=== PATIENT | male | born 1960 | race Caucasian/White ===

== ENCOUNTER 2024-07-08 20:33 | Emergency (ER) | payer BC ==
[~2024-07-08] VITALS: Ht 167.6 cm; Wt 111.1 kg
[2024-07-08 20:34] VITALS: BP 146/88; PULSE 103; RESP 20; TEMP 100.3
--- NOTE | 2024-07-08 20:40 | NUR ---
COVID, FLU AND STREP SWABS COLLECTED AND SENT FOR ANY FUTURE ORDERS
--- NOTE | 2024-07-08 21:17 | ERN ---
General Chief Complaint: Fever Stated Complaint: SOB, FEVER, COUGH Time Seen by MD: 20:39 Source: patient History of Present Illness Initial Comments Patient is a 63-year-old male with a history of aortic valve replacement and is hypervigilant about any kind of infection. He comes in with 24 hours of fever cough shortness of breath and associated nausea. He measured his temperature at home at 1.02.5 it is here measured at 100.3. His heart rate is 103. Saturating well on room air. Allergies: Coded Allergies: No Known Allergies (Unverified Allergy, Unknown, 07/08/24) Past Medical History Past Medical History: No Pertinent History Past Surgical History: Other Surgical History Other: AORTIC VALVE IN 1993 Constitutional: (+) chills, (+) diaphoresis, (+) fever, (+) malaise, (+) weakness, (+) other documentation EENTM: (-) eye pain, (-) blurred vision, (-) tearing, (-) double vision, (-) ear pain, (-) ear discharge, (-) nose pain, (-) nose congestion, (-) throat pain, (-) Throat swelling, (-) mouth pain, (-) tooth pain, (-) mouth swelling, (-) other documentation Respiratory: (+) cough, (+) orthopnea, (+) short of breath, (+) stridor, (+) wheezing, (+) other documentation Cardiovascular: (-) chest pain, (-) edema, (-) palpitations, (-) syncope, (-) dyspnea on exertion, (-) other documentation Gastrointestinal/Abdominal: (+) nausea Musculoskeletal: (-) Neck pain, (-) back pain, (-) Flank Pain, (-) joint pain, (-) joint swelling, (-) muscle pain, (-) muscle stiffness, (-) gout, (-) other documentation Neuro: (-) altered mental status, (-) headache, (-) syncope, (-) paralysis, (-) numbness, (-) seizure, (-) pre-existing deficit, (-) tremors, (-) weakness, (-) dizziness, (-) slurred speech, (-) vertigo, (-) other documentation Physical Exam General Appearance: (+) mild distress Orientation: (+) alert Head/Face Trauma: No Eye: bilateral eye normal inspection, bilateral eye PERRL, bilateral eye EOMI Ear, Nose, Throat: (+) hearing grossly normal, (+) normal ENT inspection, (+) moist mucous membraine Neck: (+) normal inspection, (+) supple Respiratory: (+) chest non-tender, (+) lungs clear, (+) well ventilated Heart: (+) regular, (+) no gallop Gastrointestinal: (+) soft, (+) non-tender, (+) bowel sound present Results Laboratory and Microbiology Lab and Micro Result Laboratory Tests Test 07/08/24 20:40 07/08/24 21:30 Influenza Type A Antigen Negative For Type A Influenza Type B Antigen Negative For Type B SARS-CoV-2 Antigen (Rapid) PRESUMPTIVE NEGATIVE Group A Streptococcus Rapid negative (NEGATIVE) White Blood Count 12.5 K/uL (4.8-10.8) H Red Blood Count 5.09 MIL/uL (4.50-6.20) Hemoglobin 15.2 g/dL (14.0-18.0) Hematocrit 44.3 % (42-54) Mean Corpuscular Volume 87.0 fL (79-99) Mean Corpuscular Hemoglobin 29.9 pg (27.0-33.0) Mean Corpuscular Hemoglobin Concent 34.3 g/dL (32.0-36.0) Red Cell Distribution Width 13.0 % (11.0-15.5) Platelet Count 174 K/uL (130-400) Mean Platelet Volume 9.4 fL (7.5-10.5) Immature Granulocyte % (Auto) 0.4 % (0-1) Neutrophils (%) (Auto) 84.4 % (40.0-77.0) H Lymphocytes (%) (Auto) 7.7 % (21.0-51.0) L Monocytes (%) (Auto) 6.7 % (3.0-13.0) Eosinophils (%) (Auto) 0.6 % (0.0-8.0) Basophils (%) (Auto) 0.2 % (0.0-5.0) Neutrophils # (Auto) 10.6 K/uL (1.8-7.7) H Lymphocytes # (Auto) 1.0 K/uL (1.0-4.8) Monocytes # (Auto) 0.8 K/uL (0.1-1.0) Eosinophils # (Auto) 0.08 K/uL (0.00-0.70) Basophils # (Auto) 0.02 K/uL (0.00-0.20) Absolute Immature Granulocyte (auto 0.05 K/uL (0-1) Nucleated Red Blood Cells 0.0 % (0.0-0.19) White Cell Morphology Comment See comments MDM Patient has signs and symptoms of an upper respiratory tract infection. I will give him fluid nasal swabs chest x-ray UA. Patient's chest x-ray is pristine. Patient's viral swabs are negative for strep influenza B and COVID. I discussed with him the test results and we both felt that it was a respiratory tract infection most likely viral and that he should just take care of himself for the next few days. If things get worse he should return. ED Course Orders Procedure Category Date Status Time Chest 1vw RAD 07/08/24 Taken 21:18 Rapid (Group A Strep) LAB 07/08/24 Complete 21:18 Covid19 (Sars Antigen LAB 07/08/24 Complete Rapid) 21:18 Influenza Type A & B, LAB 07/08/24 Complete Rapid 21:18 Cbc With Differential LAB 07/08/24 Complete 21:18 Lactated Ringers PHA 07/08/24 In Process 1000ml (Lactated 21:30 Urinalysis Profile LAB 07/08/24 Logged 21:18 12 Lead Ekg Tracing- EKG 07/08/24 Complete Technical 21:18 RSV LAB 07/08/24 In Process 22:16 Current Medications Medications (Trade) Dose Ordered Sig/Hank Route PRN Reason Start Time Stop Time Status Last Admin Dose Admin Lactated Ringer's (Lactated Ringers 1000ml) 1,000 ml BOLUS IV 07/08/24 21:30 08/07/24 21:29 Vital Signs Date Time Temp Pulse Resp B/P (MAP) Pulse Ox O2 Delivery O2 Flow Rate FiO2 07/08/24 20:34 100.2 103 20 146/88 97 Room Air DX & DISP Disposition: Discharge Departure Impression: Primary Impression: URTI (acute upper respiratory infection) Condition: Stable Additional Instructions: Please return to the emergency room if your condition does not improve or if it declines precipitously. Drink plenty of fluids Tylenol for fever Robitussin for sore throat. NAHUM FRIEND MD Jul 08, 2024 21:17
[2024-07-08] MEDS ORDERED: LACTATED RINGERS 1000ML IV SCH (21:30)
[2024-07-08 21:36] LABS: RAPID GROUP A STREP negative (NEGATIVE)
[2024-07-08 21:36] LABS: BASOPHILS # (AUTO) 0.02 K/uL (0.00-0.20); BASOPHILS % (AUTO) 0.2 % (0.0-5.0); EOSINOPHILS # (AUTO) 0.08 K/uL (0.00-0.70); EOSINOPHILS % (AUTO) 0.6 % (0.0-8.0); HEMATOCRIT 44.3 % (42-54); IMMATURE GRANULOCYTE ABSOLUTE 0.05 K/uL (0-1); LYMPHOCYTES % (AUTO) 7.7 % (21.0-51.0); MEAN CORPUSCULAR HEMOGLOBIN 29.9 pg (27.0-33.0); MEAN CORPUSCULAR HGB CONC 34.3 g/dL (32.0-36.0); MONOCYTES # (AUTO) 0.8 K/uL (0.1-1.0); MONOCYTES % (AUTO) 6.7 % (3.0-13.0); NEUTROPHILS # (AUTO) 10.6 K/uL (1.8-7.7); NEUTROPHILS % (AUTO) 84.4 % (40.0-77.0); PLATELET COUNT (AUTO) 174 K/uL (130-400); RED BLOOD CELL COUNT(AUTO) 5.09 MIL/uL (4.50-6.20); WHITE BLOOD COUNT (AUTO) 12.5 K/uL (4.8-10.8)
--- NOTE | 2024-07-08 21:49 | EKG ---
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
[2024-07-08 21:50] LABS: INFLUENZA TYPE A Negative For Type A (NEGATIVE); INFLUENZA TYPE B Negative For Type B (NEGATIVE)
[2024-07-08 22:00] LABS: COVID19 (SARS ANTIGEN RAPID) PRESUMPTIVE NEGATIVE (NEGATIVE)
--- NOTE | 2024-07-08 22:17 | NUR ---
RSV RECOLLECTED AND SENT
--- NOTE | 2024-07-08 23:06 | NUR ---
CALLED, NO ANSWER
--- NOTE | 2024-07-08 23:08 | NUR ---
CALLED FOR DISCHARGE AND DISCHARGE V/S. NO ANSWER
--- NOTE | 2024-07-08 23:12 | NUR ---
DAVID BURNETT AWARE OF PT ELOPEMENT
--- NOTE | 2024-07-09 08:11 | HMCIMG ---
PORTABLE CHEST RADIOGRAPH INDICATION: COUGH / CONGESTION COMPARISON: None FINDINGS: Median sternotomy wires are in appropriate alignment. Heart size is normal. The pulmonary vascularity and yulisa appear normal. No abnormal pulmonary parenchymal opacity or consolidation identified. No significant pleural effusion noted. No pneumothorax detected. IMPRESSION: No radiographic evidence for any acute cardiopulmonary process.
== END 2024-07-08 23:21 | disposition home or self-care (01) ==
LOC: EDH 20:33
DX: J06.9 Acute upper respiratory infection, unspecified (principal); Z20.822 Contact with and (suspected) exposure to COVID-19; Z98.890 Other specified postprocedural states
CPT/HCPCS: 36415; 71045; 85025; 87420; 87426; 87804; 87807; 87880; 93005; 99284

== ENCOUNTER 2024-07-14 13:15 | Emergency (ER) | payer BC ==
[~2024-07-14] VITALS: Ht 167.6 cm; Wt 111.1 kg
--- NOTE | 2024-07-14 13:32 | EKG ---
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
[2024-07-14 13:47] LABS: BASOPHILS # (AUTO) 0.03 K/uL (0.00-0.20); BASOPHILS % (AUTO) 0.4 % (0.0-5.0); EOSINOPHILS # (AUTO) 0.38 K/uL (0.00-0.70); EOSINOPHILS % (AUTO) 5.4 % (0.0-8.0); HEMATOCRIT 41.8 % (42-54); IMMATURE GRANULOCYTE ABSOLUTE 0.04 K/uL (0-1); LYMPHOCYTES # (AUTO) 1.8 K/uL (1.0-4.8); LYMPHOCYTES % (AUTO) 25.8 % (21.0-51.0); MEAN CORPUSCULAR HEMOGLOBIN 29.3 pg (27.0-33.0); MEAN CORPUSCULAR HGB CONC 34.2 g/dL (32.0-36.0); MEAN CORPUSCULAR VOLUME 85.7 fL (79-99); MONOCYTES # (AUTO) 0.6 K/uL (0.1-1.0); MONOCYTES % (AUTO) 8.1 % (3.0-13.0); NEUTROPHILS # (AUTO) 4.2 K/uL (1.8-7.7); NEUTROPHILS % (AUTO) 59.7 % (40.0-77.0); PLATELET COUNT (AUTO) 230 K/uL (130-400); RED BLOOD CELL COUNT(AUTO) 4.88 MIL/uL (4.50-6.20); RED CELL DISTRIBUTION WIDTH 12.8 % (11.0-15.5)
[2024-07-14 13:54] LABS: POTASSIUM 4.5 mmol/L (3.5-5.1)
[2024-07-14 14:06] LABS: B-TYPE NATRIURETIC PEPTIDE 79 pg/mL (0-100)
[2024-07-14 14:14] LABS: PROTHROMBIN TIME 42.6 SEC (9.6-11.6)
[2024-07-14 14:15] LABS: INR 4.68 (0.85-1.15)
[2024-07-14] MEDS ORDERED: PRED5TAB PO (15:06)
[2024-07-14] MEDS ORDERED: ALBU18HF7 IH (15:06)
--- NOTE | 2024-07-14 15:07 | ERN ---
General Chief Complaint: Congestion Stated Complaint: RETURNING PT Time Seen by MD: 13:16 Source: patient History of Present Illness Initial Comments 63-YEAR-OLD MALE COMING IN DUE TO COUGH. PATIENT STATES THAT HE WAS RECENTLY SEEN IN THE EMERGENCY ROOM WAS TOLD THAT HE COULD FOLLOW UP OUTPATIENT THERE WAS NOT AN ELEVATED WHITE BLOOD CELL COUNT AND STATES THAT HE HAD A MILD PNEUMONIA WHICH WAS TOLD TO HIM. HE STATES THAT THE COUGH HAS BEEN GETTING BETTER BUT IT WAS STILL PRESENT. HE ALSO STATES HE NO LONGER HAS A FEVER. Allergies: Coded Allergies: No Known Allergies (Unverified Allergy, Unknown, 07/08/24) Past Medical History Past Medical History: No Pertinent History Past Surgical History: Other Surgical History Other: AORTIC VALVE IN 1993 ROS Dictation CONSTITUTIONAL: NO CHILLS, NO FEVER, NO WEAKNESS, NO DIAPHORESIS, NO MALAISE. HEAD/FACE: NO SIGNS OF TRAUMA. EENT: NO EYE PAIN, NO BLURRED VISION, NO TEARING, NO DOUBLE VISION, NO EAR PAIN, NO EAR DISCHARGE, NO NOSE PAIN, NO NASAL CONGESTION, NO THROAT PAIN, NO THROAT SWELLING, NO MOUTH PAIN. RESPIRATORY: NO COUGH, NO ORTHOPNEA, NO SOB, NO STRIDOR, WHEEZING. CARDIOVASCULAR: NO CHEST PAIN, NO EDEMA, NO PALPITATIONS, NO SYNCOPE. GASTROINTESTINAL/ABDOMINAL: NO ABDOMINAL PAIN, NO CONSTIPATION, NO DIARRHEA, NO NAUSEA, NO VOMITING. GENITOURINARY: NO ABNORMAL DISCHARGE, NO DYSURIA, NO FREQUENT URINATION, NO HEMATURIA. NO COMPLAINTS OF PAIN IN THE GENITALS. MUSCULOSKELETAL: NO BACK PAIN, NO GOUT, NO JOINT PAIN, NO JOINT SWELLING, NO MUSCLE PAIN, NO MUSCLE STIFFNESS, NO NECK PAIN. INTEGUMENTARY: NO CHANGE IN COLOR, NO CHANGE IN HAIR/NAILS, NO DRYNESS, NO LESION, NO LUMPS, NO RASH. NEUROLOGICAL/PSYCH: NO ANXIETY, NOT DEPRESSED, NO EMOTIONAL PROBLEM, NO HEADACHE, NO NUMBNESS, NO PRE-EXISTING DEFICIT, NO HISTORY OF SEIZURES, NO TREMORS, NO WEAKNESS. HEMATOLOGIC/LYMPHATIC: NOT ANEMIC, NO HISTORY OF BLOOD CLOTS, NO APPARENT BLEEDING, NO BRUISING, GLANDS NOT SWOLLEN. ALL SYSTEMS NEGATIVE, EXCEPT NOTED. Physical Exam Physical Exam Dictation VITAL SIGNS: REVIEWED. GENERAL APPEARANCE: ALERT, ORIENTED X3, NO ACUTE DISTRESS, OBESE. HEAD AND FACE: NON-TRAUMATIC. EYES: PERRL, PINK CONJUNCTIVAS, EYELID NO TRAUMA, ANTERIOR CHAMBER CLEAR. EARS: PINNAS INTACT AND NO SIGNS OF TRAUMA OR ERYTHEMA. EAR CANALS CLEAR AND NO DISCHARGE. TMS NO ERYTHEMA. NOSE: NO DISCHARGE, NO BLEEDING. OROPHARYNX: MOUTH NORMAL, TEETH NO CARIES, TONGUE PINK. PHARYNX CLEAR, NO ERYTHEMA. TONSILS NO EXUDATES, NO ABSCESSES NOTED. MUCOUS MEMBRANE MOIST. NECK: SUPPLE, NON-TENDER, NO THYROMEGALY, NO MASSES, NO JVD, NO BRUITS. BREAST: DEFERRED. CHEST: NO TENDERNESS, NO CREPITUS, NO PARADOXICAL MOVEMENT, NO RETRACTIONS. LUNGS: CLEAR, WELL-VENTILATED, SYMMETRIC, NO RALES, WHEEZING, NO RHONCHI, NO STRIDOR, GOOD BREATH SOUNDS BILATERALLY. HEART: REGULAR RATE, REGULAR RHYTHM, NO MURMUR, NO GALLOPS. VASCULAR: NO PERIPHERAL EDEMA. ABDOMEN: SOFT, POSITIVE BOWEL SOUNDS, NONDISTENDED, NO GUARDING, NONTENDER, NO REBOUND, NO MASSES NO HEPATOMEGALY, NO SPLENOMEGALY, NO PRICE'S SIGN, NO HERNIAS. RECTAL: DEFERRED. GENITAL: DEFERRED. NEUROLOGICAL: NORMAL SPEECH, GROSS MOTOR FUNCTION INTACT, GROSS SENSORY FUNCTION INTACT. MUSCULOSKELETAL: NECK NONTENDER, FULL RANGE OF MOTION, BACK NONTENDER, FULL RANGE OF MOTION. EXTREMITIES: NONTENDER, FULL RANGE OF MOTION. SKIN: COLOR PINK, DRY, NO TURGOR, NO RASH, NO LACERATIONS, NO ABRASIONS, NO CONTUSIONS. LYMPHATICS: DEFERRED. Results Laboratory and Microbiology Lab and Micro Result Laboratory Tests Test 07/14/24 13:40 White Blood Count 7.0 K/uL (4.8-10.8) Red Blood Count 4.88 MIL/uL (4.50-6.20) Hemoglobin 14.3 g/dL (14.0-18.0) Hematocrit 41.8 % (42-54) L Mean Corpuscular Volume 85.7 fL (79-99) Mean Corpuscular Hemoglobin 29.3 pg (27.0-33.0) Mean Corpuscular Hemoglobin Concent 34.2 g/dL (32.0-36.0) Red Cell Distribution Width 12.8 % (11.0-15.5) Platelet Count 230 K/uL (130-400) Mean Platelet Volume 9.3 fL (7.5-10.5) Immature Granulocyte % (Auto) 0.6 % (0-1) Neutrophils (%) (Auto) 59.7 % (40.0-77.0) Lymphocytes (%) (Auto) 25.8 % (21.0-51.0) Monocytes (%) (Auto) 8.1 % (3.0-13.0) Eosinophils (%) (Auto) 5.4 % (0.0-8.0) Basophils (%) (Auto) 0.4 % (0.0-5.0) Neutrophils # (Auto) 4.2 K/uL (1.8-7.7) Lymphocytes # (Auto) 1.8 K/uL (1.0-4.8) Monocytes # (Auto) 0.6 K/uL (0.1-1.0) Eosinophils # (Auto) 0.38 K/uL (0.00-0.70) Basophils # (Auto) 0.03 K/uL (0.00-0.20) Absolute Immature Granulocyte (auto 0.04 K/uL (0-1) Nucleated Red Blood Cells 0.0 % (0.0-0.19) Prothrombin Time 42.6 SEC (9.6-11.6) *H Prothromb Time International Ratio 4.68 (0.85-1.15) *H Sodium Level 139 mmol/L (136-145) Potassium Level 4.5 mmol/L (3.5-5.1) Chloride Level 102 mmol/L (101-111) Carbon Dioxide Level 35 mmol/L (21-32) H Blood Urea Nitrogen 12 mg/dL (7-18) Creatinine 1.0 mg/dL (0.5-1.3) Glomerular Filtration Rate Calc 84 mL/min (>90) Random Glucose 93 mg/dL (70-105) Total Calcium 9.0 mg/dL (8.5-10.1) Troponin I High Sensitivity 12 ng/L (4-75) B-Type Natriuretic Peptide 79 pg/mL (0-100) Labs Reviewed?: Yes EKG/XRAY/US/CT/MRI EKG Comment 07/14/2024 TIME 1:29 P.M. VENTRICULAR RATE 67 SINUS RHY[address]M [place] [address] WAVE ELEVATION OR DEPRESSION X-RAY Comment CHEST X-RAY-NAD MDM MDM: DIFFERENTIAL DIAGNOSIS: URI, COUGH, PNEUMONIA, RATIONALE: TESTS CONSIDERED AND ORDERED SECONDARY TO SHARED DECISION MAKING INC SOULEYMANE: PREVIOUS OUTSIDE RECORDS REVIEWED: OLD ER VISITS. RISK OF COMPLICATION AND/OR MORBIDITY OR MORTALITY OF PATIENT MANAGEMENT: NONE PATIENT IS A 63-YEAR-OLD MALE COMING IN TO BE EVALUATED FOR COUGH. PATIENT STATES HE WAS RECENTLY SEEN HERE AND TOLD HE HAD ELEVATED WHITE BLOOD CELL COUNT. LABORATORY WORKUP IMPROVED SIGNIFICANTLY CHEST X-RAY DID NOT DISCLOSE ACUTE FINDINGS ON PHYSICAL EXAM THERE WAS WHEEZING BILATERAL LUNG MOORE PATIENT RECEIVED SOME BREATHING TREATMENTS WELL SOME STEROIDS WE WILL BE DISCHARGED IN STABLE CONDITION WITH A DIAGNOSIS OF URI WITH WHEEZING. DID ADVISED HIM APPROPRIATE FOLLOW UP WITH PCP IN 1-2 DAYS FOR ED Course Orders Procedure Category Date Status Time Cbc With Differential LAB 07/14/24 Complete 13:24 Prothrombin Time With LAB 07/14/24 Complete INR 13:24 B-Type Natriuretic LAB 07/14/24 Complete Peptide 13:24 Chest 1vw RAD 07/14/24 Taken 13:24 12 Lead Ekg Tracing- EKG 07/14/24 Complete Technical 13:24 Troponin I High LAB 07/14/24 Complete Sensitivity 13:24 Urinalysis Profile LAB 07/14/24 Logged 13:24 Basic Metabolic Panel LAB 07/14/24 Complete 13:24 Methylprednisolone PHA 07/14/24 Verified Succ 125mg (Solu-Medr 15:30 Ipratropium/Albuterol PHA 07/14/24 Verified Neb (Duoneb) 15:30 Vital Signs Date Time Temp Pulse Resp B/P (MAP) Pulse Ox O2 Delivery O2 Flow Rate FiO2 07/14/24 13:53 72 18 135/79 97 Room Air* 0 21 07/14/24 13:24 98.1 69 16 144/94 96 Room Air DX & DISP Disposition: Discharge Departure Impression: Primary Impression: URI (upper respiratory infection) Condition: Stable Scripts Albuterol Sulfate (Ventolin Hfa) 90 Mcg Hfa.aer.ad 2 PUFF IH Q4HPRN PRN for wheezing for 30 Days, #18 GM 0 Refills Prov: TRISTEN BOYLE MD 07/14/24 Prednisone (Prednisone) 5 Mg Tablet 1 TAB PO BID for 5 Days, #10 TAB 0 Refills Prov: TRISTEN BOYLE MD 07/14/24 Additional Instructions: FOLLOW-UP WITH PRIMARY CARE PROVIDER IN 1 TO 2 DAYS. TAKE MEDICATIONS DIRECTED HERE IN THE EMERGENCY ROOM. OKAY TO CONTINUE HOME MEDICATIONS UNLESS OTHERWISE DISCUSSED DURING YOUR VISIT IN THE EMERGENCY ROOM TODAY. RETURN TO YOUR NEAREST EMERGENCY ROOM IF SYMPTOMS WORSEN OR IF THERE IS NO IMPROVEMENT. CALL 911 IF YOU NEED IMMEDIATE ASSISTANCE. TAKE TYLENOL [id number] NEEDED AND IF NO CONTRAINDICATIONS ARE PRESENT. INCREASE ORAL HYDRATION. A WOUND CULTURE OR URINE CULTURE WAS ORDERED HERE IN THE EMERGENCY ROOM DEPARTMENT PLEASE FOLLOW-UP WITH PRIMARY CARE PROVIDER AND ADVISE THEM TO GET REPEAT PORTS FROM OUR FACILITY. IF YOU HAD ANY JESSICA WRAP/SPLINTS THAT WERE APPLIED HERE, PLEASE DO NOT REMOVE THEM UNTIL YOU SEE YOUR PRIMARY CARE OR SPECIALTY. REFERRALS: Referrals: SELF,REFERRAL (PCP) PATRICIA FORRESTER MD Time of Disposition: 15:05 TRISTEN BOYLE MD Jul 14, 2024 15:07
[2024-07-14] MEDS: Solu-medROL 125MG VIAL IM ONE (15:17)
[2024-07-14 15:24] VITALS: PULSE 75; RESP 20
[2024-07-14] MEDS: IpraTROPium/alBUTERol SULFATE 3 ML SOLUTION IH ONE (15:24)
[2024-07-14 15:49] VITALS: BP 132/78; PULSE 75; RESP 20; TEMP 98.1; O2SAT 96
--- NOTE | 2024-07-14 15:51 | HMCIMG ---
CHEST 1VW HISTORY: Cough COMPARISON: 07/08/2024 FINDINGS: A frontal projection of the chest was obtained. No acute pulmonary infiltrates is seen. The heart is normal in size. Prominent interstitial markings are seen. Degenerative changes are seen. IMPRESSION: 1. No acute pulmonary infiltrate is seen.
== END 2024-07-14 15:50 | disposition home or self-care (01) ==
LOC: EDH 13:15
DX: J06.9 Acute upper respiratory infection, unspecified (principal); Z79.01 Long term (current) use of anticoagulants; Z98.890 Other specified postprocedural states
CPT/HCPCS: 99284; 71045; 84484; 80048; 83880; 85025; 85610; 36415; 96372; 93005; 94640; J2919

== ENCOUNTER 2024-10-31 11:18 | Inpatient (IN) | payer BC, MEDICARE ==
[2024-10-31] VITALS (28 sets, daily range): BP systolic 90–141; BP diastolic 52–88; PULSE 72–86; RESP 11–23; TEMP 99.2–99.5; O2SAT 99–100
[~2024-10-31] VITALS: Ht 170.2 cm; Wt 117.5 kg
[~2024-10-31 11:18] MED LIST: ALBU18HF7 IH; CLON2TAB21 PO; ENOX100D4 SQ; PRED5TAB PO; WARF-57 PO; WARF7.5T49 PO
--- NOTE | 2024-10-31 11:38 | EKG ---
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
[2024-10-31 12:09] LABS: IMMATURE GRANULOCYTE ABSOLUTE 0.08 K/uL (0-1); NUCLEATED RED BLOOD CELLS 0.0 % (0.0-0.19); PLATELET COUNT (AUTO) 252 K/uL (130-400); RED BLOOD CELL COUNT(AUTO) 3.50 MIL/uL (4.50-6.20); RED CELL DISTRIBUTION WIDTH 13.6 % (11.0-15.5); WHITE BLOOD COUNT (AUTO) 18.6 K/uL (4.8-10.8)
[2024-10-31] MEDS ORDERED: VANCOMYCIN PROTOCOL PER PHARMACY IV SCH (12:30)
--- NOTE | 2024-10-31 12:32 | ERN ---
General Chief Complaint: Shortness of Breath Stated Complaint: COUGH, FLU SYMPTOMS Time Seen by MD: 11:34 Time Seen by Midlevel: 11:34 Source: patient History of Present Illness Initial Comments The patient is a 64-year-old male with a past medical history of hypertension, and aortic valve replacement presenting to the emergency department for evaluation of flu-like symptoms that has been ongoing for one week. The patient reports developing cough and hemoptysis yesterday that worsened today. He does report being on warfarin for an aortic valve that was replaced back in 1993. His last INR was checked two weeks ago. Per EMS the patient had an O2 saturation of 70% on room air. On arrival with the patient has dry blood to his mouth. The patient does report some associated chest pain with coughing. Allergies: Coded Allergies: No Known Allergies (Unverified Allergy, Unknown, 07/08/24) Home Meds Active Scripts Enoxaparin Sodium (Lovenox 100Mg) 100 Mg/Ml Disp.syrin, 100 MG SQ BID for 10 Days, #20 DIS.SYR 1 Refill Prov:VIC DICKEY MD 09/12/24 Albuterol Sulfate (Ventolin Hfa) 90 Mcg Hfa.aer.ad, 2 PUFF IH Q4HPRN PRN for wheezing for 30 Days, #18 GM 0 Refills Prov:TRISTEN BOYLE MD 07/14/24 Prednisone (Prednisone) 5 Mg Tablet, 1 TAB PO BID for 5 Days, #10 TAB 0 Refills Prov:TRISTEN BOYLE MD 07/14/24 Reported Medications Clonazepam (Clonazepam) 2 Mg Tab.rapdis, 1 TAB PO HS for 30 Days, #30 TAB 0 Refills 09/08/24 Warfarin Sodium (Warfarin Sodium) 7.5 Mg Tablet, 7.5 MG PO AD, TAB 09/08/24 Warfarin Sodium (Warfarin Sodium) 5 Mg Tablet, 5 MG PO AD, TAB 09/08/24 Past Medical History Past Medical History: CAD Past Surgical History: Other Surgical History Other: AORTIC VALVE REPLACEMENT ROS Dictation CONSTITUTIONAL: Negative except for HPI HEAD/FACE: Negative except for HPI EENT: Negative except for HPI RESPIRATORY: Negative except for HPI GASTROINTESTINAL/ABDOMINAL: Negative except for HPI GENITOURINARY: Negative except for HPI MUSCULOSKELETAL: Negative except for HPI INTEGUMENTARY: Negative except for HPI NEUROLOGICAL/PSYCH: Negative except for HPI HEMATOLOGIC/LYMPHATIC: Negative except for HPI All Systems Negative, Except as noted above. 13 point review of systems assessed and all negative except for above. Physical Exam Physical Exam Dictation Vital Signs reviewed General Appearance: Alert, oriented x 3, no acute distress, febrile, pale Head and Face: non-traumatic. Eyes: PERRL, pink conjunctivas, eyelid no trauma, anterior chamber with arcus senilis. Ears: Pinnas intact and no signs of trauma or erythema ear canals clear and no discharge TM no erythema Nose: No discharge, no bleeding. Oropharynx: Mouth normal, tongue pink, pharynx clear,no erythema, tonsils no exudates, no abscesses noted, dry mucous membranes Neck: Supple, non-tender, no thyromegaly, no masses, no JVD, no bruits Breast:Deferred Chest:No tenderness, no crepitus, no paradoxical movement, no retractions Lungs:Clear, well-ventilated, symmetric, no rales, no wheezing, no rhonchi, no stridor, good breath sounds bilaterally Heart: Regular rate, regular rhythm, no murmur, no gallops Vascular: no peripheral edema, Abdomen: Soft, positive bowel sounds, nondistended, no guarding, nontender, no rebound, no masses no hepatomegaly, no splenomegaly, no Hernandez's sign, no hernias. Rectal: Deferred Genital: Deferred Neurological: Normal speech, motor function intact, sensory function intact Musculoskeletal: Neck nontender, full range of motion, back nontender, full range of motion, Extremities: nontender, full range of motion Skin: Color pink, dry, no turgor, no rash, no lacerations, no abrasions, no contusions. Dry blood noted to the mouth. Lymphatic: Deferred Results Laboratory and Microbiology Lab and Micro Result Laboratory Tests Test 10/31/24 12:04 10/31/24 12:14 White Blood Count 18.6 K/uL (4.8-10.8) H Red Blood Count 3.50 MIL/uL (4.50-6.20) L Hemoglobin 10.1 g/dL (14.0-18.0) L Hematocrit 30.4 % (42-54) L Mean Corpuscular Volume 86.9 fL (79-99) Mean Corpuscular Hemoglobin 28.9 pg (27.0-33.0) Mean Corpuscular Hemoglobin Concent 33.2 g/dL (32.0-36.0) Red Cell Distribution Width 13.6 % (11.0-15.5) Platelet Count 252 K/uL (130-400) Mean Platelet Volume 9.1 fL (7.5-10.5) Immature Granulocyte % (Auto) 0.4 % (0-1) Neutrophils (%) (Auto) 92.5 % (40.0-77.0) H Lymphocytes (%) (Auto) 2.6 % (21.0-51.0) L Monocytes (%) (Auto) 4.4 % (3.0-13.0) Eosinophils (%) (Auto) 0.0 % (0.0-8.0) Basophils (%) (Auto) 0.1 % (0.0-5.0) Neutrophils # (Auto) 17.2 K/uL (1.8-7.7) H Lymphocytes # (Auto) 0.5 K/uL (1.0-4.8) L Monocytes # (Auto) 0.8 K/uL (0.1-1.0) Eosinophils # (Auto) 0.00 K/uL (0.00-0.70) Basophils # (Auto) 0.02 K/uL (0.00-0.20) Absolute Immature Granulocyte (auto 0.08 K/uL (0-1) Nucleated Red Blood Cells 0.0 % (0.0-0.19) Prothrombin Time 90.0 SEC (9.6-11.6) *H Prothromb Time International Ratio > 8.00 (0.85-1.15) *H Activated Partial Thromboplast Time 87.9 SEC (26.3-35.5) H Sodium Level 140 mmol/L (136-145) Potassium Level 4.7 mmol/L (3.5-5.1) Chloride Level 106 mmol/L (101-111) Carbon Dioxide Level 26 mmol/L (21-32) Blood Urea Nitrogen 23 mg/dL (7-18) H Creatinine 1.4 mg/dL (0.5-1.3) H Glomerular Filtration Rate Calc 56 mL/min (>90) Random Glucose 139 mg/dL (70-105) H Total Calcium 8.3 mg/dL (8.5-10.1) L Troponin I High Sensitivity 299 ng/L (4-75) *H Influenza Type A Antigen Negative For Type A Influenza Type B Antigen Negative For Type B SARS-CoV-2, RNA, NAAT NEGATIVE SARS CoV-2 Labs Reviewed?: Yes MDM MDM: The patient is a 64-year-old male with a past medical history of hypertension, and aortic valve replacement presenting to the emergency department for evaluation of flu-like symptoms that has been ongoing for one week. The patient reports developing cough and hemoptysis yesterday that worsened today. He does report being on warfarin for an aortic valve that was replaced back in 1993. His last INR was checked two weeks ago. Per EMS the patient had an O2 saturation of 70% on room air. On arrival with the patient has dry blood to his mouth. The patient does report some associated chest pain with coughing. On physical examination patient has dry blood to his mouth and right side of his face. His vital signs on arrival reveal a temperature of 101.1 with a blood pressure of 88/60. O2 saturation is 95% on 2 L of oxygen. CBC shows leukocytosis with a left shift. There is anemia with a hemoglobin of 10.1. Sepsis alert was called overhead. Chest x-ray reveals pulmonary infiltrates in the right lung concerning for aspiration pneumonia. The patient was started on vancomycin and Zosyn. Differential diagnosis: Upper GI bleed, aspiration pneumonia, sepsis Rationale: Tests considered and ordered secondary to shared decision making include: Previous outside records reviewed: Old ER visits. Risk of complication and/or morbidity or mortality of patient management: None Medications-Per medication reconciliation Need for hospitalization: Patient does meet criteria for hospitalization. Need for emergency major/minor surgery: No There are no social concerns with this patient. Prescription drug management Prescriptions will include symptomatic care Patient's prior external medical records from other ER visits were reviewed by me as indicated. Prior testing and results from previous visits were reviewed. Prior tests were taken into account with medical decision making and resource utilization, independent historian/historians were used to obtain complete medical history. I independently interpreted the test that were performed, results were reviewed by me and considered findings on radiology if ordered. Medical management and examination interpretation discussions were had by me with other qualified healthcare professionals as indicated for the patient's care. ED Course Orders Procedure Category Date Status Time Cbc With Differential LAB 10/31/24 In Process 11:32 Basic Metabolic Panel LAB 10/31/24 Complete 11:32 12 Lead Ekg Tracing- EKG 10/31/24 Complete Technical 11:32 Chest 1vw RAD 10/31/24 Taken 11:32 Troponin I High LAB 10/31/24 Complete Sensitivity 11:32 Urinalysis Profile LAB 10/31/24 Logged 11:32 Covid Rna Naat LAB 10/31/24 Complete 11:32 Influenza Type A & B, LAB 10/31/24 Complete Rapid 11:32 Pt And Ptt LAB 10/31/24 Complete 12:20 Type And Screen BBK 10/31/24 In Process 12:20 Vancomycin Protocol PHA 10/31/24 In Process (Vancomycin Protocol 12:30 Zosyn 3.375gm+Ns 50ml PHA 10/31/24 Complete (Zosyn 3.375gm+Ns 12:30 Occult Blood Stool LAB 10/31/24 Logged Single Only 12:20 Ct Chest/Abd/Pelv CT 10/31/24 Logged W/Conrast 12:20 0.9%Nacl 1000ml (Ns PHA 10/31/24 Complete 1000ml) 12:30 Vancomycin 2gm/500 Ml PHA 10/31/24 In Process Bag (Vancomycin 2g 13:00 Vancomycin 1.25 PHA 11/01/24 In Process Gm/250 Ml Bag 01:30 Blood Cult ERIC 10/31/24 Logged 12:41 0.9%Nacl 1000ml (Ns PHA 10/31/24 In Process 1000ml) 13:00 Phytonadione (Vitamin PHA 10/31/24 In Process K 10mg/1ml Adult V 13:00 Frozen Plasma BBK 10/31/24 In Process 12:43 Vancomycin Trough LAB 11/02/24 Verified 00:30 Morphine 2mg Syg PHA 10/31/24 In Process (Morphine 2mg Syg) 13:30 Ondansetron 4mg Inj PHA 10/31/24 In Process (Zofran 4mg Inj) 13:30 Current Medications Medications (Trade) Dose Ordered Sig/Hank Route PRN Reason Start Time Stop Time Status Last Admin Dose Admin Morphine Sulfate (morPHINE 2MG SYG) 2 mg ONCE ONCE IVP 10/31/24 13:30 10/31/24 13:31 Ondansetron HCl (zoFRAN 4MG INJ) 4 mg ONCE ONCE IVP 10/31/24 13:30 10/31/24 13:31 Phytonadione 10 mg/Sodium Chloride 51 ml @ 100 mls/hr ONCE ONCE IVPB 10/31/24 13:00 10/31/24 13:30 10/31/24 13:12 Piperacillin Sod/ Tazobactam Sod (Zosyn 3.375gm+NS 50ml) 3.375 gm ONCE ONCE IV 10/31/24 12:30 10/31/24 12:41 DC 10/31/24 12:43 Sodium Chloride 1,000 ml @ 0 mls/hr ONCE ONCE IV 10/31/24 12:30 10/31/24 12:41 DC 10/31/24 12:43 Sodium Chloride 1,983 ml @ 661 mls/hr ONCE ONCE IV 10/31/24 13:00 10/31/24 15:59 10/31/24 13:12 Vancomycin HCl 250 ml @ 125 mls/hr Q12H IV 11/01/24 01:30 11/11/24 01:29 Vancomycin HCl 500 ml @ 250 mls/hr ONCE ONCE IV 10/31/24 13:00 10/31/24 14:59 Vancomycin HCl (Vancomycin Protocol) 1 each AD IV 10/31/24 12:30 11/14/24 12:29 Vital Signs Date Time Temp Pulse Resp B/P (MAP) Pulse Ox O2 Delivery O2 Flow Rate FiO2 10/31/24 11:23 99.9 96 18 88/60 95 Nasal Cannula 6.0 Critical Care Note Critical Time: 45 minutes Comments Total critical care time: Approximately 45 minutes Due to a high probability of clinically significant, life threatening deterioration, the patient required my highest level of preparedness to intervene emergently and I personally spent this critical care time directly and personally managing the patient. This critical care time included obtaining a history; examining the patient; pulse oximetry; ordering and review of studies; arranging urgent treatment with development of a management plan; evaluation of patient's response to treatment; frequent reassessment; and, discussions with other providers. This critical care time was performed to assess and manage the high probability of imminent, life-threatening deterioration that could result in multi-organ failure. It was exclusive of separately billable procedures and treating other patients and teaching time. Please see MDM section and the rest of the note for further information on patient assessment and treatment. DX & DISP Disposition: Inpatient Departure Impression: Primary Impression: Sepsis Additional Impressions: Aspiration pneumonia, Supratherapeutic INR, Leukocytosis, Anemia Condition: Stable Referrals: SELF,REFERRAL (PCP) I have reviewed the case, and I agree with, Diagnosis and Plan I performed the substantive portion of the visit. I have reviewed and personally made and approve the management plan that is documented in the note by myself or the LEANDER. I acknowledge for responsibility for the patient's management plan. PATRICIA ROJAS Oct 31, 2024 12:32
[2024-10-31 12:38] LABS: CREATININE 1.4 mg/dL (0.5-1.3); GLOMERULAR FILTR. RATE CALC 56.0 mL/min (>90); GLUCOSE,RANDOM 139.0 mg/dL (70-105); SODIUM SERUM 140.0 mmol/L (136-145); UREA NITROGEN, BLOOD 23.0 mg/dL (7-18)
[2024-10-31] MEDS: ZOSYN 3.375GM +NS 50ML IV ONE (12:43)
[2024-10-31] MEDS: 0.9%NACL 1000ML 1,000 ML IV ONE (12:43)
[2024-10-31 12:44] LABS: INR > 8.00 (0.85-1.15)
[2024-10-31 12:50] LABS: SARS-CoV-2, RNA, NAAT NEGATIVE SARS CoV-2 (NEGATIVE)
[2024-10-31 12:54] LABS: INFLUENZA TYPE A Negative For Type A (NEGATIVE); INFLUENZA TYPE B Negative For Type B (NEGATIVE)
--- NOTE | 2024-10-31 13:09 | NUR ---
PHARMACY DELIVERED VITAMIN K AND VANCO AT THIS TIME./ADRIAN
[2024-10-31] MEDS: PHYTONADIONE 10 MG in 0.9%NACL 50ML 50 ML IVPB ONE (13:12)
[2024-10-31] MEDS: 0.9%NACL 1000ML 1,983 ML IV ONE (13:12)
--- NOTE | 2024-10-31 13:18 | HMCIMG ---
EXAM: CR CHEST, 1 VIEW CLINICAL HISTORY: 64-year-old male presents with shortness of breath and chest pain. COMPARISON: XR Chest 09/08/2024 TECHNIQUE: Single frontal radiograph of the chest was obtained. FINDINGS: Lines/Devices: None. Lungs: Large patchy consolidations are seen in the right upper lobe, right middle lobe, and right lower lobe, with airspace consolidations and air bronchograms consistent with pneumonia. These findings are new from the prior XR Chest 09/08/2024. A small right effusion is also new from the prior XR Chest 09/08/2024. Mediastinum and cardiovascular structures: The cardiac silhouette is not enlarged. The central airway and mediastinal contours are unremarkable. Bones and soft tissues: Unremarkable. IMPRESSION: 1. Large patchy consolidations in the right upper lobe, right middle lobe, and right lower lobe with air bronchograms, consistent with pneumonia. These findings are new from the prior XR Chest 09/08/2024. 2. Small right effusion, new from the prior XR Chest 09/08/2024. /[place]
[2024-10-31] MEDS: VANCOMYCIN 2GM/500 ML BAG 500 ML IV ONE (13:57)
[2024-10-31 14:30] LABS: ASPARTATE AMINOTRANSFERASE 25.0 U/L (10-37); TOTAL PROTEIN, SERUM 5.6 g/dL (6.0-8.3)
--- NOTE | 2024-10-31 14:30 | HMCIMG ---
EXAM: CR right Shoulder, 2 View. CLINICAL HISTORY: supratherapeutic INR, swelling of the right shoulder COMPARISON: None provided. FINDINGS: BONES: No acute fracture or aggressive appearing osseous lesion. JOINTS: No dislocation. Mild glenohumeral joint osteoarthritis. SOFT TISSUES: The soft tissues are unremarkable. Redemonstrated multifocal airspace disease throughout the right lung. IMPRESSION: 1. No acute osseous injury. 2. Multifocal airspace disease in the right lung. /[place]
[2024-10-31 14:32] LABS: APPEARANCE,URINE CLEAR (CLEAR); GLUCOSE, URINE (UA) NEGATIVE (NEGATIVE); LEUKOCYTE ESTERASE ,URINE NEGATIVE Leu/uL (NEGATIVE); NITRATE,URINE NEGATIVE (NEGATIVE); OCCULT BLOOD,URINE NEGATIVE (NEGATIVE)
[2024-10-31 14:42] LABS: ADD UA MICROSCOPIC YES
[2024-10-31 14:46] LABS: SQUAMOUS EPITHELIAL CELL,UR RARE /HPF (0-2)
--- NOTE | 2024-10-31 14:47 | HP ---
[facility] HISTORY AND PHYSICAL Date of Service: Oct 31, 2024 Time of Service: 14:36 HISTORY OF PRESENT ILLNESS: Date of service: 10/31/2024, patient was seen in ER room nine, patient is critically 64-year-old male with prior history of mechanical aortic valve which was replaced in 1993 maintained on chronic outpatient anticoagulation with warfarin, obesity, who presented to the ER for further evaluation of hemoptysis, chills, cough, and blood noted in the right ear. Patient states that about 12 days ago, he was visiting in [place], he had a mechanical fall with no syncope, patient was evaluated in ER and was found to have a nondisplaced left forearm ulnar fracture along which was treated conservatively. Patient had a CT done which was noted to be negative per patient. Patient states that over the last two days, he noticed that he was having chills, and yesterday night, he started having hemoptysis. Today he noticed that he was having bloody drainage from the right ear. Denies any headache, denies any focal weakness of upper or lower extremities. Denies any neck pain. Denies any new recent fall other than 12 days ago in [place] Denies chest pain other than with cough. He has been having generalized fatigue and malaise over the last two days. Denies exposure to sick contacts. Due to the hemoptysis, patient did not take warfarin yesterday. Usually he is on warfarin 5 mg daily other than on Thursday and Thursday when he takes 7.5 mg daily. Patient denies significant smoking, denies significant alcohol consumption and denies any illicit drug use. On presentation to the hospital, patient was noted to be febrile with T-max of 101.3 F, heart rate of 79, blood pressure of 83/42. Patient was initially needing 6 L of O2 supplementation by nasal cannula. Labs on presentation showed PT INR greater than 8, PTT of 87.9, [place] [address] with neutrophilia, hemoglobin of 10.1, platelet count of 267893. BMP showed sodium of 140, potassium 4.7, chloride of 106, BUN of 23, creatinine of 1.4, high sensitivity troponin of 299. Chest x-ray showed large right lung pneumonia. Patient will be admitted to ICU for further management of severe sepsis with hypotension which is improving with fluid resuscitation. Patient will receive broad-spectrum IV antibiotics. Patient has received IV vitamin K 10 mg by ER team already. patient is also planned to receive 2 units of FFP. Patient is pending CT head, CT chest, abdomen and pelvis for further evaluation, we will follow up results. Patient will be followed by ICU service, Cardiology Infectious Disease. Condition remains serious/critical. REVIEW OF SYSTEMS CONSTITUTIONAL: malaise, generalized weakness, fatigue NEUROLOGICAL: Denies headache, amaurosis fugax, motor weakness, sensory deficit, vertigo/spinning sensation, gait abnormalities, or tremors. ENT: No hearing loss, reports having noticed blood coming out of the right ear CARDIOVASCULAR: Denies any exertional angina, dyspnea on exertion, orthopnea, paroxysmal nocturnal dyspnea, palpitations, life-threatening arrhythmias, claudication. PULMONARY: reports having cough, congestion, SOB, patient reports having hemoptysis SLEEP: Denies morning headaches, daytime somnolence or napping. Denies difficulty falling asleep, staying asleep, waking from sleep. Denies knowledge of snoring. GASTROINTESTINAL: Denies any type of dysphagia to either liquids or solids. Denies nausea, vomiting, pyrosis, early satiety, abdominal pain, diarrhea, constipation, or changes in stool consistency or caliber. Denies coffee-ground emesis, hematemesis, hematochezia, or melanotic stools. GENITOURINARY: Denies frequency, urgency, nocturia, hematuria or incontinence (Storage/Irritative symptoms.) Low urinary stream, straining to void, urinary intermittency or hesitancy, splitting of the voiding stream, terminal dribbling. ENDOCRINOLOGIC: Denies polyuria, polydipsia, polyphagia or heat/cold intolerances. HEMATOLOGIC: reports having easy bruising ONCOLOGIC: Denies personal history of malignancy. DERMATOLOGIC: Denies rashes or pruritus. PSYCHIATRIC: Denies any suicidal or homicidal ideation. Denies hallucinations. PAST MEDICAL HISTORY: Reports having history of mechanical aortic valve and is maintained on anticoagulation with warfarin as outpatient PAST SURGICAL HISTORY: Mechanical aortic valve replacement in 1993 in [place] PAST SOCIAL HISTORY: Patient denies active smoking or alcohol consumption FAMILY HISTORY: Denies pertinent family history Allergies: No known drug allergies Home medications: Reports being on warfarin 5 mg daily and on Thursday and Thursday, patient takes 7.5 mg Coded Allergies: No Known Allergies (Unverified Allergy, Unknown, 07/08/24) PHYSICAL EXAM GENERAL APPEARANCE: The patient is awake, alert, and oriented, in no acute cardiopulmonary distress. NEUROLOGICAL: Cranial nerves II-XII grossly intact. Motor is 5/5 in bilateral upper and lower extremities proximal to distal. No sensory deficits. HEENT: Face is symmetric. Pupils are equal and reactive. Extraocular movements are intact. Right ear on otoscopic examination noted to have dries blood and some bright red blood, there is small clots noted as well, which i did not dislodge, tympanic membrane could be full evaluated due to blood NECK: Supple. No JVD. No thyromegaly. No submental, submandibular, pre- /postauricular, occipital or supraclavicular lymphadenopathy. CHEST: Normal chest expansion. No Telemetry. LUNGS: Crackles noted of the right lung base with decreased breath with rhonchorous breath sounds CARDIOVASCULAR: Regular. S1 and S2 normal. No appreciable rubs, murmurs or gallops. ABDOMEN: Soft, nontender, and nondistended. There is no rebound, voluntary guarding, or rigidity. : Deferred. No Wills. EXTREMITIES: Trace edema of the bilateral lower extremities SKIN: Swelling and redness noted of the right shoulder Vital Sign (Last 24 Hours) 10/31/24 14:19 Temp 99.7 Pulse 81 Resp 19 B/P (MAP) 109/64 Pulse Ox 96 O2 Delivery Nasal Cannula* O2 Flow Rate 3 FiO2 32 LABS: Laboratory: Test 10/31/24 12:14 10/31/24 12:04 Range/Units Influenza Type A Antigen Negative For Type A NEGATIVE Influenza Type B Antigen Negative For Type B NEGATIVE SARS-CoV-2, RNA, NAAT NEGATIVE SARS CoV-2 NEGATIVE White Blood Count 18.6 H 4.8-10.8 K/uL Red Blood Count 3.50 L 4.50-6.20 MIL/uL Hemoglobin 10.1 L 14.0-18.0 g/dL Hematocrit 30.4 L 42-54 % Mean Corpuscular Volume 86.9 79-99 fL Mean Corpuscular Hemoglobin 28.9 27.0-33.0 pg Mean Corpuscular Hemoglobin Concent 33.2 32.0-36.0 g/dL Red Cell Distribution Width 13.6 11.0-15.5 % Platelet Count 252 130-400 K/uL Mean Platelet Volume 9.1 7.5-10.5 fL Immature Granulocyte % (Auto) 0.4 0-1 % Neutrophils (%) (Auto) 92.5 H 40.0-77.0 % Lymphocytes (%) (Auto) 2.6 L 21.0-51.0 % Monocytes (%) (Auto) 4.4 3.0-13.0 % Eosinophils (%) (Auto) 0.0 0.0-8.0 % Basophils (%) (Auto) 0.1 0.0-5.0 % Neutrophils # (Auto) 17.2 H 1.8-7.7 K/uL Lymphocytes # (Auto) 0.5 L 1.0-4.8 K/uL Monocytes # (Auto) 0.8 0.1-1.0 K/uL Eosinophils # (Auto) 0.00 0.00-0.70 K/uL Basophils # (Auto) 0.02 0.00-0.20 K/uL Absolute Immature Granulocyte (auto 0.08 0-1 K/uL Nucleated Red Blood Cells 0.0 0.0-0.19 % White Cell Morphology Comment See comments Prothrombin Time 90.0 *H 9.6-11.6 SEC Prothromb Time International Ratio > 8.00 *H 0.85-1.15 Activated Partial Thromboplast Time 87.9 H 26.3-35.5 SEC Sodium Level 140 136-145 mmol/L Potassium Level 4.7 3.5-5.1 mmol/L Chloride Level 106 101-111 mmol/L Carbon Dioxide Level 26 21-32 mmol/L Blood Urea Nitrogen 23 H 7-18 mg/dL Creatinine 1.4 H 0.5-1.3 mg/dL Glomerular Filtration Rate Calc 56 >90 mL/min Random Glucose 139 H 70-105 mg/dL Total Calcium 8.3 L 8.5-10.1 mg/dL Magnesium Level 1.70 L 1.80-2.40 mg/dL Total Bilirubin 0.5 0.2-1.0 mg/dL Direct Bilirubin 0.2 0.0-0.3 mg/dL Aspartate Amino Transf (AST/SGOT) 25 10-37 U/L Alanine Aminotransferase (ALT/SGPT) 24 12-78 U/L Alkaline Phosphatase 91 50-136 U/L Troponin I High Sensitivity 299 *H 4-75 ng/L Total Protein 5.6 L 6.0-8.3 g/dL Albumin 2.6 L 3.5-5.0 g/dL Current Medications Medications (Trade) Dose Ordered Sig/Hank Route PRN Reason Start Time Stop Time Status Last Admin Dose Admin Acetaminophen (TYLenol 325MG TAB) 650 mg Q6H PRN PO MILD PAIN (1-3) 10/31/24 14:00 11/30/24 13:59 Albuterol (DUOneb) 1 udvial Q6H PRN IH SHORTNESS OF BREATH 10/31/24 14:30 11/30/24 14:29 Budesonide (Pulmicort 0.5 Mg/2ml) 0.5 mg BIDRESP IH 10/31/24 18:00 11/30/24 17:59 Cefepime HCl (MAXipime 2 gm vial) 2 gm Q12H IVPB 10/31/24 18:00 11/10/24 17:59 Doxycycline Hyclate 250 ml @ 125 mls/hr BID IV 10/31/24 14:00 11/10/24 13:59 Metronidazole/ Sodium Chloride 100 ml @ 100 mls/hr Q8H6 IVPB 10/31/24 21:00 11/10/24 20:59 Ondansetron HCl (zoFRAN 4MG INJ) 4 mg Q6H PRN IVP NAUSEA/VOMITING 10/31/24 14:00 11/30/24 13:59 Pantoprazole Sodium (PROTonix 40MG INJ) 40 mg Q12H IVP 10/31/24 14:00 11/30/24 13:59 Sodium Chloride 1,000 ml @ 75 mls/hr [id number] IV 10/31/24 14:00 11/30/24 13:59 Vancomycin HCl 250 ml @ 125 mls/hr Q12H IV 11/01/24 01:30 11/11/24 01:29 Vancomycin HCl (Vancomycin Protocol) 1 each AD IV 10/31/24 12:30 11/14/24 12:29 DIAGNOSTICS / RADIOLOGY: PROCEDURE: CXR1VW - CHEST 1VW ADDENDUM REPORT ADDENDUM: Results were shared by telephone at 2:28 pm on 10-31-24 and acknowledged by Matteo Deal /[facility] EXAM: CR CHEST, 1 VIEW CLINICAL HISTORY: 64-year-old male presents with shortness of breath and chest pain. COMPARISON: XR Chest 09/08/2024 TECHNIQUE: Single frontal radiograph of the chest was obtained. FINDINGS: Lines/Devices: None. Lungs: Large patchy consolidations are seen in the right upper lobe, right middle lobe, and right lower lobe, with airspace consolidations and air bronchograms consistent with pneumonia. These findings are new from the prior XR Chest 09/08/2024. A small right effusion is also new from the prior XR Chest 09/08/2024. Mediastinum and cardiovascular structures: The cardiac silhouette is not enlarged. The central airway and mediastinal contours are unremarkable. Bones and soft tissues: Unremarkable. IMPRESSION: 1. Large patchy consolidations in the right upper lobe, right middle lobe, and right lower lobe with air bronchograms, consistent with pneumonia. These findings are new from the prior XR Chest 09/08/2024. 2. Small right effusion, new from the prior XR Chest 09/08/2024. /[facility] ASSESSMENT: Severe sepsis secondary to right lung community-acquired pneumonia, POA Acute hypoxemic respiratory failure, POA Bilateral Multifocal Pneumonia with R > L, POA Hypotension secondary to severe sepsis, resolving Hemoptysis, POA Right shoulder swelling with possible hematoma, POA Right ear otorrhea with blood, POA Acute on chronic anemia secondary to blood loss, POA Severely elevated supratherapeutic INR secondary to Coumadin use and possibly sepsis, POA History of mechanical aortic valve, POA History of chronic anticoagulation with warfarin, POA Acute kidney injury, POA Demand ischemia, POA Recent history of left forearm ulnar nondisplaced fracture treated conservatively, POA Prior history of fall 12 days ago in [place], POA Obesity, POA PLAN: Patient will be admitted to ICU We will monitor closely for further signs of bleeding with regards to significantly elevated supra-therapeutic PT INR, patient already with 10 mg of IV vitamin K by ER Service, patient will receive two additional units of FFP We will check H&H q.6 hours, we will recheck INR post FFP Patient has been started on vancomycin and Zosyn in the ER, we will switch Zosyn to cefepime/Flagyl/doxycycline we will follow up blood cultures, respiratory cultures, we will check pneumonia serologies We will follow up results of CT head without contrast, patient has also had orders for CT chest abdomen pelvis with IV contrast placed by ER service Consultation with financial operations analyst will be requested Patient will be kept NPO until hemoptysis resolves Patient will be placed on aspiration precautions Patient's case was discussed with Dr. Arreola with Cardiology, once bleeding re solves, and INR is less than 3.5, we will consider restarting back anticoagulation with bridging if not further episodes of hemoptysis/ active bleeding Transfuse to maintain hemoglobin greater than 7-8 We will obtain 2D echocardiogram, we will check CRP and procalcitonin, patient has audible murmur with mechanical click Hypotension is resolving w/ sepsis bolus of fluids, if continued hypotension, we will start Levophed to maintain map greater than 65 We will keep patient on IV Protonix 40 mg b.i.d. empirically Continue to hold anticoagulation for tonight Consultation with Infectious Disease will be requested All labs will be repeated in the morning Critical care minutes: 45 minutes Condition: Critical Plan of care was discussed with patient at bedside, patient has requested full code Alexey Ames MD Advanced Care Planning: Which of the following were discussed: Hospice care: Yes __ No _X_ Therapeutic options: Yes _X_ No __ Advance directives: Yes X__ No __ Other discussions: Discussed with who?: Patient Voluntary nature of this service was explained to the patient? Yes _x_ No __ Amount of time spent: 20 minutes ALEXEY AMES MD Oct 31, 2024 14:47
[2024-10-31] MEDS ORDERED: IOHEXOL-350 75 ML VIAL IV ONE (14:53)
[2024-10-31 15:29] LABS: AMPHET/METH SCREEN,URINE NEGATIVE (NEGATIVE); BARBITURATE SCREEN, URINE NEGATIVE (NEGATIVE); CANNABINOID SCREEN,URINE NEGATIVE (NEGATIVE); COCAINE SCREEN,URINE NEGATIVE (NEGATIVE)
[2024-10-31] MEDS: DOXYCYCLINE 100MG+NS 250ML 250 ML IV SCH (15:36)
--- NOTE | 2024-10-31 15:47 | HMCIMG ---
EXAM: CT Head Without IV contrast. CLINICAL HISTORY: INR> 8, right ear blooody drainage TECHNIQUE: Axial computed tomography images of the head/brain without intravenous contrast. COMPARISON: None provided. FINDINGS: BRAIN: No evidence of acute hemorrhage. No mass lesion. No CT evidence for acute territorial infarct. No midline shift or extra-axial collections. VENTRICLES: No hydrocephalus. ORBITS: The orbits are unremarkable. SINUSES AND MASTOIDS: The paranasal sinuses and mastoid air cells are clear. BONES: No fracture. SOFT TISSUES: Unremarkable. IMPRESSION: No acute intracranial abnormality. /[place]
[2024-10-31] MEDS: 0.9%NACL 1000ML 1,000 ML IV SCH (15:49)
--- NOTE | 2024-10-31 16:01 | CONS ---
CONSULT NOTE: CARDIOLOGY Reason for consult: Mechanical Aortic Valve HPI/story at presentation: This is a pleasant 64-year-old male with past medical history significant for mechanical aortic valve placed in 1993, chronic warfarin use initially presented to the emergency department due to hemoptysis, cough, chills and blood noted in his right ear. Patient also reports he sustained a fall injury approximately 12 days ago in [place]. Denies any syncope episode. Her warfarin dose accordingly the patient is warfarin 5 mg daily other than on Thursday and Thursday when he takes 7.5 mg daily. Patient also found to be febrile with a temperature of 101.3. Initial blood pressure 83/42. sepsis protocol was started. INR results show greater than 8. Patient was administered vitamin K 10 mg IV and is scheduled to receive 2 units of FFP. High sensory troponin at 299. Patient was also found to have bilateral pneumonia Past medical history: See below Allergies, Meds See chart Review of systems Review of Systems Constitutional: + for chills and fever. HENT: + for right ear bloody discharge and ear pain. Eyes: Negative for photophobia and discharge. Respiratory: + for cough, sputum production and stridor. + hemoptysis Cardiovascular: Negative for chest pain and palpitations. Gastrointestinal: Negative for diarrhea and vomiting. Genitourinary: Negative for frequency. Musculoskeletal: Negative for myalgias. Skin: Negative for rash. Neurological: Negative for focal weakness and seizures. Endo/Heme/Allergies: Negative for polydipsia. Psychiatric/Behavioral: Negative for hallucinations. Vitals see chart PHYSICAL EXAMINATION GENERAL: The patient is alert and oriented*3, ill appearing HEENT: Nonicteric sclerae, non traumatic HEART: Regular rate and rhythm with no murmurs, 3/6 systolic murmur to 2nd ICS LUNGS: Diminished to auscultation bilaterally ABDOMEN: No acute issues, non tender GENITAL, RECTAL: deferred SKIN: No rash NEUROLOGIC: NFND EXTREMITIES: No edema ASSESSMENT SUPRATHERAPEUTIC INR INR GREATER THAN 8 Currently or warfarin Reports hemoptysis and bloody drainage from right ear AORTIC VALVE REPLACEMENT Mechanical INR was subtherapeutic at presentation CORE MEASURES Not applicable OTHER MEDICAL PROBLEMS Reviewed PLAN 10/31/2024 will order echocardiography to examine aortic valve. Patient is currently pending CT of the head and chest due to recent fall and supratherapeutic INR Continue with FFP infusion with plans for repeat INR ATTESTATION Case discussed with RENAE Pompa Oct 31, 2024 16:01
--- NOTE | 2024-10-31 16:07 | NUR ---
[facility] in ED - 10/31/24 at [email or web address] Сергей AIKEN AT BEDSIDE, VERBAL ORDERS GIVEN AND READ BACK AT THIS TIME./[place]
--- NOTE | 2024-10-31 16:46 | HMCIMG ---
EXAM: CT Chest with Intravenous Contrast. CT Abdomen and Pelvis with Intravenous Contrast CLINICAL HISTORY: hemoptysis, leukocytosis TECHNIQUE: Axial computed tomography images of the chest, abdomen and pelvis with intravenous contrast. CONTRAST: None. COMPARISON: None provided. CT chest 09/09/2024 FINDINGS: CHEST: LUNGS: Multifocal areas of consolidation throughout the right lower lung, large portion of the right upper lung and approximately 50% of the right middle lobe. Multifocal areas of consolidation left upper lung occupying approximately 30% of the lung volume and multifocal areas of consolidation within the left lower lung occupying slightly less than 50% of the left lower lung volume PLEURAL SPACES: No pneumothorax evident. No pleural effusions. HEART: No cardiomegaly. No significant pericardial effusion. Changes of median sternotomy. LYMPH NODES: Mild bilateral hilar lymphadenopathy right greater than left. There are a few shotty mediastinal lymph nodes not significantly changed in size or number compared with the prior exam ABDOMEN AND PELVIS: LIVER: Unremarkable. No focal lesions. GALLBLADDER AND BILE DUCTS: The gallbladder appears within normal limits. No radioopaque gallstones are seen. No biliary ductal dilatation is evident. PANCREAS: Unremarkable. SPLEEN: Unremarkable. ADRENAL GLANDS: Unremarkable. KIDNEYS, URETERS, AND BLADDER: Unremarkable. No hydronephrosis or nephrolithiasis. No ureteral or bladder calculi. STOMACH AND BOWEL: Unremarkable appearance of the stomach and bowel. No evidence of bowel obstruction. No evidence suggesting enteritis or colitis. APPENDIX: No evidence of acute appendicitis on CT examination. PERITONEUM: No free fluid. No free air. REPRODUCTIVE: Unremarkable. LYMPH NODES: No lymphadenopathy is evident. VASCULATURE: No evidence of abdominal aortic aneurysm. BONES: No acute osseous abnormality. IMPRESSION: 1. Extensive multifocal pneumonia versus hemorrhage versus edema involving both lungs, right greater than left 2. Mild bilateral hilar lymphadenopathy, right greater than left 3. Post-median sternotomy changes 4. No acute intra-abdominal/pelvic abnormality. /[place]
[2024-10-31 17:18] LABS: CREATINE KINASE, TOTAL 273.0 U/L (21-232)
[2024-10-31] MEDS: BUDESONIDE 0.5 MG/2 ML INH IH SCH (18:53)
[2024-10-31] MEDS: TRANEXAMIC ACID 1000MG/10ML IJ SCH (18:58)
[2024-10-31 18:59] LABS: INR 1.55 (0.85-1.15)
--- NOTE | 2024-10-31 19:17 | CONS ---
[facility] CONSULTATION NOTE Date Patient Seen: Oct 31, 2024 Time of Visit: 13:30 Supervising Physician: Meño Pagan MD Reason for Consultation: CCM, Hemoptysis and Supra-therapeutic INR Primary Care Physician: self referral Outpatient Specialists: Inpatient Consults: dr Awad, Dr Ej Vega PROBLEM LIST: Septic shock, POA Acute hypoxemic respiratory failure, POA Suspected alveolar hemorrhage, POA Community-acquired Bilateral Multifocal Pneumonia with R > L, POA Hemoptysis, POA Right shoulder swelling with possible hematoma, POA Right ear otorrhea with blood, POA Acute on chronic anemia secondary to blood loss, POA Severely elevated supratherapeutic INR secondary to Coumadin use and possibly sepsis, POA History of mechanical aortic valve, POA History of chronic anticoagulation with warfarin, POA Acute kidney injury, POA Demand ischemia, POA Recent history of left forearm ulnar nondisplaced fracture treated conservatively, POA Prior history of fall 12 days ago in [place], POA Obesity, POA HPI: This is a 64-year-old obese male with a past medical history of mechanical aortic valve replacement in 1993 on anticoagulation with Coumadin who presented to the ED for evaluation of hemoptysis, chills, cough, and bleeding from the right ear. As per patient 12 leads ago while visiting [place] he had a mechanical fall and went to the ED and only injury was found to have nondisplaced left forearm ulnar fracture and was splinted. As per patient they did a CT of the head as well and it was negative for any intracranial bleed. As per the patient's in the last two days he has not noticed to have chills yesterday, today noted bloody drainage from his right ear. He also reports he has been having some generalized fatigue with the last two days. He reports he is diffusely takes Coumadin 5 mg daily except on Wednesdays and Saturdays he takes 7.5 mg p.o.. On arrival to the ED patient has a temperature of 101.3 heart rate in 70s respiratory rate of 19 initial blood pressure of 83/42 saturating 96% on room air. Sepsis isotonic IV fluids of 30 mL/kilogram bolus was administered. Zosyn and vancomycin were administered as well in the ED. Laboratory findings were that of white count of 18.6 H&H was 10.1/30.4 platelet count was normal 252 K neutrophils were elevated at 92.5 ESR 51. Initial laboratory showed a BUN 23 creatinine of 1.4 GFR of 56 glucose of 139 mg/dL and total calcium of 8.3. Sensitive troponins of 299. UDS was negative alcohol less than 3. Patient denies any history of smoking he does reports he occasiona lly drinks two beers twice a month. UA shows white count of 11 to 25. Serology is negative for flu or COVID-19. Coagulation studies show a PT of 90, INR of greater than 8, APTT of 87.9. Chest x-ray shows large patchy consolidation in the right upper lobe, right middle lobe and right lower lobe with air bronchograms consistent with a ammonia. Mild right pleural effusion. CT of the chest shows extensive multifocal pneumonia versus hemorrhage versus edema involving both lungs right greater than left. Mild bilateral hilar lymphadenopathy, right greater than left. Post median sternotomy changes. No acute intra-abdominal pelvic abnormality. Head CT with no intracranial abnormality. Right shoulder x-ray with no acute osseous injury. Multifocal airspace disease in the right lung. PAST MEDICAL HX: see above PAST SURGICAL HX: noncontributory SOCIAL HISTORY: No tobacco, ETOH, or illicit drug use Coded Allergies: No Known Allergies (Unverified Allergy, Unknown, 07/08/24) REVIEW OF SYSTEMS: 12 point ROS reviewed with patient. Pertinent positives mentioned above. Otherwise negative. PHYSICAL EXAM: GENERAL: alert, weak, awake oriented x 3 HEENT: EOMI, Sclera non icteric, moist mucosa NECK: Supple, no JVD, trachea midline LUNGS: Rales to right side, and left lower lobe No wheezes HEART: Regular rate and rhythm. Normal S1 and S2, without murmurs ABD: Abdomen obese soft, nontender. Bowel sounds present EXT: No clubbing cyanosis. Left forearm tenderness. Right shoulder swelling NEURO: Alert and oriented to person, follows commands Vital Signs (last 8hr) Date Time Temp Pulse Resp B/P (MAP) Pulse Ox O2 Delivery O2 Flow Rate FiO2 10/31/24 18:58 74 15 10/31/24 18:53 73 15 10/31/24 18:15 74 18 119/88 98 Nasal Cannula 2.0 10/31/24 18:00 72 15 126/66 99 Nasal Cannula 2.0 10/31/24 17:56 Nasal Cannula* 2 28 10/31/24 17:49 76 16 101/63 99 Nasal Cannula 2.0 10/31/24 17:45 79 18 108/64 98 Nasal Cannula 2.0 10/31/24 17:30 83 17 107/86 97 Nasal Cannula 2.0 10/31/24 17:15 77 15 90/57 99 Nasal Cannula 2.0 10/31/24 17:00 99.5 80 13 94/56 97 Nasal Cannula 2.0 10/31/24 16:00 80 16 103/51 98 Nasal Cannula* 3 10/31/24 15:46 86 18 N/Cannula Low lpm 2.0 10/31/24 15:30 99.1 78 17 87/53 98 Nasal Cannula* 3 10/31/24 14:19 99.7 81 19 109/64 96 Nasal Cannula* 3 10/31/24 13:00 85 19 99/62 96 Nasal Cannula* 3 10/31/24 12:25 87 19 94/55 96 Nasal Cannula* 3 10/31/24 12:21 101.3 79 19 83/42 96 Room Air* 0 10/31/24 11:23 99.9 96 18 88/60 95 Nasal Cannula 6.0 LABS: Hematology Labs: Test 10/31/24 15:20 10/31/24 12:04 Range/Units Hemoglobin 9.2 L 14.0-18.0 g/dL Hematocrit 28.1 L 42-54 % White Blood Count 18.6 H 4.8-10.8 K/uL Red Blood Count 3.50 L 4.50-6.20 MIL/uL Mean Corpuscular Volume 86.9 79-99 fL Mean Corpuscular Hemoglobin 28.9 27.0-33.0 pg Mean Corpuscular Hemoglobin Concent 33.2 32.0-36.0 g/dL Red Cell Distribution Width 13.6 11.0-15.5 % Platelet Count 252 130-400 K/uL Mean Platelet Volume 9.1 7.5-10.5 fL Immature Granulocyte % (Auto) 0.4 0-1 % Neutrophils (%) (Auto) 92.5 H 40.0-77.0 % Lymphocytes (%) (Auto) 2.6 L 21.0-51.0 % Monocytes (%) (Auto) 4.4 3.0-13.0 % Eosinophils (%) (Auto) 0.0 0.0-8.0 % Basophils (%) (Auto) 0.1 0.0-5.0 % Neutrophils # (Auto) 17.2 H 1.8-7.7 K/uL Lymphocytes # (Auto) 0.5 L 1.0-4.8 K/uL Monocytes # (Auto) 0.8 0.1-1.0 K/uL Eosinophils # (Auto) 0.00 0.00-0.70 K/uL Basophils # (Auto) 0.02 0.00-0.20 K/uL Absolute Immature Granulocyte (auto 0.08 0-1 K/uL Nucleated Red Blood Cells 0.0 0.0-0.19 % White Cell Morphology Comment See comments Erythrocyte Sedimentation Rate 51 H 0-20 MM/HR Chemistry Labs: Test 10/31/24 15:20 10/31/24 12:04 Range/Units Ammonia < 10 L 11-32 umol/L Total Creatine Kinase 273 H 21-232 U/L Troponin I High Sensitivity 413.0 *H 4-75 ng/L Sodium Level 140 136-145 mmol/L Potassium Level 4.7 3.5-5.1 mmol/L Chloride Level 106 101-111 mmol/L Carbon Dioxide Level 26 21-32 mmol/L Blood Urea Nitrogen 23 H 7-18 mg/dL Creatinine 1.4 H 0.5-1.3 mg/dL Glomerular Filtration Rate Calc 56 >90 mL/min Random Glucose 139 H 70-105 mg/dL Total Calcium 8.3 L 8.5-10.1 mg/dL Magnesium Level 1.70 L 1.80-2.40 mg/dL Total Bilirubin 0.5 0.2-1.0 mg/dL Direct Bilirubin 0.2 0.0-0.3 mg/dL Aspartate Amino Transf (AST/SGOT) 25 10-37 U/L Alanine Aminotransferase (ALT/SGPT) 24 12-78 U/L Alkaline Phosphatase 91 50-136 U/L C-Reactive Protein, Quantitative 97.90 H 0.5-3.0 mg/L Total Protein 5.6 L 6.0-8.3 g/dL Albumin 2.6 L 3.5-5.0 g/dL Procalcitonin 3.50 H 0.05-0.5 ng/mL Coagulation Labs: Test 10/31/24 18:37 10/31/24 15:20 10/31/24 12:04 Range/Units Prothrombin Time 15.7 #H 9.6-11.6 SEC Prothromb Time International Ratio 1.55 #H 0.85-1.15 Fibrinogen 541 *H 180-350 mg/dL D-Dimer Quantitative (PE/DVT) 495 0-500 ng/mL Activated Partial Thromboplast Time 87.9 H 26.3-35.5 SEC DIAGNOSTICS / RADIOLOGY RESULTS: [ ][place] [address] [id number] IMAGING REPORT Signed PATIENT: TIMUR DELGADILLO MR#: [id number] : 1960 SEX: M AGE: 64 LOCATION: [facility] ORDER 44 STATUS: REG HOSPITAL REPORT#: [id number] SERVICE 43 REASON: supratherapeutic INR, swelling of the right shoulder ORDERING PHYSICIAN: MARGARITA BILL MD PROCEDURE: SHOL 2V RT - SHOULDER COMP 2+VWS RT EXAM: CR right Shoulder, 2 View. CLINICAL HISTORY: supratherapeutic INR, swelling of the right shoulder COMPARISON: None provided. FINDINGS: BONES: No acute fracture or aggressive appearing osseous lesion. JOINTS: No dislocation. Mild glenohumeral joint osteoarthritis. SOFT TISSUES: The soft tissues are unremarkable. Redemonstrated multifocal airspace disease throughout the right lung. IMPRESSION: 1. No acute osseous injury. 2. Multifocal airspace disease in the right lung. /[place] DICTATED BY: DEEPAK LUNA Jr., MD DATE: 10/31/241529 ELECTRONICALLY SIGNED BY: DEEPAK LUNA Jr., MD DATE: 10/31/241529 [place] [address] [id number] IMAGING REPORT Signed PATIENT: TIMUR DELGADILLO MR#: [id number] : 1960 SEX: M AGE: 64 LOCATION: [facility] ORDER 1345 STATUS: ADM IN REPORT#: [id number] SERVICE 1344 REASON: INR> 8, right ear blooody drainage ORDERING PHYSICIAN: MARGARITA BILL MD PROCEDURE: HEAD WO - CT HEAD/BRAIN W/O CONTRAST EXAM: CT Head Without IV contrast. CLINICAL HISTORY: INR> 8, right ear blooody drainage TECHNIQUE: Axial computed tomography images of the head/brain without intravenous contrast. COMPARISON: None provided. FINDINGS: BRAIN: No evidence of acute hemorrhage. No mass lesion. No CT evidence for acute territorial infarct. No midline shift or extra-axial collections. VENTRICLES: No hydrocephalus. ORBITS: The orbits are unremarkable. SINUSES AND MASTOIDS: The paranasal sinuses and mastoid air cells are clear. BONES: No fracture. SOFT TISSUES: Unremarkable. IMPRESSION: No acute intracranial abnormality. /[place] DICTATED BY: DEEPAK LUNA Jr., MD DATE: 10/31/241646 ELECTRONICALLY SIGNED BY: DEEPAK LUNA Jr., MD DATE: 10/31/241646 [place] [address] IMAGING REPORT Addendum PATIENT: TIMUR DELGADILLO MR#: [id number] : 1960 SEX: M AGE: 64 LOCATION: [facility] ORDER 1223 STATUS: ADM IN REPORT#: [id number] SERVICE 1220 REASON: hemoptysis, leukocytosis ORDERING PHYSICIAN: PATRICIA ROJAS PROCEDURE: CAP W - CT CHEST/ABD/PELV W/CONRAST ADDENDUM REPORT ADDENDUM: Results were shared by telephone at 6:24 pm on 10/31/24 and acknowledged by Chart Nurse bhanu Khan /[place] EXAM: CT Chest with Intravenous Contrast. CT Abdomen and Pelvis with Intravenous Contrast CLINICAL HISTORY: hemoptysis, leukocytosis TECHNIQUE: Axial computed tomography images of the chest, abdomen and pelvis with intravenous contrast. CONTRAST: None. COMPARISON: None provided. CT chest 09/09/2024 FINDINGS: CHEST: LUNGS: Multifocal areas of consolidation throughout the right lower lung, large portion of the right upper lung and approximately 50% of the right middle lobe. Multifocal areas of consolidation left upper lung occupying approximately 30% of the lung volume and multifocal areas of consolidation within the left lower lung occupying slightly less than 50% of the left lower lung volume PLEURAL SPACES: No pneumothorax evident. No pleural effusions. HEART: No cardiomegaly. No significant pericardial effusion. Changes of median sternotomy. LYMPH NODES: Mild bilateral hilar lymphadenopathy right greater than left. There are a few shotty mediastinal lymph nodes not significantly changed in size or number compared with the prior exam ABDOMEN AND PELVIS: LIVER: Unremarkable. No focal lesions. GALLBLADDER AND BILE DUCTS: The gallbladder appears within normal limits. No radioopaque gallstones are seen. No biliary ductal dilatation is evident. PANCREAS: Unremarkable. SPLEEN: Unremarkable. ADRENAL GLANDS: Unremarkable. KIDNEYS, URETERS, AND BLADDER: Unremarkable. No hydronephrosis or nephrolithiasis. No ureteral or bladder calculi. STOMACH AND BOWEL: Unremarkable appearance of the stomach and bowel. No evidence of bowel obstruction. No evidence suggesting enteritis or colitis. APPENDIX: No evidence of acute appendicitis on CT examination. PERITONEUM: No free fluid. No free air. REPRODUCTIVE: Unremarkable. LYMPH NODES: No lymphadenopathy is evident. VASCULATURE: No evidence of abdominal aortic aneurysm. BONES: No acute osseous abnormality. IMPRESSION: 1. Extensive multifocal pneumonia versus hemorrhage versus edema involving both lungs, right greater than left 2. Mild bilateral hilar lymphadenopathy, right greater than left 3. Post-median sternotomy changes 4. No acute intra-abdominal/pelvic abnormality. /[place] DICTATED BY: TREMAYNE MOELLER MD DATE: 10/31/241825 ELECTRONICALLY SIGNED BY: DATE: EXAM: CT Chest with Intravenous Contrast. CT Abdomen and Pelvis with Intravenous Contrast CLINICAL HISTORY: hemoptysis, leukocytosis TECHNIQUE: Axial computed tomography images of the chest, abdomen and pelvis with intravenous contrast. CONTRAST: None. COMPARISON: None provided. CT chest 09/09/2024 FINDINGS: CHEST: LUNGS: Multifocal areas of consolidation throughout the right lower lung, large portion of the right upper lung and approximately 50% of the right middle lobe. Multifocal areas of consolidation left upper lung occupying approximately 30% of the lung volume and multifocal areas of consolidation within the left lower lung occupying slightly less than 50% of the left lower lung volume PLEURAL SPACES: No pneumothorax evident. No pleural effusions. HEART: No cardiomegaly. No significant pericardial effusion. Changes of median sternotomy. LYMPH NODES: Mild bilateral hilar lymphadenopathy right greater than left. There are a few shotty mediastinal lymph nodes not significantly changed in size or number compared with the prior exam ABDOMEN AND PELVIS: LIVER: Unremarkable. No focal lesions. GALLBLADDER AND BILE DUCTS: The gallbladder appears within normal limits. No radioopaque gallstones are seen. No biliary ductal dilatation is evident. PANCREAS: Unremarkable. SPLEEN: Unremarkable. ADRENAL GLANDS: Unremarkable. KIDNEYS, URETERS, AND BLADDER: Unremarkable. No hydronephrosis or nephrolithiasis. No ureteral or bladder calculi. STOMACH AND BOWEL: Unremarkable appearance of the stomach and bowel. No evidence of bowel obstruction. No evidence suggesting enteritis or colitis. APPENDIX: No evidence of acute appendicitis on CT examination. PERITONEUM: No free fluid. No free air. REPRODUCTIVE: Unremarkable. LYMPH NODES: No lymphadenopathy is evident. VASCULATURE: No evidence of abdominal aortic aneurysm. BONES: No acute osseous abnormality. IMPRESSION: 1. Extensive multifocal pneumonia versus hemorrhage versus edema involving both lungs, right greater than left 2. Mild bilateral hilar lymphadenopathy, right greater than left 3. Post-median sternotomy changes 4. No acute intra-abdominal/pelvic abnormality. /[place] DICTATED BY: TREMAYNE MOELLER MD DATE: 10/31/241744 ELECTRONICALLY SIGNED BY: TREMAYNE MOELLER MD DATE: 10/31/241744 [place] [address] [place] [id number] IMAGING REPORT Addendum PATIENT: TIMUR DELGADILLO MR#: [id number] : 1960 SEX: M AGE: 64 LOCATION: [facility] ORDER 32 STATUS: REG ER REPORT#: [id number] SERVICE 1132 REASON: SOB, CHEST PAIN ORDERING PHYSICIAN: RAO AGUILAR MD PROCEDURE: CXR1VW - CHEST 1VW ADDENDUM REPORT ADDENDUM: Results were shared by telephone at 2:28 pm on 10-31-24 and acknowledged by Matteo Deal /[place] EXAM: CR CHEST, 1 VIEW CLINICAL HISTORY: 64-year-old male presents with shortness of breath and chest pain. COMPARISON: XR Chest 09/08/2024 TECHNIQUE: Single frontal radiograph of the chest was obtained. FINDINGS: Lines/Devices: None. Lungs: Large patchy consolidations are seen in the right upper lobe, right middle lobe, and right lower lobe, with airspace consolidations and air bronchograms consistent with pneumonia. These findings are new from the prior XR Chest 09/08/2024. A small right effusion is also new from the prior XR Chest 09/08/2024. Mediastinum and cardiovascular structures: The cardiac silhouette is not enlarged. The central airway and mediastinal contours are unremarkable. Bones and soft tissues: Unremarkable. IMPRESSION: 1. Large patchy consolidations in the right upper lobe, right middle lobe, and right lower lobe with air bronchograms, consistent with pneumonia. These findings are new from the prior XR Chest 09/08/2024. 2. Small right effusion, new from the prior XR Chest 09/08/2024. /[place] DICTATED BY: MADDIE SARAVIA MD DATE: 10/31/24 1436 ELECTRONICALLY SIGNED BY: DATE: EXAM: CR CHEST, 1 VIEW CLINICAL HISTORY: 64-year-old male presents with shortness of breath and chest pain. COMPARISON: XR Chest 09/08/2024 TECHNIQUE: Single frontal radiograph of the chest was obtained. FINDINGS: Lines/Devices: None. Lungs: Large patchy consolidations are seen in the right upper lobe, right middle lobe, and right lower lobe, with airspace consolidations and air bronchograms consistent with pneumonia. These findings are new from the prior XR Chest 09/08/2024. A small right effusion is also new from the prior XR Chest 09/08/2024. Mediastinum and cardiovascular structures: The cardiac silhouette is not enlarged. The central airway and mediastinal contours are unremarkable. Bones and soft tissues: Unremarkable. IMPRESSION: 1. Large patchy consolidations in the right upper lobe, right middle lobe, and right lower lobe with air bronchograms, consistent with pneumonia. These findings are new from the prior XR Chest 09/08/2024. 2. Small right effusion, new from the prior XR Chest 09/08/2024. /[place] DICTATED BY: MADDIE SARAVIA MD DATE: 10/31/241416 ELECTRONICALLY SIGNED BY: MADDIE SARAVIA MD DATE: 10/31/241416 Study was PLAN Admitted to ICU by primary team BABITA guadalupe q.[address] of the chest- IMPRESSION: 1. Extensive multifocal pneumonia versus hemorrhage versus edema involving both lungs, right greater than left 2. Mild bilateral hilar lymphadenopathy, right greater than left 3. Post-median sternotomy changes 4. No acute intra-abdominal/pelvic abnormality. Transfuse 2 units of FFP and rechecked INR if greater than via transfused another 2 units of FFP. NPO after midnight is stable INR plan for Bronchoscopy tomorrow by Dr Pagan NEURO: Minimize central acting medications as possible. Fall Precautions. Well lighted room through the day and minimize interruptions through the night to prevent acute delirium. PULMONARY: Supplemental 02 as needed Titrate Fio2 to keep Spo2 > or = 90% DuoNebs and CPT as needed IS hourly while awake for pulmonary hygiene Out of bed to chair as tolerated CARDIOVASCULAR: Follow hemodynamics. Titrate vasopressor to keep MAP >65 or systolic blood pressure >95mmHg DRIPS: levophed PRN maintain MP > 65 LINES: PIV 2 large bore IV GI & NUTRITION: Continue nutritional support Aspirations precautions Prokinetic agents and laxatives as needed KIDNEYS & ELECTROLYTES: Strict monitoring of intake and output Daily weights Avoid nephrotoxic agents Monitor electrolytes and replace as needed Goal urine output of 30mL/hr or 0.5mL/kg/hr ENDOCRINE: Maintain blood glucose between 100-180 at all times. Insulin sliding scale for blood glucose management INFECTIOUS DISEASE: Trend temperature. Larose-culture if febrile. Micro: [ ] Blood cultures Respiratory cultures UA with urine culture Antibiotics: Cefepime Vanco Flagyl Doxycycline HEMATOLOGY & COAGULATION: Monitor H&H. Keep Hgb > 7 Transfuse 1 unit of PRBC for Hgb < 7 Transfuse 1 pack of platelets of platelets < 20, 000 Watch for any signs and symptoms of bleeding SKIN: Pressure ulcer prevention per facility protocol Rehab: PT/OT Prophylaxis: GI: Protonix DVT: SCD's Code Status: Full Resuscitation Disposition: ICU Other: Total patient care time exceeds 35 minutes excluding all procedures. Case was discussed and seen with my supervising physician. The above plan was formulated and agreed upon. KENIA AMANDA [facility] Oct 31, 2024 19:17
[2024-10-31 22:04] LABS: CREATININE 1.1 mg/dL (0.5-1.3); GLOMERULAR FILTR. RATE CALC 75.0 mL/min (>90); GLUCOSE,RANDOM 116.0 mg/dL (70-105); SODIUM SERUM 138.0 mmol/L (136-145); UREA NITROGEN, BLOOD 20.0 mg/dL (7-18)
[2024-10-31] MEDS: SODIUM CHLORIDE 3% FOR INHALATION 4 ML/AMP VIAL.NEB IH ONE (22:46)
[2024-11-01] VITALS (33 sets, daily range): BP systolic 99–130; BP diastolic 30–76; PULSE 72–90; RESP 14–24; TEMP 97.6–99.2; O2SAT 96–100
[2024-11-01] MEDS: VANCOMYCIN 1.25 GM/250 ML BAG 250 ML IV SCH (01:33)
[2024-11-01 04:15] LABS: IMMATURE GRANULOCYTE ABSOLUTE 0.05 K/uL (0-1); NUCLEATED RED BLOOD CELLS 0.0 % (0.0-0.19); PLATELET COUNT (AUTO) 182 K/uL (130-400); RED BLOOD CELL COUNT(AUTO) 2.82 MIL/uL (4.50-6.20); RED CELL DISTRIBUTION WIDTH 13.7 % (11.0-15.5); WHITE BLOOD COUNT (AUTO) 10.7 K/uL (4.8-10.8)
[2024-11-01 04:29] LABS: INR 1.25 (0.85-1.15)
[2024-11-01 04:41] LABS: ASPARTATE AMINOTRANSFERASE 30.0 U/L (10-37); CREATININE 0.9 mg/dL (0.5-1.3); GLOMERULAR FILTR. RATE CALC 95.0 mL/min (>90); GLUCOSE,RANDOM 97.0 mg/dL (70-105); SODIUM SERUM 140.0 mmol/L (136-145); TOTAL PROTEIN, SERUM 5.2 g/dL (6.0-8.3); UREA NITROGEN, BLOOD 17.0 mg/dL (7-18)
[2024-11-01] MEDS: MAGNESIUM 2GM PREMIX 50ML 50 ML IV PRN (08:09)
--- NOTE | 2024-11-01 09:33 | PN ---
[facility] PROGRESS NOTE Date of Service: Nov 01, 2024 Time of Service: 09:19 SUBJECTIVE: [ ] 64-year-old male with prior history of mechanical aortic valve which was replaced in 1993 maintained on chronic outpatient anticoagulation with warfarin, obesity, who presented to the ER for further evaluation of hemoptysis, chills, cough, and blood noted in the right ear.Patient states that about 12 days ago, he was visiting in [place], he had a mechanical fall with no syncope, patient was evaluated in ER and was found to have a nondisplaced left forearm ulnar fracture along which was treated conservatively. Patient had a CT done which was noted to be negative per patient. Patient states that over the last two days, he noticed that he was having chills, and yesterday night, he started having hemoptysis. Today he noticed that he was having bloody drainage from the right ear. Denies any headache, denies any focal weakness of upper or lower extremities. Denies any neck pain. Denies any new recent fall other than 12 days ago in [place] Denies chest pain other than with cough. He has been having generalized fatigue and malaise over the last two days. Denies exposure to sick contacts. 11/01/24 patient was admitted for septic shock and hemoptysis with Coumadin toxici ty today's INR improved significantly from 8-1.4 We will wait for optical worker's if okay to resume. Patient appears acutely ill continue with broad-spectrum antibiotics tolerating. ID on board we will follow his recommendations. Patient is currently on nasal cannula to 3 L. We will be monitored closely in ICU. REVIEW OF SYSTEMS CONSTITUTIONAL: malaise, generalized weakness, fatigue NEUROLOGICAL: Denies headache, amaurosis fugax, motor weakness, sensory deficit, vertigo/spinning sensation, gait abnormalities, or tremors. ENT: No hearing loss, reports having noticed blood coming out of the right ear CARDIOVASCULAR: Denies any exertional angina, dyspnea on exertion, orthopnea, paroxysmal nocturnal dyspnea, palpitations, life-threatening arrhythmias, claudication. PULMONARY: reports having cough, congestion, SOB, patient reports having hemoptysis SLEEP: Denies morning headaches, daytime somnolence or napping. Denies difficulty falling asleep, staying asleep, waking from sleep. Denies knowledge of snoring. GASTROINTESTINAL: Denies any type of dysphagia to either liquids or solids. Denies nausea, vomiting, pyrosis, early satiety, abdominal pain, diarrhea, constipation, or changes in stool consistency or caliber. Denies coffee-ground emesis, hematemesis, hematochezia, or melanotic stools. GENITOURINARY: Denies frequency, urgency, nocturia, hematuria or incontinence (Storage/Irritative symptoms.) Low urinary stream, straining to void, urinary intermittency or hesitancy, splitting of the voiding stream, terminal dribbling. ENDOCRINOLOGIC: Denies polyuria, polydipsia, polyphagia or heat/cold intolerances. HEMATOLOGIC: reports having easy bruising ONCOLOGIC: Denies personal history of malignancy. DERMATOLOGIC: Denies rashes or pruritus. PSYCHIATRIC: Denies any suicidal or homicidal ideation. Denies hallucinations. PHYSICAL EXAM GENERAL APPEARANCE: The patient is awake, alert, and oriented, in no acute cardiopulmonary distress. NEUROLOGICAL: Cranial nerves II-XII grossly intact. Motor is 5/5 in bilateral upper and lower extremities proximal to distal. No sensory deficits. HEENT: Face is symmetric. Pupils are equal and reactive. Extraocular movements are intact. Right ear on otoscopic examination noted to have dries blood and some bright red blood, there is small clots noted as well, which i did not dislodge, tympanic membrane could be full evaluated due to blood NECK: Supple. No JVD. No thyromegaly. No submental, submandibular, pre- /postauricular, occipital or supraclavicular lymphadenopathy. CHEST: Normal chest expansion. No Telemetry. LUNGS: Crackles noted of the right lung base with decreased breath with rhonchorous breath sounds CARDIOVASCULAR: Regular. S1 and S2 normal. No appreciable rubs, murmurs or gallops. ABDOMEN: Soft, nontender, and nondistended. There is no rebound, voluntary guarding, or rigidity. : Deferred. No Wills. EXTREMITIES: Trace edema of the bilateral lower extremities SKIN: Swelling and redness noted of the right shoulder Vital Signs (last 8hr) Date Time Temp Pulse Resp B/P (MAP) Pulse Ox O2 Delivery O2 Flow Rate FiO2 11/01/24 07:30 98 Nasal Cannula* 2 28 11/01/24 07:30 78 18 111/70 98 Nasal Cannula 2.0 11/01/24 07:00 78 20 116/67 99 Nasal Cannula 2.0 8/5/25 06:41 78 20 116/67 99 Nasal Cannula 2.0 11/01/24 06:31 86 16 11/01/24 06:00 76 14 111/66 99 Nasal Cannula 2.0 11/01/24 05:30 77 15 116/69 97 11/01/24 05:00 76 16 115/64 98 Nasal Cannula 2.0 11/01/24 04:30 76 19 122/66 98 11/01/24 04:00 CPAP+ 0 30 11/01/24 04:00 99.0 74 19 99/57 97 Nasal Cannula 2.0 11/01/24 03:30 77 16 109/69 99 11/01/24 03:00 78 17 110/63 100 Nasal Cannula 2.0 11/01/24 02:30 79 15 109/59 99 11/01/24 02:00 78 16 105/62 99 Nasal Cannula 2.0 11/01/24 01:30 81 20 106/30 99 LABS: Laboratory: Test 11/01/24 03:54 10/31/24 15:20 10/31/24 14:16 10/31/24 12:14 Range/Units White Blood Count 10.7 # 4.8-10.8 K/uL Red Blood Count 2.82 L 4.50-6.20 MIL/uL Hemoglobin 8.1 L 14.0-18.0 g/dL Hematocrit 24.7 L 42-54 % Mean Corpuscular Volume 87.6 79-99 fL Mean Corpuscular Hemoglobin 28.7 27.0-33.0 pg Mean Corpuscular Hemoglobin Concent 32.8 32.0-36.0 g/dL Red Cell Distribution Width 13.7 11.0-15.5 % Platelet Count 182 # 130-400 K/uL Mean Platelet Volume 9.7 7.5-10.5 fL Immature Granulocyte % (Auto) 0.5 0-1 % Neutrophils (%) (Auto) 80.5 H 40.0-77.0 % Lymphocytes (%) (Auto) 9.2 L 21.0-51.0 % Monocytes (%) (Auto) 8.5 3.0-13.0 % Eosinophils (%) (Auto) 1.2 0.0-8.0 % Basophils (%) (Auto) 0.1 0.0-5.0 % Neutrophils # (Auto) 8.6 H 1.8-7.7 K/uL Lymphocytes # (Auto) 1.0 1.0-4.8 K/uL Monocytes # (Auto) 0.9 0.1-1.0 K/uL Eosinophils # (Auto) 0.13 0.00-0.70 K/uL Basophils # (Auto) 0.01 0.00-0.20 K/uL Absolute Immature Granulocyte (auto 0.05 0-1 K/uL Nucleated Red Blood Cells 0.0 0.0-0.19 % Prothrombin Time 13.0 H 9.6-11.6 SEC Prothromb Time International Ratio 1.25 H 0.85-1.15 Activated Partial Thromboplast Time 41.3 #H 26.3-35.5 SEC Sodium Level 140 136-145 mmol/L Potassium Level 4.7 3.5-5.1 mmol/L Chloride Level 109 101-111 mmol/L Carbon Dioxide Level 29 21-32 mmol/L Blood Urea Nitrogen 17 7-18 mg/dL Creatinine 0.9 0.5-1.3 mg/dL Glomerular Filtration Rate Calc 95 >90 mL/min Random Glucose 97 70-105 mg/dL Total Calcium 7.6 L 8.5-10.1 mg/dL Magnesium Level 1.70 L 1.80-2.40 mg/dL Total Bilirubin 0.8 # 0.2-1.0 mg/dL Aspartate Amino Transf (AST/SGOT) 30 10-37 U/L Alanine Aminotransferase (ALT/SGPT) 26 12-78 U/L Alkaline Phosphatase 77 50-136 U/L Total Protein 5.2 L 6.0-8.3 g/dL Albumin 2.3 L 3.5-5.0 g/dL Fibrinogen 541 *H 180-350 mg/dL D-Dimer Quantitative (PE/DVT) 495 0-500 ng/mL Ammonia < 10 L 11-32 umol/L Total Creatine Kinase 273 H 21-232 U/L Troponin I High Sensitivity 413.0 *H 4-75 ng/L Serum Alcohol < 3 0-10 mg/dL Urine Color LIGHT-YELLOW YELLOW Urine Appearance CLEAR CLEAR Urine pH 5.5 5.0-8.0 Urine Specific [place] 1.015 1.001-1.031 Urine Protein NEGATIVE NEGATIVE mg/dL Urine Glucose (UA) NEGATIVE NEGATIVE mg/dL Urine Ketones NEGATIVE NEGATIVE mg/dL Urine Occult Blood NEGATIVE NEGATIVE Urine Nitrate NEGATIVE NEGATIVE Urine Bilirubin NEGATIVE NEGATIVE mg/dL Urine Urobilinogen 0.2 0.2-1.0 mg/dL Urine Leukocyte Esterase NEGATIVE NEGATIVE [place]/uL Urine RBC 0-1 0-1 /HPF Urine WBC 11-25 H 0-1 /HPF Urine Squamous Epithelial Cells RARE 0-2 /HPF Urine Bacteria RARE None Seen /HPF Urine Cellular Casts (Auto) 0-1 None Seen /LPF Urine Opiates Screen NEGATIVE NEGATIVE Urine Barbiturates Screen NEGATIVE NEGATIVE Urine Phencyclidine Screen NEGATIVE NEGATIVE Urine Amphetamines Screen NEGATIVE NEGATIVE Urine Benzodiazepines Screen NEGATIVE NEGATIVE Urine Cocaine Screen NEGATIVE NEGATIVE Urine Marijuana (THC) Screen NEGATIVE NEGATIVE Influenza Type A Antigen Negative For Type A NEGATIVE Influenza Type B Antigen Negative For Type B NEGATIVE SARS-CoV-2, RNA, NAAT NEGATIVE SARS CoV-2 NEGATIVE Test 10/31/24 12:04 Range/Units White Cell Morphology Comment See comments Erythrocyte Sedimentation Rate 51 H 0-20 MM/HR Direct Bilirubin 0.2 0.0-0.3 mg/dL C-Reactive Protein, Quantitative 97.90 H 0.5-3.0 mg/L Procalcitonin 3.50 H 0.05-0.5 ng/mL Current Medications Medications (Trade) Dose Ordered Sig/Hank Route PRN Reason Start Time Stop Time Status Last Admin Dose Admin Acetaminophen (TYLenol 325MG TAB) 650 mg Q6H PRN PO MILD PAIN (1-3) 10/31/24 14:00 11/30/24 13:59 10/31/24 17:32 650 MG Albuterol (DUOneb) 1 udvial Q6H PRN IH SHORTNESS OF BREATH 10/31/24 14:30 11/30/24 14:29 Budesonide (Pulmicort 0.5 Mg/2ml) 0.5 mg BIDRESP IH 10/31/24 18:00 11/30/24 17:59 11/01/24 06:31 0.5 MG Cefepime HCl (MAXipime 2 gm vial) 2 gm Q12H IVPB 10/31/24 18:00 11/10/24 17:59 11/01/24 06:22 2 GM Doxycycline Hyclate 250 ml @ 125 mls/hr BID IV 10/31/24 14:00 11/10/24 13:59 11/01/24 08:09 125 MLS/HR Magnesium Sulfate 50 ml @ 0 mls/hr PROTOCOL PRN IV OTHER [SEE ORDER COMMENTS] 11/01/24 08:00 12/01/24 07:59 11/01/24 08:09 25 MLS/HR Metronidazole/ Sodium Chloride 100 ml @ 100 mls/hr Q8H6 IVPB 10/31/24 21:00 11/10/24 20:59 11/01/24 05:46 100 MLS/HR Morphine Sulfate (morPHINE 2MG SYG) 2 mg Q6H PRN IVP SEVERE PAIN (7-10) 10/31/24 19:00 11/07/24 18:59 11/01/24 03:59 2 MG Ondansetron HCl (zoFRAN 4MG INJ) 4 mg Q6H PRN IVP NAUSEA/VOMITING 10/31/24 14:00 11/30/24 13:59 Pantoprazole Sodium (PROTonix 40MG INJ) 40 mg Q12H IVP 10/31/24 14:00 11/30/24 13:59 11/01/24 01:35 40 MG Sodium Chloride 1,000 ml @ 75 mls/hr [id number] IV 10/31/24 14:00 11/30/24 13:59 11/01/24 03:31 75 MLS/HR Tranexamic Acid (Cyklokapron) 500 mg [id number] IJ 10/31/24 15:30 11/30/24 15:29 11/01/24 06:45 500 MG Vancomycin HCl 250 ml @ 125 mls/hr Q12H IV 11/01/24 01:30 11/11/24 01:29 11/01/24 01:33 125 MLS/HR Vancomycin HCl (Vancomycin Protocol) 1 each AD IV 10/31/24 12:30 11/14/24 12:29 DIAGNOSTICS / RADIOLOGY: [ ] ASSESSMENT: Severe sepsis secondary to right lung community-acquired pneumonia, POA Acute hypoxemic respiratory failure, POA Bilateral Multifocal Pneumonia with R > L, POA Hypotension secondary to severe sepsis, resolving Hemoptysis, POA Right shoulder swelling with possible hematoma, POA Right ear otorrhea with blood, POA Acute on chronic anemia secondary to blood loss, POA Severely elevated supratherapeutic INR secondary to Coumadin use and possibly sepsis, POA hypercoagulable state secondary to Mechanical aortic value on Coumadin Therapy POA Coumadin Toxicity POA History of mechanical aortic valve, POA History of chronic anticoagulation with warfarin, POA Acute kidney injury, POA Demand ischemia, POA Recent history of left forearm ulnar nondisplaced fracture treated conservatively, POA Prior history of fall 12 days ago in [place], POA Obesity, POA PLAN: Admit: ICU Status: [facility]ll code consultants: Critical Care, [employer] Diet: NPO for now ; aspiration precaution antibiotics: IV: Zosyn to cefepime/Flagyl/doxycycline Microbiology: Resp, blood cultures in process. Imaging: Echo pending results monitor for bleeding: trends H/H q 6hrs transfuse as needed to keep Hbg above 7.0 s/p IV vitamin K: and 2 FFP's given: Daily PT INR: Dr. Arreola with Cardiology, once bleeding resolves, and INR is less than 3.5, we will consider restarting back anticoagulation with bridging if not further episodes of hemoptysis/ active bleeding GI ppx: IV Protonix 40 mg b.i.d. empirically Labs in am : CBC, cmp, and Mag Critical care minutes: 45 minutes Plan of care was discussed with patient at bedside, patient has requested full code ATTESTATION BY PHYSICIAN I have seen and examined the patient. I reviewed the documentation, medical decision making, and treatment plan as noted by the mid-level provider above. I agree with the findings and plan of care. Linda Soria MD, ELIZABETH NP Nov 01, 2024 09:33
--- NOTE | 2024-11-01 10:13 | PN ---
[facility] PROGRESS NOTE Date Patient Seen: Nov 01, 2024 Time of Visit: 10:07 Supervising Physician: Dr Pgaan Primary Care Physician: self referral Outpatient Specialists: Inpatient Consults: dr Awad, Dr Ej Vega PROBLEM LIST: Septic shock, POA supratherapeutic INR secondary to Coumadin Acute hypoxemic respiratory failure, POA Suspected alveolar hemorrhage, POA Acute on chronic anemia secondary to blood loss, POA History of mechanical aortic valve, POA History of chronic anticoagulation with warfarin, POA Acute kidney injury, POA Demand ischemia, POA Obesity, POA INTERVAL HISTORY: Patient seen and examined, he is sitting comfortably in bed, he is currently NPO for possible bronchoscopy scheduled for later today. Patient on nasal cannula at 2 L with good saturations. Patient reports mild discomfort with his cough otherwise no complaints, reporting no chest pain or shortness of breath Vital signs are stable, off pressors INR has improved from greater than 8, down to 1.25 Yesterday patient received a total of 2 FFP he has along with vitamin K Plan: Follow cardiology recs, we will resume Coumadin at a lower dose Follow INR Bronchoscopy Follow chest x-ray Echo is pending Repeat troponin level REVIEW OF SYSTEMS: 12 point ROS reviewed with patient. Pertinent positives mentioned above. Otherwise negative. PHYSICAL EXAM: GENERAL: alert, weak, awake oriented x 3 HEENT: EOMI, Sclera non icteric, moist mucosa NECK: Supple, no JVD, trachea midline LUNGS: Rales to right side, and left lower lobe No wheezes HEART: Regular rate and rhythm. Normal S1 and S2, without murmurs ABD: Abdomen obese soft, nontender. Bowel sounds present EXT: No clubbing cyanosis. Left forearm tenderness. Right shoulder swelling NEURO: Alert and oriented to person, follows commands Vital Signs (last 8hr) Date Time Temp Pulse Resp B/P (MAP) Pulse Ox O2 Delivery O2 Flow Rate FiO2 11/01/24 07:30 98 Nasal Cannula* 2 28 11/01/24 07:30 78 18 111/70 98 Nasal Cannula 2.0 11/01/24 07:00 78 20 116/67 99 Nasal Cannula 2.0 11/01/24 06:41 78 20 116/67 99 Nasal Cannula 2.0 11/01/24 06:31 86 16 11/01/24 06:00 76 14 111/66 99 Nasal Cannula 2.0 11/01/24 05:30 77 15 116/69 97 11/01/24 05:00 76 16 115/64 98 Nasal Cannula 2.0 11/01/24 04:30 76 19 122/66 98 11/01/24 04:00 CPAP+ 0 30 11/01/24 04:00 99.0 74 19 99/57 97 Nasal Cannula 2.0 11/01/24 03:30 77 16 109/69 99 11/01/24 03:00 78 17 110/63 100 Nasal Cannula 2.0 11/01/24 02:30 79 15 109/59 99 LABS: Hematology Labs: Test 11/01/24 03:54 10/31/24 12:04 Range/Units White Blood Count 10.7 # 4.8-10.8 K/uL Red Blood Count 2.82 L 4.50-6.20 MIL/uL Hemoglobin 8.1 L 14.0-18.0 g/dL Hematocrit 24.7 L 42-54 % Mean Corpuscular Volume 87.6 79-99 fL Mean Corpuscular Hemoglobin 28.7 27.0-33.0 pg Mean Corpuscular Hemoglobin Concent 32.8 32.0-36.0 g/dL Red Cell Distribution Width 13.7 11.0-15.5 % Platelet Count 182 # 130-400 K/uL Mean Platelet Volume 9.7 7.5-10.5 fL Immature Granulocyte % (Auto) 0.5 0-1 % Neutrophils (%) (Auto) 80.5 H 40.0-77.0 % Lymphocytes (%) (Auto) 9.2 L 21.0-51.0 % Monocytes (%) (Auto) 8.5 3.0-13.0 % Eosinophils (%) (Auto) 1.2 0.0-8.0 % Basophils (%) (Auto) 0.1 0.0-5.0 % Neutrophils # (Auto) 8.6 H 1.8-7.7 K/uL Lymphocytes # (Auto) 1.0 1.0-4.8 K/uL Monocytes # (Auto) 0.9 0.1-1.0 K/uL Eosinophils # (Auto) 0.13 0.00-0.70 K/uL Basophils # (Auto) 0.01 0.00-0.20 K/uL Absolute Immature Granulocyte (auto 0.05 0-1 K/uL Nucleated Red Blood Cells 0.0 0.0-0.19 % White Cell Morphology Comment See comments Erythrocyte Sedimentation Rate 51 H 0-20 MM/HR Chemistry Labs: Test 11/01/24 03:54 10/31/24 15:20 10/31/24 12:04 Range/Units Sodium Level 140 136-145 mmol/L Potassium Level 4.7 3.5-5.1 mmol/L Chloride Level 109 101-111 mmol/L Carbon Dioxide Level 29 21-32 mmol/L Blood Urea Nitrogen 17 7-18 mg/dL Creatinine 0.9 0.5-1.3 mg/dL Glomerular Filtration Rate Calc 95 >90 mL/min Random Glucose 97 70-105 mg/dL Total Calcium 7.6 L 8.5-10.1 mg/dL Magnesium Level 1.70 L 1.80-2.40 mg/dL Total Bilirubin 0.8 # 0.2-1.0 mg/dL Aspartate Amino Transf (AST/SGOT) 30 10-37 U/L Alanine Aminotransferase (ALT/SGPT) 26 12-78 U/L Alkaline Phosphatase 77 50-136 U/L Total Protein 5.2 L 6.0-8.3 g/dL Albumin 2.3 L 3.5-5.0 g/dL Ammonia < 10 L 11-32 umol/L Total Creatine Kinase 273 H 21-232 U/L Troponin I High Sensitivity 413.0 *H 4-75 ng/L Direct Bilirubin 0.2 0.0-0.3 mg/dL C-Reactive Protein, Quantitative 97.90 H 0.5-3.0 mg/L Procalcitonin 3.50 H 0.05-0.5 ng/mL Coagulation Labs: Test 11/01/24 03:54 10/31/24 15:20 Range/Units Prothrombin Time 13.0 H 9.6-11.6 SEC Prothromb Time International Ratio 1.25 H 0.85-1.15 Activated Partial Thromboplast Time 41.3 #H 26.3-35.5 SEC Fibrinogen 541 *H 180-350 mg/dL D-Dimer Quantitative (PE/DVT) 495 0-500 ng/mL DIAGNOSTICS / RADIOLOGY RESULTS: [ ] PLAN Admitted to ICU by primary team BABITA davids q.[address] of the chest- IMPRESSION: 1. Extensive multifocal pneumonia versus hemorrhage versus edema involving both lungs, right greater than left 2. Mild bilateral hilar lymphadenopathy, right greater than left 3. Post-median sternotomy changes 4. No acute intra-abdominal/pelvic abnormality. Transfuse 2 units of FFP and rechecked INR if greater than via transfused another 2 units of FFP. NPO after midnight is stable INR plan for Bronchoscopy tomorrow by Dr Pagan NEURO: Minimize central acting medications as possible. Fall Precautions. Well lighted room through the day and minimize interruptions through the night to prevent acute delirium. PULMONARY: Supplemental 02 as needed Titrate Fio2 to keep Spo2 > or = 90% DuoNebs and CPT as needed IS hourly while awake for pulmonary hygiene Out of bed to chair as tolerated CARDIOVASCULAR: Follow hemodynamics. Titrate vasopressor to keep MAP >65 or systolic blood pressure >95mmHg DRIPS: levophed PRN maintain MP > 65 LINES: PIV 2 large bore IV GI & NUTRITION: Continue nutritional support Aspirations precautions Prokinetic agents and laxatives as needed KIDNEYS & ELECTROLYTES: Strict monitoring of intake and output Daily weights Avoid nephrotoxic agents Monitor electrolytes and replace as needed Goal urine output of 30mL/hr or 0.5mL/kg/hr ENDOCRINE: Maintain blood glucose between 100-180 at all times. Insulin sliding scale for blood glucose management INFECTIOUS DISEASE: Trend temperature. Larose-culture if febrile. Micro: [ ] Blood cultures Respiratory cultures UA with urine culture Antibiotics: Cefepime Vanco Flagyl Doxycycline HEMATOLOGY & COAGULATION: Monitor H&H. Keep Hgb > 7 Transfuse 1 unit of PRBC for Hgb < 7 Transfuse 1 pack of platelets of platelets < 20, 000 Watch for any signs and symptoms of bleeding SKIN: Pressure ulcer prevention per facility protocol Rehab: PT/OT Prophylaxis: GI: Protonix DVT: SCD's Code Status: Full Resuscitation Disposition: ICU Other: Total patient care time exceeds 35 minutes excluding all procedures. Case was discussed and seen with my supervising physician. The above plan was formulated and agreed upon. ALICIA LUCIANO Nov 01, 2024 10:13
[2024-11-01] MEDS: SODIUM CHLORIDE 3% FOR INHALATION 4 ML/AMP VIAL.NEB IH ONE (11:25)
[2024-11-01 11:37] LABS: INR 1.14 (0.85-1.15)
--- NOTE | 2024-11-01 12:53 | NUR ---
DCP: HOME Pt currently lives with sister and roommate. pt does not have any DME, home health, or provider services. Pt states that he is able to complete ADLs independently. Pt states that [place] and still sees him when he needs to. Pt uses [facility] since being here. Pt moved from [place], [place] 3 months ago. At [place] pt will want to go home and family/friends can assist with transportation. Addendum: 11/01/24 at 1257 by TREMAYNE POE SS Amended: Links added.
--- NOTE | 2024-11-01 14:32 | PN ---
[facility] PROGRESS NOTE Date Patient Seen: Nov 01, 2024 Time of Visit: 14:27 Supervising Physician: [ Dr. Meño Pagan ] Primary Care Physician: self referral Outpatient Specialists: Inpatient Consults: dr Awad, Dr Ej Vega PROBLEM LIST: Septic shock, resolved supratherapeutic INR secondary to Coumadin, resolved Acute hypoxemic respiratory failure, POA Suspected alveolar hemorrhage, improving Acute on chronic anemia secondary to blood loss, POA History of mechanical aortic valve, POA History of chronic anticoagulation with warfarin, POA Acute kidney injury, POA Demand ischemia, POA Obesity, POA INTERVAL HISTORY: Patient seen and examined, he was in slight distress due to pain in chest and right shoulder which is being managed with morphine. Patient had a fall 2 weeks ago and had a left ulnar fracture. Vital signs are stable, BP 129/66, no pressors. Patient continues on 0.9%NaCl, h e is on nasal cannula with 4L O2. He is afebrile. Patient reports mild discomfort with his cough He is started on heart healthy diet and tolerating oral feeds comfortably. Waiting for blood and sputum culture results. meanwhile, he is kept on vancomycin, metronidazole, cefepime and doxycycline. INR has improved from 8 to 1.25, now in therapeutic range No repeat episode of hemoptysis observed. Yesterday patient received a total of 2 FFP along with vitamin K and TXA nebs. Cardiology consult and ID consult are pending. Tn now trending down from 466 to 266 REVIEW OF SYSTEMS: 12 point ROS reviewed with patient. Pertinent positives mentioned above. Otherwise negative. PHYSICAL EXAM: GENERAL: alert, weak, awake oriented x 3 HEENT: EOMI, Sclera non icteric, moist mucosa NECK: Supple, no JVD, trachea midline LUNGS: Rales to right side, and left lower lobe No wheezes HEART: Regular rate and rhythm. Normal S1 and S2, without murmurs ABD: Abdomen obese soft, nontender. Bowel sounds present EXT: No clubbing cyanosis. Left forearm tenderness. Right shoulder swelling NEURO: Alert and oriented to person, follows commands Vital Signs (last 8hr) Date Time Temp Pulse Resp B/P (MAP) Pulse Ox O2 Delivery O2 Flow Rate FiO2 11/01/24 12:00 100 Nasal Cannula* 2 28 11/01/24 11:00 85 20 120/67 100 Nasal Cannula 2.0 11/01/24 10:00 85 20 130/70 100 Nasal Cannula 2.0 11/01/24 09:00 80 20 112/67 100 Nasal Cannula 2.0 11/01/24 08:20 84 18 N/Cannula Low lpm 2.0 11/01/24 08:00 99.0 76 24 117/67 100 Nasal Cannula 2.0 11/01/24 07:30 98 Nasal Cannula* 2 28 11/01/24 07:30 78 18 111/70 98 Nasal Cannula 2.0 11/01/24 07:00 78 20 116/ 99 Nasal Cannula 2.0 11/01/24 06:45 88 18 11/01/24 06:41 78 20 116 99 Nasal Cannula 2.0 11/01/24 06:31 86 16 LABS: Hematology Labs: Test 11/01/24 03:54 10/31/24 12:04 Range/Units White Blood Count 10.7 # 4.8-10.8 K/uL Red Blood Count 2.82 L 4.50-6.20 MIL/uL Hemoglobin 8.1 L 14.0-18.0 g/dL Hematocrit 24.7 L 42-54 % Mean Corpuscular Volume 87.6 79-99 fL Mean Corpuscular Hemoglobin 28.7 27.0-33.0 pg Mean Corpuscular Hemoglobin Concent 32.8 32.0-36.0 g/dL Red Cell Distribution Width 13.7 11.0-15.5 % Platelet Count 182 # 130-400 K/uL Mean Platelet Volume 9.7 7.5-10.5 fL Immature Granulocyte % (Auto) 0.5 0-1 % Neutrophils (%) (Auto) 80.5 H 40.0-77.0 % Lymphocytes (%) (Auto) 9.2 L 21.0-51.0 % Monocytes (%) (Auto) 8.5 3.0-13.0 % Eosinophils (%) (Auto) 1.2 0.0-8.0 % Basophils (%) (Auto) 0.1 0.0-5.0 % Neutrophils # (Auto) 8.6 H 1.8-7.7 K/uL Lymphocytes # (Auto) 1.0 1.0-4.8 K/uL Monocytes # (Auto) 0.9 0.1-1.0 K/uL Eosinophils # (Auto) 0.13 0.00-0.70 K/uL Basophils # (Auto) 0.01 0.00-0.20 K/uL Absolute Immature Granulocyte (auto 0.05 0-1 K/uL Nucleated Red Blood Cells 0.0 0.0-0.19 % White Cell Morphology Comment See comments Erythrocyte Sedimentation Rate 51 H 0-20 MM/HR Chemistry Labs: Test 11/01/24 11:05 11/01/24 03:54 10/31/24 15:20 10/31/24 12:04 Range/Units Troponin I High Sensitivity 266 *H 4-75 ng/L Sodium Level 140 136-145 mmol/L Potassium Level 4.7 3.5-5.1 mmol/L Chloride Level 109 101-111 mmol/L Carbon Dioxide Level 29 21-32 mmol/L Blood Urea Nitrogen 17 7-18 mg/dL Creatinine 0.9 0.5-1.3 mg/dL Glomerular Filtration Rate Calc 95 >90 mL/min Random Glucose 97 70-105 mg/dL Total Calcium 7.6 L 8.5-10.1 mg/dL Magnesium Level 1.70 L 1.80-2.40 mg/dL Total Bilirubin 0.8 # 0.2-1.0 mg/dL Aspartate Amino Transf (AST/SGOT) 30 10-37 U/L Alanine Aminotransferase (ALT/SGPT) 26 12-78 U/L Alkaline Phosphatase 77 50-136 U/L Total Protein 5.2 L 6.0-8.3 g/dL Albumin 2.3 L 3.5-5.0 g/dL Ammonia < 10 L 11-32 umol/L Total Creatine Kinase 273 H 21-232 U/L Direct Bilirubin 0.2 0.0-0.3 mg/dL C-Reactive Protein, Quantitative 97.90 H 0.5-3.0 mg/L Procalcitonin 3.50 H 0.05-0.5 ng/mL Coagulation Labs: Test 11/01/24 11:05 10/31/24 15:20 Range/Units Prothrombin Time 11.9 H 9.6-11.6 SEC Prothromb Time International Ratio 1.14 0.85-1.15 Activated Partial Thromboplast Time 39.2 H 26.3-35.5 SEC Fibrinogen 541 *H 180-350 mg/dL D-Dimer Quantitative (PE/DVT) 495 0-500 ng/mL DIAGNOSTICS / RADIOLOGY RESULTS: PATIENT: TIMUR DELGADILLO MR#: [id number] : 1960 SEX: M AGE: 64 LOCATION: [facility] ORDER 1133 STATUS: REG ER REPORT#: [id number] SERVICE 1132 REASON: SOB, CHEST PAIN ORDERING PHYSICIAN: RAO AGUILAR MD PROCEDURE: CXR1VW - CHEST 1VW ADDENDUM REPORT ADDENDUM: Results were shared by telephone at 2:28 pm on 10-31-24 and acknowledged by Matteo Deal /[facility] EXAM: CR CHEST, 1 VIEW CLINICAL HISTORY: 64-year-old male presents with shortness of breath and chest pain. COMPARISON: XR Chest 09/08/2024 TECHNIQUE: Single frontal radiograph of the chest was obtained. FINDINGS: Lines/Devices: None. Lungs: Large patchy consolidations are seen in the right upper lobe, right middle lobe, and right lower lobe, with airspace consolidations and air bronchograms consistent with pneumonia. These findings are new from the prior XR Chest 09/08/2024. A small right effusion is also new from the prior XR Chest 09/08/2024. Mediastinum and cardiovascular structures: The cardiac silhouette is not enlarged. The central airway and mediastinal contours are unremarkable. Bones and soft tissues: Unremarkable. IMPRESSION: 1. Large patchy consolidations in the right upper lobe, right middle lobe, and right lower lobe with air bronchograms, consistent with pneumonia. These findings are new from the prior XR Chest 09/08/2024. 2. Small right effusion, new from the prior XR Chest 09/08/2024. /[facility] DICTATED BY: MADDIE SARAVIA MD DATE: 10/31/24 1436 ELECTRONICALLY SIGNED BY: DATE: EXAM: CR CHEST, 1 VIEW CLINICAL HISTORY: 64-year-old male presents with shortness of breath and chest pain. COMPARISON: XR Chest 09/08/2024 TECHNIQUE: Single frontal radiograph of the chest was obtained. FINDINGS: Lines/Devices: None. Lungs: Large patchy consolidations are seen in the right upper lobe, right middle lobe, and right lower lobe, with airspace consolidations and air bronchograms consistent with pneumonia. These findings are new from the prior XR Chest 09/08/2024. A small right effusion is also new from the prior XR Chest 09/08/2024. Mediastinum and cardiovascular structures: The cardiac silhouette is not enlarged. The central airway and mediastinal contours are unremarkable. Bones and soft tissues: Unremarkable. IMPRESSION: 1. Large patchy consolidations in the right upper lobe, right middle lobe, and right lower lobe with air bronchograms, consistent with pneumonia. These findings are new from the prior XR Chest 09/08/2024. 2. Small right effusion, new from the prior XR Chest 09/08/2024. /[facility] DICTATED BY: MADDIE SARAVIA MD DATE: 10/31/241416 ELECTRONICALLY SIGNED BY: MADDIE SARAVIA MD DATE: 10/31/241416 PATIENT: TIMUR DELGADILLO MR#: [id number] : 1960 SEX: M AGE: 64 LOCATION: [facility] ORDER 1223 STATUS: ADM IN REPORT#: [id number] SERVICE 1220 REASON: hemoptysis, leukocytosis ORDERING PHYSICIAN: PATRICIA ROJAS PROCEDURE: CAP W - CT CHEST/ABD/PELV W/CONRAST ADDENDUM REPORT ADDENDUM: Results were shared by telephone at 6:24 pm on 10/31/24 and acknowledged by Chart Nurse bhanu Khan /[facility] EXAM: CT Chest with Intravenous Contrast. CT Abdomen and Pelvis with Intravenous Contrast CLINICAL HISTORY: hemoptysis, leukocytosis TECHNIQUE: Axial computed tomography images of the chest, abdomen and pelvis with intravenous contrast. CONTRAST: None. COMPARISON: None provided. CT chest 09/09/2024 FINDINGS: CHEST: LUNGS: Multifocal areas of consolidation throughout the right lower lung, large portion of the right upper lung and approximately 50% of the right middle lobe. Multifocal areas of consolidation left upper lung occupying approximately 30% of the lung volume and multifocal areas of consolidation within the left lower lung occupying slightly less than 50% of the left lower lung volume PLEURAL SPACES: No pneumothorax evident. No pleural effusions. HEART: No cardiomegaly. No significant pericardial effusion. Changes of median sternotomy. LYMPH NODES: Mild bilateral hilar lymphadenopathy right greater than left. There are a few shotty mediastinal lymph nodes not significantly changed in size or number compared with the prior exam ABDOMEN AND PELVIS: LIVER: Unremarkable. No focal lesions. GALLBLADDER AND BILE DUCTS: The gallbladder appears within normal limits. No radioopaque gallstones are seen. No biliary ductal dilatation is evident. PANCREAS: Unremarkable. SPLEEN: Unremarkable. ADRENAL GLANDS: Unremarkable. KIDNEYS, URETERS, AND BLADDER: Unremarkable. No hydronephrosis or nephrolithiasis. No ureteral or bladder calculi. STOMACH AND BOWEL: Unremarkable appearance of the stomach and bowel. No evidence of bowel obstruction. No evidence suggesting enteritis or colitis. APPENDIX: No evidence of acute appendicitis on CT examination. PERITONEUM: No free fluid. No free air. REPRODUCTIVE: Unremarkable. LYMPH NODES: No lymphadenopathy is evident. VASCULATURE: No evidence of abdominal aortic aneurysm. BONES: No acute osseous abnormality. IMPRESSION: 1. Extensive multifocal pneumonia versus hemorrhage versus edema involving both lungs, right greater than left 2. Mild bilateral hilar lymphadenopathy, right greater than left 3. Post-median sternotomy changes 4. No acute intra-abdominal/pelvic abnormality. /[place] DICTATED BY: TREMAYNE MOELLER MD DATE: 10/31/24 1826 ELECTRONICALLY SIGNED BY: DATE: EXAM: CT Chest with Intravenous Contrast. CT Abdomen and Pelvis with Intravenous Contrast CLINICAL HISTORY: hemoptysis, leukocytosis TECHNIQUE: Axial computed tomography images of the chest, abdomen and pelvis with intravenous contrast. CONTRAST: None. COMPARISON: None provided. CT chest 09/09/2024 FINDINGS: CHEST: LUNGS: Multifocal areas of consolidation throughout the right lower lung, large portion of the right upper lung and approximately 50% of the right middle lobe. Multifocal areas of consolidation left upper lung occupying approximately 30% of the lung volume and multifocal areas of consolidation within the left lower lung occupying slightly less than 50% of the left lower lung volume PLEURAL SPACES: No pneumothorax evident. No pleural effusions. HEART: No cardiomegaly. No significant pericardial effusion. Changes of median sternotomy. LYMPH NODES: Mild bilateral hilar lymphadenopathy right greater than left. There are a few shotty mediastinal lymph nodes not significantly changed in size or number compared with the prior exam ABDOMEN AND PELVIS: LIVER: Unremarkable. No focal lesions. GALLBLADDER AND BILE DUCTS: The gallbladder appears within normal limits. No radioopaque gallstones are seen. No biliary ductal dilatation is evident. PANCREAS: Unremarkable. SPLEEN: Unremarkable. ADRENAL GLANDS: Unremarkable. KIDNEYS, URETERS, AND BLADDER: Unremarkable. No hydronephrosis or nephrolithiasis. No ureteral or bladder calculi. STOMACH AND BOWEL: Unremarkable appearance of the stomach and bowel. No evidence of bowel obstruction. No evidence suggesting enteritis or colitis. APPENDIX: No evidence of acute appendicitis on CT examination. PERITONEUM: No free fluid. No free air. REPRODUCTIVE: Unremarkable. LYMPH NODES: No lymphadenopathy is evident. VASCULATURE: No evidence of abdominal aortic aneurysm. BONES: No acute osseous abnormality. IMPRESSION: 1. Extensive multifocal pneumonia versus hemorrhage versus edema involving both lungs, right greater than left 2. Mild bilateral hilar lymphadenopathy, right greater than left 3. Post-median sternotomy changes 4. No acute intra-abdominal/pelvic abnormality. /[place] DICTATED BY: TREMAYNE MOELLER MD DATE: 10/31/241744 ELECTRONICALLY SIGNED BY: TREMAYNE MOELLER MD DATE: 10/31/241744 PATIENT: TIMUR DELGADILLO MR#: [id number] : 1960 SEX: M AGE: 64 LOCATION: [facility] ORDER 44 STATUS: ADM IN REPORT#: [id number] SERVICE 1343 REASON: INR> 8, right ear blooody drainage ORDERING PHYSICIAN: MARGARITA BILL MD PROCEDURE: HEAD WO - CT HEAD/BRAIN W/O CONTRAST EXAM: CT Head Without IV contrast. CLINICAL HISTORY: INR> 8, right ear blooody drainage TECHNIQUE: Axial computed tomography images of the head/brain without intravenous contrast. COMPARISON: None provided. FINDINGS: BRAIN: No evidence of acute hemorrhage. No mass lesion. No CT evidence for acute territorial infarct. No midline shift or extra-axial collections. VENTRICLES: No hydrocephalus. ORBITS: The orbits are unremarkable. SINUSES AND MASTOIDS: The paranasal sinuses and mastoid air cells are clear. BONES: No fracture. SOFT TISSUES: Unremarkable. IMPRESSION: No acute intracranial abnormality. /[facility] DICTATED BY: DEEPAK LUNA Jr., MD DATE: 10/31/241646 ELECTRONICALLY SIGNED BY: DEEPAK LUNA Jr., MD DATE: 10/31/241646 PATIENT: TIMUR DELGADILLO MR#: [id number] : 1960 SEX: M AGE: 64 LOCATION: [facility] ORDER 44 STATUS: REG [facility] REPORT#: [id number] SERVICE 43 REASON: supratherapeutic INR, swelling of the right shoulder ORDERING PHYSICIAN: MARGARITA BILL MD PROCEDURE: SHOL 2V RT - SHOULDER COMP 2+VWS RT EXAM: CR right Shoulder, 2 View. CLINICAL HISTORY: supratherapeutic INR, swelling of the right shoulder COMPARISON: None provided. FINDINGS: BONES: No acute fracture or aggressive appearing osseous lesion. JOINTS: No dislocation. Mild glenohumeral joint osteoarthritis. SOFT TISSUES: The soft tissues are unremarkable. Redemonstrated multifocal airspace disease throughout the right lung. IMPRESSION: 1. No acute osseous injury. 2. Multifocal airspace disease in the right lung. /[facility] DICTATED BY: DEEPAK LUNA Jr., MD DATE: 10/31/241529 ELECTRONICALLY SIGNED BY: DEEPAK LUNA Jr., MD DATE: 10/31/241529 PLAN Admitted to ICU by primary team, now Downgraded to PCCU TXA nebs q.4 hours Warfarin still held. Repeat INR now therapeutic at 1.25, Follow up with ID, and cardiology consult. Follow up with 2Decho result. He is on 4l nasal canula, wean off as required, he is vitally stable 129/66 Patient is tolerating heart healthy diet for now. Hold off bronchoscopy. Continue with antibiotics; vancomycin, metronidazole, cefepime and doxycycline. Blood and sputum cultures pending NEURO: Minimize central acting medications as possible. Fall Precautions. Well lighted room through the day and minimize interruptions through the night to prevent acute delirium. PULMONARY: Supplemental 02 as needed Titrate Fio2 to keep Spo2 > or = 90% DuoNebs and CPT as needed IS hourly while awake for pulmonary hygiene Out of bed to chair as tolerated CARDIOVASCULAR: Follow hemodynamics. Titrate vasopressor to keep MAP >65 or systolic blood pressure >95mmHg DRIPS: levophed PRN maintain MP > 65 LINES: PIV 2 large bore IV GI & NUTRITION: Continue nutritional support Aspirations precautions Prokinetic agents and laxatives as needed KIDNEYS & ELECTROLYTES: Strict monitoring of intake and output Daily weights Avoid nephrotoxic agents Monitor electrolytes and replace as needed Goal urine output of 30mL/hr or 0.5mL/kg/hr ENDOCRINE: Maintain blood glucose between 100-180 at all times. Insulin sliding scale for blood glucose management INFECTIOUS DISEASE: Trend temperature. Larose-culture if febrile. Micro: [ ] Blood cultures Respiratory cultures UA with urine culture Antibiotics: Cefepime Vanco Flagyl Doxycycline HEMATOLOGY & COAGULATION: Monitor H&H. Keep Hgb > 7 Transfuse 1 unit of PRBC for Hgb < 7 Transfuse 1 pack of platelets of platelets < 20, 000 Watch for any signs and symptoms of bleeding SKIN: Pressure ulcer prevention per facility protocol Rehab: PT/OT Prophylaxis: GI: Protonix DVT: SCD's Code Status: Full Resuscitation Disposition: ICU Other: Total patient care time exceeds 35 minutes excluding all procedures. Case was discussed and seen with my supervising physician. The above plan was formulated and agreed upon. ATTESTATION BY PHYSICIAN I have seen and examined the patient. I reviewed the documentation, medical decision making, and treatment plan as noted by the mid-level provider above. I agree with the findings and plan of care. Meño Pagan MD, MUHAMMAD H MD Nov 01, 2024 14:32
--- NOTE | 2024-11-01 14:35 | NUR ---
TRANSFER REPORT GIVEN TO RAMILA CIFUENTES RN, PT TRANSFERRED VIA W/C NO DISTRESS NOTED.
--- NOTE | 2024-11-01 15:50 | PN ---
CARDIOLOGY Reason for consult: Mechanical Aortic Valve HPI/story at presentation: This is a pleasant 64-year-old male with past medical history significant for mechanical aortic valve placed in 1993, chronic warfarin use initially presented to the emergency department due to hemoptysis, cough, chills and blood noted in his right ear. Patient also reports he sustained a fall injury approximately 12 days ago in [place]. Denies any syncope episode. Her warfarin dose accordingly the patient is warfarin 5 mg daily other than on Thursday and Thursday when he takes 7.5 mg daily. Patient also found to be febrile with a temperature of 101.3. Initial blood pressure 83/42. sepsis protocol was started. INR results show greater than 8. Patient was administered vitamin K 10 mg IV and is scheduled to receive 2 units of FFP. High sensory troponin at 299. Patient was also found to have bilateral pneumonia 11/01/2024 patient was seen and evaluated at bedside in the ICU No episodes of bleeding has been reported since yesterday Repeat INR today is 1.14 Past medical history: See below Allergies, Meds See chart Review of systems Review of Systems Constitutional: + for chills and fever. HENT: + for right ear bloody discharge and ear pain. Eyes: Negative for photophobia and discharge. Respiratory: + for cough, sputum production and stridor. + hemoptysis Cardiovascular: Negative for chest pain and palpitations. Gastrointestinal: Negative for diarrhea and vomiting. Genitourinary: Negative for frequency. Musculoskeletal: Negative for myalgias. Skin: Negative for rash. Neurological: Negative for focal weakness and seizures. Endo/Heme/Allergies: Negative for polydipsia. Psychiatric/Behavioral: Negative for hallucinations. Vitals see chart PHYSICAL EXAMINATION GENERAL: The patient is alert and oriented*3, ill appearing HEENT: Nonicteric sclerae, non traumatic HEART: Regular rate and rhythm with no murmurs, 3/6 systolic murmur to 2nd ICS LUNGS: Diminished to auscultation bilaterally ABDOMEN: No acute issues, non tender GENITAL, RECTAL: deferred SKIN: No rash NEUROLOGIC: NFND EXTREMITIES: No edema ASSESSMENT SUPRATHERAPEUTIC INR INR GREATER THAN 8 Currently or warfarin Reports hemoptysis and bloody drainage from right ear AORTIC VALVE REPLACEMENT Mechanical INR was subtherapeutic at presentation CORE MEASURES Not applicable OTHER MEDICAL PROBLEMS Reviewed PLAN 10/31/2024 will order echocardiography to examine aortic valve. Patient is currently pending CT of the head and chest due to recent fall and supratherapeutic INR Continue with FFP infusion with plans for repeat INR 11/01/2024 patient's INR today is 21.14. No new episodes Of bleeding heavy reported Patient will need to be restarted on his oral Coumadin but will start patient on IV heparin and moderate for bleeding Patient's hemoglobin today is currently at 8.1 We will wait to start IV heparin drip tomorrow in repeat H&H in the morning ATTESTATION Case discussed with Dr. Arreola Vitals/Labs Vital Signs Date Time Temp Pulse Resp B/P (MAP) Pulse Ox O2 Delivery O2 Flow Rate FiO2 11/01/24 14:26 84 18 11/01/24 13:00 129/66 100 Nasal Cannula 2.0 11/01/24 12:00 99.1 11/01/24 12:00 28 Laboratory Tests 10/31/24 21:49 11/01/24 03:54 Medications Current Medications Vancomycin HCl 1 each AD IV; Start 10/31/24 at 12:30; Stop 11/14/24 at 12:29 Piperacillin Sod/ Tazobactam Sod 3.375 gm ONCE ONCE IV Last administered on 10/31/24at 12:43; Start 10/31/24 at 12:30; Stop 10/31/24 at 12:41; Status DC Sodium Chloride 1,000 ml @ 0 mls/hr ONCE ONCE IV Last administered on 10/31/24at 12:43; Start 10/31/24 at 12:30; Stop 10/31/24 at 12:41; Status DC Vancomycin HCl 500 ml @ 250 mls/hr ONCE ONCE IV Last administered on 10/31/24at 13:57; Start 10/31/24 at 13:00; Stop 10/31/24 at 14:59; Status DC Vancomycin HCl 250 ml @ 125 mls/hr Q12H IV Last administered on 11/01/24at 13:27; Start 11/01/24 at 01:30; Stop 11/11/24 at 01:29 Sodium Chloride 1,983 ml @ 661 mls/hr ONCE ONCE IV Last administered on 10/31/24at 13:12; Start 10/31/24 at 13:00; Stop 10/31/24 at 15:59; Status DC Phytonadione 10 mg/Sodium Chloride 51 ml @ 100 mls/hr ONCE ONCE IVPB Last administered on 10/31/24at 13:12; Start 10/31/24 at 13:00; Stop 10/31/24 at 13:30; Status DC Morphine Sulfate 2 mg ONCE ONCE IVP Last administered on 10/31/24at 13:20; Start 10/31/24 at 13:30; Stop 10/31/24 at 13:31; Status DC Ondansetron HCl 4 mg ONCE ONCE IVP Last administered on 10/31/24at 13:20; Start 10/31/24 at 13:30; Stop 10/31/24 at 13:31; Status DC Pantoprazole Sodium 40 mg Q12H IVP Last administered on 11/01/24at 13:27; Start 10/31/24 at 14:00; Stop 11/30/24 at 13:59 Acetaminophen 650 mg Q6H PRN PO Last administered on 10/31/24at 17:32; Start 10/31/24 at 14:00; Stop 11/30/24 at 13:59 Ondansetron HCl 4 mg Q6H PRN IVP; Start 10/31/24 at 14:00; Stop 11/30/24 at 13:59 Sodium Chloride 1,000 ml @ 75 mls/hr [id number] IV Last administered on 11/01/24at 03:31; Start 10/31/24 at 14:00; Stop 11/30/24 at 13:59 Cefepime HCl 2 gm Q12H IVPB Last administered on 11/01/24at 06:22; Start 10/31/24 at 18:00; Stop 11/10/24 at 17:59 Doxycycline Hyclate 250 ml @ 125 mls/hr BID IV Last administered on 11/01/24at 08:09; Start 10/31/24 at 14:00; Stop 11/10/24 at 13:59 Metronidazole/ Sodium Chloride 100 ml @ 100 mls/hr Q8H6 IVPB Last administered on 11/01/24at 13:30; Start 10/31/24 at 21:00; Stop 11/10/24 at 20:59 Albuterol 1 udvial Q6H PRN IH; Start 10/31/24 at 14:30; Stop 11/30/24 at 14:29 Budesonide 0.5 mg BIDRESP IH Last administered on 11/01/24at 06:31; Start 10/31/24 at 18:00; Stop 11/30/24 at 17:59 Iohexol 75 ml STK-MED ONCE IV; Start 10/31/24 at 14:53; Stop 10/31/24 at 14:54; Status DC Tranexamic Acid 500 mg [id number] Last administered on 11/01/24at 14:26; Start 10/31/24 at 15:30; Stop 11/30/24 at 15:29 Morphine Sulfate 2 mg Q6H PRN IVP Last administered on 11/01/24at 13:32; Start 10/31/24 at 19:00; Stop 11/07/24 at 18:59 Sodium Chloride 4 ml STK-MED ONCE IH Last administered on 10/31/24at 22:46; Start 10/31/24 at 22:37; Stop 10/31/24 at 22:38; Status DC Magnesium Sulfate 50 ml @ 0 mls/hr PROTOCOL PRN IV Last administered on 11/01/24at 08:09; Start 11/01/24 at 08:00; Stop 12/01/24 at 07:59 Morphine Sulfate 2 mg ONCE ONCE IVP Last administered on 11/01/24at 08:21; Start 11/01/24 at 08:30; Stop 11/01/24 at 08:31; Status DC Sodium Chloride 4 ml STK-MED ONCE IH; Start 11/01/24 at 10:49; Stop 11/01/24 at 10:50; Status DC RENAE MODI [facility] Nov 01, 2024 15:50
--- NOTE | 2024-11-01 16:30 | NUR ---
CAME TO SPEAK TO PATIENT ABOUT HIS SISTER WHO IS ALSO HOSPITALIZED STATES HE RECENTLY CAME TO THE [place] TO LOOK AFTER HER AND THAT HIS PLAN ON DISCHARGE IS NOT TO GO TO A FACILITY BUT TO BE AVAILABLE FOR HIS SISTER'S CARE, SHE REQUIRES REMINDERS AND CUING AND CANNOT LIVE INDEPENDENTLY. ADVISED SW OF SAME
--- NOTE | 2024-11-01 19:45 | NUR ---
Patient receiving IV abx to 20g right hand. Pitting edema to right hand and complaints of tenderness to IV site. Placed warm compress on right hand. Removal of PIV. IV intact. Hand elevated.
--- NOTE | 2024-11-01 20:08 | HMCIMG ---
EXAM: CR Chest, 1 View. CLINICAL HISTORY: please assess for any wrsening infiltrates, PNA COMPARISON: None provided. FINDINGS: LUNGS: Improved right sided infiltrate. Resolving pneumonia. Continue follow-up recommended PLEURAL SPACES: No pleural effusion or pneumothorax. MEDIASTINUM: Cardiac size and mediastinal contours within normal limits. BONES: No acute osseous abnormality. IMPRESSION: Improved right sided infiltrate. Resolving pneumonia. Continue follow-up recommended /[place]
--- NOTE | 2024-11-01 20:31 | CONS ---
INFECTIOUS DISEASE CONSULTATION DATE OF SERVICE: 11/01/2024. REQUESTING PHYSICIAN: Alexey Ames MD REASON FOR CONSULTATION: Sepsis, pneumonia, and antibiotic management. HISTORY OF PRESENT ILLNESS: A 64-year-old male with obesity; mechanical valve, on Coumadin; who presented to the hospital with fever and hemoptysis. The patient also complains of cough. The patient was found to have INR of 8.0. The patient also complained of epistaxis. Imaging was done, which showed the patient to have multifocal pneumonia. Troponin was elevated at 513. The patient was found with hypotension and transferred to ICU. The patient was given FFP and vitamin K. Denies sick contact or recent travel. PAST MEDICAL HISTORY: * Obesity. * Valvular insufficiency. PAST SURGICAL HISTORY: Mechanical valve replacement, on Coumadin. ALLERGIES: No known drug allergies. CURRENT MEDICATIONS: Reviewed. SOCIAL HISTORY: No alcohol, tobacco, or illicit drug use. FAMILY HISTORY: Noncontributory. REVIEW OF SYSTEMS: CONSTITUTIONAL: Positive for fever, chills. No weight loss or night sweats. EYES: No eye pain. No photophobia or diplopia. HENT: No sore throat. No rhinorrhea or earache. NECK: No neck pain or neck swelling. RESPIRATORY: Positive for cough. No hemoptysis, no pleuritic pain. CARDIOVASCULAR: No chest pain. No palpitation or orthopnea. GASTROINTESTINAL: No nausea, vomiting, or abdominal pain. GENITOURINARY: No dysuria, urgency, or urinary frequency. PSYCHIATRY: No depression, no suicidal ideation. MUSCULOSKELETAL: No joint pain, no joint swelling. PHYSICAL EXAMINATION: GENERAL: Elderly male, awake. VITAL SIGNS: Temperature 99.0, pulse 76, respiratory rate 24, BP 120/67. EYES: No icterus. Pupils equal and reactive. HENT: No oral thrush seen. Moist oral mucosa. NECK: Supple. No JVD or thyromegaly. LUNGS: Good air entry. Crackles bilaterally. CARDIOVASCULAR: S1, S2, regular. No murmur heard. ABDOMEN: Obese, soft, nontender. Bowel sound is present. CENTRAL NERVOUS SYSTEM: Awake, alert, oriented x 3. No focal deficits. SKIN: No rashes, no itchiness. LYMPHATIC: No peripheral lymphadenopathy. BACK: No deformity, no pressure ulcer. HEMATOLOGIC: No bleeding or petechial lesion seen. MUSCULOSKELETAL: No joint swelling, erythema, or tenderness. LABORATORY DATA: Troponin 513. Sodium 140, potassium 4.7, BUN 17, creatinine 0.9. WBC 10.7, hemoglobin 8.1, platelets 182. Urinalysis; wbc's 25. Influenza antigen negative. COVID-19 negative. RADIOLOGY: CT chest results reviewed. ASSESSMENT: A 64-year-old male presented with cough, fever, hemoptysis. CURRENT PROBLEMS: Include: * Multifocal pneumonia. * Severe sepsis. * Hypoxic respiratory failure. * Supratherapeutic INR. * Elevated troponin may be due to demand ischemia. * Anemia. PLAN: * Continue vancomycin. * Continue cefepime. * Continue doxycycline. * Continue Flagyl. * Followup cultures. * Continue critical care support. * Continue nutritional support. * Monitor electrolytes. * The patient will be followed up closely. Thank you for allowing me to participate in the care of this patient. TID: [id number] RECEIPT: [id number] [facility]
[2024-11-02] VITALS (15 sets, daily range): BP systolic 115–141; BP diastolic 67–93; PULSE 85–92; RESP 18–24; TEMP 98.1–99.7; O2SAT 94–100
[2024-11-02 04:07] LABS: IMMATURE GRANULOCYTE ABSOLUTE 0.10 K/uL (0-1); NUCLEATED RED BLOOD CELLS 0.0 % (0.0-0.19); PLATELET COUNT (AUTO) 196 K/uL (130-400); RED BLOOD CELL COUNT(AUTO) 2.82 MIL/uL (4.50-6.20); RED CELL DISTRIBUTION WIDTH 13.3 % (11.0-15.5); WHITE BLOOD COUNT (AUTO) 10.3 K/uL (4.8-10.8)
[2024-11-02 04:11] LABS: CREATININE 0.8 mg/dL (0.5-1.3); GLOMERULAR FILTR. RATE CALC 98.0 mL/min (>90); GLUCOSE,RANDOM 105.0 mg/dL (70-105); SODIUM SERUM 139.0 mmol/L (136-145); UREA NITROGEN, BLOOD 13.0 mg/dL (7-18)
[2024-11-02 10:40] LABS: INR 1.09 (0.85-1.15)
--- NOTE | 2024-11-02 12:38 | PN ---
[facility] PROGRESS NOTE Date of Service: Nov 02, 2024 Time of Service: 12:36 SUBJECTIVE: [ ] 64-year-old male with prior history of mechanical aortic valve which was replaced in 1993 maintained on chronic outpatient anticoagulation with warfarin, obesity, who presented to the ER for further evaluation of hemoptysis, chills, cough, and blood noted in the right ear.Patient states that about 12 days ago, he was visiting in [place], he had a mechanical fall with no syncope, patient was evaluated in ER and was found to have a nondisplaced left forearm ulnar fracture along which was treated conservatively. Patient had a CT done which was noted to be negative per patient. Patient states that over the last two days, he noticed that he was having chills, and yesterday night, he started having hemoptysis. Today he noticed that he was having bloody drainage from the right ear. Denies any headache, denies any focal weakness of upper or lower extremities. Denies any neck pain. Denies any new recent fall other than 12 days ago in [place] Denies chest pain other than with cough. He has been having generalized fatigue and malaise over the last two days. Denies exposure to sick contacts. 11/01/24 patient was admitted for septic shock and hemoptysis with Coumadin toxici ty today's INR improved significantly from 8-1.4 We will wait for patient insurance clerk's if okay to resume. Patient appears acutely ill continue with broad-spectrum antibiotics tolerating. ID on board we will follow his recommendations. Patient is currently on nasal cannula to 3 L. We will be monitored closely in ICU. 11/02/2024 patient was seen earlier patient is lying in bed on room air we continue with broad-spectrum antibiotics tolerating reports no diarrhea. We continue to monitor INR. Encourage patient out of bed to chair as tolerated PT services we will be ordered. Denied chest pain palpitations dizziness. REVIEW OF SYSTEMS CONSTITUTIONAL: malaise, generalized weakness, fatigue NEUROLOGICAL: Denies headache, amaurosis fugax, motor weakness, sensory deficit, vertigo/spinning sensation, gait abnormalities, or tremors. ENT: No hearing loss, reports having noticed blood coming out of the right ear CARDIOVASCULAR: Denies any exertional angina, dyspnea on exertion, orthopnea, paroxysmal nocturnal dyspnea, palpitations, life-threatening arrhythmias, claudication. PULMONARY: reports having cough, congestion, SOB, patient reports having hemoptysis SLEEP: Denies morning headaches, daytime somnolence or napping. Denies difficulty falling asleep, staying asleep, waking from sleep. Denies knowledge of snoring. GASTROINTESTINAL: Denies any type of dysphagia to either liquids or solids. Denies nausea, vomiting, pyrosis, early satiety, abdominal pain, diarrhea, constipation, or changes in stool consistency or caliber. Denies coffee-ground emesis, hematemesis, hematochezia, or melanotic stools. GENITOURINARY: Denies frequency, urgency, nocturia, hematuria or incontinence (Storage/Irritative symptoms.) Low urinary stream, straining to void, urinary intermittency or hesitancy, splitting of the voiding stream, terminal dribbling. ENDOCRINOLOGIC: Denies polyuria, polydipsia, polyphagia or heat/cold intolerances. HEMATOLOGIC: reports having easy bruising ONCOLOGIC: Denies personal history of malignancy. DERMATOLOGIC: Denies rashes or pruritus. PSYCHIATRIC: Denies any suicidal or homicidal ideation. Denies hallucinations. PHYSICAL EXAM GENERAL APPEARANCE: The patient is awake, alert, and oriented, in no acute cardiopulmonary distress. NEUROLOGICAL: Cranial nerves II-XII grossly intact. Motor is 5/5 in bilateral upper and lower extremities proximal to distal. No sensory deficits. HEENT: Face is symmetric. Pupils are equal and reactive. Extraocular movements are intact. Right ear on otoscopic examination noted to have dries blood and some bright red blood, there is small clots noted as well, which i did not dislodge, tympanic membrane could be full evaluated due to blood NECK: Supple. No JVD. No thyromegaly. No submental, submandibular, pre- /postauricular, occipital or supraclavicular lymphadenopathy. CHEST: Normal chest expansion. No Telemetry. LUNGS: Crackles noted of the right lung base with decreased breath with rhonchorous breath sounds CARDIOVASCULAR: Regular. S1 and S2 normal. No appreciable rubs, murmurs or gallops. ABDOMEN: Soft, nontender, and nondistended. There is no rebound, voluntary guarding, or rigidity. : Deferred. No Wills. EXTREMITIES: Trace edema of the bilateral lower extremities SKIN: Swelling and redness noted of the right shoulder Vital Signs (last 8hr) Date Time Temp Pulse Resp B/P (MAP) Pulse Ox O2 Delivery O2 Flow Rate FiO2 11/02/24 11:00 98.2 92 22 118/67 92 Nasal Cannula 11/02/24 07:40 100 Nasal Cannula* 2 28 11/02/24 07:26 91 18 11/02/24 07:25 91 18 N/A Room Air 21 11/02/24 07:00 98.8 91 22 115/80 90 Room Air LABS: Laboratory: Test 11/02/24 10:18 11/02/24 03:37 11/02/24 00:34 11/01/24 11:05 Range/Units Prothrombin Time 11.5 9.6-11.6 SEC Prothromb Time International Ratio 1.09 0.85-1.15 Activated Partial Thromboplast Time 33.2 26.3-35.5 SEC White Blood Count 10.3 4.8-10.8 K/uL Red Blood Count 2.82 L 4.50-6.20 MIL/uL Hemoglobin 8.1 L 14.0-18.0 g/dL Hematocrit 24.5 L 42-54 % Mean Corpuscular Volume 86.9 79-99 fL Mean Corpuscular Hemoglobin 28.7 27.0-33.0 pg Mean Corpuscular Hemoglobin Concent 33.1 32.0-36.0 g/dL Red Cell Distribution Width 13.3 11.0-15.5 % Platelet Count 196 130-400 K/uL Mean Platelet Volume 9.9 7.5-10.5 fL Immature Granulocyte % (Auto) 1.0 0-1 % Neutrophils (%) (Auto) 81.0 H 40.0-77.0 % Lymphocytes (%) (Auto) 8.2 L 21.0-51.0 % Monocytes (%) (Auto) 9.0 3.0-13.0 % Eosinophils (%) (Auto) 0.5 0.0-8.0 % Basophils (%) (Auto) 0.3 0.0-5.0 % Neutrophils # (Auto) 8.4 H 1.8-7.7 K/uL Lymphocytes # (Auto) 0.9 L 1.0-4.8 K/uL Monocytes # (Auto) 0.9 0.1-1.0 K/uL Eosinophils # (Auto) 0.05 0.00-0.70 K/uL Basophils # (Auto) 0.03 0.00-0.20 K/uL Absolute Immature Granulocyte (auto 0.10 0-1 K/uL Nucleated Red Blood Cells 0.0 0.0-0.19 % Sodium Level 139 136-145 mmol/L Potassium Level 4.0 3.5-5.1 mmol/L Chloride Level 106 101-111 mmol/L Carbon Dioxide Level 25 21-32 mmol/L Blood Urea Nitrogen 13 7-18 mg/dL Creatinine 0.8 0.5-1.3 mg/dL Glomerular Filtration Rate Calc 98 >90 mL/min Random Glucose 105 70-105 mg/dL Total Calcium 8.2 L 8.5-10.1 mg/dL Vancomycin Level Trough 11.1 10.0-20.0 UG/ML Troponin I High Sensitivity 266 *H 4-75 ng/L Test 11/01/24 03:54 10/31/24 15:20 10/31/24 14:16 Range/Units Magnesium Level 1.70 L 1.80-2.40 mg/dL Total Bilirubin 0.8 # 0.2-1.0 mg/dL Aspartate Amino Transf (AST/SGOT) 30 10-37 U/L Alanine Aminotransferase (ALT/SGPT) 26 12-78 U/L Alkaline Phosphatase 77 50-136 U/L Total Protein 5.2 L 6.0-8.3 g/dL Albumin 2.3 L 3.5-5.0 g/dL Fibrinogen 541 *H 180-350 mg/dL D-Dimer Quantitative (PE/DVT) 495 0-500 ng/mL Ammonia < 10 L 11-32 umol/L Total Creatine Kinase 273 H 21-232 U/L Serum Alcohol < 3 0-10 mg/dL Urine Color LIGHT-YELLOW YELLOW Urine Appearance CLEAR CLEAR Urine pH 5.5 5.0-8.0 Urine Specific [place] 1.015 1.001-1.031 Urine Protein NEGATIVE NEGATIVE mg/dL Urine Glucose (UA) NEGATIVE NEGATIVE mg/dL Urine Ketones NEGATIVE NEGATIVE mg/dL Urine Occult Blood NEGATIVE NEGATIVE Urine Nitrate NEGATIVE NEGATIVE Urine Bilirubin NEGATIVE NEGATIVE mg/dL Urine Urobilinogen 0.2 0.2-1.0 mg/dL Urine Leukocyte Esterase NEGATIVE NEGATIVE [place]/uL Urine RBC 0-1 0-1 /HPF Urine WBC 11-25 H 0-1 /HPF Urine Squamous Epithelial Cells RARE 0-2 /HPF Urine Bacteria RARE None Seen /HPF Urine Cellular Casts (Auto) 0-1 None Seen /LPF Urine Opiates Screen NEGATIVE NEGATIVE Urine Barbiturates Screen NEGATIVE NEGATIVE Urine Phencyclidine Screen NEGATIVE NEGATIVE Urine Amphetamines Screen NEGATIVE NEGATIVE Urine Benzodiazepines Screen NEGATIVE NEGATIVE Urine Cocaine Screen NEGATIVE NEGATIVE Urine Marijuana (THC) Screen NEGATIVE NEGATIVE Current Medications Medications (Trade) Dose Ordered Sig/Hank Route PRN Reason Start Time Stop Time Status Last Admin Dose Admin Acetaminophen (TYLenol 325MG TAB) 650 mg Q6H PRN PO MILD PAIN (1-3) 10/31/24 14:00 11/30/24 13:59 10/31/24 17:32 650 MG Albuterol (DUOneb) 1 udvial Q6H PRN IH SHORTNESS OF BREATH 10/31/24 14:30 11/30/24 14:29 Budesonide (Pulmicort 0.5 Mg/2ml) 0.5 mg BIDRESP IH 10/31/24 18:00 11/30/24 17:59 11/02/24 07:26 0.5 MG Cefepime HCl (MAXipime 2 gm vial) 2 gm Q12H IVPB 10/31/24 18:00 11/10/24 17:59 11/02/24 05:59 2 GM Doxycycline Hyclate 250 ml @ 125 mls/hr BID IV 10/31/24 14:00 11/10/24 13:59 11/01/24 20:55 125 MLS/HR Magnesium Sulfate 50 ml @ 0 mls/hr PROTOCOL PRN IV OTHER [SEE ORDER COMMENTS] 11/01/24 08:00 12/01/24 07:59 11/01/24 08:09 25 MLS/HR Metronidazole/ Sodium Chloride 100 ml @ 100 mls/hr Q8H6 IVPB 10/31/24 21:00 11/10/24 20:59 11/02/24 05:59 100 MLS/HR Morphine Sulfate (morPHINE 2MG SYG) 2 mg Q4H PRN IVP SEVERE PAIN (7-10) 11/02/24 10:30 11/09/24 10:29 Morphine Sulfate (morPHINE 2MG SYG) 2 mg Q6H PRN IVP SEVERE PAIN (7-10) 10/31/24 19:00 11/02/24 10:03 DC 11/02/24 06:33 2 MG Ondansetron HCl (zoFRAN 4MG INJ) 4 mg Q6H PRN IVP NAUSEA/VOMITING 10/31/24 14:00 11/30/24 13:59 Pantoprazole Sodium (PROTonix 40MG INJ) 40 mg Q12H IVP 10/31/24 14:00 11/30/24 13:59 11/02/24 02:18 40 MG Sodium Chloride 1,000 ml @ 75 mls/hr [id number] IV 10/31/24 14:00 11/30/24 13:59 11/01/24 03:31 75 MLS/HR Tranexamic Acid (Cyklokapron) 500 mg [id number] IJ 10/31/24 15:30 11/02/24 11:02 DC 11/01/24 23:57 500 MG Vancomycin HCl 250 ml @ 125 mls/hr Q12H IV 11/01/24 01:30 11/11/24 01:29 11/02/24 02:23 125 MLS/HR Vancomycin HCl (Vancomycin Protocol) 1 each AD IV 10/31/24 12:30 11/14/24 12:29 DIAGNOSTICS / RADIOLOGY: [ ] ASSESSMENT: Severe sepsis secondary to right lung community-acquired pneumonia, POA Acute hypoxemic respiratory failure, POA Bilateral Multifocal Pneumonia with R > L, POA Hypotension secondary to severe sepsis, resolving Hemoptysis, POA Right shoulder swelling with possible hematoma, POA Right ear otorrhea with blood, POA Acute on chronic anemia secondary to blood loss, POA Severely elevated supratherapeutic INR secondary to Coumadin use and possibly sepsis, POA hypercoagulable state secondary to Mechanical aortic value on Coumadin Therapy POA Coumadin Toxicity POA History of mechanical aortic valve, POA History of chronic anticoagulation with warfarin, POA Acute kidney injury, POA Demand ischemia, POA Recent history of left forearm ulnar nondisplaced fracture treated conservatively, POA Prior history of fall 12 days ago in [place], POA Obesity, POA PLAN: Admit: ICU transitioned to PCCU Status: [place] code consultants: Critical Care, [place] Diet: Heart healthy antibiotics: IV: Zosyn to cefepime/Flagyl/doxycycline Microbiology: Resp, blood cultures so far negative Imaging: Echo noted monitor for bleeding: trends H/H q 6hrs transfuse as needed to keep Hbg above 7.0 Daily PT INR: Coumadin defer to patient insurance clerk's Dr. Arreola GI ppx: IV Protonix 40 mg b.i.d. empirically Labs in am : CBC, cmp, and Mag PT services to eval and treat, fall precautions Plan of care was discussed with patient at bedside, patient has requested full code ATTESTATION BY PHYSICIAN I have seen and examined the patient. I reviewed the documentation, medical decision making, and treatment plan as noted by the mid-level provider above. I agree with the findings and plan of care. Linda Soria MD, [facility]IZABETH NP Nov 02, 2024 12:38
[2024-11-02] MEDS ORDERED: PHARMACY COMMUNICATION MISC SCH (13:30)
--- NOTE | 2024-11-02 13:54 | HMCSR ---
APPROVED REPORT EXAM: Limited two-dimensional and M-mode echocardiogram with Doppler and color Doppler. INDICATION ICD: Assess aortic valve, sepsis, murmur 2D Dimensions RVDd3.8 cmLVOT diam2.0 (1.8-2.4cm)LVED Vol(simp.)128.0 mL LVES Vol(simp.)49.0 mL LVEF(%, simp.)62 % LA ESV INDEX (BP)54.86 mL/m2 Deformation Strain Apical 4-17.0 % Apical 2-17.8 % Apical 3-18.0 % Global Strain-17.6 % Aortic Valve AoV Vmax5.6 m/Cassandra Peak GR126.2 mmHgLVOT Vmax1.4 m/s AoV VTI1.1 mAo Mean GR68.1 mmHgLVOT VTI0.33 m JON (VMAX)0.77 cm2AVA (VTI) 0.9 cm2 Mitral Valve MV E Jbzs567.1 cm/sDECEL Slmj810 ms MV A Vmax93.1 cm/sP 1/2 T79 ms E/A ratio1.7MVA (PHT)2.8 cm2 TDI E/E' Shxuxz61.4E/E' Xtwauon75.1 Medial E' Peak V8.00 cm/sLateral E' Peak V7.71 cm/s Left Ventricle Left ventricular cavity size is normal. GLS -18.0% Normal wall motion There is normal left ventricula r wall thickness. LVEF is 60-65%. Right Ventricle The right ventricle is normal size. Right ventricular systolic function is mildly reduced. Atria The left atrium is severely dilated. 54mL/m The right atrium is mildly dilated. Aortic Valve Prosthetic aortic valve is present. Mild aortic regurgitation is present. AoV prosthetic Pk G 126mmHg , M G 68.0mmHg Mitral Valve Mild Annular calcification noted. Mitral valve leaflets open well. There is no mitral valve regurgita tion noted. There is mild mitral valve stenosis. Tricuspid Valve The tricuspid valve leaflets appear normal. Pulmonic Valve Pulmonic valve appears normal. Great Vessels The aortic root is normal in size. IVC is not visualized. Pericardium The pericardium appears normal. No pericardial effusion. Other Information Quality : Limited/Follow-up Conclusion LVEF is 60-65%. There is normal left ventricular wall thickness. Left ventricular cavity size is normal. GLS -18.0% Normal wall motion Right ventricular systolic function is mildly reduced. The left atrium is severely dilated. 54mL/m The right atrium is mildly dilated. AoV prosthetic Pk G 126mmHg, M G 68.0mmHg Mild Annular calcification noted. Mitral valve leaflets open well. The pericardium appears normal. No pericardial effusion. ELEVATED AORTIC VALVE GRADIENTS, WILL NEED FURTHER EVALUATION
[2024-11-02 14:12] LABS: CHLAM.PNEUMONIAE IGM TITER <1:10 (Neg:<1:10)
--- NOTE | 2024-11-02 14:35 | NUR ---
PT HAD PICC LINE PLACEMENT BY Digna GOMEZ RN TO THE R UPPER ARM WAITING FOR XRAY.
--- NOTE | 2024-11-02 14:43 | PN ---
INFECTIOUS DISEASE PROGRESS NOTE Date of Service: Nov 02, 2024 SUBJECTIVE: This 64 year old male patient is being seen today at bedside. He is awake, alert and oriented x3. no fever or chills. no nausea or vomiting. states he feels better. He remains on multiple antibiotics for multifocal pneumonia. He's calm at this time. He is pending to get PICC line placed. No acute events are reported by nurse at this visit. We continue to follow patient closely. PHYSICAL EXAM EYES: Anicteric. Pupils equal and reactive. HENT: No oral thrush seen, moist Oral mucosa NECK: Supple, no JVD or thyromegaly. LUNGS: Good air entry. No rales, no rhonchi. CARDIOVASCULAR: S1, S2 regular. No murmur heard. ABDOMEN: Soft, non tender, bowel sounds present, no organomegaly CENTRAL NERVOUS SYSTEM: Awake, alert, oriented x 3. No focal deficits. SKIN: No rashes, no swelling. LYMPHATICS: No peripheral lymphadenopathy MUSCULOSKELETAL: No joint swelling, erythema or tenderness. EXTREMITIES: No cyanosis or clubbing BACK: No deformity, no pressure ulcer. GENITOURINARY: No dysuria or hematuria Vital Sign (Last 12 Hours) 11/02/24 11/02/24 11/02/24 11/02/24 03:53 07:00 07:25 07:26 Temp 98.1 98.8 Pulse 85 91 91 91 Resp 18 22 18 18 B/P (MAP) 130/75 115/80 Pulse Ox 95 90 O2 Delivery Room Air Room Air N/A Room Air FiO2 21 11/02/24 11/02/24 07:40 11:00 Temp 98.2 Pulse 92 Resp 22 B/P (MAP) 118/67 Pulse Ox 100 92 O2 Delivery Nasal Cannula* Nasal Cannula O2 Flow Rate 2 FiO2 28 Intake & Output (last 24hrs) 11/01/24 11/01/24 11/02/24 15:00 23:00 07:00 Intake Total 1265.0 ml 600.0 ml 650.0 ml Balance 1265.0 ml 600.0 ml 650.0 ml LABS: Laboratory: Test 11/02/24 10:18 11/02/24 03:37 11/02/24 00:34 11/01/24 11:05 Range/Units Prothrombin Time 11.5 9.6-11.6 SEC Prothromb Time International Ratio 1.09 0.85-1.15 Activated Partial Thromboplast Time 33.2 26.3-35.5 SEC White Blood Count 10.3 4.8-10.8 K/uL Red Blood Count 2.82 L 4.50-6.20 MIL/uL Hemoglobin 8.1 L 14.0-18.0 g/dL Hematocrit 24.5 L 42-54 % Mean Corpuscular Volume 86.9 79-99 fL Mean Corpuscular Hemoglobin 28.7 27.0-33.0 pg Mean Corpuscular Hemoglobin Concent 33.1 32.0-36.0 g/dL Red Cell Distribution Width 13.3 11.0-15.5 % Platelet Count 196 130-400 K/uL Mean Platelet Volume 9.9 7.5-10.5 fL Immature Granulocyte % (Auto) 1.0 0-1 % Neutrophils (%) (Auto) 81.0 H 40.0-77.0 % Lymphocytes (%) (Auto) 8.2 L 21.0-51.0 % Monocytes (%) (Auto) 9.0 3.0-13.0 % Eosinophils (%) (Auto) 0.5 0.0-8.0 % Basophils (%) (Auto) 0.3 0.0-5.0 % Neutrophils # (Auto) 8.4 H 1.8-7.7 K/uL Lymphocytes # (Auto) 0.9 L 1.0-4.8 K/uL Monocytes # (Auto) 0.9 0.1-1.0 K/uL Eosinophils # (Auto) 0.05 0.00-0.70 K/uL Basophils # (Auto) 0.03 0.00-0.20 K/uL Absolute Immature Granulocyte (auto 0.10 0-1 K/uL Nucleated Red Blood Cells 0.0 0.0-0.19 % Sodium Level 139 136-145 mmol/L Potassium Level 4.0 3.5-5.1 mmol/L Chloride Level 106 101-111 mmol/L Carbon Dioxide Level 25 21-32 mmol/L Blood Urea Nitrogen 13 7-18 mg/dL Creatinine 0.8 0.5-1.3 mg/dL Glomerular Filtration Rate Calc 98 >90 mL/min Random Glucose 105 70-105 mg/dL Total Calcium 8.2 L 8.5-10.1 mg/dL Vancomycin Level Trough 11.1 10.0-20.0 UG/ML Troponin I High Sensitivity 266 *H 4-75 ng/L Test 11/01/24 03:54 10/31/24 15:20 Range/Units Magnesium Level 1.70 L 1.80-2.40 mg/dL Total Bilirubin 0.8 # 0.2-1.0 mg/dL Aspartate Amino Transf (AST/SGOT) 30 10-37 U/L Alanine Aminotransferase (ALT/SGPT) 26 12-78 U/L Alkaline Phosphatase 77 50-136 U/L Total Protein 5.2 L 6.0-8.3 g/dL Albumin 2.3 L 3.5-5.0 g/dL Fibrinogen 541 *H 180-350 mg/dL D-Dimer Quantitative (PE/DVT) 495 0-500 ng/mL Ammonia < 10 L 11-32 umol/L Total Creatine Kinase 273 H 21-232 U/L Serum Alcohol < 3 0-10 mg/dL DIAGNOSTICS / RADIOLOGY: CR Chest, 1 View. CLINICAL HISTORY: please assess for any wrsening infiltrates, PNA COMPARISON: None provided. FINDINGS: LUNGS: Improved right sided infiltrate. Resolving pneumonia. Continue follow-up recommended PLEURAL SPACES: No pleural effusion or pneumothorax. MEDIASTINUM: Cardiac size and mediastinal contours within normal limits. BONES: No acute osseous abnormality. IMPRESSION: Improved right sided infiltrate. Resolving pneumonia. Continue follow-up recommended /[place] ASSESSMENT: * Multifocal pneumonia. * Severe sepsis. * Hypoxic respiratory failure. * Supratherapeutic INR. * Elevated troponin may be due to demand ischemia. * Anemia. PLAN: * Continue vancomycin. * Continue cefepime. * Continue doxycycline. * Continue Flagyl. * Followup cultures. * Continue critical care support. * Continue nutritional support. * Monitor electrolytes. * The patient will be followed up closely. * Monitor INR * follow Cardiology recommendations This case has been discussed with my supervising physician Dr. Awad. The case has been discussed and agreed upon. YESSICA GASCA [facility] Nov 02, 2024 14:43
--- NOTE | 2024-11-02 14:49 | PN ---
CARDIOLOGY Reason for consult: Mechanical Aortic Valve HPI/story at presentation: This is a pleasant 64-year-old male with past medical history significant for mechanical aortic valve placed in 1993, chronic warfarin use initially presented to the emergency department due to hemoptysis, cough, chills and blood noted in his right ear. Patient also reports he sustained a fall injury approximately 12 days ago in [place]. Denies any syncope episode. Her warfarin dose accordingly the patient is warfarin 5 mg daily other than on Thursday and Thursday when he takes 7.5 mg daily. Patient also found to be febrile with a temperature of 101.3. Initial blood pressure 83/42. sepsis protocol was started. INR results show greater than 8. Patient was administered vitamin K 10 mg IV and is scheduled to receive 2 units of FFP. High sensory troponin at 299. Patient was also found to have bilateral pneumonia 11/01/2024 patient was seen and evaluated at bedside in the ICU No episodes of bleeding has been reported since yesterday Repeat INR today is 1.14 Past medical history: See below Allergies, Meds See chart Review of systems Review of Systems Constitutional: + for chills and fever. HENT: + for right ear bloody discharge and ear pain. Eyes: Negative for photophobia and discharge. Respiratory: + for cough, sputum production and stridor. + hemoptysis Cardiovascular: Negative for chest pain and palpitations. Gastrointestinal: Negative for diarrhea and vomiting. Genitourinary: Negative for frequency. Musculoskeletal: Negative for myalgias. Skin: Negative for rash. Neurological: Negative for focal weakness and seizures. Endo/Heme/Allergies: Negative for polydipsia. Psychiatric/Behavioral: Negative for hallucinations. Vitals see chart PHYSICAL EXAMINATION GENERAL: The patient is alert and oriented*3, ill appearing HEENT: Nonicteric sclerae, non traumatic HEART: Regular rate and rhythm with no murmurs, 3/6 systolic murmur to 2nd ICS LUNGS: Diminished to auscultation bilaterally ABDOMEN: No acute issues, non tender GENITAL, RECTAL: deferred SKIN: No rash NEUROLOGIC: NFND EXTREMITIES: No edema ASSESSMENT SUPRATHERAPEUTIC INR INR GREATER THAN 8 Currently or warfarin Reports hemoptysis and bloody drainage from right ear AORTIC VALVE REPLACEMENT Mechanical INR was subtherapeutic at presentation CORE MEASURES Not applicable OTHER MEDICAL PROBLEMS Reviewed PLAN 10/31/2024 will order echocardiography to examine aortic valve. Patient is currently pending CT of the head and chest due to recent fall and supratherapeutic INR Continue with FFP infusion with plans for repeat INR 11/01/2024 patient's INR today is 21.14. No new episodes Of bleeding heavy reported Patient will need to be restarted on his oral Coumadin but will start patient on IV heparin and moderate for bleeding Patient's hemoglobin today is currently at 8.1 We will wait to start IV heparin drip tomorrow in repeat H&H in the morning 11/02/2024 Hemoglobin remains stable Currently pending PICC line Will start IV heparin drip without bolus once PICC line in place If no issues with bleeding and hgb remains stable, will start oral warfarin tomorrow ATTESTATION Case discussed with Dr. Arreola Vitals/Labs Vital Signs Date Time Temp Pulse Resp B/P (MAP) Pulse Ox O2 Delivery O2 Flow Rate FiO2 11/02/24 11:00 98.2 92 22 118/67 92 Nasal Cannula 11/02/24 07:40 2 28 Laboratory Tests 11/02/24 03:37 Medications Current Medications Vancomycin HCl 1 each AD IV; Start 10/31/24 at 12:30; Stop 11/14/24 at 12:29 Piperacillin Sod/ Tazobactam Sod 3.375 gm ONCE ONCE IV Last administered on 10/31/24at 12:43; Start 10/31/24 at 12:30; Stop 10/31/24 at 12:41; Status DC Sodium Chloride 1,000 ml @ 0 mls/hr ONCE ONCE IV Last administered on 10/31/24at 12:43; Start 10/31/24 at 12:30; Stop 10/31/24 at 12:41; Status DC Vancomycin HCl 500 ml @ 250 mls/hr ONCE ONCE IV Last administered on 10/31/24at 13:57; Start 10/31/24 at 13:00; Stop 10/31/24 at 14:59; Status DC Vancomycin HCl 250 ml @ 125 mls/hr Q12H IV Last administered on 11/02/24at 02:23; Start 11/01/24 at 01:30; Stop 11/11/24 at 01:29 Sodium Chloride 1,983 ml @ 661 mls/hr ONCE ONCE IV Last administered on 10/31/24at 13:12; Start 10/31/24 at 13:00; Stop 10/31/24 at 15:59; Status DC Phytonadione 10 mg/Sodium Chloride 51 ml @ 100 mls/hr ONCE ONCE IVPB Last administered on 10/31/24at 13:12; Start 10/31/24 at 13:00; Stop 10/31/24 at 13:30; Status DC Morphine Sulfate 2 mg ONCE ONCE IVP Last administered on 10/31/24at 13:20; Start 10/31/24 at 13:30; Stop 10/31/24 at 13:31; Status DC Ondansetron HCl 4 mg ONCE ONCE IVP Last administered on 10/31/24at 13:20; Start 10/31/24 at 13:30; Stop 10/31/24 at 13:31; Status DC Pantoprazole Sodium 40 mg Q12H IVP Last administered on 11/02/24at 02:18; Start 10/31/24 at 14:00; Stop 11/30/24 at 13:59 Acetaminophen 650 mg Q6H PRN PO Last administered on 10/31/24at 17:32; Start 10/31/24 at 14:00; Stop 11/30/24 at 13:59 Ondansetron HCl 4 mg Q6H PRN IVP; Start 10/31/24 at 14:00; Stop 11/30/24 at 13:59 Sodium Chloride 1,000 ml @ 75 mls/hr [id number] IV Last administered on 11/01/24at 03:31; Start 10/31/24 at 14:00; Stop 11/30/24 at 13:59 Cefepime HCl 2 gm Q12H IVPB Last administered on 11/02/24at 05:59; Start 10/31/24 at 18:00; Stop 11/10/24 at 17:59 Doxycycline Hyclate 250 ml @ 125 mls/hr BID IV Last administered on 11/01/24at 20:55; Start 10/31/24 at 14:00; Stop 11/10/24 at 13:59 Metronidazole/ Sodium Chloride 100 ml @ 100 mls/hr Q8H6 IVPB Last administered on 11/02/24at 05:59; Start 10/31/24 at 21:00; Stop 11/10/24 at 20:59 Albuterol 1 udvial Q6H PRN IH; Start 10/31/24 at 14:30; Stop 11/30/24 at 14:29 Budesonide 0.5 mg BIDRESP IH Last administered on 11/02/24at 07:26; Start 10/31/24 at 18:00; Stop 11/30/24 at 17:59 Iohexol 75 ml STK-MED ONCE IV; Start 10/31/24 at 14:53; Stop 10/31/24 at 14:54; Status DC Tranexamic Acid 500 mg [id number] IJ Last administered on 11/01/24at 23:57; Start 10/31/24 at 15:30; Stop 11/02/24 at 11:02; Status DC Morphine Sulfate 2 mg Q6H PRN IVP Last administered on 11/02/24at 06:33; Start 10/31/24 at 19:00; Stop 11/02/24 at 10:03; Status DC Sodium Chloride 4 ml STK-MED ONCE IH Last administered on 10/31/24at 22:46; Start 10/31/24 at 22:37; Stop 10/31/24 at 22:38; Status DC Magnesium Sulfate 50 ml @ 0 mls/hr PROTOCOL PRN IV Last administered on 11/01/24at 08:09; Start 11/01/24 at 08:00; Stop 12/01/24 at 07:59 Morphine Sulfate 2 mg ONCE ONCE IVP Last administered on 11/01/24at 08:21; Start 11/01/24 at 08:30; Stop 11/01/24 at 08:31; Status DC Sodium Chloride 4 ml STK-MED ONCE IH; Start 11/01/24 at 10:49; Stop 11/01/24 at 10:50; Status DC Morphine Sulfate 2 mg Q4H PRN IVP; Start 11/02/24 at 10:30; Stop 11/09/24 at 10:29 Heparin Sodium/ Dextrose 250 ml @ 0 mls/hr Q6H IV; Start 11/02/24 at 21:00; Stop 12/02/24 at 20:59 Pharmacy Profile Note 1 each ONCE MISC; Start 11/02/24 at 13:30; Stop 11/02/24 at 13:15; Status DC RENAE MODI ADMISSIONS COORDINATOR Nov 02, 2024 14:49
--- NOTE | 2024-11-02 15:10 | HMCIMG ---
EXAM: CR Chest, 1 View. CLINICAL HISTORY: follow up pneumonia status COMPARISON: Radiograph from November 01, 2024 Findings: Worsening multifocal airspace disease bilaterally, more pronounced at the right lung base. Small right pleural effusion. No pneumothorax. Heart size is stable. Pulmonary vascular congestion. IMPRESSION: 1. Worsening bilateral multifocal airspace disease, more pronounced at the right lung base, with small right pleural effusion and pulmonary vascular congestion /[place]
--- NOTE | 2024-11-02 17:51 | HMCIMG ---
EXAM: CR Chest, 2 View. CLINICAL HISTORY: picc line placement COMPARISON: X-ray chest 11/02/2024 FINDINGS: Multifocal airspace opacities bilaterally right greater than left. Persistent small right-sided pleural effusion. MEDIASTINUM: The cardiomediastinal silhouette is within normal limits. Changes of median sternotomy Interval placement of right PICC line catheter whose tip is in appropriate position projecting within the junction of the SVC and right atrium BONES: No acute osseous abnormality. IMPRESSION: 1. Multifocal airspace opacities bilaterally, right greater than left 2. Small right pleural effusion 3. Right PICC line tip appropriately positioned at SVC-right atrial junction /[place]
[2024-11-02 19:46] LABS: IMMATURE GRANULOCYTE ABSOLUTE 0.12 K/uL (0-1); NUCLEATED RED BLOOD CELLS 0.3 % (0.0-0.19); PLATELET COUNT (AUTO) 233 K/uL (130-400); RED BLOOD CELL COUNT(AUTO) 3.17 MIL/uL (4.50-6.20); RED CELL DISTRIBUTION WIDTH 13.1 % (11.0-15.5); WHITE BLOOD COUNT (AUTO) 11.6 K/uL (4.8-10.8)
--- NOTE | 2024-11-02 22:21 | PN ---
[facility] PROGRESS NOTE Date Patient Seen: Nov 02, 2024 Time of Visit: 22:18 Supervising Physician: Dr Hernandes Primary Care Physician: self referral Outpatient Specialists: Inpatient Consults: dr Awad, Dr Ej Vega PROBLEM LIST: Septic shock, resolved supratherapeutic INR secondary to Coumadin, resolved Acute hypoxemic respiratory failure, POA Suspected alveolar hemorrhage, improving Acute on chronic anemia secondary to blood loss, POA History of mechanical aortic valve, POA History of chronic anticoagulation with warfarin, POA Acute kidney injury, POA Demand ischemia, POA Obesity, POA INTERVAL HISTORY: Patient seen and examined, patient is sitting comfortably in bed, on nasal cannula 2 L with good saturations No acute events overnight. Afebrile Vital signs are stable INR 1.25, pending repeat, hemoglobin 8.1 Pending chest x-ray Pending PICC line Reporting pain controlled Plan: Follow pending labs, INR Follow cardiology recs, heparin drip and PICC line Telemetry Echo pending REVIEW OF SYSTEMS: 12 point ROS reviewed with patient. Pertinent positives mentioned above. Otherwise negative. PHYSICAL EXAM: GENERAL: alert, weak, awake oriented x 3 HEENT: EOMI, Sclera non icteric, moist mucosa NECK: Supple, no JVD, trachea midline LUNGS: Rales to right side, and left lower lobe No wheezes HEART: Regular rate and rhythm. Normal S1 and S2, without murmurs ABD: Abdomen obese soft, nontender. Bowel sounds present EXT: No clubbing cyanosis. Left forearm tenderness. Right shoulder swelling NEURO: Alert and oriented to person, follows commands Vital Signs (last 8hr) Date Time Temp Pulse Resp B/P (MAP) Pulse Ox O2 Delivery O2 Flow Rate FiO2 11/02/24 19:45 98.1 92 22 141/93 90 Nasal Cannula 3.0 11/02/24 19:41 92 20 N/Cannula Low lpm 3.0 32 11/02/24 17:04 89 20 11/02/24 17:03 89 20 N/Cannula Low lpm 2.0 28 11/02/24 16:00 99.7 85 22 118/74 100 Nasal Cannula 3.0 LABS: Hematology Labs: Test 11/02/24 19:35 Range/Units White Blood Count 11.6 H 4.8-10.8 K/uL Red Blood Count 3.17 L 4.50-6.20 MIL/uL Hemoglobin 9.0 L 14.0-18.0 g/dL Hematocrit 27.2 L 42-54 % Mean Corpuscular Volume 85.8 79-99 fL Mean Corpuscular Hemoglobin 28.4 27.0-33.0 pg Mean Corpuscular Hemoglobin Concent 33.1 32.0-36.0 g/dL Red Cell Distribution Width 13.1 11.0-15.5 % Platelet Count 233 130-400 K/uL Mean Platelet Volume 9.3 7.5-10.5 fL Immature Granulocyte % (Auto) 1.0 0-1 % Neutrophils (%) (Auto) 80.7 H 40.0-77.0 % Lymphocytes (%) (Auto) 8.1 L 21.0-51.0 % Monocytes (%) (Auto) 9.7 3.0-13.0 % Eosinophils (%) (Auto) 0.3 0.0-8.0 % Basophils (%) (Auto) 0.2 0.0-5.0 % Neutrophils # (Auto) 9.4 H 1.8-7.7 K/uL Lymphocytes # (Auto) 0.9 L 1.0-4.8 K/uL Monocytes # (Auto) 1.1 H 0.1-1.0 K/uL Eosinophils # (Auto) 0.03 0.00-0.70 K/uL Basophils # (Auto) 0.02 0.00-0.20 K/uL Absolute Immature Granulocyte (auto 0.12 0-1 K/uL Nucleated Red Blood Cells 0.3 H 0.0-0.19 % Chemistry Labs: Test 11/02/24 03:37 11/01/24 11:05 11/01/24 03:54 Range/Units Sodium Level 139 136-145 mmol/L Potassium Level 4.0 3.5-5.1 mmol/L Chloride Level 106 101-111 mmol/L Carbon Dioxide Level 25 21-32 mmol/L Blood Urea Nitrogen 13 7-18 mg/dL Creatinine 0.8 0.5-1.3 mg/dL Glomerular Filtration Rate Calc 98 >90 mL/min Random Glucose 105 70-105 mg/dL Total Calcium 8.2 L 8.5-10.1 mg/dL Troponin I High Sensitivity 266 *H 4-75 ng/L Magnesium Level 1.70 L 1.80-2.40 mg/dL Total Bilirubin 0.8 # 0.2-1.0 mg/dL Aspartate Amino Transf (AST/SGOT) 30 10-37 U/L Alanine Aminotransferase (ALT/SGPT) 26 12-78 U/L Alkaline Phosphatase 77 50-136 U/L Total Protein 5.2 L 6.0-8.3 g/dL Albumin 2.3 L 3.5-5.0 g/dL Coagulation Labs: Test 11/02/24 19:35 11/02/24 10:18 Range/Units Activated Partial Thromboplast Time 32.6 26.3-35.5 SEC Prothrombin Time 11.5 9.6-11.6 SEC Prothromb Time International Ratio 1.09 0.85-1.15 DIAGNOSTICS / RADIOLOGY RESULTS: [ ] PLAN NEURO: Minimize central acting medications as possible. Fall Precautions. Well lighted room through the day and minimize interruptions through the night to prevent acute delirium. PULMONARY: Supplemental 02 as needed Titrate Fio2 to keep Spo2 > or = 90% DuoNebs and CPT as needed IS hourly while awake for pulmonary hygiene Out of bed to chair as tolerated CARDIOVASCULAR: Follow hemodynamics. Titrate vasopressor to keep MAP >65 or systolic blood pressure >95mmHg DRIPS: levophed PRN maintain MP > 65 LINES: PIV 2 large bore IV GI & NUTRITION: Continue nutritional support Aspirations precautions Prokinetic agents and laxatives as needed KIDNEYS & ELECTROLYTES: Strict monitoring of intake and output Daily weights Avoid nephrotoxic agents Monitor electrolytes and replace as needed Goal urine output of 30mL/hr or 0.5mL/kg/hr ENDOCRINE: Maintain blood glucose between 100-180 at all times. Insulin sliding scale for blood glucose management INFECTIOUS DISEASE: Trend temperature. Larose-culture if febrile. Micro: [ ] Blood cultures Respiratory cultures UA with urine culture Antibiotics: Cefepime Vanco Flagyl Doxycycline HEMATOLOGY & COAGULATION: Monitor H&H. Keep Hgb > 7 Transfuse 1 unit of PRBC for Hgb < 7 Transfuse 1 pack of platelets of platelets < 20, 000 Watch for any signs and symptoms of bleeding SKIN: Pressure ulcer prevention per facility protocol Rehab: PT/OT Prophylaxis: GI: Protonix DVT: SCD's Code Status: Full Resuscitation Disposition: ICU Other: Total patient care time exceeds 35 minutes excluding all procedures. Case was discussed and seen with my supervising physician. The above plan was formulated and agreed upon. ALICIA LUCIANO Nov 02, 2024 22:21
[2024-11-03] VITALS (20 sets, daily range): BP systolic 101–147; BP diastolic 56–98; PULSE 77–96; RESP 20–24; TEMP 97.9–98.7; O2SAT 89–100
[2024-11-03 04:29] LABS: IMMATURE GRANULOCYTE ABSOLUTE 0.15 K/uL (0-1); NUCLEATED RED BLOOD CELLS 0.2 % (0.0-0.19); PLATELET COUNT (AUTO) 260 K/uL (130-400); RED BLOOD CELL COUNT(AUTO) 2.95 MIL/uL (4.50-6.20); RED CELL DISTRIBUTION WIDTH 13.2 % (11.0-15.5); WHITE BLOOD COUNT (AUTO) 12.4 K/uL (4.8-10.8)
[2024-11-03 04:37] LABS: INR 1.18 (0.85-1.15)
[2024-11-03 04:46] LABS: ASPARTATE AMINOTRANSFERASE 27.0 U/L (10-37); CREATININE 0.9 mg/dL (0.5-1.3); GLOMERULAR FILTR. RATE CALC 95.0 mL/min (>90); GLUCOSE,RANDOM 114.0 mg/dL (70-105); SODIUM SERUM 140.0 mmol/L (136-145); TOTAL PROTEIN, SERUM 5.5 g/dL (6.0-8.3); UREA NITROGEN, BLOOD 13.0 mg/dL (7-18)
--- NOTE | 2024-11-03 11:58 | PN ---
INFECTIOUS DISEASE PROGRESS NOTE Date of Service: Nov 03, 2024 SUBJECTIVE: This 64 year old male patient is being seen today at bedside. He is awake, alert and oriented x3. No fever or chills. No nausea or vomiting. Denies chest pain or shortness of breath. Nurse reports patient continues on Heparin drip. Patient at this time is laying in bed, calm. No distress. Remains on oxygen via nasal canula. PICC has been placed. Continues with multiple antibiotics for multifocal pneumonia. We continue to follow patient for any changes. PHYSICAL EXAM EYES: Anicteric. Pupils equal and reactive. HENT: No oral thrush seen, moist Oral mucosa NECK: Supple, no JVD or thyromegaly. LUNGS: No wheezing or rhonchi, CARDIOVASCULAR: S1, S2 regular. No murmur heard. ABDOMEN: Soft, non tender, bowel sounds present, no organomegaly CENTRAL NERVOUS SYSTEM: Awake, alert, oriented x 3. No focal deficits. SKIN: No rashes, no swelling. LYMPHATICS: No peripheral lymphadenopathy MUSCULOSKELETAL: No joint swelling, erythema or tenderness. EXTREMITIES: No cyanosis or clubbing BACK: No deformity, no pressure ulcer. GENITOURINARY: No dysuria or hematuria Vital Sign (Last 12 Hours) 11/03/24 11/03/24 11/03/24 11/03/24 03:45 07:18 07:19 07:31 Temp 98.2 Pulse 90 79 79 82 Resp 22 20 20 24 B/P (MAP) 106/68 Pulse Ox 96 O2 Delivery Nasal Cannula N/Cannula Low lpm N/Cannula Low lpm O2 Flow Rate 3.0 3.0 3.0 FiO2 32 32 11/03/24 08:00 Temp 97.9 Pulse 83 Resp 20 B/P (MAP) 103/56 Pulse Ox 98 O2 Delivery Nasal Cannula O2 Flow Rate 3.0 Intake & Output (last 24hrs) 11/02/24 11/02/24 11/03/24 15:00 23:00 07:00 Intake Total 240 ml 440.0 ml 590.0 ml Balance 240 ml 440.0 ml 590.0 ml LABS: Laboratory: Test 11/03/24 04:07 11/02/24 00:34 Range/Units White Blood Count 12.4 H 4.8-10.8 K/uL Red Blood Count 2.95 L 4.50-6.20 MIL/uL Hemoglobin 8.5 L 14.0-18.0 g/dL Hematocrit 25.2 L 42-54 % Mean Corpuscular Volume 85.4 79-99 fL Mean Corpuscular Hemoglobin 28.8 27.0-33.0 pg Mean Corpuscular Hemoglobin Concent 33.7 32.0-36.0 g/dL Red Cell Distribution Width 13.2 11.0-15.5 % Platelet Count 260 130-400 K/uL Mean Platelet Volume 9.9 7.5-10.5 fL Immature Granulocyte % (Auto) 1.2 H 0-1 % Neutrophils (%) (Auto) 78.4 H 40.0-77.0 % Lymphocytes (%) (Auto) 9.9 L 21.0-51.0 % Monocytes (%) (Auto) 9.5 3.0-13.0 % Eosinophils (%) (Auto) 0.7 0.0-8.0 % Basophils (%) (Auto) 0.3 0.0-5.0 % Neutrophils # (Auto) 9.7 H 1.8-7.7 K/uL Lymphocytes # (Auto) 1.2 1.0-4.8 K/uL Monocytes # (Auto) 1.2 H 0.1-1.0 K/uL Eosinophils # (Auto) 0.09 0.00-0.70 K/uL Basophils # (Auto) 0.04 0.00-0.20 K/uL Absolute Immature Granulocyte (auto 0.15 0-1 K/uL Nucleated Red Blood Cells 0.2 H 0.0-0.19 % Prothrombin Time 12.3 H 9.6-11.6 SEC Prothromb Time International Ratio 1.18 H 0.85-1.15 Activated Partial Thromboplast Time > 139.0 #*H 26.3-35.5 SEC Sodium Level 140 136-145 mmol/L Potassium Level 3.5 3.5-5.1 mmol/L Chloride Level 106 101-111 mmol/L Carbon Dioxide Level 28 21-32 mmol/L Blood Urea Nitrogen 13 7-18 mg/dL Creatinine 0.9 0.5-1.3 mg/dL Glomerular Filtration Rate Calc 95 >90 mL/min Random Glucose 114 H 70-105 mg/dL Total Calcium 7.8 L 8.5-10.1 mg/dL Magnesium Level 1.70 L 1.80-2.40 mg/dL Total Bilirubin 1.0 0.2-1.0 mg/dL Aspartate Amino Transf (AST/SGOT) 27 10-37 U/L Alanine Aminotransferase (ALT/SGPT) 25 12-78 U/L Alkaline Phosphatase 89 50-136 U/L Total Protein 5.5 L 6.0-8.3 g/dL Albumin 2.1 L 3.5-5.0 g/dL Vancomycin Level Trough 11.1 10.0-20.0 UG/ML DIAGNOSTICS / RADIOLOGY: CR Chest, 1 View. CLINICAL HISTORY: please assess for any wrsening infiltrates, PNA COMPARISON: None provided. FINDINGS: LUNGS: Improved right sided infiltrate. Resolving pneumonia. Continue follow-up recommended PLEURAL SPACES: No pleural effusion or pneumothorax. MEDIASTINUM: Cardiac size and mediastinal contours within normal limits. BONES: No acute osseous abnormality. IMPRESSION: Improved right sided infiltrate. Resolving pneumonia. Continue follow-up recommended /[place] REASON: picc line placement ORDERING PHYSICIAN: ALICIA LUCIANO PROCEDURE: CXR1VW - CHEST 1VW EXAM: CR Chest, 2 View. CLINICAL HISTORY: picc line placement COMPARISON: X-ray chest 11/02/2024 FINDINGS: Multifocal airspace opacities bilaterally right greater than left. Persistent small right-sided pleural effusion. MEDIASTINUM: The cardiomediastinal silhouette is within normal limits. Changes of median sternotomy Interval placement of right PICC line catheter whose tip is in appropriate position projecting within the junction of the SVC and right atrium BONES: No acute osseous abnormality. IMPRESSION: 1. Multifocal airspace opacities bilaterally, right greater than left 2. Small right pleural effusion 3. Right PICC line tip appropriately positioned at SVC-right atrial junction ASSESSMENT: * Multifocal pneumonia. * Severe sepsis. * Hypoxic respiratory failure. * Supratherapeutic INR. * Elevated troponin may be due to demand ischemia. * Anemia. * leukocytosis PLAN: * Continue vancomycin. * Continue cefepime. * Continue doxycycline. * Continue Flagyl. * Followup cultures. * Continue critical care support. * Continue nutritional support. * Monitor electrolytes. * The patient will be followed up closely. * Monitor INR * follow Cardiology recommendations This case has been discussed with my supervising physician Dr. Awad. The case has been discussed and agreed upon. YESSICA GASCA [facility] Nov 03, 2024 11:58
[2024-11-03] MEDS: LIDOCAINE HCL 2% VISCOUS 15 ML UDCUP PO ONE (12:06)
--- NOTE | 2024-11-03 12:23 | PN ---
[facility] PROGRESS NOTE Date Patient Seen: Nov 03, 2024 Time of Visit: 12:20 Supervising Physician: Dr Hernandes Primary Care Physician: self referral Outpatient Specialists: Inpatient Consults: dr Awad, Dr Ej Vega PROBLEM LIST: Septic shock, resolved supratherapeutic INR secondary to Coumadin, resolved Acute hypoxemic respiratory failure, POA Suspected alveolar hemorrhage, improving Acute on chronic anemia secondary to blood loss, POA History of mechanical aortic valve, POA History of chronic anticoagulation with warfarin, POA Acute kidney injury, POA Demand ischemia, POA Obesity, POA INTERVAL HISTORY: Patient seen and examined, all labs and imaging have been reviewed, patient is sitting comfortably in bed. Preparing for a ANDRES with Dr. Arreola No acute events overnight. Patient afebrile Good saturations on nasal cannula 2 L but significant increase in vascular congestion on chest x-ray INR is 1.18, currently on a heparin drip Patient reporting increasing cough, denies chest pain or shortness of breath Plan: Follow ANDRES, cardiology recs Lasix 40 x 1 Electrolytes Heparin protocol REVIEW OF SYSTEMS: 12 point ROS reviewed with patient. Pertinent positives mentioned above. Otherwise negative. PHYSICAL EXAM: GENERAL: alert, weak, awake oriented x 3 HEENT: EOMI, Sclera non icteric, moist mucosa NECK: Supple, no JVD, trachea midline LUNGS: Rales to right side, and left lower lobe No wheezes HEART: Regular rate and rhythm. Normal S1 and S2, without murmurs ABD: Abdomen obese soft, nontender. Bowel sounds present EXT: No clubbing cyanosis. Left forearm tenderness. Right shoulder swelling NEURO: Alert and oriented to person, follows commands Vital Signs (last 8hr) Date Time Temp Pulse Resp B/P (MAP) Pulse Ox O2 Delivery O2 Flow Rate FiO2 11/03/24 08:00 97.9 83 20 103/56 98 Nasal Cannula 3.0 11/03/24 07:31 82 24 N/Cannula Low lpm 3.0 32 11/03/24 07:19 79 20 N/Cannula Low lpm 3.0 32 11/03/24 07:18 79 20 LABS: Hematology Labs: Test 11/03/24 04:07 Range/Units White Blood Count 12.4 H 4.8-10.8 K/uL Red Blood Count 2.95 L 4.50-6.20 MIL/uL Hemoglobin 8.5 L 14.0-18.0 g/dL Hematocrit 25.2 L 42-54 % Mean Corpuscular Volume 85.4 79-99 fL Mean Corpuscular Hemoglobin 28.8 27.0-33.0 pg Mean Corpuscular Hemoglobin Concent 33.7 32.0-36.0 g/dL Red Cell Distribution Width 13.2 11.0-15.5 % Platelet Count 260 130-400 K/uL Mean Platelet Volume 9.9 7.5-10.5 fL Immature Granulocyte % (Auto) 1.2 H 0-1 % Neutrophils (%) (Auto) 78.4 H 40.0-77.0 % Lymphocytes (%) (Auto) 9.9 L 21.0-51.0 % Monocytes (%) (Auto) 9.5 3.0-13.0 % Eosinophils (%) (Auto) 0.7 0.0-8.0 % Basophils (%) (Auto) 0.3 0.0-5.0 % Neutrophils # (Auto) 9.7 H 1.8-7.7 K/uL Lymphocytes # (Auto) 1.2 1.0-4.8 K/uL Monocytes # (Auto) 1.2 H 0.1-1.0 K/uL Eosinophils # (Auto) 0.09 0.00-0.70 K/uL Basophils # (Auto) 0.04 0.00-0.20 K/uL Absolute Immature Granulocyte (auto 0.15 0-1 K/uL Nucleated Red Blood Cells 0.2 H 0.0-0.19 % Chemistry Labs: Test 11/03/24 04:07 Range/Units Sodium Level 140 136-145 mmol/L Potassium Level 3.5 3.5-5.1 mmol/L Chloride Level 106 101-111 mmol/L Carbon Dioxide Level 28 21-32 mmol/L Blood Urea Nitrogen 13 7-18 mg/dL Creatinine 0.9 0.5-1.3 mg/dL Glomerular Filtration Rate Calc 95 >90 mL/min Random Glucose 114 H 70-105 mg/dL Total Calcium 7.8 L 8.5-10.1 mg/dL Magnesium Level 1.70 L 1.80-2.40 mg/dL Total Bilirubin 1.0 0.2-1.0 mg/dL Aspartate Amino Transf (AST/SGOT) 27 10-37 U/L Alanine Aminotransferase (ALT/SGPT) 25 12-78 U/L Alkaline Phosphatase 89 50-136 U/L Total Protein 5.5 L 6.0-8.3 g/dL Albumin 2.1 L 3.5-5.0 g/dL Coagulation Labs: Test 11/03/24 04:07 Range/Units Prothrombin Time 12.3 H 9.6-11.6 SEC Prothromb Time International Ratio 1.18 H 0.85-1.15 Activated Partial Thromboplast Time > 139.0 #*H 26.3-35.5 SEC DIAGNOSTICS / RADIOLOGY RESULTS: [ ] PLAN NEURO: Minimize central acting medications as possible. Fall Precautions. Well lighted room through the day and minimize interruptions through the night to prevent acute delirium. PULMONARY: Supplemental 02 as needed Titrate Fio2 to keep Spo2 > or = 90% DuoNebs and CPT as needed IS hourly while awake for pulmonary hygiene Out of bed to chair as tolerated CARDIOVASCULAR: Follow hemodynamics. Titrate vasopressor to keep MAP >65 or systolic blood pressure >95mmHg DRIPS: levophed PRN maintain MP > 65 LINES: PIV 2 large bore IV GI & NUTRITION: Continue nutritional support Aspirations precautions Prokinetic agents and laxatives as needed KIDNEYS & ELECTROLYTES: Strict monitoring of intake and output Daily weights Avoid nephrotoxic agents Monitor electrolytes and replace as needed Goal urine output of 30mL/hr or 0.5mL/kg/hr ENDOCRINE: Maintain blood glucose between 100-180 at all times. Insulin sliding scale for blood glucose management INFECTIOUS DISEASE: Trend temperature. Larose-culture if febrile. Micro: [ ] Blood cultures Respiratory cultures UA with urine culture Antibiotics: Cefepime Vanco Flagyl Doxycycline HEMATOLOGY & COAGULATION: Monitor H&H. Keep Hgb > 7 Transfuse 1 unit of PRBC for Hgb < 7 Transfuse 1 pack of platelets of platelets < 20, 000 Watch for any signs and symptoms of bleeding SKIN: Pressure ulcer prevention per facility protocol Rehab: PT/OT Prophylaxis: GI: Protonix DVT: SCD's Code Status: Full Resuscitation Disposition: ICU Other: Total patient care time exceeds 35 minutes excluding all procedures. Case was discussed and seen with my supervising physician. The above plan was formulated and agreed upon. ALICIA LUCIANO Nov 03, 2024 12:23
--- NOTE | 2024-11-03 12:35 | NUR ---
1230 - ANDRES PROCEDURE AT BEDSIDE STARTED BY DR. EVANS. 1234 - PROCEDURE STOPPED BY DR. EVANS DUE TO PATIENT NOSE BLEED. TO CALL [facility] FOR FLUOROSCOPY PROCEDURE.
--- NOTE | 2024-11-03 12:46 | PN ---
CARDIOLOGY Reason for consult: Mechanical Aortic Valve HPI/story at presentation: This is a pleasant 64-year-old male with past medical history significant for mechanical aortic valve placed in 1993, chronic warfarin use initially presented to the emergency department due to hemoptysis, cough, chills and blood noted in his right ear. Patient also reports he sustained a fall injury approximately 12 days ago in [place]. Denies any syncope episode. Her warfarin dose accordingly the patient is warfarin 5 mg daily other than on Thursday and Thursday when he takes 7.5 mg daily. Patient also found to be febrile with a temperature of 101.3. Initial blood pressure 83/42. sepsis protocol was started. INR results show greater than 8. Patient was administered vitamin K 10 mg IV and is scheduled to receive 2 units of FFP. High sensory troponin at 299. Patient was also found to have bilateral pneumonia 11/01/2024 patient was seen and evaluated at bedside in the ICU No episodes of bleeding has been reported since yesterday Repeat INR today is 1.14 Past medical history: See below Allergies, Meds See chart Review of systems Review of Systems Constitutional: + for chills and fever. HENT: + for right ear bloody discharge and ear pain. Eyes: Negative for photophobia and discharge. Respiratory: + for cough, sputum production and stridor. + hemoptysis Cardiovascular: Negative for chest pain and palpitations. Gastrointestinal: Negative for diarrhea and vomiting. Genitourinary: Negative for frequency. Musculoskeletal: Negative for myalgias. Skin: Negative for rash. Neurological: Negative for focal weakness and seizures. Endo/Heme/Allergies: Negative for polydipsia. Psychiatric/Behavioral: Negative for hallucinations. Vitals see chart PHYSICAL EXAMINATION GENERAL: The patient is alert and oriented*3, ill appearing HEENT: Nonicteric sclerae, non traumatic HEART: Regular rate and rhythm with no murmurs, 3/6 systolic murmur to 2nd ICS LUNGS: Diminished to auscultation bilaterally ABDOMEN: No acute issues, non tender GENITAL, RECTAL: deferred SKIN: No rash NEUROLOGIC: NFND EXTREMITIES: No edema ASSESSMENT SUPRATHERAPEUTIC INR INR GREATER THAN 8 Currently or warfarin Reports hemoptysis and bloody drainage from right ear AORTIC VALVE REPLACEMENT Mechanical INR was subtherapeutic at presentation CORE MEASURES Not applicable OTHER MEDICAL PROBLEMS Reviewed PLAN 10/31/2024 will order echocardiography to examine aortic valve. Patient is currently pending CT of the head and chest due to recent fall and supratherapeutic INR Continue with FFP infusion with plans for repeat INR 11/01/2024 patient's INR today is 21.14. No new episodes Of bleeding heavy reported Patient will need to be restarted on his oral Coumadin but will start patient on IV heparin and moderate for bleeding Patient's hemoglobin today is currently at 8.1 We will wait to start IV heparin drip tomorrow in repeat H&H in the morning 11/02/2024 Hemoglobin remains stable Currently pending PICC line Will start IV heparin drip without bolus once PICC line in place If no issues with bleeding and hgb remains stable, will start oral warfarin tomorrow 11/03/2024 ANDRES attempted today was terminated early because of nosebleeds and patient's overall elevated gag reflex in spite of numbing of his throat. Sedation also had to be reduced given respiratory status. Fluoroscopy was done to evaluate the aortic valve which appears to be moving appropriately. However, this does not exclude smaller clots in the aortic valve. ANDRES may eventually be required once diuresis is complete. Will attempt again with anesthesia support. Will periodically follow-up on aortic gradients in the meantime until diuresis is complete. If there is a thrombosis of the aortic valve which is suspected on the basis of gradients, patient remains at risk for a stroke. Overall difficult situation. Seen and examined 11/03/2024 multiple times. ATTESTATION I was involved substantially in the care of this patient Number and complexity of problems addressed: 1 acute illness that is a threat to life or bodily function Amount and or complexity of data Review of prior external note(s) from each unique source: 2+ Ordering of each unique test : 2 Review of the result(s) of each unique test: 2+ Assessment requiring an independent historian(s): No Independent interpretation of test performed by another MD/QHCP/appropriate source (not separately reported) : No Discussion of management or test interpretation with external MD/QHCP/appropriate source (not separately reported) : No Risk status (cardiac, billing related):High Vitals/Labs Vital Signs Date Time Temp Pulse Resp B/P (MAP) Pulse Ox O2 Delivery O2 Flow Rate FiO2 11/03/24 12:00 98.8 85 20 115/61 98 Nasal Cannula 3.0 11/03/24 07:31 32 Laboratory Tests 8/6/25 19:35 11/03/24 04:07 Medications Current Medications Vancomycin HCl 1 each AD IV; Start 10/31/24 at 12:30; Stop 11/14/24 at 12:29 Piperacillin Sod/ Tazobactam Sod 3.375 gm ONCE ONCE IV Last administered on 10/31/24at 12:43; Start 10/31/24 at 12:30; Stop 10/31/24 at 12:41; Status DC Sodium Chloride 1,000 ml @ 0 mls/hr ONCE ONCE IV Last administered on 10/31/24at 12:43; Start 10/31/24 at 12:30; Stop 10/31/24 at 12:41; Status DC Vancomycin HCl 500 ml @ 250 mls/hr ONCE ONCE IV Last administered on 10/31/24at 13:57; Start 10/31/24 at 13:00; Stop 10/31/24 at 14:59; Status DC Vancomycin HCl 250 ml @ 125 mls/hr Q12H IV Last administered on 11/03/24at 00:30; Start 11/01/24 at 01:30; Stop 11/11/24 at 01:29 Sodium Chloride 1,983 ml @ 661 mls/hr ONCE ONCE IV Last administered on 10/31/24at 13:12; Start 10/31/24 at 13:00; Stop 10/31/24 at 15:59; Status DC Phytonadione 10 mg/Sodium Chloride 51 ml @ 100 mls/hr ONCE ONCE IVPB Last administered on 10/31/24at 13:12; Start 10/31/24 at 13:00; Stop 10/31/24 at 13:30; Status DC Morphine Sulfate 2 mg ONCE ONCE IVP Last administered on 10/31/24at 13:20; Start 10/31/24 at 13:30; Stop 10/31/24 at 13:31; Status DC Ondansetron HCl 4 mg ONCE ONCE IVP Last administered on 10/31/24at 13:20; Start 10/31/24 at 13:30; Stop 10/31/24 at 13:31; Status DC Pantoprazole Sodium 40 mg Q12H IVP Last administered on 11/03/24at 01:06; Start 10/31/24 at 14:00; Stop 11/30/24 at 13:59 Acetaminophen 650 mg Q6H PRN PO Last administered on 10/31/24at 17:32; Start 10/31/24 at 14:00; Stop 11/30/24 at 13:59 Ondansetron HCl 4 mg Q6H PRN IVP Last administered on 11/03/24at 08:38; Start 10/31/24 at 14:00; Stop 11/30/24 at 13:59 Sodium Chloride 1,000 ml @ 75 mls/hr [id number] IV Last administered on 11/01/24at 03:31; Start 10/31/24 at 14:00; Stop 11/02/24 at 21:00; Status DC Cefepime HCl 2 gm Q12H IVPB Last administered on 11/03/24at 05:58; Start 10/31/24 at 18:00; Stop 11/10/24 at 17:59 Doxycycline Hyclate 250 ml @ 125 mls/hr BID IV Last administered on 11/03/24at 08:36; Start 10/31/24 at 14:00; Stop 11/10/24 at 13:59 Metronidazole/ Sodium Chloride 100 ml @ 100 mls/hr Q8H6 IVPB Last administered on 11/03/24at 05:03; Start 10/31/24 at 21:00; Stop 11/10/24 at 20:59 Albuterol 1 udvial Q6H PRN IH Last administered on 11/03/24at 07:17; Start 10/31/24 at 14:30; Stop 11/30/24 at 14:29 Budesonide 0.5 mg BIDRESP IH Last administered on 11/03/24at 07:17; Start 10/31/24 at 18:00; Stop 11/30/24 at 17:59 Iohexol 75 ml STK-MED ONCE IV; Start 10/31/24 at 14:53; Stop 10/31/24 at 14:54; Status DC Tranexamic Acid 500 mg [id number] Last administered on 11/01/24at 23:57; Start 10/31/24 at 15:30; Stop 11/02/24 at 11:02; Status DC Morphine Sulfate 2 mg Q6H PRN IVP Last administered on 11/02/24at 06:33; Start 10/31/24 at 19:00; Stop 11/02/24 at 10:03; Status DC Sodium Chloride 4 ml STK-MED ONCE IH Last administered on 10/31/24at 22:46; Start 10/31/24 at 22:37; Stop 10/31/24 at 22:38; Status DC Magnesium Sulfate 50 ml @ 0 mls/hr PROTOCOL PRN IV Last administered on 11/03/24at 08:49; Start 11/01/24 at 08:00; Stop 12/01/24 at 07:59 Morphine Sulfate 2 mg ONCE ONCE IVP Last administered on 11/01/24at 08:21; Start 11/01/24 at 08:30; Stop 11/01/24 at 08:31; Status DC Sodium Chloride 4 ml STK-MED ONCE IH; Start 11/01/24 at 10:49; Stop 11/01/24 at 10:50; Status DC Morphine Sulfate 2 mg Q4H PRN IVP Last administered on 11/03/24at 08:36; Start 11/02/24 at 10:30; Stop 11/09/24 at 10:29 Heparin Sodium/ Dextrose 250 ml @ 0 mls/hr Q6H IV Last administered on 11/03/24at 10:50; Start 11/02/24 at 21:00; Stop 12/02/24 at 20:59 Pharmacy Profile Note 1 each ONCE MISC; Start 11/02/24 at 13:30; Stop 11/02/24 at 13:15; Status DC Midazolam HCl 4 mg ONCE ONCE IVP; Start 11/03/24 at 12:00; Stop 11/03/24 at 12:01; Status DC Fentanyl Citrate 100 mcg ONCE ONCE IVP; Start 11/03/24 at 12:00; Stop 11/03/24 at 12:01; Status DC Lidocaine HCl 15 ml ONCE ONCE PO Last administered on 11/03/24at 12:06; Start 11/03/24 at 12:00; Stop 11/03/24 at 12:01; Status DC Potassium Chloride 100 ml @ 50 mls/hr AD PRN IV Last administered on 11/03/24at 12:01; Start 11/03/24 at 12:00; Stop 12/03/24 at 11:59 Potassium Chloride 100 ml @ 100 mls/hr AD PRN IV; Start 11/03/24 at 12:00; Stop 12/03/24 at 11:59 Potassium Chloride 20 meq AD PRN PO; Start 11/03/24 at 12:00; Stop 12/03/24 at 11:59 Potassium Chloride 20 meq AD PRN PO; Start 11/03/24 at 12:00; Stop 12/03/24 at 11:59 Furosemide 40 mg ONCE ONCE IV; Start 11/03/24 at 12:30; Stop 11/03/24 at 12:31; Status DC ANTONINO DIANE MD Nov 03, 2024 12:45
--- NOTE | 2024-11-03 12:58 | PN ---
[facility] PROGRESS NOTE Date of Service: Nov 03, 2024 Time of Service: 12:58 SUBJECTIVE: [ ] 64-year-old male with prior history of mechanical aortic valve which was replaced in 1993 maintained on chronic outpatient anticoagulation with warfarin, obesity, who presented to the ER for further evaluation of hemoptysis, chills, cough, and blood noted in the right ear.Patient states that about 12 days ago, he was visiting in [place], he had a mechanical fall with no syncope, patient was evaluated in ER and was found to have a nondisplaced left forearm ulnar fracture along which was treated conservatively. Patient had a CT done which was noted to be negative per patient. Patient states that over the last two days, he noticed that he was having chills, and yesterday night, he started having hemoptysis. Today he noticed that he was having bloody drainage from the right ear. Denies any headache, denies any focal weakness of upper or lower extremities. Denies any neck pain. Denies any new recent fall other than 12 days ago in [place] Denies chest pain other than with cough. He has been having generalized fatigue and malaise over the last two days. Denies exposure to sick contacts. 11/01/24 patient was admitted for septic shock and hemoptysis with Coumadin toxici ty today's INR improved significantly from 8-1.4 We will wait for coat room attendant's if okay to resume. Patient appears acutely ill continue with broad-spectrum antibiotics tolerating. ID on board we will follow his recommendations. Patient is currently on nasal cannula to 3 L. We will be monitored closely in ICU. 11/02/2024 patient was seen earlier patient is lying in bed on room air we continue with broad-spectrum antibiotics tolerating reports no diarrhea. We continue to monitor INR. Encourage patient out of bed to chair as tolerated PT services we will be ordered. Denied chest pain palpitations dizziness. 11/03/24 patient is return back from [employer] [employer] echo ANDRES was done primary nurse reports patient started with nose bleed will get post procedure we will get a CBC now. remain in Heparin drip; We will monitor closely for any acute bleeding. REVIEW OF SYSTEMS CONSTITUTIONAL: malaise, generalized weakness, fatigue NEUROLOGICAL: Denies headache, amaurosis fugax, motor weakness, sensory deficit, vertigo/spinning sensation, gait abnormalities, or tremors. ENT: No hearing loss, reports having noticed blood coming out of the right ear CARDIOVASCULAR: Denies any exertional angina, dyspnea on exertion, orthopnea, paroxysmal nocturnal dyspnea, palpitations, life-threatening arrhythmias, claudication. PULMONARY: reports having cough, congestion, SOB, patient reports having hemoptysis SLEEP: Denies morning headaches, daytime somnolence or napping. Denies difficulty falling asleep, staying asleep, waking from sleep. Denies knowledge of snoring. GASTROINTESTINAL: Denies any type of dysphagia to either liquids or solids. Denies nausea, vomiting, pyrosis, early satiety, abdominal pain, diarrhea, constipation, or changes in stool consistency or caliber. Denies coffee-ground emesis, hematemesis, hematochezia, or melanotic stools. GENITOURINARY: Denies frequency, urgency, nocturia, hematuria or incontinence (Storage/Irritative symptoms.) Low urinary stream, straining to void, urinary intermittency or hesitancy, splitting of the voiding stream, terminal dribbling. ENDOCRINOLOGIC: Denies polyuria, polydipsia, polyphagia or heat/cold intoleran fred. HEMATOLOGIC: reports having easy bruising ONCOLOGIC: Denies personal history of malignancy. DERMATOLOGIC: Denies rashes or pruritus. PSYCHIATRIC: Denies any suicidal or homicidal ideation. Denies hallucinations. PHYSICAL EXAM GENERAL APPEARANCE: The patient is awake, alert, and oriented, in no acute cardiopulmonary distress. NEUROLOGICAL: Cranial nerves II-XII grossly intact. Motor is 5/5 in bilateral upper and lower extremities proximal to distal. No sensory deficits. HEENT: Face is symmetric. Pupils are equal and reactive. Extraocular movements are intact. Right ear on otoscopic examination noted to have dries blood and some bright red blood, there is small clots noted as well, which i did not dislodge, tympanic membrane could be full evaluated due to blood NECK: Supple. No JVD. No thyromegaly. No submental, submandibular, pre- /postauricular, occipital or supraclavicular lymphadenopathy. CHEST: Normal chest expansion. No Telemetry. LUNGS: Crackles noted of the right lung base with decreased breath with rhonchorous breath sounds CARDIOVASCULAR: Regular. S1 and S2 normal. No appreciable rubs, murmurs or gallops. ABDOMEN: Soft, nontender, and nondistended. There is no rebound, voluntary guarding, or rigidity. : Deferred. No Wills. EXTREMITIES: Trace edema of the bilateral lower extremities SKIN: Swelling and redness noted of the right shoulder Vital Signs (last 8hr) Date Time Temp Pulse Resp B/P (MAP) Pulse Ox O2 Delivery O2 Flow Rate FiO2 11/03/24 12:00 98.8 85 20 115/61 98 Nasal Cannula 3.0 11/03/24 08:00 97.9 83 20 103/56 98 Nasal Cannula 3.0 11/03/24 07:31 82 24 N/Cannula Low lpm 3.0 32 11/03/24 07:19 79 20 N/Cannula Low lpm 3.0 32 11/03/24 07:18 79 20 LABS: Laboratory: Test 11/03/24 12:18 11/03/24 04:07 Range/Units Activated Partial Thromboplast Time 49.6 #H 26.3-35.5 SEC Vancomycin Level Trough 12.9 10.0-20.0 UG/ML White Blood Count 12.4 H 4.8-10.8 K/uL Red Blood Count 2.95 L 4.50-6.20 MIL/uL Hemoglobin 8.5 L 14.0-18.0 g/dL Hematocrit 25.2 L 42-54 % Mean Corpuscular Volume 85.4 79-99 fL Mean Corpuscular Hemoglobin 28.8 27.0-33.0 pg Mean Corpuscular Hemoglobin Concent 33.7 32.0-36.0 g/dL Red Cell Distribution Width 13.2 11.0-15.5 % Platelet Count 260 130-400 K/uL Mean Platelet Volume 9.9 7.5-10.5 fL Immature Granulocyte % (Auto) 1.2 H 0-1 % Neutrophils (%) (Auto) 78.4 H 40.0-77.0 % Lymphocytes (%) (Auto) 9.9 L 21.0-51.0 % Monocytes (%) (Auto) 9.5 3.0-13.0 % Eosinophils (%) (Auto) 0.7 0.0-8.0 % Basophils (%) (Auto) 0.3 0.0-5.0 % Neutrophils # (Auto) 9.7 H 1.8-7.7 K/uL Lymphocytes # (Auto) 1.2 1.0-4.8 K/uL Monocytes # (Auto) 1.2 H 0.1-1.0 K/uL Eosinophils # (Auto) 0.09 0.00-0.70 K/uL Basophils # (Auto) 0.04 0.00-0.20 K/uL Absolute Immature Granulocyte (auto 0.15 0-1 K/uL Nucleated Red Blood Cells 0.2 H 0.0-0.19 % Prothrombin Time 12.3 H 9.6-11.6 SEC Prothromb Time International Ratio 1.18 H 0.85-1.15 Sodium Level 140 136-145 mmol/L Potassium Level 3.5 3.5-5.1 mmol/L Chloride Level 106 101-111 mmol/L Carbon Dioxide Level 28 21-32 mmol/L Blood Urea Nitrogen 13 7-18 mg/dL Creatinine 0.9 0.5-1.3 mg/dL Glomerular Filtration Rate Calc 95 >90 mL/min Random Glucose 114 H 70-105 mg/dL Total Calcium 7.8 L 8.5-10.1 mg/dL Magnesium Level 1.70 L 1.80-2.40 mg/dL Total Bilirubin 1.0 0.2-1.0 mg/dL Aspartate Amino Transf (AST/SGOT) 27 10-37 U/L Alanine Aminotransferase (ALT/SGPT) 25 12-78 U/L Alkaline Phosphatase 89 50-136 U/L Total Protein 5.5 L 6.0-8.3 g/dL Albumin 2.1 L 3.5-5.0 g/dL Current Medications Medications (Trade) Dose Ordered Sig/Hank Route PRN Reason Start Time Stop Time Status Last Admin Dose Admin Acetaminophen (TYLenol 325MG TAB) 650 mg Q6H PRN PO MILD PAIN (1-3) 10/31/24 14:00 11/30/24 13:59 10/31/24 17:32 650 MG Albuterol (DUOneb) 1 udvial Q6H PRN IH SHORTNESS OF BREATH 10/31/24 14:30 11/30/24 14:29 11/03/24 07:17 1 UDVIAL Budesonide (Pulmicort 0.5 Mg/2ml) 0.5 mg BIDRESP IH 10/31/24 18:00 11/30/24 17:59 11/03/24 07:17 0.5 MG Cefepime HCl (MAXipime 2 gm vial) 2 gm Q12H IVPB 10/31/24 18:00 11/10/24 17:59 11/03/24 05:58 2 GM Doxycycline Hyclate 250 ml @ 125 mls/hr BID IV 10/31/24 14:00 11/10/24 13:59 11/03/24 08:36 125 MLS/HR Heparin Sodium/ Dextrose 250 ml @ 0 mls/hr Q6H IV 11/02/24 21:00 12/02/24 20:59 11/03/24 10:50 18.09 MLS/HR Magnesium Sulfate 50 ml @ 0 mls/hr PROTOCOL PRN IV OTHER [SEE ORDER COMMENTS] 11/01/24 08:00 12/01/24 07:59 11/03/24 08:49 25 MLS/HR Metronidazole/ Sodium Chloride 100 ml @ 100 mls/hr Q8H6 IVPB 10/31/24 21:00 11/10/24 20:59 11/03/24 05:03 100 MLS/HR Morphine Sulfate (morPHINE 2MG SYG) 2 mg Q4H PRN IVP SEVERE PAIN (7-10) 11/02/24 10:30 11/09/24 10:29 11/03/24 08:36 2 MG Morphine Sulfate (morPHINE 2MG SYG) 2 mg Q6H PRN IVP SEVERE PAIN (7-10) 10/31/24 19:00 11/02/24 10:03 DC 11/02/24 06:33 2 MG Ondansetron HCl (zoFRAN 4MG INJ) 4 mg Q6H PRN IVP NAUSEA/VOMITING 10/31/24 14:00 11/30/24 13:59 11/03/24 08:38 4 MG Pantoprazole Sodium (PROTonix 40MG INJ) 40 mg Q12H IVP 10/31/24 14:00 11/30/24 13:59 11/03/24 01:06 40 MG Pharmacy Profile Note (Pharmacy Communication) 1 each ONCE MISC 11/02/24 13:30 11/02/24 13:15 DC Potassium Chloride 100 ml @ 50 mls/hr AD PRN IV POTASSIUM PROTOCOL 11/03/24 12:00 12/03/24 11:59 11/03/24 12:01 50 MLS/HR Potassium Chloride 100 ml @ 100 mls/hr AD PRN IV POTASSIUM PROTOCOL 11/03/24 12:00 12/03/24 11:59 Potassium Chloride (K-Dur/Klor-Con 20meq) 20 meq AD PRN PO POTASSIUM PROTOCOL 11/03/24 12:00 12/03/24 11:59 Potassium Chloride (KCl 10% Elixir 20meq/15ml) 20 meq AD PRN PO POTASSIUM PROTOCOL 11/03/24 12:00 12/03/24 11:59 Sodium Chloride 1,000 ml @ 75 mls/hr [id number] IV 10/31/24 14:00 11/02/24 21:00 DC 11/01/24 03:31 75 MLS/HR Tranexamic Acid (Cyklokapron) 500 mg [id number] IJ 10/31/24 15:30 11/02/24 11:02 DC 11/01/24 23:57 500 MG Vancomycin HCl 250 ml @ 125 mls/hr Q12H IV 11/01/24 01:30 11/11/24 01:29 11/03/24 00:30 125 MLS/HR Vancomycin HCl (Vancomycin Protocol) 1 each AD IV 10/31/24 12:30 11/14/24 12:29 DIAGNOSTICS / RADIOLOGY: [ ] ASSESSMENT: Severe sepsis secondary to right lung community-acquired pneumonia, POA Acute hypoxemic respiratory failure, POA Bilateral Multifocal Pneumonia with R > L, POA Hypotension secondary to severe sepsis, resolving Hemoptysis, POA Right shoulder swelling with possible hematoma, POA Right ear otorrhea with blood, POA Acute on chronic anemia secondary to blood loss, POA Severely elevated supratherapeutic INR secondary to Coumadin use and possibly sepsis, POA hypercoagulable state secondary to Mechanical aortic value on Coumadin Therapy POA Coumadin Toxicity POA History of mechanical aortic valve, POA History of chronic anticoagulation with warfarin, POA Acute kidney injury, POA Demand ischemia, POA Recent history of left forearm ulnar nondisplaced fracture treated conservatively, POA Prior history of fall 12 days ago in [place], POA Obesity, POA PLAN: Admit: ICU transitioned to PCCU Status: [facility] code consultants: Critical Care, Consumer Loan Processor infectious disease Diet: Heart healthy Procedure ANDRES we will follow results and cardiology's recommendations antibiotics: IV cefepime/Flagyl/doxycycline vanco Microbiology: Resp, blood cultures so far negative Imaging: Echo noted monitor for bleeding: trends H/H q 6hrs transfuse as needed to keep Hbg above 7.0 Daily PT INR: Coumadin bridge with Heparin drip GI ppx: IV Protonix 40 mg b.i.d. empirically Labs in am : CBC, cmp, and Mag PT services to eval and treat, fall precautions Plan of care was discussed with patient at bedside, patient has requested full code ATTESTATION BY PHYSICIAN I have seen and examined the patient. I reviewed the documentation, medical decision making, and treatment plan as noted by the mid-level provider above. I agree with the findings and plan of care. Linda Soria MD, ELIZABETH NP Nov 03, 2024 12:58
[2024-11-03] MEDS: MIDAZOLAM HCL 1 MG/ML 2ML VIAL IVP ONE (13:04)
[2024-11-03 15:22] LABS: IMMATURE GRANULOCYTE ABSOLUTE 0.16 K/uL (0-1); NUCLEATED RED BLOOD CELLS 0.3 % (0.0-0.19); PLATELET COUNT (AUTO) 232 K/uL (130-400); RED BLOOD CELL COUNT(AUTO) 3.03 MIL/uL (4.50-6.20); RED CELL DISTRIBUTION WIDTH 13.4 % (11.0-15.5); WHITE BLOOD COUNT (AUTO) 11.3 K/uL (4.8-10.8)
--- NOTE | 2024-11-03 16:38 | HMCIMG ---
CHEST 1VW REASON: f/u on pneumonia status COMPARISON: Prior study from 11/02/2024 is available. FINDINGS: Single view of the chest was obtained. There is cardiomegaly with median sternotomy. There is a right-sided PIC catheter to with the tip in superior vena cava. There is airspace consolidation seen throughout both lung more pronounced on the right as compared to the left. This is unchanged from prior study.. There is no pulmonary vascular congestion. Mediastinum and bony thorax appear unremarkable. IMPRESSION: 1. Status post median sternotomy 2. Unchanged from prior study with airspace consolidation more pronounced in the right as compared to the left.
[2024-11-03] MEDS: PoTASSium chloRIDE 20MEQ ER 20 MEQ ERTAB PO PRN (18:58)
[2024-11-03 22:10] LABS: MYCOPLASMA AB IGM <770 U/mL (0-769)
[2024-11-04] VITALS (11 sets, daily range): BP systolic 100–135; BP diastolic 64–87; PULSE 75–95; RESP 18–20; TEMP 97.6–98.7; O2SAT 92–100
[2024-11-04 05:10] LABS: IMMATURE GRANULOCYTE ABSOLUTE 0.21 K/uL (0-1); NUCLEATED RED BLOOD CELLS 0.3 % (0.0-0.19); PLATELET COUNT (AUTO) 254 K/uL (130-400); RED BLOOD CELL COUNT(AUTO) 2.87 MIL/uL (4.50-6.20); RED CELL DISTRIBUTION WIDTH 13.3 % (11.0-15.5); WHITE BLOOD COUNT (AUTO) 11.8 K/uL (4.8-10.8)
[2024-11-04 05:21] LABS: INR 1.24 (0.85-1.15)
[2024-11-04 05:29] LABS: ASPARTATE AMINOTRANSFERASE 28.0 U/L (10-37); CREATININE 0.9 mg/dL (0.5-1.3); GLOMERULAR FILTR. RATE CALC 95.0 mL/min (>90); GLUCOSE,RANDOM 114.0 mg/dL (70-105); SODIUM SERUM 140.0 mmol/L (136-145); TOTAL PROTEIN, SERUM 5.4 g/dL (6.0-8.3); UREA NITROGEN, BLOOD 12.0 mg/dL (7-18)
[2024-11-04] MEDS: PoTASSium chl 10% ELIXIR 20MEQ 20 MEQ/15 ML UDCUP PO PRN (08:28)
--- NOTE | 2024-11-04 09:58 | PN ---
[facility] PROGRESS NOTE Date of Service: Nov 04, 2024 Time of Service: 09:55 SUBJECTIVE: [ ] 64-year-old male with prior history of mechanical aortic valve which was replaced in 1993 maintained on chronic outpatient anticoagulation with warfarin, obesity, who presented to the ER for further evaluation of hemoptysis, chills, cough, and blood noted in the right ear.Patient states that about 12 days ago, he was visiting in [place], he had a mechanical fall with no syncope, patient was evaluated in ER and was found to have a nondisplaced left forearm ulnar fracture along which was treated conservatively. Patient had a CT done which was noted to be negative per patient. Patient states that over the last two days, he noticed that he was having chills, and yesterday night, he started having hemoptysis. Today he noticed that he was having bloody drainage from the right ear. Denies any headache, denies any focal weakness of upper or lower extremities. Denies any neck pain. Denies any new recent fall other than 12 days ago in [place] Denies chest pain other than with cough. He has been having generalized fatigue and malaise over the last two days. Denies exposure to sick contacts. 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 Patient appears acutely ill continue with broad-spectrum antibiotics tolerating. ID on board we will follow his recommendations. Patient is currently on nasal cannula to 3 L. We will be monitored closely in ICU. 11/02/2024 patient was seen earlier patient is lying in bed on room air we continue with broad-spectrum antibiotics tolerating reports no diarrhea. We continue to monitor INR. Encourage patient out of bed to chair as tolerated PT services we will be ordered. Denied chest pain palpitations dizziness. 11/03/24 patient is return back from [facility] [place] echo ANDRES was done primary nurse reports patient started with nose bleed will get post procedure we will get a CBC now. Remains in heparin drip. We will monitor closely for any acute bleeding. 11/04/24 patient is lying in bed patient continues to require oxygen supplemental was started on Lasix IV 20 mg b.i.d. patient continues with physical therapy. 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 Patient is tolerating broad-spectrum antibiotics wait for ID final recommendations REVIEW OF SYSTEMS CONSTITUTIONAL: malaise, generalized weakness, fatigue NEUROLOGICAL: Denies headache, amaurosis fugax, motor weakness, sensory deficit, vertigo/spinning sensation, gait abnormalities, or tremors. ENT: No hearing loss, reports having noticed blood coming out of the right ear CARDIOVASCULAR: Denies any exertional angina, dyspnea on exertion, orthopnea, paroxysmal nocturnal dyspnea, palpitations, life-threatening arrhythmias, claudication. PULMONARY: reports having cough, congestion, SOB, patient reports having hemoptysis SLEEP: Denies morning headaches, daytime somnolence or napping. Denies difficulty falling asleep, staying asleep, waking from sleep. Denies knowledge of snoring. GASTROINTESTINAL: Denies any type of dysphagia to either liquids or solids. Denies nausea, vomiting, pyrosis, early satiety, abdominal pain, diarrhea, constipation, or changes in stool consistency or caliber. Denies coffee-ground emesis, hematemesis, hematochezia, or melanotic stools. GENITOURINARY: Denies frequency, urgency, nocturia, hematuria or incontinence (Storage/Irritative symptoms.) Low urinary stream, straining to void, urinary intermittency or hesitancy, splitting of the voiding stream, terminal dribbling. ENDOCRINOLOGIC: Denies polyuria, polydipsia, polyphagia or heat/cold intolerances. HEMATOLOGIC: reports having easy bruising ONCOLOGIC: Denies personal history of malignancy. DERMATOLOGIC: Denies rashes or pruritus. PSYCHIATRIC: Denies any suicidal or homicidal ideation. Denies hallucinations. PHYSICAL EXAM GENERAL APPEARANCE: The patient is awake, alert, and oriented, in no acute cardiopulmonary distress. NEUROLOGICAL: Cranial nerves II-XII grossly intact. Motor is 5/5 in bilateral upper and lower extremities proximal to distal. No sensory deficits. HEENT: Face is symmetric. Pupils are equal and reactive. Extraocular movements are intact. Right ear on otoscopic examination noted to have dries blood and some bright red blood, there is small clots noted as well, which i did not dislodge, tympanic membrane could be full evaluated due to blood NECK: Supple. No JVD. No thyromegaly. No submental, submandibular, pre- /postauricular, occipital or supraclavicular lymphadenopathy. CHEST: Normal chest expansion. No Telemetry. LUNGS: Crackles noted of the right lung base with decreased breath with rhonchorous breath sounds CARDIOVASCULAR: Regular. S1 and S2 normal. No appreciable rubs, murmurs or gallops. ABDOMEN: Soft, nontender, and nondistended. There is no rebound, voluntary guarding, or rigidity. : Deferred. No Wills. EXTREMITIES: Trace edema of the bilateral lower extremities SKIN: Swelling and redness noted of the right shoulder Vital Signs (last 8hr) Date Time Temp Pulse Resp B/P (MAP) Pulse Ox O2 Delivery O2 Flow Rate FiO2 11/04/24 07:55 97.9 87 20 110/73 97 Nasal Cannula 2.0 11/04/24 06:52 85 20 11/04/24 06:51 85 20 N/Cannula Low lpm 2.0 28 11/04/24 03:45 97.5 81 18 114/78 95 Nasal Cannula 2.0 LABS: Laboratory: Test 11/04/24 08:15 11/04/24 04:00 11/03/24 12:18 11/03/24 04:07 Range/Units Activated Partial Thromboplast Time 69.1 H 26.3-35.5 SEC White Blood Count 11.8 H 4.8-10.8 K/uL Red Blood Count 2.87 L 4.50-6.20 MIL/uL Hemoglobin 8.3 L 14.0-18.0 g/dL Hematocrit 24.5 L 42-54 % Mean Corpuscular Volume 85.4 79-99 fL Mean Corpuscular Hemoglobin 28.9 27.0-33.0 pg Mean Corpuscular Hemoglobin Concent 33.9 32.0-36.0 g/dL Red Cell Distribution Width 13.3 11.0-15.5 % Platelet Count 254 130-400 K/uL Mean Platelet Volume 9.3 7.5-10.5 fL Immature Granulocyte % (Auto) 1.8 H 0-1 % Neutrophils (%) (Auto) 73.3 40.0-77.0 % Lymphocytes (%) (Auto) 11.6 L 21.0-51.0 % Monocytes (%) (Auto) 11.3 3.0-13.0 % Eosinophils (%) (Auto) 1.7 0.0-8.0 % Basophils (%) (Auto) 0.3 0.0-5.0 % Neutrophils # (Auto) 8.6 H 1.8-7.7 K/uL Lymphocytes # (Auto) 1.4 1.0-4.8 K/uL Monocytes # (Auto) 1.3 H 0.1-1.0 K/uL Eosinophils # (Auto) 0.20 0.00-0.70 K/uL Basophils # (Auto) 0.04 0.00-0.20 K/uL Absolute Immature Granulocyte (auto 0.21 0-1 K/uL Nucleated Red Blood Cells 0.3 H 0.0-0.19 % Prothrombin Time 12.9 H 9.6-11.6 SEC Prothromb Time International Ratio 1.24 H 0.85-1.15 Sodium Level 140 136-145 mmol/L Potassium Level 3.4 L 3.5-5.1 mmol/L Chloride Level 105 101-111 mmol/L Carbon Dioxide Level 30 21-32 mmol/L Blood Urea Nitrogen 12 7-18 mg/dL Creatinine 0.9 0.5-1.3 mg/dL Glomerular Filtration Rate Calc 95 >90 mL/min Random Glucose 114 H 70-105 mg/dL Total Calcium 8.0 L 8.5-10.1 mg/dL Total Bilirubin 1.0 0.2-1.0 mg/dL Aspartate Amino Transf (AST/SGOT) 28 10-37 U/L Alanine Aminotransferase (ALT/SGPT) 23 12-78 U/L Alkaline Phosphatase 84 50-136 U/L Total Protein 5.4 L 6.0-8.3 g/dL Albumin 2.0 L 3.5-5.0 g/dL Procalcitonin 0.54 H 0.05-0.5 ng/mL Vancomycin Level Trough 12.9 10.0-20.0 UG/ML Magnesium Level 1.70 L 1.80-2.40 mg/dL Current Medications Medications (Trade) Dose Ordered Sig/Hank Route PRN Reason Start Time Stop Time Status Last Admin Dose Admin Acetaminophen (TYLenol 325MG TAB) 650 mg Q6H PRN PO MILD PAIN (1-3) 10/31/24 14:00 11/30/24 13:59 10/31/24 17:32 650 MG Albuterol (DUOneb) 1 udvial Q6H PRN IH SHORTNESS OF BREATH 10/31/24 14:30 11/30/24 14:29 11/03/24 18:24 1 UDVIAL Budesonide (Pulmicort 0.5 Mg/2ml) 0.5 mg BIDRESP IH 10/31/24 18:00 11/30/24 17:59 11/04/24 06:50 0.5 MG Cefepime HCl (MAXipime 2 gm vial) 2 gm Q12H IVPB 10/31/24 18:00 11/10/24 17:59 11/04/24 06:08 2 GM Doxycycline Hyclate 250 ml @ 125 mls/hr BID IV 10/31/24 14:00 11/10/24 13:59 11/04/24 08:27 125 MLS/HR Furosemide (LASix 20MG VIAL) 20 mg BID IV 11/04/24 09:00 12/04/24 08:59 Heparin Sodium/ Dextrose 250 ml @ 0 mls/hr Q6H IV 11/02/24 21:00 12/02/24 20:59 11/04/24 02:10 13.2 MLS/HR Magnesium Sulfate 50 ml @ 0 mls/hr PROTOCOL PRN IV OTHER [SEE ORDER COMMENTS] 11/01/24 08:00 12/01/24 07:59 11/03/24 08:49 25 MLS/HR Metronidazole/ Sodium Chloride 100 ml @ 100 mls/hr Q8H6 IVPB 10/31/24 21:00 11/10/24 20:59 11/04/24 05:07 100 MLS/HR Morphine Sulfate (morPHINE 2MG SYG) 2 mg Q4H PRN IVP SEVERE PAIN (7-10) 11/02/24 10:30 11/09/24 10:29 11/04/24 08:29 2 MG Morphine Sulfate (morPHINE 2MG SYG) 2 mg Q6H PRN IVP SEVERE PAIN (7-10) 10/31/24 19:00 11/02/24 10:03 DC 11/02/24 06:33 2 MG Ondansetron HCl (zoFRAN 4MG INJ) 4 mg Q6H PRN IVP NAUSEA/VOMITING 10/31/24 14:00 11/30/24 13:59 11/03/24 08:38 4 MG Pantoprazole Sodium (PROTonix 40MG INJ) 40 mg Q12H IVP 10/31/24 14:00 11/30/24 13:59 11/04/24 02:35 40 MG Pharmacy Profile Note (Pharmacy Communication) 1 each ONCE MISC 11/02/24 13:30 11/02/24 13:15 DC Potassium Chloride 100 ml @ 50 mls/hr AD PRN IV POTASSIUM PROTOCOL 11/03/24 12:00 12/03/24 11:59 11/03/24 12:01 50 MLS/HR Potassium Chloride 100 ml @ 100 mls/hr AD PRN IV POTASSIUM PROTOCOL 11/03/24 12:00 12/03/24 11:59 Potassium Chloride (K-Dur/Klor-Con 20meq) 20 meq AD PRN PO POTASSIUM PROTOCOL 11/03/24 12:00 12/03/24 11:59 11/04/24 06:08 20 MEQ Potassium Chloride (KCl 10% Elixir 20meq/15ml) 20 meq AD PRN PO POTASSIUM PROTOCOL 11/03/24 12:00 12/03/24 11:59 11/04/24 08:28 20 MEQ Sodium Chloride 1,000 ml @ 75 mls/hr [id number] IV 10/31/24 14:00 11/02/24 21:00 DC 11/01/24 03:31 75 MLS/HR Tranexamic Acid (Cyklokapron) 500 mg [id number] IJ 10/31/24 15:30 11/02/24 11:02 DC 11/01/24 23:57 500 MG Vancomycin HCl 250 ml @ 125 mls/hr Q12H IV 11/01/24 01:30 11/11/24 01:29 11/04/24 00:43 125 MLS/HR Vancomycin HCl (Vancomycin Protocol) 1 each AD IV 10/31/24 12:30 11/14/24 12:29 DIAGNOSTICS / RADIOLOGY: [ ] ASSESSMENT: Severe sepsis secondary to right lung community-acquired pneumonia, POA Acute hypoxemic respiratory failure, POA Bilateral Multifocal Pneumonia with R > L, POA Hypotension secondary to severe sepsis, resolving Hemoptysis, POA Right shoulder swelling with possible hematoma, POA Right ear otorrhea with blood, POA Acute on chronic anemia secondary to blood loss, POA Severely elevated supratherapeutic INR secondary to Coumadin use and possibly sepsis, POA hypercoagulable state secondary to Mechanical aortic value on Coumadin Therapy POA Coumadin Toxicity POA History of mechanical aortic valve, POA History of chronic anticoagulation with warfarin, POA Acute kidney injury, POA Demand ischemia, POA Recent history of left forearm ulnar nondisplaced fracture treated conservatively, POA Prior history of fall 12 days ago in [place], POA Obesity, POA PLAN: Mr. Williamson 64-year-old male remains in ICU. Patient remains on heparin drip being followed by baseball umpire for [employer]'s status postTEE patient requiring oxygen supplemental secondary to fluid overload was started on Lasix 20 mg IV twice a day. Physical therapy to work with patient. Admit: ICU transitioned to PCCU Status: [facility]ll code consultants: Critical Care, Director Surgical infectious disease Diet: Heart healthy Procedure ANDRES s/p antibiotics: IV cefepime/Flagyl/doxycycline vanco Microbiology: Resp, blood cultures so far negative monitor for bleeding: trends H/H q 6hrs transfuse as needed to keep Hbg above 7.0 Remains Heparin drip GI ppx: IV Protonix 40 mg b.i.d. empirically Labs in am : CBC, cmp, and Mag PT services to eval and treat, fall precautions Plan of care was discussed with patient at bedside, patient has requested full code ATTESTATION BY PHYSICIAN I have seen and examined the patient. I reviewed the documentation, medical decision making, and treatment plan as noted by the mid-level provider above. I agree with the findings and plan of care. Linda Soria MD, ELIZABETH NP Nov 04, 2024 09:58
--- NOTE | 2024-11-04 11:41 | PN ---
[facility] PROGRESS NOTE Date Patient Seen: Nov 04, 2024 Time of Visit: 11:39 Supervising Physician: Dr Hernandes Primary Care Physician: self referral Outpatient Specialists: Inpatient Consults: dr Awad, Dr Ej Vega PROBLEM LIST: Septic shock, resolved supratherapeutic INR secondary to Coumadin, resolved Acute hypoxemic respiratory failure, POA Suspected alveolar hemorrhage, improving Acute on chronic anemia secondary to blood loss, POA History of mechanical aortic valve, POA History of chronic anticoagulation with warfarin, POA Acute kidney injury, POA Demand ischemia, POA Obesity, POA INTERVAL HISTORY: Patient seen and examined, all labs and imaging have been reviewed, patient is sitting comfortably in bed. Unable to tolerate ANDRES, patient remains on heparin drip. Patient is awake alert and oriented, fevers reported overnight, afebrile on today's visit Vital signs are stable. Diuresed over 4 L yesterday. Chest x-ray improved Tolerating diet Plan: Follow cardiology recs, continues on heparin drip Telemetry Antibiotics per ID, following cultures Continue diuresis GI prophylaxis Heparin drip protocol REVIEW OF SYSTEMS: 12 point ROS reviewed with patient. Pertinent positives mentioned above. Otherwise negative. PHYSICAL EXAM: GENERAL: alert, weak, awake oriented x 3 HEENT: EOMI, Sclera non icteric, moist mucosa NECK: Supple, no JVD, trachea midline LUNGS: Rales to right side, and left lower lobe No wheezes HEART: Regular rate and rhythm. Normal S1 and S2, without murmurs ABD: Abdomen obese soft, nontender. Bowel sounds present EXT: No clubbing cyanosis. Left forearm tenderness. Right shoulder swelling NEURO: Alert and oriented to person, follows commands Vital Signs (last 8hr) Date Time Temp Pulse Resp B/P (MAP) Pulse Ox O2 Delivery O2 Flow Rate FiO2 11/04/24 07:55 97.9 87 20 110/73 97 Nasal Cannula 2.0 11/04/24 06:52 85 20 11/04/24 06:51 85 20 N/Cannula Low lpm 2.0 28 11/04/24 03:45 97.5 81 18 114/78 95 Nasal Cannula 2.0 LABS: Hematology Labs: Test 11/04/24 04:00 Range/Units White Blood Count 11.8 H 4.8-10.8 K/uL Red Blood Count 2.87 L 4.50-6.20 MIL/uL Hemoglobin 8.3 L 14.0-18.0 g/dL Hematocrit 24.5 L 42-54 % Mean Corpuscular Volume 85.4 79-99 fL Mean Corpuscular Hemoglobin 28.9 27.0-33.0 pg Mean Corpuscular Hemoglobin Concent 33.9 32.0-36.0 g/dL Red Cell Distribution Width 13.3 11.0-15.5 % Platelet Count 254 130-400 K/uL Mean Platelet Volume 9.3 7.5-10.5 fL Immature Granulocyte % (Auto) 1.8 H 0-1 % Neutrophils (%) (Auto) 73.3 40.0-77.0 % Lymphocytes (%) (Auto) 11.6 L 21.0-51.0 % Monocytes (%) (Auto) 11.3 3.0-13.0 % Eosinophils (%) (Auto) 1.7 0.0-8.0 % Basophils (%) (Auto) 0.3 0.0-5.0 % Neutrophils # (Auto) 8.6 H 1.8-7.7 K/uL Lymphocytes # (Auto) 1.4 1.0-4.8 K/uL Monocytes # (Auto) 1.3 H 0.1-1.0 K/uL Eosinophils # (Auto) 0.20 0.00-0.70 K/uL Basophils # (Auto) 0.04 0.00-0.20 K/uL Absolute Immature Granulocyte (auto 0.21 0-1 K/uL Nucleated Red Blood Cells 0.3 H 0.0-0.19 % Chemistry Labs: Test 11/04/24 04:00 11/03/24 04:07 Range/Units Sodium Level 140 136-145 mmol/L Potassium Level 3.4 L 3.5-5.1 mmol/L Chloride Level 105 101-111 mmol/L Carbon Dioxide Level 30 21-32 mmol/L Blood Urea Nitrogen 12 7-18 mg/dL Creatinine 0.9 0.5-1.3 mg/dL Glomerular Filtration Rate Calc 95 >90 mL/min Random Glucose 114 H 70-105 mg/dL Total Calcium 8.0 L 8.5-10.1 mg/dL Total Bilirubin 1.0 0.2-1.0 mg/dL Aspartate Amino Transf (AST/SGOT) 28 10-37 U/L Alanine Aminotransferase (ALT/SGPT) 23 12-78 U/L Alkaline Phosphatase 84 50-136 U/L Total Protein 5.4 L 6.0-8.3 g/dL Albumin 2.0 L 3.5-5.0 g/dL Procalcitonin 0.54 H 0.05-0.5 ng/mL Magnesium Level 1.70 L 1.80-2.40 mg/dL Coagulation Labs: Test 11/04/24 08:15 11/04/24 04:00 Range/Units Activated Partial Thromboplast Time 69.1 H 26.3-35.5 SEC Prothrombin Time 12.9 H 9.6-11.6 SEC Prothromb Time International Ratio 1.24 H 0.85-1.15 DIAGNOSTICS / RADIOLOGY RESULTS: [ ] PLAN NEURO: Minimize central acting medications as possible. Fall Precautions. Well lighted room through the day and minimize interruptions through the night to prevent acute delirium. PULMONARY: Supplemental 02 as needed Titrate Fio2 to keep Spo2 > or = 90% DuoNebs and CPT as needed IS hourly while awake for pulmonary hygiene Out of bed to chair as tolerated CARDIOVASCULAR: Follow hemodynamics. Titrate vasopressor to keep MAP >65 or systolic blood pressure >95mmHg DRIPS: levophed PRN maintain MP > 65 LINES: PIV 2 large bore IV GI & NUTRITION: Continue nutritional support Aspirations precautions Prokinetic agents and laxatives as needed KIDNEYS & ELECTROLYTES: Strict monitoring of intake and output Daily weights Avoid nephrotoxic agents Monitor electrolytes and replace as needed Goal urine output of 30mL/hr or 0.5mL/kg/hr ENDOCRINE: Maintain blood glucose between 100-180 at all times. Insulin sliding scale for blood glucose management INFECTIOUS DISEASE: Trend temperature. Larose-culture if febrile. Micro: [ ] Blood cultures Respiratory cultures UA with urine culture Antibiotics: Cefepime Vanco Flagyl Doxycycline HEMATOLOGY & COAGULATION: Monitor H&H. Keep Hgb > 7 Transfuse 1 unit of PRBC for Hgb < 7 Transfuse 1 pack of platelets of platelets < 20, 000 Watch for any signs and symptoms of bleeding SKIN: Pressure ulcer prevention per facility protocol Rehab: PT/OT Prophylaxis: GI: Protonix DVT: SCD's Code Status: Full Resuscitation Disposition: ICU Other: Total patient care time exceeds 35 minutes excluding all procedures. Case was discussed and seen with my supervising physician. The above plan was formulated and agreed upon. ALICIA LUCIANO Nov 04, 2024 11:41
--- NOTE | 2024-11-04 13:59 | PN ---
INFECTIOUS DISEASE PROGRESS NOTE Date of Service: Nov 04, 2024 SUBJECTIVE: This 64 year old male patient is being seen today at bedside. No fever or chills. No nausea or vomiting. Patient denies chest pain at this time. He's laying in bed, calm. Patient remains on multiple antibiotics for pneumonia. As per nurse ANDRES was unable to be done, he remains on heparin drip. Continues with Lasix. We continue to follow patient closely. PHYSICAL EXAM EYES: Anicteric. Pupils equal and reactive. HENT: No oral thrush seen, moist Oral mucosa NECK: Supple, no JVD or thyromegaly. LUNGS: crackles present. CARDIOVASCULAR: S1, S2 regular. No murmur heard. ABDOMEN: Soft, non tender, bowel sounds present, no organomegaly CENTRAL NERVOUS SYSTEM: Awake, alert, oriented x 3. No focal deficits. SKIN: No rashes, no swelling. LYMPHATICS: No peripheral lymphadenopathy MUSCULOSKELETAL: No joint swelling, erythema or tenderness. EXTREMITIES: No cyanosis or clubbing BACK: No deformity, no pressure ulcer. GENITOURINARY: No dysuria or hematuria Vital Sign (Last 12 Hours) 11/04/24 11/04/24 11/04/24 11/04/24 03:45 06:51 06:52 07:55 Temp 97.5 97.9 Pulse 81 85 85 87 Resp 18 20 20 20 B/P (MAP) 114/78 110/73 Pulse Ox 95 97 O2 Delivery Nasal Cannula N/Cannula Low lpm Nasal Cannula O2 Flow Rate 2.0 2.0 2.0 FiO2 28 11/04/24 11/04/24 11:50 12:00 Temp 98.6 Pulse 85 Resp 20 B/P (MAP) 100/71 Pulse Ox 94 97 O2 Delivery Nasal Cannula* Room Air O2 Flow Rate 3 FiO2 32 Intake & Output (last 24hrs) 11/03/24 11/03/24 11/04/24 15:00 23:00 07:00 Intake Total 500.0 ml 1937.0 ml 620.0 ml Output Total 3800 ml 400 ml Balance 500.0 ml -1863.0 ml 220.0 ml LABS: Laboratory: Test 11/04/24 08:15 11/04/24 04:00 11/03/24 12:18 11/03/24 04:07 Range/Units Activated Partial Thromboplast Time 69.1 H 26.3-35.5 SEC White Blood Count 11.8 H 4.8-10.8 K/uL Red Blood Count 2.87 L 4.50-6.20 MIL/uL Hemoglobin 8.3 L 14.0-18.0 g/dL Hematocrit 24.5 L 42-54 % Mean Corpuscular Volume 85.4 79-99 fL Mean Corpuscular Hemoglobin 28.9 27.0-33.0 pg Mean Corpuscular Hemoglobin Concent 33.9 32.0-36.0 g/dL Red Cell Distribution Width 13.3 11.0-15.5 % Platelet Count 254 130-400 K/uL Mean Platelet Volume 9.3 7.5-10.5 fL Immature Granulocyte % (Auto) 1.8 H 0-1 % Neutrophils (%) (Auto) 73.3 40.0-77.0 % Lymphocytes (%) (Auto) 11.6 L 21.0-51.0 % Monocytes (%) (Auto) 11.3 3.0-13.0 % Eosinophils (%) (Auto) 1.7 0.0-8.0 % Basophils (%) (Auto) 0.3 0.0-5.0 % Neutrophils # (Auto) 8.6 H 1.8-7.7 K/uL Lymphocytes # (Auto) 1.4 1.0-4.8 K/uL Monocytes # (Auto) 1.3 H 0.1-1.0 K/uL Eosinophils # (Auto) 0.20 0.00-0.70 K/uL Basophils # (Auto) 0.04 0.00-0.20 K/uL Absolute Immature Granulocyte (auto 0.21 0-1 K/uL Nucleated Red Blood Cells 0.3 H 0.0-0.19 % Prothrombin Time 12.9 H 9.6-11.6 SEC Prothromb Time International Ratio 1.24 H 0.85-1.15 Sodium Level 140 136-145 mmol/L Potassium Level 3.4 L 3.5-5.1 mmol/L Chloride Level 105 101-111 mmol/L Carbon Dioxide Level 30 21-32 mmol/L Blood Urea Nitrogen 12 7-18 mg/dL Creatinine 0.9 0.5-1.3 mg/dL Glomerular Filtration Rate Calc 95 >90 mL/min Random Glucose 114 H 70-105 mg/dL Total Calcium 8.0 L 8.5-10.1 mg/dL Total Bilirubin 1.0 0.2-1.0 mg/dL Aspartate Amino Transf (AST/SGOT) 28 10-37 U/L Alanine Aminotransferase (ALT/SGPT) 23 12-78 U/L Alkaline Phosphatase 84 50-136 U/L Total Protein 5.4 L 6.0-8.3 g/dL Albumin 2.0 L 3.5-5.0 g/dL Procalcitonin 0.54 H 0.05-0.5 ng/mL Vancomycin Level Trough 12.9 10.0-20.0 UG/ML Magnesium Level 1.70 L 1.80-2.40 mg/dL DIAGNOSTICS / RADIOLOGY: CR Chest, 1 View. CLINICAL HISTORY: please assess for any wrsening infiltrates, PNA COMPARISON: None provided. FINDINGS: LUNGS: Improved right sided infiltrate. Resolving pneumonia. Continue follow-up recommended PLEURAL SPACES: No pleural effusion or pneumothorax. MEDIASTINUM: Cardiac size and mediastinal contours within normal limits. BONES: No acute osseous abnormality. IMPRESSION: Improved right sided infiltrate. Resolving pneumonia. Continue follow-up recommended /[place] REASON: picc line placement ORDERING PHYSICIAN: ALCIIA LUCIANO PROCEDURE: CXR1VW - CHEST 1VW EXAM: CR Chest, 2 View. CLINICAL HISTORY: picc line placement COMPARISON: X-ray chest 11/02/2024 FINDINGS: Multifocal airspace opacities bilaterally right greater than left. Persistent small right-sided pleural effusion. MEDIASTINUM: The cardiomediastinal silhouette is within normal limits. Changes of median sternotomy Interval placement of right PICC line catheter whose tip is in appropriate position projecting within the junction of the SVC and right atrium BONES: No acute osseous abnormality. IMPRESSION: 1. Multifocal airspace opacities bilaterally, right greater than left 2. Small right pleural effusion 3. Right PICC line tip appropriately positioned at SVC-right atrial junction ASSESSMENT: * Multifocal pneumonia. * Severe sepsis. * Hypoxic respiratory failure. * Supratherapeutic INR. * Elevated troponin may be due to demand ischemia. * Anemia. * leukocytosis PLAN: * Continue vancomycin. * Continue cefepime. * Continue doxycycline. * Continue Flagyl. * Followup cultures. * Continue nutritional support. * Monitor electrolytes. * The patient will be followed up closely. * Monitor INR * follow Cardiology recommendations This case has been discussed with my supervising physician Dr. Awad. The case has been discussed and agreed upon. YESSICA GASCA [facility] Nov 04, 2024 13:59
--- NOTE | 2024-11-04 19:23 | PN ---
CARDIOLOGY Reason for consult: Mechanical Aortic Valve HPI/story at presentation: This is a pleasant 64-year-old male with past medical history significant for mechanical aortic valve placed in 1993, chronic warfarin use initially presented to the emergency department due to hemoptysis, cough, chills and blood noted in his right ear. Patient also reports he sustained a fall injury approximately 12 days ago in [place]. Denies any syncope episode. Her warfarin dose accordingly the patient is warfarin 5 mg daily other than on Thursday and Thursday when he takes 7.5 mg daily. Patient also found to be febrile with a temperature of 101.3. Initial blood pressure 83/42. sepsis protocol was started. INR results show greater than 8. Patient was administered vitamin K 10 mg IV and is scheduled to receive 2 units of FFP. High sensory troponin at 299. Patient was also found to have bilateral pneumonia 11/01/2024 patient was seen and evaluated at bedside in the ICU No episodes of bleeding has been reported since yesterday Repeat INR today is 1.14 Past medical history: See below Allergies, Meds See chart Review of systems Review of Systems Constitutional: + for chills and fever. HENT: + for right ear bloody discharge and ear pain. Eyes: Negative for photophobia and discharge. Respiratory: + for cough, sputum production and stridor. + hemoptysis Cardiovascular: Negative for chest pain and palpitations. Gastrointestinal: Negative for diarrhea and vomiting. Genitourinary: Negative for frequency. Musculoskeletal: Negative for myalgias. Skin: Negative for rash. Neurological: Negative for focal weakness and seizures. Endo/Heme/Allergies: Negative for polydipsia. Psychiatric/Behavioral: Negative for hallucinations. Vitals see chart PHYSICAL EXAMINATION GENERAL: The patient is alert and oriented*3, ill appearing HEENT: Nonicteric sclerae, non traumatic HEART: Regular rate and rhythm with no murmurs, 3/6 systolic murmur to 2nd ICS LUNGS: Diminished to auscultation bilaterally ABDOMEN: No acute issues, non tender GENITAL, RECTAL: deferred SKIN: No rash NEUROLOGIC: NFND EXTREMITIES: No edema ASSESSMENT SUPRATHERAPEUTIC INR INR GREATER THAN 8 Currently or warfarin Reports hemoptysis and bloody drainage from right ear AORTIC VALVE REPLACEMENT Mechanical INR was subtherapeutic at presentation CORE MEASURES Not applicable OTHER MEDICAL PROBLEMS Reviewed PLAN 10/31/2024 will order echocardiography to examine aortic valve. Patient is currently pending CT of the head and chest due to recent fall and supratherapeutic INR Continue with FFP infusion with plans for repeat INR 11/01/2024 patient's INR today is 21.14. No new episodes Of bleeding heavy reported Patient will need to be restarted on his oral Coumadin but will start patient on IV heparin and moderate for bleeding Patient's hemoglobin today is currently at 8.1 We will wait to start IV heparin drip tomorrow in repeat H&H in the morning 11/02/2024 Hemoglobin remains stable Currently pending PICC line Will start IV heparin drip without bolus once PICC line in place If no issues with bleeding and hgb remains stable, will start oral warfarin tomorrow 11/03/2024 ANDRES attempted today was terminated early because of nosebleeds and patient's overall elevated gag reflex in spite of numbing of his throat. Sedation also had to be reduced given respiratory status. Fluoroscopy was done to evaluate the aortic valve which appears to be moving appropriately. However, this does not exclude smaller clots in the aortic valve. ANDRES may eventually be required once diuresis is complete. Will attempt again with anesthesia support. Will periodically follow-up on aortic gradients in the meantime until diuresis is complete. If there is a thrombosis of the aortic valve which is suspected on the basis of gradients, patient remains at risk for a stroke. Overall difficult situation. Seen and examined 11/03/2024 multiple times. 11/04/2024 clinically, appears improved, edema is better, shortness of breath is better although, still fairly short of breath, will proceed with a transthoracic echo to assess for gradients tomorrow. Depending on that, we will decide on future ANDRES's if indicated. Continue diuresis, renal function stable, remains on heparin. Seen and examined 825 around 7:30 PM ATTESTATION I was involved substantially in the care of this patient Number and complexity of problems addressed: 1 acute illness that is a threat to life or bodily function Amount and or complexity of data Review of prior external note(s) from each unique source: 2+ Ordering of each unique test : 2 Review of the result(s) of each unique test: 2+ Assessment requiring an independent historian(s): No Independent interpretation of test performed by another MD/QHCP/appropriate source (not separately reported) : No Discussion of management or test interpretation with external MD/QHCP/appropriate source (not separately reported) : No Risk status (cardiac, billing related):High Vitals/Labs Vital Signs Date Time Temp Pulse Resp B/P (MAP) Pulse Ox O2 Delivery O2 Flow Rate FiO2 11/04/24 18:22 95 20 N/Cannula Low lpm 2.0 28 11/04/24 16:00 97.9 135/87 93 Laboratory Tests 11/04/24 04:00 Medications Current Medications Vancomycin HCl 1 each AD IV; Start 10/31/24 at 12:30; Stop 11/14/24 at 12:29 Piperacillin Sod/ Tazobactam Sod 3.375 gm ONCE ONCE IV Last administered on 10/31/24at 12:43; Start 10/31/24 at 12:30; Stop 10/31/24 at 12:41; Status DC Sodium Chloride 1,000 ml @ 0 mls/hr ONCE ONCE IV Last administered on 10/31/24at 12:43; Start 10/31/24 at 12:30; Stop 10/31/24 at 12:41; Status DC Vancomycin HCl 500 ml @ 250 mls/hr ONCE ONCE IV Last administered on 10/31/24at 13:57; Start 10/31/24 at 13:00; Stop 10/31/24 at 14:59; Status DC Vancomycin HCl 250 ml @ 125 mls/hr Q12H IV Last administered on 11/04/24at 14:15; Start 11/01/24 at 01:30; Stop 11/11/24 at 01:29 Sodium Chloride 1,983 ml @ 661 mls/hr ONCE ONCE IV Last administered on 10/31/24at 13:12; Start 10/31/24 at 13:00; Stop 10/31/24 at 15:59; Status DC Phytonadione 10 mg/Sodium Chloride 51 ml @ 100 mls/hr ONCE ONCE IVPB Last administered on 10/31/24at 13:12; Start 10/31/24 at 13:00; Stop 10/31/24 at 13:30; Status DC Morphine Sulfate 2 mg ONCE ONCE IVP Last administered on 10/31/24at 13:20; Start 10/31/24 at 13:30; Stop 10/31/24 at 13:31; Status DC Ondansetron HCl 4 mg ONCE ONCE IVP Last administered on 10/31/24at 13:20; Start 10/31/24 at 13:30; Stop 10/31/24 at 13:31; Status DC Pantoprazole Sodium 40 mg Q12H IVP Last administered on 11/04/24at 14:13; Start 10/31/24 at 14:00; Stop 11/30/24 at 13:59 Acetaminophen 650 mg Q6H PRN PO Last administered on 10/31/24at 17:32; Start 10/31/24 at 14:00; Stop 11/30/24 at 13:59 Ondansetron HCl 4 mg Q6H PRN IVP Last administered on 11/03/24at 08:38; Start 10/31/24 at 14:00; Stop 11/30/24 at 13:59 Sodium Chloride 1,000 ml @ 75 mls/hr [id number] IV Last administered on 11/01/24at 03:31; Start 10/31/24 at 14:00; Stop 11/02/24 at 21:00; Status DC Cefepime HCl 2 gm Q12H IVPB Last administered on 11/04/24at 18:47; Start 10/31/24 at 18:00; Stop 11/10/24 at 17:59 Doxycycline Hyclate 250 ml @ 125 mls/hr BID IV Last administered on 11/04/24 08:27; Start 10/31/24 at 14:00; Stop 11/10/24 at 13:59 Metronidazole/ Sodium Chloride 100 ml @ 100 mls/hr Q8H6 IVPB Last administered on 11/04/24at 15:28; Start 10/31/24 at 21:00; Stop 11/10/24 at 20:59 Albuterol 1 udvial Q6H PRN IH Last administered on 11/03/24at 18:24; Start 10/31/24 at 14:30; Stop 11/30/24 at 14:29 Budesonide 0.5 mg BIDRESP IH Last administered on 11/04/24at 18:20; Start 10/31/24 at 18:00; Stop 11/30/24 at 17:59 Iohexol 75 ml STK-MED ONCE IV; Start 10/31/24 at 14:53; Stop 10/31/24 at 14:54; Status DC Tranexamic Acid 500 mg [id number] Last administered on 11/01/24at 23:57; Start 10/31/24 at 15:30; Stop 11/02/24 at 11:02; Status DC Morphine Sulfate 2 mg Q6H PRN IVP Last administered on 11/02/24at 06:33; Start 10/31/24 at 19:00; Stop 11/02/24 at 10:03; Status DC Sodium Chloride 4 ml STK-MED ONCE IH Last administered on 10/31/24at 22:46; Start 10/31/24 at 22:37; Stop 10/31/24 at 22:38; Status DC Magnesium Sulfate 50 ml @ 0 mls/hr PROTOCOL PRN IV Last administered on 11/03/24at 08:49; Start 11/01/24 at 08:00; Stop 12/01/24 at 07:59 Morphine Sulfate 2 mg ONCE ONCE IVP Last administered on 11/01/24at 08:21; Start 11/01/24 at 08:30; Stop 11/01/24 at 08:31; Status DC Sodium Chloride 4 ml STK-MED ONCE IH; Start 11/01/24 at 10:49; Stop 11/01/24 at 10:50; Status DC Morphine Sulfate 2 mg Q4H PRN IVP Last administered on 11/04/24at 15:28; Start 11/02/24 at 10:30; Stop 11/09/24 at 10:29 Heparin Sodium/ Dextrose 250 ml @ 0 mls/hr Q6H IV Last administered on 11/04/24at 02:10; Start 11/02/24 at 21:00; Stop 12/02/24 at 20:59 Pharmacy Profile Note 1 each ONCE MISC; Start 11/02/24 at 13:30; Stop 11/02/24 at 13:15; Status DC Midazolam HCl 4 mg ONCE ONCE IVP Last administered on 11/03/24at 13:04; Start 11/03/24 at 12:00; Stop 11/03/24 at 12:01; Status DC Fentanyl Citrate 100 mcg ONCE ONCE IVP Last administered on 11/03/24at 13:05; Start 11/03/24 at 12:00; Stop 11/03/24 at 12:01; Status DC Lidocaine HCl 15 ml ONCE ONCE PO Last administered on 11/03/24at 12:06; Start 11/03/24 at 12:00; Stop 11/03/24 at 12:01; Status DC Potassium Chloride 100 ml @ 50 mls/hr AD PRN IV Last administered on 11/03/24at 12:01; Start 11/03/24 at 12:00; Stop 12/03/24 at 11:59 Potassium Chloride 100 ml @ 100 mls/hr AD PRN IV; Start 11/03/24 at 12:00; Stop 11/04/24 at 17:15; Status DC Potassium Chloride 20 meq AD PRN PO Last administered on 11/04/24at 08:28; Start 11/03/24 at 12:00; Stop 12/03/24 at 11:59 Potassium Chloride 20 meq AD PRN PO Last administered on 11/04/24at 06:08; Start 11/03/24 at 12:00; Stop 12/03/24 at 11:59 Furosemide 40 mg ONCE ONCE IV Last administered on 11/03/24at 14:33; Start 11/03/24 at 12:30; Stop 11/03/24 at 12:31; Status DC Furosemide 20 mg BID IV Last administered on 11/04/24at 10:02; Start 11/04/24 at 09:00; Stop 12/04/24 at 08:59 Clonazepam 2 mg ONCE ONCE PO Last administered on 11/04/24at 10:02; Start 11/04/24 at 09:00; Stop 11/04/24 at 09:01; Status DC Clonazepam 2 mg HS PO; Start 11/04/24 at 21:00; Stop 11/04/24 at 11:13; Status DC Clonazepam 2 mg HS PO; Start 11/05/24 at 21:00; Stop 12/05/24 at 20:59 ANTONINO DIANE MD Nov 04, 2024 19:23
[2024-11-04] MEDS: MELATONIN 5 MG TABLET PO ONE (20:37)
[2024-11-05] VITALS (16 sets, daily range): BP systolic 92–115; BP diastolic 54–66; PULSE 79–130; RESP 18–24; TEMP 97.9–98.8; O2SAT 92–98
[2024-11-05 02:22] LABS: IMMATURE GRANULOCYTE ABSOLUTE 0.23 K/uL (0-1); NUCLEATED RED BLOOD CELLS 0.4 % (0.0-0.19); PLATELET COUNT (AUTO) 229 K/uL (130-400); RED BLOOD CELL COUNT(AUTO) 2.95 MIL/uL (4.50-6.20); RED CELL DISTRIBUTION WIDTH 13.9 % (11.0-15.5); WHITE BLOOD COUNT (AUTO) 11.2 K/uL (4.8-10.8)
[2024-11-05 02:34] LABS: SODIUM SERUM 139.0 mmol/L (136-145)
[2024-11-05 02:35] LABS: INR 1.23 (0.85-1.15)
[2024-11-05 02:51] LABS: ASPARTATE AMINOTRANSFERASE 27.0 U/L (10-37); CREATININE 0.8 mg/dL (0.5-1.3); GLOMERULAR FILTR. RATE CALC 98.0 mL/min (>90); GLUCOSE,RANDOM 121.0 mg/dL (70-105); TOTAL PROTEIN, SERUM 5.1 g/dL (6.0-8.3); UREA NITROGEN, BLOOD 12.0 mg/dL (7-18)
--- NOTE | 2024-11-05 09:02 | HMCIMG ---
EXAM: CR Chest, single view. CLINICAL HISTORY: Pneumonia. COMPARISON: Prior chest radiograph dated 03 November 2024. FINDINGS: Right-sided PICC catheter with tip in the region of the cavoatrial junction. Poststernotomy status. Borderline cardiomegaly. Patchy, ill-defined infiltrates in the right mid and lower zones. Subtle blunting of the right costophrenic angle is suggestive of minimal right pleural effusion. No evidence of pneumothorax. No acute osseous abnormality. Mild degenerative changes in the mid and lower thoracic spine. A linear calcific focus is probable at the anterior end of the right seventh rib at the costochondral junction. May represent costochondral junction calcification. IMPRESSION: Right-sided PICC catheter with tip in the region of the cavoatrial junction. Poststernotomy status. Borderline cardiomegaly. Patchy, ill-defined infiltrates in the right mid and lower zones. Subtle blunting of the right costophrenic angle is suggestive of minimal right pleural effusion. No evidence of pneumothorax. Compared to the prior study, there is no significant interval change. /[place]
--- NOTE | 2024-11-05 12:04 | PN ---
[facility] PROGRESS NOTE Date of Service: Nov 05, 2024 Time of Service: 12:00 SUBJECTIVE: [ ] 64-year-old male with prior history of mechanical aortic valve which was replaced in 1993 maintained on chronic outpatient anticoagulation with warfarin, obesity, who presented to the ER for further evaluation of hemoptysis, chills, cough, and blood noted in the right ear.Patient states that about 12 days ago, he was visiting in [place], he had a mechanical fall with no syncope, patient was evaluated in ER and was found to have a nondisplaced left forearm ulnar fracture along which was treated conservatively. Patient had a CT done which was noted to be negative per patient. Patient states that over the last two days, he noticed that he was having chills, and yesterday night, he started having hemoptysis. Today he noticed that he was having bloody drainage from the right ear. Denies any headache, denies any focal weakness of upper or lower extremities. Denies any neck pain. Denies any new recent fall other than 12 days ago in [place] Denies chest pain other than with cough. He has been having generalized fatigue and malaise over the last two days. Denies exposure to sick contacts. 11/01/24 patient was admitted for septic shock and hemoptysis with Coumadin toxici ty today's INR improved significantly from 8-1.4 We will wait for litigation partner's if okay to resume. Patient appears acutely ill continue with broad-spectrum antibiotics tolerating. ID on board we will follow his recommendations. Patient is currently on nasal cannula to 3 L. We will be monitored closely in ICU. 11/02/2024 patient was seen earlier patient is lying in bed on room air we continue with broad-spectrum antibiotics tolerating reports no diarrhea. We continue to monitor INR. Encourage patient out of bed to chair as tolerated PT services we will be ordered. Denied chest pain palpitations dizziness. 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 Remains in heparin drip. We will monitor closely for any acute bleeding. 11/04/24 patient is lying in bed patient continues to require oxygen supplemental was started on Lasix IV 20 mg b.i.d. patient continues with physical therapy. Patient continues on heparin drip litigation partner's following we will appreciate his recommendations. Patient is tolerating broad-spectrum antibiotics wait for ID final recommendations 11/05/24 patient is lying in bed was sleeping awakened per verbal stimuli, the patient nurse reports patient has around the clock morphine reports elbow pain chronic. Patient went into AFib overnight converted normal sinus rhythm earlier this morning. Continues on heparin drip litigation partner's following we will follow his recommendations. tolerating antibiotics. REVIEW OF SYSTEMS CONSTITUTIONAL: malaise, generalized weakness, fatigue NEUROLOGICAL: Denies headache, amaurosis fugax, motor weakness, sensory defic it, vertigo/spinning sensation, gait abnormalities, or tremors. ENT: No hearing loss, reports having noticed blood coming out of the right ear CARDIOVASCULAR: Denies any exertional angina, dyspnea on exertion, orthopnea, paroxysmal nocturnal dyspnea, palpitations, life-threatening arrhythmias, claudication. PULMONARY: reports having cough, congestion, SOB, patient reports having hemoptysis SLEEP: Denies morning headaches, daytime somnolence or napping. Denies difficulty falling asleep, staying asleep, waking from sleep. Denies knowledge of snoring. GASTROINTESTINAL: Denies any type of dysphagia to either liquids or solids. Denies nausea, vomiting, pyrosis, early satiety, abdominal pain, diarrhea, constipation, or changes in stool consistency or caliber. Denies coffee-ground emesis, hematemesis, hematochezia, or melanotic stools. GENITOURINARY: Denies frequency, urgency, nocturia, hematuria or incontinence (Storage/Irritative symptoms.) Low urinary stream, straining to void, urinary intermittency or hesitancy, splitting of the voiding stream, terminal dribbling. ENDOCRINOLOGIC: Denies polyuria, polydipsia, polyphagia or heat/cold intolerances. HEMATOLOGIC: reports having easy bruising ONCOLOGIC: Denies personal history of malignancy. DERMATOLOGIC: Denies rashes or pruritus. PSYCHIATRIC: Denies any suicidal or homicidal ideation. Denies hallucinations. PHYSICAL EXAM GENERAL APPEARANCE: The patient is awake, alert, and oriented, in no acute cardiopulmonary distress. NEUROLOGICAL: Cranial nerves II-XII grossly intact. Motor is 5/5 in bilateral upper and lower extremities proximal to distal. No sensory deficits. HEENT: Face is symmetric. Pupils are equal and reactive. Extraocular movements are intact. Right ear on otoscopic examination noted to have dries blood and some bright red blood, there is small clots noted as well, which i did not dislodge, tympanic membrane could be full evaluated due to blood NECK: Supple. No JVD. No thyromegaly. No submental, submandibular, pre- /postauricular, occipital or supraclavicular lymphadenopathy. CHEST: Normal chest expansion. No Telemetry. LUNGS: Crackles noted of the right lung base with decreased breath with rhonchorous breath sounds CARDIOVASCULAR: Regular. S1 and S2 normal. No appreciable rubs, murmurs or gallops. ABDOMEN: Soft, nontender, and nondistended. There is no rebound, voluntary guarding, or rigidity. : Deferred. No Wills. EXTREMITIES: Trace edema of the bilateral lower extremities SKIN: Swelling and redness noted of the right shoulder Vital Signs (last 8hr) Date Time Temp Pulse Resp B/P (MAP) Pulse Ox O2 Delivery O2 Flow Rate FiO2 11/05/24 07:00 98.1 86 18 92/54 90 Nasal Cannula 3.0 11/05/24 06:58 89 20 11/05/24 06:57 89 24 N/Cannula Low lpm 3.0 32 11/05/24 06:09 90 LABS: Laboratory: Test 11/05/24 11:18 11/05/24 02:09 11/03/24 12:18 Range/Units Potassium Level 3.7 3.5-5.1 mmol/L Magnesium Level 2.00 1.80-2.40 mg/dL White Blood Count 11.2 H 4.8-10.8 K/uL Red Blood Count 2.95 L 4.50-6.20 MIL/uL Hemoglobin 8.4 L 14.0-18.0 g/dL Hematocrit 25.1 L 42-54 % Mean Corpuscular Volume 85.1 79-99 fL Mean Corpuscular Hemoglobin 28.5 27.0-33.0 pg Mean Corpuscular Hemoglobin Concent 33.5 32.0-36.0 g/dL Red Cell Distribution Width 13.9 11.0-15.5 % Platelet Count 229 130-400 K/uL Mean Platelet Volume 9.0 7.5-10.5 fL Immature Granulocyte % (Auto) 2.1 H 0-1 % Neutrophils (%) (Auto) 69.3 40.0-77.0 % Lymphocytes (%) (Auto) 13.2 L 21.0-51.0 % Monocytes (%) (Auto) 10.8 3.0-13.0 % Eosinophils (%) (Auto) 4.2 0.0-8.0 % Basophils (%) (Auto) 0.4 0.0-5.0 % Neutrophils # (Auto) 7.8 H 1.8-7.7 K/uL Lymphocytes # (Auto) 1.5 1.0-4.8 K/uL Monocytes # (Auto) 1.2 H 0.1-1.0 K/uL Eosinophils # (Auto) 0.47 0.00-0.70 K/uL Basophils # (Auto) 0.04 0.00-0.20 K/uL Absolute Immature Granulocyte (auto 0.23 0-1 K/uL Nucleated Red Blood Cells 0.4 H 0.0-0.19 % Prothrombin Time 12.8 H 9.6-11.6 SEC Prothromb Time International Ratio 1.23 H 0.85-1.15 Activated Partial Thromboplast Time 73.5 #H 26.3-35.5 SEC Sodium Level 139 136-145 mmol/L Chloride Level 104 101-111 mmol/L Carbon Dioxide Level 31 21-32 mmol/L Blood Urea Nitrogen 12 7-18 mg/dL Creatinine 0.8 0.5-1.3 mg/dL Glomerular Filtration Rate Calc 98 >90 mL/min Random Glucose 121 H 70-105 mg/dL Total Calcium 7.8 L 8.5-10.1 mg/dL Total Bilirubin 0.8 0.2-1.0 mg/dL Aspartate Amino Transf (AST/SGOT) 27 10-37 U/L Alanine Aminotransferase (ALT/SGPT) 24 12-78 U/L Alkaline Phosphatase 78 50-136 U/L C-Reactive Protein, Quantitative 168.40 H 0.5-3.0 mg/L Total Protein 5.1 L 6.0-8.3 g/dL Albumin 1.9 L 3.5-5.0 g/dL Procalcitonin 0.35 0.05-0.5 ng/mL Vancomycin Level Trough 12.9 10.0-20.0 UG/ML Current Medications Medications (Trade) Dose Ordered Sig/Hank Route PRN Reason Start Time Stop Time Status Last Admin Dose Admin Acetaminophen (TYLenol 325MG TAB) 650 mg Q6H PRN PO MILD PAIN (1-3) 10/31/24 14:00 11/30/24 13:59 10/31/24 17:32 650 MG Albuterol (DUOneb) 1 udvial Q6H PRN IH SHORTNESS OF BREATH 10/31/24 14:30 11/30/24 14:29 11/03/24 18:24 1 UDVIAL Budesonide (Pulmicort 0.5 Mg/2ml) 0.5 mg BIDRESP IH 10/31/24 18:00 11/30/24 17:59 11/05/24 06:56 0.5 MG Cefepime HCl (MAXipime 2 gm vial) 2 gm Q12H IVPB 10/31/24 18:00 11/10/24 17:59 11/05/24 06:30 2 GM Clonazepam (KLONopin 2MG TAB) 2 mg HS PO 11/04/24 21:00 11/04/24 11:13 DC Clonazepam (KLONopin 2MG TAB) 2 mg HS PO 11/05/24 21:00 12/05/24 20:59 Doxycycline Hyclate 250 ml @ 125 mls/hr BID IV 10/31/24 14:00 11/10/24 13:59 11/05/24 08:29 125 MLS/HR Furosemide (LASix 20MG VIAL) 20 mg BID IV 11/04/24 09:00 11/05/24 06:14 DC 11/04/24 10:02 20 MG Furosemide (LASix 20MG VIAL) 20 mg Q12H IV 11/05/24 06:30 12/05/24 06:29 11/05/24 06:31 20 MG Heparin Sodium/ Dextrose 250 ml @ 0 mls/hr Q6H IV 11/02/24 21:00 12/02/24 20:59 11/04/24 20:48 13.1 MLS/HR Magnesium Sulfate 50 ml @ 0 mls/hr PROTOCOL PRN IV OTHER [SEE ORDER COMMENTS] 11/01/24 08:00 12/01/24 07:59 11/05/24 03:07 25 MLS/HR Metronidazole/ Sodium Chloride 100 ml @ 100 mls/hr Q8H6 IVPB 10/31/24 21:00 11/10/24 20:59 8/9/25 05:19 100 MLS/HR Morphine Sulfate (morPHINE 2MG SYG) 2 mg Q4H PRN IVP SEVERE PAIN (7-10) 11/02/24 10:30 11/09/24 10:29 11/05/24 08:28 2 MG Morphine Sulfate (morPHINE 2MG SYG) 2 mg Q6H PRN IVP SEVERE PAIN (7-10) 10/31/24 19:00 11/02/24 10:03 DC 11/02/24 06:33 2 MG Ondansetron HCl (zoFRAN 4MG INJ) 4 mg Q6H PRN IVP NAUSEA/VOMITING 10/31/24 14:00 11/30/24 13:59 11/03/24 08:38 4 MG Pantoprazole Sodium (PROTonix 40MG INJ) 40 mg Q12H IVP 10/31/24 14:00 11/30/24 13:59 11/05/24 01:44 40 MG Pharmacy Profile Note (Pharmacy Communication) 1 each ONCE MISC 11/02/24 13:30 11/02/24 13:15 DC Potassium Chloride 100 ml @ 50 mls/hr AD PRN IV POTASSIUM PROTOCOL 11/03/24 12:00 12/03/24 11:59 11/03/24 12:01 50 MLS/HR Potassium Chloride 100 ml @ 100 mls/hr AD PRN IV POTASSIUM PROTOCOL 11/03/24 12:00 11/04/24 17:15 DC Potassium Chloride (K-Dur/Klor-Con 20meq) 20 meq AD PRN PO POTASSIUM PROTOCOL 11/03/24 12:00 12/03/24 11:59 11/05/24 04:57 20 MEQ Potassium Chloride (KCl 10% Elixir 20meq/15ml) 20 meq AD PRN PO POTASSIUM PROTOCOL 11/03/24 12:00 12/03/24 11:59 11/04/24 08:28 20 MEQ Sodium Chloride 1,000 ml @ 75 mls/hr [id number] IV 10/31/24 14:00 11/02/24 21:00 DC 11/01/24 03:31 75 MLS/HR Tranexamic Acid (Cyklokapron) 500 mg [id number] IJ 10/31/24 15:30 11/02/24 11:02 DC 11/01/24 23:57 500 MG Vancomycin HCl 250 ml @ 125 mls/hr Q12H IV 11/01/24 01:30 11/11/24 01:29 11/05/24 00:42 125 MLS/HR Vancomycin HCl (Vancomycin Protocol) 1 each AD IV 10/31/24 12:30 11/14/24 12:29 DIAGNOSTICS / RADIOLOGY: [ ] ASSESSMENT: AFib with RVR not POA Chronic elbow pain Severe sepsis secondary to right lung community-acquired pneumonia, POA Acute hypoxemic respiratory failure, POA Bilateral Multifocal Pneumonia with R > L, POA Hypotension secondary to severe sepsis, resolving Hemoptysis, POA Right shoulder swelling with possible hematoma, POA Right ear otorrhea with blood, POA Acute on chronic anemia secondary to blood loss, POA Severely elevated supratherapeutic INR secondary to Coumadin use and possibly sepsis, POA hypercoagulable state secondary to Mechanical aortic value on Coumadin Therapy POA Coumadin Toxicity POA History of mechanical aortic valve, POA History of chronic anticoagulation with warfarin, POA Acute kidney injury, POA Demand ischemia, POA Recent history of left forearm ulnar nondisplaced fracture treated conservatively, POA Prior history of fall 12 days ago in [place], POA Obesity, POA PLAN: Mr. Williamson 64-year-old male remains in ICU. Patient remains on heparin drip being followed by litigation partner's overnight patient went into AFib RVR converted back to normal sinus rhythm earlier this morning. Is/It Project Manager's was made aware. Patient continues around the clock morphine. Patient refused physical therapy yesterday. I encouraged patient needs to be out of bed to chair with meals. Admit:PCCU Status: Fulll code consultants: Critical Care, Is/It Project Manager infectious disease Diet: Heart healthy antibiotics: IV cefepime/Flagyl/doxycycline vanco Microbiology: Resp, blood cultures so far negative monitor for bleeding: transfuse as needed to keep Hbg above 7.0 Remains Heparin drip we will monitor H&H trend and platelets monitor acute bleeding. GI ppx: IV Protonix 40 mg b.i.d. Labs in am : CBC, cmp, and Mag PT services to eval and treat, fall precautions Plan of care was discussed with patient at bedside, patient has requested full code ATTESTATION BY PHYSICIAN I have seen and examined the patient. I reviewed the documentation, medical decision making, and treatment plan as noted by the mid-level provider above. I agree with the findings and plan of care. VIC DICKEY MD, ELIZABETH NP Nov 05, 2024 12:04
--- NOTE | 2024-11-05 12:48 | PN ---
[facility] PROGRESS NOTE Date Patient Seen: Nov 05, 2024 Time of Visit: 12:46 Supervising Physician: Dr Fallon Primary Care Physician: self referral Outpatient Specialists: Inpatient Consults: dr Awad, Dr Ej Vega PROBLEM LIST: Septic shock, resolved supratherapeutic INR secondary to Coumadin, resolved Acute hypoxemic respiratory failure, POA Suspected alveolar hemorrhage, improving Acute on chronic anemia secondary to blood loss, POA History of mechanical aortic valve, POA History of chronic anticoagulation with warfarin, POA Acute kidney injury, POA Demand ischemia, POA Obesity, POA INTERVAL HISTORY: Patient seen and examined, all labs and imaging have been reviewed, patient is sitting comfortably in bed. Patient with good saturations on room air Reporting no pain or discomfort. Tolerating diet No acute events overnight per nursing Afebrile Vitals are stable Plan: Follow cardiology recs, continues on heparin drip, pending repeat echocardiogram Telemetry Antibiotics per ID, following cultures Continue diuresis GI prophylaxis Heparin drip protocol REVIEW OF SYSTEMS: 12 point ROS reviewed with patient. Pertinent positives mentioned above. Otherwise negative. PHYSICAL EXAM: GENERAL: alert, weak, awake oriented x 3 HEENT: EOMI, Sclera non icteric, moist mucosa NECK: Supple, no JVD, trachea midline LUNGS: Rales to right side, and left lower lobe No wheezes HEART: Regular rate and rhythm. Normal S1 and S2, without murmurs ABD: Abdomen obese soft, nontender. Bowel sounds present EXT: No clubbing cyanosis. Left forearm tenderness. Right shoulder swelling NEURO: Alert and oriented to person, follows commands Vital Signs (last 8hr) Date Time Temp Pulse Resp B/P (MAP) Pulse Ox O2 Delivery O2 Flow Rate FiO2 11/05/24 07:00 98.1 86 18 92/54 90 Nasal Cannula 3.0 11/05/24 06:58 89 20 11/05/24 06:57 89 24 N/Cannula Low lpm 3.0 32 11/05/24 06:09 90 LABS: Hematology Labs: Test 11/05/24 02:09 Range/Units White Blood Count 11.2 H 4.8-10.8 K/uL Red Blood Count 2.95 L 4.50-6.20 MIL/uL Hemoglobin 8.4 L 14.0-18.0 g/dL Hematocrit 25.1 L 42-54 % Mean Corpuscular Volume 85.1 79-99 fL Mean Corpuscular Hemoglobin 28.5 27.0-33.0 pg Mean Corpuscular Hemoglobin Concent 33.5 32.0-36.0 g/dL Red Cell Distribution Width 13.9 11.0-15.5 % Platelet Count 229 130-400 K/uL Mean Platelet Volume 9.0 7.5-10.5 fL Immature Granulocyte % (Auto) 2.1 H 0-1 % Neutrophils (%) (Auto) 69.3 40.0-77.0 % Lymphocytes (%) (Auto) 13.2 L 21.0-51.0 % Monocytes (%) (Auto) 10.8 3.0-13.0 % Eosinophils (%) (Auto) 4.2 0.0-8.0 % Basophils (%) (Auto) 0.4 0.0-5.0 % Neutrophils # (Auto) 7.8 H 1.8-7.7 K/uL Lymphocytes # (Auto) 1.5 1.0-4.8 K/uL Monocytes # (Auto) 1.2 H 0.1-1.0 K/uL Eosinophils # (Auto) 0.47 0.00-0.70 K/uL Basophils # (Auto) 0.04 0.00-0.20 K/uL Absolute Immature Granulocyte (auto 0.23 0-1 K/uL Nucleated Red Blood Cells 0.4 H 0.0-0.19 % Chemistry Labs: Test 11/05/24 11:18 11/05/24 02:09 Range/Units Potassium Level 3.7 3.5-5.1 mmol/L Magnesium Level 2.00 1.80-2.40 mg/dL Sodium Level 139 136-145 mmol/L Chloride Level 104 101-111 mmol/L Carbon Dioxide Level 31 21-32 mmol/L Blood Urea Nitrogen 12 7-18 mg/dL Creatinine 0.8 0.5-1.3 mg/dL Glomerular Filtration Rate Calc 98 >90 mL/min Random Glucose 121 H 70-105 mg/dL Total Calcium 7.8 L 8.5-10.1 mg/dL Total Bilirubin 0.8 0.2-1.0 mg/dL Aspartate Amino Transf (AST/SGOT) 27 10-37 U/L Alanine Aminotransferase (ALT/SGPT) 24 12-78 U/L Alkaline Phosphatase 78 50-136 U/L C-Reactive Protein, Quantitative 168.40 H 0.5-3.0 mg/L Total Protein 5.1 L 6.0-8.3 g/dL Albumin 1.9 L 3.5-5.0 g/dL Procalcitonin 0.35 0.05-0.5 ng/mL Coagulation Labs: Test 11/05/24 11:18 11/05/24 02:09 Range/Units Activated Partial Thromboplast Time 45.0 #H 26.3-35.5 SEC Prothrombin Time 12.8 H 9.6-11.6 SEC Prothromb Time International Ratio 1.23 H 0.85-1.15 DIAGNOSTICS / RADIOLOGY RESULTS: [ ] PLAN NEURO: Minimize central acting medications as possible. Fall Precautions. Well lighted room through the day and minimize interruptions through the night to prevent acute delirium. PULMONARY: Supplemental 02 as needed Titrate Fio2 to keep Spo2 > or = 90% DuoNebs and CPT as needed IS hourly while awake for pulmonary hygiene Out of bed to chair as tolerated CARDIOVASCULAR: Follow hemodynamics. Titrate vasopressor to keep MAP >65 or systolic blood pressure >95mmHg DRIPS: levophed PRN maintain MP > 65 LINES: PIV 2 large bore IV GI & NUTRITION: Continue nutritional support Aspirations precautions Prokinetic agents and laxatives as needed KIDNEYS & ELECTROLYTES: Strict monitoring of intake and output Daily weights Avoid nephrotoxic agents Monitor electrolytes and replace as needed Goal urine output of 30mL/hr or 0.5mL/kg/hr ENDOCRINE: Maintain blood glucose between 100-180 at all times. Insulin sliding scale for blood glucose management INFECTIOUS DISEASE: Trend temperature. Larose-culture if febrile. Micro: [ ] Blood cultures Respiratory cultures UA with urine culture Antibiotics: Cefepime Vanco Flagyl Doxycycline HEMATOLOGY & COAGULATION: Monitor H&H. Keep Hgb > 7 Transfuse 1 unit of PRBC for Hgb < 7 Transfuse 1 pack of platelets of platelets < 20, 000 Watch for any signs and symptoms of bleeding SKIN: Pressure ulcer prevention per facility protocol Rehab: PT/OT Prophylaxis: GI: Protonix DVT: SCD's Code Status: Full Resuscitation Disposition: ICU Other: Total patient care time exceeds 35 minutes excluding all procedures. Case was discussed and seen with my supervising physician. The above plan was formulated and agreed upon. ALICIA LUCIANO Nov 05, 2024 12:48
--- NOTE | 2024-11-05 14:25 | PN ---
INFECTIOUS DISEASE PROGRESS NOTE Date of Service: Nov 05, 2024 SUBJECTIVE: This 64 year old male patient is being seen today at bedside. He is calm laying in bed. Patient remains on oxygen via nasal canula. No fever or chills. Denies shortness of breath at this time. Patient continues with antibiotics tolerating well. He continues on heparin drip and he is pending echocardiogram. We continue with antibiotics. Went over plan of care with patient at bedside. Stated understanding. PHYSICAL EXAM EYES: Anicteric. Pupils equal and reactive. HENT: No oral thrush seen, moist Oral mucosa NECK: Supple, no JVD or thyromegaly. LUNGS: crackles present. CARDIOVASCULAR: S1, S2 regular. No murmur heard. ABDOMEN: Soft, non tender, bowel sounds present, no organomegaly CENTRAL NERVOUS SYSTEM: Awake, alert, oriented x 3. No focal deficits. SKIN: No rashes, no swelling. LYMPHATICS: No peripheral lymphadenopathy MUSCULOSKELETAL: No joint swelling, erythema or tenderness. EXTREMITIES: No cyanosis or clubbing BACK: No deformity, no pressure ulcer. GENITOURINARY: No dysuria or hematuria Vital Sign (Last 12 Hours) 11/05/24 11/05/24 11/05/24 11/05/24 02:25 02:44 02:50 03:00 Temp 98.1 Pulse 110 110 80 122 Resp 18 B/P (MAP) 115/61 Pulse Ox 95 O2 Delivery Nasal Cannula O2 Flow Rate 1.5 11/05/24 11/05/24 11/05/24 11/05/24 06:09 06:57 06:58 07:00 Temp 98.1 Pulse 90 89 89 86 Resp 24 20 18 B/P (MAP) 92/54 Pulse Ox 90 O2 Delivery N/Cannula Low lpm Nasal Cannula O2 Flow Rate 3.0 3.0 FiO2 32 11/05/24 11/05/24 11:00 13:14 Temp 98.8 Pulse 79 Resp 19 B/P (MAP) 93/58 Pulse Ox 93 94 O2 Delivery Nasal Cannula Nasal Cannula* O2 Flow Rate 3.0 3 FiO2 32 Intake & Output (last 24hrs) 11/04/24 11/04/24 11/05/24 15:00 23:00 07:00 Intake Total 500.0 ml 2007.3 ml 853.0 ml Output Total 2000 ml 450 ml Balance 500.0 ml 7.3 ml 403.0 ml LABS: Laboratory: Test 11/05/24 13:30 11/05/24 11:18 11/05/24 02:09 Range/Units Vancomycin Level Trough 8.9 #L 10.0-20.0 UG/ML Activated Partial Thromboplast Time 45.0 #H 26.3-35.5 SEC Potassium Level 3.7 3.5-5.1 mmol/L Magnesium Level 2.00 1.80-2.40 mg/dL White Blood Count 11.2 H 4.8-10.8 K/uL Red Blood Count 2.95 L 4.50-6.20 MIL/uL Hemoglobin 8.4 L 14.0-18.0 g/dL Hematocrit 25.1 L 42-54 % Mean Corpuscular Volume 85.1 79-99 fL Mean Corpuscular Hemoglobin 28.5 27.0-33.0 pg Mean Corpuscular Hemoglobin Concent 33.5 32.0-36.0 g/dL Red Cell Distribution Width 13.9 11.0-15.5 % Platelet Count 229 130-400 K/uL Mean Platelet Volume 9.0 7.5-10.5 fL Immature Granulocyte % (Auto) 2.1 H 0-1 % Neutrophils (%) (Auto) 69.3 40.0-77.0 % Lymphocytes (%) (Auto) 13.2 L 21.0-51.0 % Monocytes (%) (Auto) 10.8 3.0-13.0 % Eosinophils (%) (Auto) 4.2 0.0-8.0 % Basophils (%) (Auto) 0.4 0.0-5.0 % Neutrophils # (Auto) 7.8 H 1.8-7.7 K/uL Lymphocytes # (Auto) 1.5 1.0-4.8 K/uL Monocytes # (Auto) 1.2 H 0.1-1.0 K/uL Eosinophils # (Auto) 0.47 0.00-0.70 K/uL Basophils # (Auto) 0.04 0.00-0.20 K/uL Absolute Immature Granulocyte (auto 0.23 0-1 K/uL Nucleated Red Blood Cells 0.4 H 0.0-0.19 % Prothrombin Time 12.8 H 9.6-11.6 SEC Prothromb Time International Ratio 1.23 H 0.85-1.15 Sodium Level 139 136-145 mmol/L Chloride Level 104 101-111 mmol/L Carbon Dioxide Level 31 21-32 mmol/L Blood Urea Nitrogen 12 7-18 mg/dL Creatinine 0.8 0.5-1.3 mg/dL Glomerular Filtration Rate Calc 98 >90 mL/min Random Glucose 121 H 70-105 mg/dL Total Calcium 7.8 L 8.5-10.1 mg/dL Total Bilirubin 0.8 0.2-1.0 mg/dL Aspartate Amino Transf (AST/SGOT) 27 10-37 U/L Alanine Aminotransferase (ALT/SGPT) 24 12-78 U/L Alkaline Phosphatase 78 50-136 U/L C-Reactive Protein, Quantitative 168.40 H 0.5-3.0 mg/L Total Protein 5.1 L 6.0-8.3 g/dL Albumin 1.9 L 3.5-5.0 g/dL Procalcitonin 0.35 0.05-0.5 ng/mL DIAGNOSTICS / RADIOLOGY: CR Chest, 1 View. CLINICAL HISTORY: please assess for any wrsening infiltrates, PNA COMPARISON: None provided. FINDINGS: LUNGS: Improved right sided infiltrate. Resolving pneumonia. Continue follow-up recommended PLEURAL SPACES: No pleural effusion or pneumothorax. MEDIASTINUM: Cardiac size and mediastinal contours within normal limits. BONES: No acute osseous abnormality. IMPRESSION: Improved right sided infiltrate. Resolving pneumonia. Continue follow-up recommended /[place] REASON: picc line placement ORDERING PHYSICIAN: ALICIA LUCIANO PROCEDURE: CXR1VW - CHEST 1VW EXAM: CR Chest, 2 View. CLINICAL HISTORY: picc line placement COMPARISON: X-ray chest 11/02/2024 FINDINGS: Multifocal airspace opacities bilaterally right greater than left. Persistent small right-sided pleural effusion. MEDIASTINUM: The cardiomediastinal silhouette is within normal limits. Changes of median sternotomy Interval placement of right PICC line catheter whose tip is in appropriate position projecting within the junction of the SVC and right atrium BONES: No acute osseous abnormality. IMPRESSION: 1. Multifocal airspace opacities bilaterally, right greater than left 2. Small right pleural effusion 3. Right PICC line tip appropriately positioned at SVC-right atrial junction ASSESSMENT: * Multifocal pneumonia. * Severe sepsis. * Hypoxic respiratory failure. * Supratherapeutic INR. * Elevated troponin may be due to demand ischemia. * Anemia. * leukocytosis PLAN: * Continue vancomycin. * Continue cefepime. * Continue doxycycline. * Continue Flagyl. * Followup cultures. * Continue nutritional support. * Monitor electrolytes. * The patient will be followed up closely. * Monitor INR * follow Cardiology recommendations This case has been discussed with my supervising physician Dr. Awad. The case has been discussed and agreed upon. YESSICA GASCA [facility] Nov 05, 2024 14:25
--- NOTE | 2024-11-05 16:32 | PN ---
CARDIOLOGY Reason for consult: Mechanical Aortic Valve HPI/story at presentation: This is a pleasant 64-year-old male with past medical history significant for mechanical aortic valve placed in 1993, chronic warfarin use initially presented to the emergency department due to hemoptysis, cough, chills and blood noted in his right ear. Patient also reports he sustained a fall injury approximately 12 days ago in [place]. Denies any syncope episode. Her warfarin dose accordingly the patient is warfarin 5 mg daily other than on Thursday and Thursday when he takes 7.5 mg daily. Patient also found to be febrile with a temperature of 101.3. Initial blood pressure 83/42. sepsis protocol was started. INR results show greater than 8. Patient was administered vitamin K 10 mg IV and is scheduled to receive 2 units of FFP. High sensory troponin at 299. Patient was also found to have bilateral pneumonia 11/01/2024 patient was seen and evaluated at bedside in the ICU No episodes of bleeding has been reported since yesterday Repeat INR today is 1.14 Past medical history: See below Allergies, Meds See chart Review of systems Review of Systems Constitutional: + for chills and fever. HENT: + for right ear bloody discharge and ear pain. Eyes: Negative for photophobia and discharge. Respiratory: + for cough, sputum production and stridor. + hemoptysis Cardiovascular: Negative for chest pain and palpitations. Gastrointestinal: Negative for diarrhea and vomiting. Genitourinary: Negative for frequency. Musculoskeletal: Negative for myalgias. Skin: Negative for rash. Neurological: Negative for focal weakness and seizures. Endo/Heme/Allergies: Negative for polydipsia. Psychiatric/Behavioral: Negative for hallucinations. Vitals see chart PHYSICAL EXAMINATION GENERAL: The patient is alert and oriented*3, ill appearing HEENT: Nonicteric sclerae, non traumatic HEART: Regular rate and rhythm with no murmurs, 3/6 systolic murmur to 2nd ICS LUNGS: Diminished to auscultation bilaterally ABDOMEN: No acute issues, non tender GENITAL, RECTAL: deferred SKIN: No rash NEUROLOGIC: NFND EXTREMITIES: No edema ASSESSMENT SUPRATHERAPEUTIC INR INR GREATER THAN 8 Currently or warfarin Reports hemoptysis and bloody drainage from right ear AORTIC VALVE REPLACEMENT Mechanical INR was subtherapeutic at presentation CORE MEASURES Not applicable OTHER MEDICAL PROBLEMS Reviewed PLAN 10/31/2024 will order echocardiography to examine aortic valve. Patient is currently pending CT of the head and chest due to recent fall and supratherapeutic INR Continue with FFP infusion with plans for repeat INR 11/01/2024 patient's INR today is 21.14. No new episodes Of bleeding heavy reported Patient will need to be restarted on his oral Coumadin but will start patient on IV heparin and moderate for bleeding Patient's hemoglobin today is currently at 8.1 We will wait to start IV heparin drip tomorrow in repeat H&H in the morning 11/02/2024 Hemoglobin remains stable Currently pending PICC line Will start IV heparin drip without bolus once PICC line in place If no issues with bleeding and hgb remains stable, will start oral warfarin tomorrow 11/03/2024 ANDRES attempted today was terminated early because of nosebleeds and patient's overall elevated gag reflex in spite of numbing of his throat. Sedation also had to be reduced given respiratory status. Fluoroscopy was done to evaluate the aortic valve which appears to be moving appropriately. However, this does not exclude smaller clots in the aortic valve. ANDRES may eventually be required once diuresis is complete. Will attempt again with anesthesia support. Will periodically follow-up on aortic gradients in the meantime until diuresis is complete. If there is a thrombosis of the aortic valve which is suspected on the basis of gradients, patient remains at risk for a stroke. Overall difficult situation. Seen and examined 11/03/2024 multiple times. 11/04/2024 clinically, appears improved, edema is better, shortness of breath is better although, still fairly short of breath, will proceed with a transthoracic echo to assess for gradients tomorrow. Depending on that, we will decide on future ANDRES's if indicated. Continue diuresis, renal function stable, remains on heparin. Seen and examined 825 around 7:30 PM 11/05/2024 no active cardiac complaints at this time, breathing better, remains IV diuresis. Repeat aortic valve gradients are still elevated greater than 5 m/s close to 6. Suspicion for possible thrombus/pannus of the aortic valve leaflets. they were moving appropriately under fluoroscopy. Will attempt ANDRES again on Thursday under anesthesia support. Remains on heparin. No strokelike features. Continue neurochecks. Once anesthetic risk is lower after diuresis, will proceed with ANDRES. Seen and examined in 925 around 4:30 PM ATTESTATION I was involved substantially in the care of this patient Number and complexity of problems addressed: 1 acute illness that is a threat to life or bodily function Amount and or complexity of data Review of prior external note(s) from each unique source: 2+ Ordering of each unique test : 2 Review of the result(s) of each unique test: 2+ Assessment requiring an independent historian(s): No Independent interpretation of test performed by another MD/QHCP/appropriate source (not separately reported) : No Discussion of management or test interpretation with external MD/QHCP/appropriate source (not separately reported) : No Risk status (cardiac, billing related):High Vitals/Labs Vital Signs Date Time Temp Pulse Resp B/P (MAP) Pulse Ox O2 Delivery O2 Flow Rate FiO2 11/05/24 13:14 94 Nasal Cannula* 3 32 11/05/24 11:00 98.8 79 19 93/58 Laboratory Tests 11/05/24 02:09 11/05/24 11:18 Medications Current Medications Vancomycin HCl 1 each AD IV; Start 10/31/24 at 12:30; Stop 11/14/24 at 12:29 Piperacillin Sod/ Tazobactam Sod 3.375 gm ONCE ONCE IV Last administered on 10/31/24at 12:43; Start 10/31/24 at 12:30; Stop 10/31/24 at 12:41; Status DC Sodium Chloride 1,000 ml @ 0 mls/hr ONCE ONCE IV Last administered on 10/31/24at 12:43; Start 10/31/24 at 12:30; Stop 10/31/24 at 12:41; Status DC Vancomycin HCl 500 ml @ 250 mls/hr ONCE ONCE IV Last administered on 10/31/24at 13:57; Start 10/31/24 at 13:00; Stop 10/31/24 at 14:59; Status DC Vancomycin HCl 250 ml @ 125 mls/hr Q12H IV Last administered on 11/05/24at 13:36; Start 11/01/24 at 01:30; Stop 11/05/24 at 14:11; Status DC Sodium Chloride 1,983 ml @ 661 mls/hr ONCE ONCE IV Last administered on 10/31/24at 13:12; Start 10/31/24 at 13:00; Stop 10/31/24 at 15:59; Status DC Phytonadione 10 mg/Sodium Chloride 51 ml @ 100 mls/hr ONCE ONCE IVPB Last administered on 10/31/24at 13:12; Start 10/31/24 at 13:00; Stop 10/31/24 at 13:30; Status DC Morphine Sulfate 2 mg ONCE ONCE IVP Last administered on 10/31/24at 13:20; Start 10/31/24 at 13:30; Stop 10/31/24 at 13:31; Status DC Ondansetron HCl 4 mg ONCE ONCE IVP Last administered on 10/31/24at 13:20; Start 10/31/24 at 13:30; Stop 10/31/24 at 13:31; Status DC Pantoprazole Sodium 40 mg Q12H IVP Last administered on 11/05/24at 15:36; Start 10/31/24 at 14:00; Stop 11/30/24 at 13:59 Acetaminophen 650 mg Q6H PRN PO Last administered on 10/31/24at 17:32; Start 10/31/24 at 14:00; Stop 11/30/24 at 13:59 Ondansetron HCl 4 mg Q6H PRN IVP Last administered on 11/03/24at 08:38; Start 10/31/24 at 14:00; Stop 11/30/24 at 13:59 Sodium Chloride 1,000 ml @ 75 mls/hr [id number] IV Last administered on 11/01/24at 03:31; Start 10/31/24 at 14:00; Stop 11/02/24 at 21:00; Status DC Cefepime HCl 2 gm Q12H IVPB Last administered on 11/05/24at 06:30; Start 10/31/24 at 18:00; Stop 11/10/24 at 17:59 Doxycycline Hyclate 250 ml @ 125 mls/hr BID IV Last administered on 11/05/24at 08:29; Start 10/31/24 at 14:00; Stop 11/10/24 at 13:59 Metronidazole/ Sodium Chloride 100 ml @ 100 mls/hr Q8H6 IVPB Last administered on 11/05/24at 15:36; Start 10/31/24 at 21:00; Stop 11/10/24 at 20:59 Albuterol 1 udvial Q6H PRN IH Last administered on 11/03/24at 18:24; Start 10/31/24 at 14:30; Stop 11/30/24 at 14:29 Budesonide 0.5 mg BIDRESP IH Last administered on 11/05/24at 06:56; Start 10/31/24 at 18:00; Stop 11/30/24 at 17:59 Iohexol 75 ml STK-MED ONCE IV; Start 10/31/24 at 14:53; Stop 10/31/24 at 14:54; Status DC Tranexamic Acid 500 mg [id number] IJ Last administered on 11/01/24at 23:57; Start 10/31/24 at 15:30; Stop 11/02/24 at 11:02; Status DC Morphine Sulfate 2 mg Q6H PRN IVP Last administered on 11/02/24at 06:33; Start 10/31/24 at 19:00; Stop 11/02/24 at 10:03; Status DC Sodium Chloride 4 ml STK-MED ONCE IH Last administered on 10/31/24at 22:46; Start 10/31/24 at 22:37; Stop 10/31/24 at 22:38; Status DC Magnesium Sulfate 50 ml @ 0 mls/hr PROTOCOL PRN IV Last administered on 11/05/24at 03:07; Start 11/01/24 at 08:00; Stop 12/01/24 at 07:59 Morphine Sulfate 2 mg ONCE ONCE IVP Last administered on 11/01/24at 08:21; Start 11/01/24 at 08:30; Stop 11/01/24 at 08:31; Status DC Sodium Chloride 4 ml STK-MED ONCE IH; Start 11/01/24 at 10:49; Stop 11/01/24 at 10:50; Status DC Morphine Sulfate 2 mg Q4H PRN IVP Last administered on 11/05/24at 13:10; Start 11/02/24 at 10:30; Stop 11/09/24 at 10:29 Heparin Sodium/ Dextrose 250 ml @ 0 mls/hr Q6H IV Last administered on 11/04/24at 20:48; Start 11/02/24 at 21:00; Stop 12/02/24 at 20:59 Pharmacy Profile Note 1 each ONCE MISC; Start 11/02/24 at 13:30; Stop 11/02/24 at 13:15; Status DC Midazolam HCl 4 mg ONCE ONCE IVP Last administered on 11/03/24at 13:04; Start 11/03/24 at 12:00; Stop 11/03/24 at 12:01; Status DC Fentanyl Citrate 100 mcg ONCE ONCE IVP Last administered on 11/03/24at 13:05; Start 11/03/24 at 12:00; Stop 11/03/24 at 12:01; Status DC Lidocaine HCl 15 ml ONCE ONCE PO Last administered on 11/03/24at 12:06; Start 11/03/24 at 12:00; Stop 11/03/24 at 12:01; Status DC Potassium Chloride 100 ml @ 50 mls/hr AD PRN IV Last administered on 11/03/24at 12:01; Start 11/03/24 at 12:00; Stop 12/03/24 at 11:59 Potassium Chloride 100 ml @ 100 mls/hr AD PRN IV; Start 11/03/24 at 12:00; Stop 11/04/24 at 17:15; Status DC Potassium Chloride 20 meq AD PRN PO Last administered on 11/05/24at 13:13; Start 11/03/24 at 12:00; Stop 12/03/24 at 11:59 Potassium Chloride 20 meq AD PRN PO Last administered on 11/05/24at 04:57; Start 11/03/24 at 12:00; Stop 12/03/24 at 11:59 Furosemide 40 mg ONCE ONCE IV Last administered on 11/03/24at 14:33; Start 11/03/24 at 12:30; Stop 11/03/24 at 12:31; Status DC Furosemide 20 mg BID IV Last administered on 11/04/24at 10:02; Start 11/04/24 at 09:00; Stop 11/05/24 at 06:14; Status DC Clonazepam 2 mg ONCE ONCE PO Last administered on 11/04/24at 10:02; Start 11/04/24 at 09:00; Stop 11/04/24 at 09:01; Status DC Clonazepam 2 mg HS PO; Start 11/04/24 at 21:00; Stop 11/04/24 at 11:13; Status DC Clonazepam 2 mg HS PO; Start 11/05/24 at 21:00; Stop 12/05/24 at 20:59 Melatonin 10 mg ONCE ONCE PO Last administered on 11/04/24at 20:37; Start 11/04/24 at 21:30; Stop 11/04/24 at 21:31; Status DC Digoxin 125 mcg ONCE ONCE IV Last administered on 11/05/24at 01:44; Start 11/05/24 at 01:30; Stop 11/05/24 at 01:39; Status DC Furosemide 20 mg Q12H IV Last administered on 11/05/24at 06:31; Start 11/05/24 at 06:30; Stop 12/05/24 at 06:29 Vancomycin HCl 250 ml @ 125 mls/hr Q12H IV; Start 11/06/24 at 01:30; Stop 11/11/24 at 01:29 ANTONINO DIANE MD Nov 05, 2024 16:32
[2024-11-06] VITALS (13 sets, daily range): BP systolic 96–155; BP diastolic 55–82; PULSE 80–97; RESP 18–24; TEMP 97.7–99.8; O2SAT 95–99
[2024-11-06] MEDS: VANCOMYCIN 1.5 GM/250 ML BAG 250 ML IV SCH (00:48)
[2024-11-06 06:46] LABS: INR 1.19 (0.85-1.15)
[2024-11-06 06:50] LABS: IMMATURE GRANULOCYTE ABSOLUTE 0.23 K/uL (0-1); NUCLEATED RED BLOOD CELLS 0.0 % (0.0-0.19); PLATELET COUNT (AUTO) 229 K/uL (130-400); RED BLOOD CELL COUNT(AUTO) 2.94 MIL/uL (4.50-6.20); RED CELL DISTRIBUTION WIDTH 13.8 % (11.0-15.5); WHITE BLOOD COUNT (AUTO) 11.3 K/uL (4.8-10.8)
[2024-11-06 06:51] LABS: ASPARTATE AMINOTRANSFERASE 25.0 U/L (10-37); CREATININE 0.9 mg/dL (0.5-1.3); GLOMERULAR FILTR. RATE CALC 95.0 mL/min (>90); GLUCOSE,RANDOM 110.0 mg/dL (70-105); SODIUM SERUM 139.0 mmol/L (136-145); TOTAL PROTEIN, SERUM 5.3 g/dL (6.0-8.3); UREA NITROGEN, BLOOD 13.0 mg/dL (7-18)
--- NOTE | 2024-11-06 06:54 | HMCIMG ---
EXAM: CR Chest, single view. CLINICAL HISTORY: Pneumonia. COMPARISON: Prior chest radiograph dated 04 November 2024. FINDINGS: Compared to the prior study, there is no significant interval change. Poststernotomy. Borderline cardiomegaly. Right-sided PICC catheter, tip in the region of the SVC/right atrium. Redemonstrated patchy, ill-defined infiltrates in the right mid and lower zones. Subtle blunting of the right lateral costophrenic angle is suggestive of minimal right pleural effusion. No evidence of pneumothorax. No acute osseous abnormality. Mild degenerative changes in the mid and lower thoracic spine. IMPRESSION: Right-sided PICC catheter with tip in the region of the SVC/right atrium. Patchy, ill-defined infiltrates in the right mid and lower zones. Subtle blunting of the right costophrenic angle is suggestive of minimal right pleural effusion. Poststernotomy status. Borderline cardiomegaly. No evidence of pneumothorax. /[place]
--- NOTE | 2024-11-06 08:10 | HMCIMG ---
EXAM: CR Chest, single view. CLINICAL HISTORY: Pneumonia. COMPARISON: Prior chest radiograph dated 05 November 2024. FINDINGS: Stable since prior exam Borderline cardiomegaly. Prior sternotomy. Right PICC catheter, tip in the region of the SVC/right atrium. Stable patchy, infiltrates in the right mid and lower zones. Minimal to mild right pleural effusion. No evidence of pneumothorax. No acute osseous abnormality. Mild degenerative changes in the mid and lower thoracic spine. IMPRESSION: Stable chest since prior exam. Right-sided PICC line. Patchy infiltrates in the right mid and lower lung. Minimal to mild right pleural effusion. Poststernotomy status. Borderline cardiomegaly. No evidence of pneumothorax. /[place]
--- NOTE | 2024-11-06 08:59 | PN ---
[facility] PROGRESS NOTE Date of Service: Nov 06, 2024 Time of Service: 08:59 SUBJECTIVE: [ ] 64-year-old male with prior history of mechanical aortic valve which was replaced in 1993 maintained on chronic outpatient anticoagulation with warfarin, obesity, who presented to the ER for further evaluation of hemoptysis, chills, cough, and blood noted in the right ear.Patient states that about 12 days ago, he was visiting in [place], he had a mechanical fall with no syncope, patient was evaluated in ER and was found to have a nondisplaced left forearm ulnar fracture along which was treated conservatively. Patient had a CT done which was noted to be negative per patient. Patient states that over the last two days, he noticed that he was having chills, and yesterday night, he started having hemoptysis. Today he noticed that he was having bloody drainage from the right ear. Denies any headache, denies any focal weakness of upper or lower extremities. Denies any neck pain. Denies any new recent fall other than 12 days ago in [place] Denies chest pain other than with cough. He has been having generalized fatigue and malaise over the last two days. Denies exposure to sick contacts. 11/01/24 patient was admitted for septic shock and hemoptysis with Coumadin toxic ity today's INR improved significantly from 8-1.4 We will wait for community relations rep's if okay to resume. Patient appears acutely ill continue with broad-spectrum antibiotics tolerating. ID on board we will follow his recommendations. Patient is currently on nasal cannula to 3 L. We will be monitored closely in ICU. 11/02/2024 patient was seen earlier patient is lying in bed on room air we continue with broad-spectrum antibiotics tolerating reports no diarrhea. We continue to monitor INR. Encourage patient out of bed to chair as tolerated PT services we will be ordered. Denied chest pain palpitations dizziness. 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 Remains in heparin drip. We will monitor closely for any acute bleeding. 11/04/24 patient is lying in bed patient continues to require oxygen supplemental was started on Lasix IV 20 mg b.i.d. patient continues with physical therapy. Patient continues on heparin drip community relations rep's following we will appreciate his recommendations. Patient is tolerating broad-spectrum antibiotics wait for ID final recommendations 11/05/24 patient is lying in bed was sleeping awakened per verbal stimuli, the patient nurse reports patient has around the clock morphine reports elbow pain chronic. Patient went into AFib overnight converted normal sinus rhythm earlier this morning. Continues on heparin drip community relations rep's following we will follow his recommendations. tolerating antibiotics. 11/06/24 patient is lying in bed patient continues to require oxygen supplemental currently on 3 L. No fever no chills. No episodes of AFib. With RVR continues on heparin. Drip. 2D echo pending REVIEW OF SYSTEMS CONSTITUTIONAL: malaise, generalized weakness, fatigue NEUROLOGICAL: Denies headache, amaurosis fugax, motor weakness, sensory deficit, vertigo/spinning sensation, gait abnormalities, or tremors. ENT: No hearing loss, reports having noticed blood coming out of the right ear CARDIOVASCULAR: Denies any exertional angina, dyspnea on exertion, orthopnea, paroxysmal nocturnal dyspnea, palpitations, life-threatening arrhythmias, claudication. PULMONARY: reports having cough, congestion, SOB, patient reports having hemoptysis SLEEP: Denies morning headaches, daytime somnolence or napping. Denies difficulty falling asleep, staying asleep, waking from sleep. Denies knowledge of snoring. GASTROINTESTINAL: Denies any type of dysphagia to either liquids or solids. Denies nausea, vomiting, pyrosis, early satiety, abdominal pain, diarrhea, constipation, or changes in stool consistency or caliber. Denies coffee-ground emesis, hematemesis, hematochezia, or melanotic stools. GENITOURINARY: Denies frequency, urgency, nocturia, hematuria or incontinence (Storage/Irritative symptoms.) Low urinary stream, straining to void, urinary intermittency or hesitancy, splitting of the voiding stream, terminal dribbling. ENDOCRINOLOGIC: Denies polyuria, polydipsia, polyphagia or heat/cold intolerances. HEMATOLOGIC: reports having easy bruising ONCOLOGIC: Denies personal history of malignancy. DERMATOLOGIC: Denies rashes or pruritus. PSYCHIATRIC: Denies any suicidal or homicidal ideation. Denies hallucinations. PHYSICAL EXAM GENERAL APPEARANCE: The patient is awake, alert, and oriented, in no acute cardiopulmonary distress. NEUROLOGICAL: Cranial nerves II-XII grossly intact. Motor is 5/5 in bilateral upper and lower extremities proximal to distal. No sensory deficits. HEENT: Face is symmetric. Pupils are equal and reactive. Extraocular movements are intact. Right ear on otoscopic examination noted to have dries blood and some bright red blood, there is small clots noted as well, which i did not dislodge, tympanic membrane could be full evaluated due to blood NECK: Supple. No JVD. No thyromegaly. No submental, submandibular, pre- /postauricular, occipital or supraclavicular lymphadenopathy. CHEST: Normal chest expansion. No Telemetry. LUNGS: Crackles noted of the right lung base with decreased breath with rhonchorous breath sounds CARDIOVASCULAR: Regular. S1 and S2 normal. No appreciable rubs, murmurs or gallops. ABDOMEN: Soft, nontender, and nondistended. There is no rebound, voluntary guarding, or rigidity. : Deferred. No Wills. EXTREMITIES: Trace edema of the bilateral lower extremities SKIN: Swelling and redness noted of the right shoulder Vital Signs (last 8hr) Date Time Temp Pulse Resp B/P (MAP) Pulse Ox O2 Delivery O2 Flow Rate FiO2 11/06/24 08:00 99.0 94 20 131/78 95 Nasal Cannula 3.0 11/06/24 06:45 85 24 N/Cannula Low lpm 3.0 32 11/06/24 06:43 85 18 11/06/24 04:00 98.6 80 18 105/58 98 Nasal Cannula 3.0 LABS: Laboratory: Test 11/06/24 06:25 11/05/24 13:30 11/05/24 11:18 11/05/24 02:09 Range/Units White Blood Count 11.3 H 4.8-10.8 K/uL Red Blood Count 2.94 L 4.50-6.20 MIL/uL Hemoglobin 8.4 L 14.0-18.0 g/dL Hematocrit 25.7 L 42-54 % Mean Corpuscular Volume 87.4 79-99 fL Mean Corpuscular Hemoglobin 28.6 27.0-33.0 pg Mean Corpuscular Hemoglobin Concent 32.7 32.0-36.0 g/dL Red Cell Distribution Width 13.8 11.0-15.5 % Platelet Count 229 130-400 K/uL Mean Platelet Volume 9.1 7.5-10.5 fL Immature Granulocyte % (Auto) 2.0 H 0-1 % Neutrophils (%) (Auto) 73.3 40.0-77.0 % Lymphocytes (%) (Auto) 11.4 L 21.0-51.0 % Monocytes (%) (Auto) 7.6 3.0-13.0 % Eosinophils (%) (Auto) 5.4 0.0-8.0 % Basophils (%) (Auto) 0.3 0.0-5.0 % Neutrophils # (Auto) 8.3 H 1.8-7.7 K/uL Lymphocytes # (Auto) 1.3 1.0-4.8 K/uL Monocytes # (Auto) 0.9 0.1-1.0 K/uL Eosinophils # (Auto) 0.61 0.00-0.70 K/uL Basophils # (Auto) 0.03 0.00-0.20 K/uL Absolute Immature Granulocyte (auto 0.23 0-1 K/uL Nucleated Red Blood Cells 0.0 0.0-0.19 % Prothrombin Time 12.4 H 9.6-11.6 SEC Prothromb Time International Ratio 1.19 H 0.85-1.15 Activated Partial Thromboplast Time 66.7 H 26.3-35.5 SEC Sodium Level 139 136-145 mmol/L Potassium Level 3.6 3.5-5.1 mmol/L Chloride Level 104 101-111 mmol/L Carbon Dioxide Level 31 21-32 mmol/L Blood Urea Nitrogen 13 7-18 mg/dL Creatinine 0.9 0.5-1.3 mg/dL Glomerular Filtration Rate Calc 95 >90 mL/min Random Glucose 110 H 70-105 mg/dL Total Calcium 8.2 L 8.5-10.1 mg/dL Total Bilirubin 0.6 0.2-1.0 mg/dL Aspartate Amino Transf (AST/SGOT) 25 10-37 U/L Alanine Aminotransferase (ALT/SGPT) 21 12-78 U/L Alkaline Phosphatase 72 50-136 U/L Total Protein 5.3 L 6.0-8.3 g/dL Albumin 1.9 L 3.5-5.0 g/dL Procalcitonin 0.18 0.05-0.5 ng/mL Vancomycin Level Trough 8.9 #L 10.0-20.0 UG/ML Magnesium Level 2.00 1.80-2.40 mg/dL C-Reactive Protein, Quantitative 168.40 H 0.5-3.0 mg/L Current Medications Medications (Trade) Dose Ordered Sig/Hank Route PRN Reason Start Time Stop Time Status Last Admin Dose Admin Acetaminophen (TYLenol 325MG TAB) 650 mg Q6H PRN PO MILD PAIN (1-3) 10/31/24 14:00 11/30/24 13:59 10/31/24 17:32 650 MG Albuterol (DUOneb) 1 udvial Q6H PRN IH SHORTNESS OF BREATH 10/31/24 14:30 11/30/24 14:29 11/03/24 18:24 1 UDVIAL Budesonide (Pulmicort 0.5 Mg/2ml) 0.5 mg BIDRESP IH 10/31/24 18:00 11/30/24 17:59 11/06/24 06:43 0.5 MG Cefepime HCl (MAXipime 2 gm vial) 2 gm Q12H IVPB 10/31/24 18:00 11/10/24 17:59 11/06/24 04:34 2 GM Clonazepam (KLONopin 2MG TAB) 2 mg HS PO 11/04/24 21:00 11/04/24 11:13 DC Clonazepam (KLONopin 2MG TAB) 2 mg HS PO 11/05/24 21:00 12/05/24 20:59 11/05/24 20:18 2 MG Doxycycline Hyclate 250 ml @ 125 mls/hr BID IV 10/31/24 14:00 11/10/24 13:59 11/06/24 08:47 125 MLS/HR Furosemide (LASix 20MG VIAL) 20 mg BID IV 11/04/24 09:00 11/05/24 06:14 DC 11/04/24 10:02 20 MG Furosemide (LASix 20MG VIAL) 20 mg Q12H IV 11/05/24 06:30 12/05/24 06:29 11/06/24 04:34 20 MG Heparin Sodium/ Dextrose 250 ml @ 0 mls/hr Q6H IV 11/02/24 21:00 12/02/24 20:59 11/05/24 19:24 0 MLS/HR Magnesium Sulfate 50 ml @ 0 mls/hr PROTOCOL PRN IV OTHER [SEE ORDER COMMENTS] 11/01/24 08:00 12/01/24 07:59 11/05/24 03:07 25 MLS/HR Metronidazole/ Sodium Chloride 100 ml @ 100 mls/hr Q8H6 IVPB 10/31/24 21:00 11/10/24 20:59 11/06/24 04:34 100 MLS/HR Morphine Sulfate (morPHINE 2MG SYG) 2 mg Q4H PRN IVP SEVERE PAIN (7-10) 11/02/24 10:30 11/09/24 10:29 11/06/24 08:48 2 MG Morphine Sulfate (morPHINE 2MG SYG) 2 mg Q6H PRN IVP SEVERE PAIN (7-10) 10/31/24 19:00 11/02/24 10:03 DC 11/02/24 06:33 2 MG Ondansetron HCl (zoFRAN 4MG INJ) 4 mg Q6H PRN IVP NAUSEA/VOMITING 10/31/24 14:00 11/30/24 13:59 11/03/24 08:38 4 MG Pantoprazole Sodium (PROTonix 40MG INJ) 40 mg Q12H IVP 10/31/24 14:00 11/30/24 13:59 11/06/24 01:17 40 MG Pharmacy Profile Note (Pharmacy Communication) 1 each ONCE MISC 11/02/24 13:30 11/02/24 13:15 DC Potassium Chloride 100 ml @ 50 mls/hr AD PRN IV POTASSIUM PROTOCOL 11/03/24 12:00 12/03/24 11:59 11/03/24 12:01 50 MLS/HR Potassium Chloride 100 ml @ 100 mls/hr AD PRN IV POTASSIUM PROTOCOL 11/03/24 12:00 11/04/24 17:15 DC Potassium Chloride (K-Dur/Klor-Con 20meq) 20 meq AD PRN PO POTASSIUM PROTOCOL 11/03/24 12:00 12/03/24 11:59 11/06/24 08:47 20 MEQ Potassium Chloride (KCl 10% Elixir 20meq/15ml) 20 meq AD PRN PO POTASSIUM PROTOCOL 11/03/24 12:00 12/03/24 11:59 11/05/24 13:13 20 MEQ Sodium Chloride 1,000 ml @ 75 mls/hr [id number] IV 10/31/24 14:00 11/02/24 21:00 DC 11/01/24 03:31 75 MLS/HR Tranexamic Acid (Cyklokapron) 500 mg [id number] IJ 10/31/24 15:30 11/02/24 11:02 DC 11/01/24 23:57 500 MG Vancomycin HCl 250 ml @ 125 mls/hr Q12H IV 11/06/24 01:30 11/11/24 01:29 11/06/24 00:48 125 MLS/HR Vancomycin HCl 250 ml @ 125 mls/hr Q12H IV 11/01/24 01:30 11/05/24 14:11 DC 11/05/24 13:36 125 MLS/HR Vancomycin HCl (Vancomycin Protocol) 1 each AD IV 10/31/24 12:30 11/14/24 12:29 DIAGNOSTICS / RADIOLOGY: [ ] ASSESSMENT: AFib with RVR not POA Chronic elbow pain Severe sepsis secondary to right lung community-acquired pneumonia, POA Acute hypoxemic respiratory failure, POA Bilateral Multifocal Pneumonia with R > L, POA Hypotension secondary to severe sepsis, resolving Hemoptysis, POA Right shoulder swelling with possible hematoma, POA Right ear otorrhea with blood, POA Acute on chronic anemia secondary to blood loss, POA Severely elevated supratherapeutic INR secondary to Coumadin use and possibly sepsis, POA hypercoagulable state secondary to Mechanical aortic value on Coumadin Therapy POA Coumadin Toxicity POA History of mechanical aortic valve, POA History of chronic anticoagulation with warfarin, POA Acute kidney injury, POA Demand ischemia, POA Recent history of left forearm ulnar nondisplaced fracture treated conservatively, POA Prior history of fall 12 days ago in [place], POA Obesity, POA PLAN: Mr. Williamson 64-year-old male remains in transitioned to PCCU patient remains on heparin drip being followed by community relations rep's no episodes of AFib overnight. Continues on heparin drip. Sputum cultures negative blood cultures negative. Continues on multiple antibiotics. T-max 99.0 continues with oxygen supplemental at 3 L. I encouraged patient needs to be out of bed to chair with meals. Admit:PCCU Status: [facility] code consultants: Critical Care, Hospital Nurse Liaison infectious disease Diet: Heart healthy Continue oxygen supplemental to keep O2 sats above 92% currently on 3 L , continue bronchodilators as needed antibiotics: IV cefepime/Flagyl/doxycycline vanco Microbiology: Resp, negative blood cultures negative monitor for bleeding: transfuse as needed to keep Hbg above 7.0 Remains Heparin drip we will monitor H&H trend and platelets monitor acute bleeding. GI ppx: IV Protonix 40 mg b.i.d. Labs in am : CBC, cmp, and Mag PT services to eval and treat, fall precautions Plan of care was discussed with patient at bedside, ATTESTATION BY PHYSICIAN I have seen and examined the patient. I reviewed the documentation, medical decision making, and treatment plan as noted by the mid-level provider above. I agree with the findings and plan of care. VIC DICKEY MD, ELIZABETH NP Nov 06, 2024 08:59
--- NOTE | 2024-11-06 10:56 | NUR ---
Pt. has sister admitted to facility. Spoke with caser upmgr Krystal RN regarding his desire to be added as next of kin, verbalized understanding.
--- NOTE | 2024-11-06 11:13 | PN ---
[facility] PROGRESS NOTE Date Patient Seen: Nov 06, 2024 Time of Visit: 11:10 Supervising Physician: Dr Fallon Primary Care Physician: self referral Outpatient Specialists: Inpatient Consults: dr Awad, Dr Ej Vega PROBLEM LIST: Septic shock, resolved supratherapeutic INR secondary to Coumadin, resolved Acute hypoxemic respiratory failure, POA Suspected alveolar hemorrhage, improving Acute on chronic anemia secondary to blood loss, POA History of mechanical aortic valve, POA History of chronic anticoagulation with warfarin, POA Acute kidney injury, POA Demand ischemia, POA Obesity, POA INTERVAL HISTORY: Patient seen and examined, all labs and imaging have been reviewed, patient is sitting comfortably in bed. Patient with good saturations on room air Patient alert and oriented times 4, reporting no chest pain or shortness of breath Tolerating diet, NPO midnight for ANDRES tomorrow Nursing reports no acute events overnight Afebrile Vitals are stable Chest x-ray reveals continued pneumonia to the right lung Plan: Follow cardiology recs, continues on heparin drip, pending repeat echocardiogram Telemetry Antibiotics per ID, following cultures, no growth, no growth to sputum Continue diuresis GI prophylaxis Heparin drip protocol NPO midnight for ANDRES tomorrow with Dr. Arreola. REVIEW OF SYSTEMS: 12 point ROS reviewed with patient. Pertinent positives mentioned above. Otherwise negative. PHYSICAL EXAM: GENERAL: alert, weak, awake oriented x 3 HEENT: EOMI, Sclera non icteric, moist mucosa NECK: Supple, no JVD, trachea midline LUNGS: Rales to right side, and left lower lobe No wheezes HEART: Regular rate and rhythm. Normal S1 and S2, without murmurs ABD: Abdomen obese soft, nontender. Bowel sounds present EXT: No clubbing cyanosis. Left forearm tenderness. Right shoulder swelling NEURO: Alert and oriented to person, follows commands Vital Signs (last 8hr) Date Time Temp Pulse Resp B/P (MAP) Pulse Ox O2 Delivery O2 Flow Rate FiO2 11/06/24 10:26 95 Nasal Cannula* 3 32 11/06/24 08:00 99.0 94 20 131/78 95 Nasal Cannula 3.0 11/06/24 06:45 85 24 N/Cannula Low lpm 3.0 32 11/06/24 06:43 85 18 11/06/24 04:00 98.6 80 18 105/58 98 Nasal Cannula 3.0 LABS: Hematology Labs: Test 11/06/24 06:25 Range/Units White Blood Count 11.3 H 4.8-10.8 K/uL Red Blood Count 2.94 L 4.50-6.20 MIL/uL Hemoglobin 8.4 L 14.0-18.0 g/dL Hematocrit 25.7 L 42-54 % Mean Corpuscular Volume 87.4 79-99 fL Mean Corpuscular Hemoglobin 28.6 27.0-33.0 pg Mean Corpuscular Hemoglobin Concent 32.7 32.0-36.0 g/dL Red Cell Distribution Width 13.8 11.0-15.5 % Platelet Count 229 130-400 K/uL Mean Platelet Volume 9.1 7.5-10.5 fL Immature Granulocyte % (Auto) 2.0 H 0-1 % Neutrophils (%) (Auto) 73.3 40.0-77.0 % Lymphocytes (%) (Auto) 11.4 L 21.0-51.0 % Monocytes (%) (Auto) 7.6 3.0-13.0 % Eosinophils (%) (Auto) 5.4 0.0-8.0 % Basophils (%) (Auto) 0.3 0.0-5.0 % Neutrophils # (Auto) 8.3 H 1.8-7.7 K/uL Lymphocytes # (Auto) 1.3 1.0-4.8 K/uL Monocytes # (Auto) 0.9 0.1-1.0 K/uL Eosinophils # (Auto) 0.61 0.00-0.70 K/uL Basophils # (Auto) 0.03 0.00-0.20 K/uL Absolute Immature Granulocyte (auto 0.23 0-1 K/uL Nucleated Red Blood Cells 0.0 0.0-0.19 % Chemistry Labs: Test 11/06/24 06:25 11/05/24 02:09 Range/Units Sodium Level 139 136-145 mmol/L Potassium Level 3.6 3.5-5.1 mmol/L Chloride Level 104 101-111 mmol/L Carbon Dioxide Level 31 21-32 mmol/L Blood Urea Nitrogen 13 7-18 mg/dL Creatinine 0.9 0.5-1.3 mg/dL Glomerular Filtration Rate Calc 95 >90 mL/min Random Glucose 110 H 70-105 mg/dL Total Calcium 8.2 L 8.5-10.1 mg/dL Magnesium Level 1.80 1.80-2.40 mg/dL Total Bilirubin 0.6 0.2-1.0 mg/dL Aspartate Amino Transf (AST/SGOT) 25 10-37 U/L Alanine Aminotransferase (ALT/SGPT) 21 12-78 U/L Alkaline Phosphatase 72 50-136 U/L Total Protein 5.3 L 6.0-8.3 g/dL Albumin 1.9 L 3.5-5.0 g/dL Procalcitonin 0.18 0.05-0.5 ng/mL C-Reactive Protein, Quantitative 168.40 H 0.5-3.0 mg/L Coagulation Labs: Test 11/06/24 06:25 Range/Units Prothrombin Time 12.4 H 9.6-11.6 SEC Prothromb Time International Ratio 1.19 H 0.85-1.15 Activated Partial Thromboplast Time 66.7 H 26.3-35.5 SEC DIAGNOSTICS / RADIOLOGY RESULTS: [ ] PLAN NEURO: Minimize central acting medications as possible. Maintain fall precautions, adequate lighting during the day PULMONARY: Supplemental 02 as needed. Maintain aspiration precautions at all times CARDIOVASCULAR: Follow hemodynamics. Vital signs per facility protocol GI & NUTRITION: Continue with nutritional support. Continue stool softeners and laxatives as needed. KIDNEYS & ELECTROLYTES: Strict monitoring of intake, output and overall fluid balance. Avoid nephrotoxic medications to the extent possible. Medications to be dosed according to renal function. Monitor electrolytes and replace as needed ENDOCRINE: Maintain blood glucose between 100-180 at all times. Hypoglycemia protocol in place INFECTIOUS DISEASE: Trend temperature, WBC and procalcitonin level Follow cultures, deescalate antibiotics as soon as possible. Panculture if new onset fever ONCOLOGY/HEMATOLOGY/COAGULATION: Monitor for s/s of bleeding Monitor hemoglobin, coagulation studies as needed SKIN: Pressure ulcer prevention per facility protocol Specialty mattress ORTHO/REHAB: Continue PT/OT Prophylaxis: Continue GI and DVT prophylaxis Code Status: Full Resuscitation Disposition: TBD Other: Total patient care time exceeds 35 minutes excluding all procedures. ALICIA LUCIANO Nov 06, 2024 11:13
--- NOTE | 2024-11-06 14:13 | PN ---
INFECTIOUS DISEASE PROGRESS NOTE Date of Service: Nov 06, 2024 SUBJECTIVE: This 64 year old male patient is being seen today at bedside. He is awake, alert and oriented x3. Remains on oxygen via nasal canula. No chest pain or shortness of breath. Patient denies pain. He continues with multiple antibiotics. Patient is scheduled for ANDRES tomorrow. Continues on heparin drip. No acute events over night. We continue to follow patient closely. PHYSICAL EXAM EYES: Anicteric. Pupils equal and reactive. HENT: No oral thrush seen, moist Oral mucosa NECK: Supple, no JVD or thyromegaly. LUNGS: crackles present no wheezing CARDIOVASCULAR: S1, S2 regular. No murmur heard. ABDOMEN: Soft, non tender, bowel sounds present, no organomegaly CENTRAL NERVOUS SYSTEM: Awake, alert, oriented x 3. No focal deficits. SKIN: No rashes, no swelling. LYMPHATICS: No peripheral lymphadenopathy MUSCULOSKELETAL: No joint swelling, erythema or tenderness. EXTREMITIES: No cyanosis or clubbing BACK: No deformity, no pressure ulcer. GENITOURINARY: No dysuria or hematuria Vital Sign (Last 12 Hours) 11/06/24 11/06/24 11/06/24 11/06/24 04:00 06:43 06:45 08:00 Temp 98.6 99.0 Pulse 80 85 85 94 Resp 18 18 24 20 B/P (MAP) 105/58 131/78 Pulse Ox 98 95 O2 Delivery Nasal Cannula N/Cannula Low lpm Nasal Cannula O2 Flow Rate 3.0 3.0 3.0 FiO2 32 11/06/24 11/06/24 10:26 12:00 Temp 99.3 Pulse 86 Resp 20 B/P (MAP) 96/63 Pulse Ox 95 96 O2 Delivery Nasal Cannula* Nasal Cannula O2 Flow Rate 3 3.0 FiO2 32 Intake & Output (last 24hrs) 11/05/24 11/05/24 11/06/24 15:00 23:00 07:00 Intake Total 500.0 ml 1038.0 ml Output Total 1200 ml 900 ml Balance -700.0 ml 1038.0 ml -900 ml LABS: Laboratory: Test 11/06/24 13:14 11/06/24 06:25 11/05/24 13:30 11/05/24 02:09 Range/Units Activated Partial Thromboplast Time 58.7 H 26.3-35.5 SEC White Blood Count 11.3 H 4.8-10.8 K/uL Red Blood Count 2.94 L 4.50-6.20 MIL/uL Hemoglobin 8.4 L 14.0-18.0 g/dL Hematocrit 25.7 L 42-54 % Mean Corpuscular Volume 87.4 79-99 fL Mean Corpuscular Hemoglobin 28.6 27.0-33.0 pg Mean Corpuscular Hemoglobin Concent 32.7 32.0-36.0 g/dL Red Cell Distribution Width 13.8 11.0-15.5 % Platelet Count 229 130-400 K/uL Mean Platelet Volume 9.1 7.5-10.5 fL Immature Granulocyte % (Auto) 2.0 H 0-1 % Neutrophils (%) (Auto) 73.3 40.0-77.0 % Lymphocytes (%) (Auto) 11.4 L 21.0-51.0 % Monocytes (%) (Auto) 7.6 3.0-13.0 % Eosinophils (%) (Auto) 5.4 0.0-8.0 % Basophils (%) (Auto) 0.3 0.0-5.0 % Neutrophils # (Auto) 8.3 H 1.8-7.7 K/uL Lymphocytes # (Auto) 1.3 1.0-4.8 K/uL Monocytes # (Auto) 0.9 0.1-1.0 K/uL Eosinophils # (Auto) 0.61 0.00-0.70 K/uL Basophils # (Auto) 0.03 0.00-0.20 K/uL Absolute Immature Granulocyte (auto 0.23 0-1 K/uL Nucleated Red Blood Cells 0.0 0.0-0.19 % Prothrombin Time 12.4 H 9.6-11.6 SEC Prothromb Time International Ratio 1.19 H 0.85-1.15 Sodium Level 139 136-145 mmol/L Potassium Level 3.6 3.5-5.1 mmol/L Chloride Level 104 101-111 mmol/L Carbon Dioxide Level 31 21-32 mmol/L Blood Urea Nitrogen 13 7-18 mg/dL Creatinine 0.9 0.5-1.3 mg/dL Glomerular Filtration Rate Calc 95 >90 mL/min Random Glucose 110 H 70-105 mg/dL Total Calcium 8.2 L 8.5-10.1 mg/dL Magnesium Level 1.80 1.80-2.40 mg/dL Total Bilirubin 0.6 0.2-1.0 mg/dL Aspartate Amino Transf (AST/SGOT) 25 10-37 U/L Alanine Aminotransferase (ALT/SGPT) 21 12-78 U/L Alkaline Phosphatase 72 50-136 U/L Total Protein 5.3 L 6.0-8.3 g/dL Albumin 1.9 L 3.5-5.0 g/dL Procalcitonin 0.18 0.05-0.5 ng/mL Vancomycin Level Trough 8.9 #L 10.0-20.0 UG/ML C-Reactive Protein, Quantitative 168.40 H 0.5-3.0 mg/L DIAGNOSTICS / RADIOLOGY: CR Chest, 1 View. CLINICAL HISTORY: please assess for any wrsening infiltrates, PNA COMPARISON: None provided. FINDINGS: LUNGS: Improved right sided infiltrate. Resolving pneumonia. Continue follow-up recommended PLEURAL SPACES: No pleural effusion or pneumothorax. MEDIASTINUM: Cardiac size and mediastinal contours within normal limits. BONES: No acute osseous abnormality. IMPRESSION: Improved right sided infiltrate. Resolving pneumonia. Continue follow-up recommended /Foster REASON: picc line placement ORDERING PHYSICIAN: ALICIA LUCIANO PROCEDURE: CXR1VW - CHEST 1VW EXAM: CR Chest, 2 View. CLINICAL HISTORY: picc line placement COMPARISON: X-ray chest 11/02/2024 FINDINGS: Multifocal airspace opacities bilaterally right greater than left. Persistent small right-sided pleural effusion. MEDIASTINUM: The cardiomediastinal silhouette is within normal limits. Changes of median sternotomy Interval placement of right PICC line catheter whose tip is in appropriate position projecting within the junction of the SVC and right atrium BONES: No acute osseous abnormality. IMPRESSION: 1. Multifocal airspace opacities bilaterally, right greater than left 2. Small right pleural effusion 3. Right PICC line tip appropriately positioned at SVC-right atrial junction ASSESSMENT: * Multifocal pneumonia. * Severe sepsis. * Hypoxic respiratory failure. * Supratherapeutic INR. * Elevated troponin may be due to demand ischemia. * Anemia. * leukocytosis PLAN: * Continue vancomycin. * Continue cefepime. * Continue doxycycline. * Continue Flagyl. * Followup cultures. * Continue nutritional support. * Monitor electrolytes. * The patient will be followed up closely. * Monitor INR * follow Cardiology recommendations * ANDRES tomorrow This case has been discussed with my supervising physician Dr. Awad. The case has been discussed and agreed upon. YESSICA GASCA [facility] Nov 06, 2024 14:13
--- NOTE | 2024-11-06 14:53 | HMCSR ---
APPROVED REPORT EXAM: LIMITED Two-dimensional and M-mode echocardiogram with Doppler and color Doppler. INDICATION ICD: assess aortiv valve 2D Dimensions LVOT diam1.9 (1.8-2.4cm) Aortic Valve AoV Vmax5.5 m/Cassandra Peak GR146.9 mmHgLVOT Vmax1.5 m/s AoV VTI1.1 mAo Mean GR78.0 mmHgLVOT VTI0.35 m JON (VMAX)0.73 cm2Al P1/2T244 msAVA (VTI) 0.9 cm2 Aortic Valve Mechanical aortic valve is present. There are abnormal prosthetic aortic valve gradients. Moderate ao rtic regurgitation, AR PHT 244ms. There is severe valvular aortic stenosis. Highest mean aortic valve gradient is 78.6mmHg, highest pk gradient 147mmHg. Conclusion There is severe valvular aortic stenosis. Highest mean aortic valve gradient is 78.6mmHg, highest pk gradient 147mmHg. velocity 5.8m/s moderate AI
--- NOTE | 2024-11-06 15:14 | PN ---
CARDIOLOGY Reason for consult: Mechanical Aortic Valve HPI/story at presentation: This is a pleasant 64-year-old male with past medical history significant for mechanical aortic valve placed in 1993, chronic warfarin use initially presented to the emergency department due to hemoptysis, cough, chills and blood noted in his right ear. Patient also reports he sustained a fall injury approximately 12 days ago in [place]. Denies any syncope episode. Her warfarin dose accordingly the patient is warfarin 5 mg daily other than on Thursday and Thursday when he takes 7.5 mg daily. Patient also found to be febrile with a temperature of 101.3. Initial blood pressure 83/42. sepsis protocol was started. INR results show greater than 8. Patient was administered vitamin K 10 mg IV and is scheduled to receive 2 units of FFP. High sensory troponin at 299. Patient was also found to have bilateral pneumonia 11/01/2024 patient was seen and evaluated at bedside in the ICU No episodes of bleeding has been reported since yesterday Repeat INR today is 1.14 Past medical history: See below Allergies, Meds See chart Review of systems Review of Systems Constitutional: + for chills and fever. HENT: + for right ear bloody discharge and ear pain. Eyes: Negative for photophobia and discharge. Respiratory: + for cough, sputum production and stridor. + hemoptysis Cardiovascular: Negative for chest pain and palpitations. Gastrointestinal: Negative for diarrhea and vomiting. Genitourinary: Negative for frequency. Musculoskeletal: Negative for myalgias. Skin: Negative for rash. Neurological: Negative for focal weakness and seizures. Endo/Heme/Allergies: Negative for polydipsia. Psychiatric/Behavioral: Negative for hallucinations. Vitals see chart PHYSICAL EXAMINATION GENERAL: The patient is alert and oriented*3, ill appearing HEENT: Nonicteric sclerae, non traumatic HEART: Regular rate and rhythm with no murmurs, 3/6 systolic murmur to 2nd ICS LUNGS: Diminished to auscultation bilaterally ABDOMEN: No acute issues, non tender GENITAL, RECTAL: deferred SKIN: No rash NEUROLOGIC: NFND EXTREMITIES: No edema ASSESSMENT SUPRATHERAPEUTIC INR INR GREATER THAN 8 Currently or warfarin Reports hemoptysis and bloody drainage from right ear AORTIC VALVE REPLACEMENT Mechanical INR was subtherapeutic at presentation CORE MEASURES Not applicable OTHER MEDICAL PROBLEMS Reviewed PLAN 10/31/2024 will order echocardiography to examine aortic valve. Patient is currently pending CT of the head and chest due to recent fall and supratherapeutic INR Continue with FFP infusion with plans for repeat INR 11/01/2024 patient's INR today is 21.14. No new episodes Of bleeding heavy reported Patient will need to be restarted on his oral Coumadin but will start patient on IV heparin and moderate for bleeding Patient's hemoglobin today is currently at 8.1 We will wait to start IV heparin drip tomorrow in repeat H&H in the morning 11/02/2024 Hemoglobin remains stable Currently pending PICC line Will start IV heparin drip without bolus once PICC line in place If no issues with bleeding and hgb remains stable, will start oral warfarin tomorrow 11/03/2024 ANDRES attempted today was terminated early because of nosebleeds and patient's overall elevated gag reflex in spite of numbing of his throat. Sedation also had to be reduced given respiratory status. Fluoroscopy was done to evaluate the aortic valve which appears to be moving appropriately. However, this does not exclude smaller clots in the aortic valve. ANDRES may eventually be required once diuresis is complete. Will attempt again with anesthesia support. Will periodically follow-up on aortic gradients in the meantime until diuresis is complete. If there is a thrombosis of the aortic valve which is suspected on the basis of gradients, patient remains at risk for a stroke. Overall difficult situation. Seen and examined 11/03/2024 multiple times. 11/04/2024 clinically, appears improved, edema is better, shortness of breath is better although, still fairly short of breath, will proceed with a transthoracic echo to assess for gradients tomorrow. Depending on that, we will decide on future ANDRES's if indicated. Continue diuresis, renal function stable, remains on heparin. Seen and examined 825 around 7:30 PM 11/05/2024 no active cardiac complaints at this time, breathing better, remains IV diuresis. Repeat aortic valve gradients are still elevated greater than 5 m/s close to 6. Suspicion for possible thrombus/pannus of the aortic valve leaflets. they were moving appropriately under fluoroscopy. Will attempt ANDRES again on Thursday under anesthesia support. Remains on heparin. No strokelike features. Continue neurochecks. Once anesthetic risk is lower after diuresis, will proceed with ANDERS. Seen and examined in 925 around 4:30 PM 11/06/2024 plan for ANDRES tomorrow, valve gradient still significantly elevated close to 5.8 meters per second. N.p.o. after midnight, will proceed with ANDRES tomorrow with anesthesia support. Multiple questions regarding the procedure answered. Risk benefits addressed. Clinically, appears to be improved, was able to ambulate in the hallway today. Seen and examined 11/06/2024 around 3 PM. ATTESTATION I was involved substantially in the care of this patient Number and complexity of problems addressed: 1 acute illness that is a threat to life or bodily function Amount and or complexity of data Review of prior external note(s) from each unique source: 2+ Ordering of each unique test : 2 Review of the result(s) of each unique test: 2+ Assessment requiring an independent historian(s): No Independent interpretation of test performed by another MD/QHCP/appropriate source (not separately reported) : No Discussion of management or test interpretation with external MD/QHCP/appropriate source (not separately reported) : No Risk status (cardiac, billing related):High Vitals/Labs Vital Signs Date Time Temp Pulse Resp B/P (MAP) Pulse Ox O2 Delivery O2 Flow Rate FiO2 11/06/24 12:00 99.3 86 20 96/63 96 Nasal Cannula 3.0 11/06/24 10:26 32 Laboratory Tests 11/06/24 06:25 Medications Current Medications Vancomycin HCl 1 each AD IV; Start 10/31/24 at 12:30; Stop 11/14/24 at 12:29 Piperacillin Sod/ Tazobactam Sod 3.375 gm ONCE ONCE IV Last administered on 10/31/24at 12:43; Start 10/31/24 at 12:30; Stop 10/31/24 at 12:41; Status DC Sodium Chloride 1,000 ml @ 0 mls/hr ONCE ONCE IV Last administered on 10/31/24at 12:43; Start 10/31/24 at 12:30; Stop 10/31/24 at 12:41; Status DC Vancomycin HCl 500 ml @ 250 mls/hr ONCE ONCE IV Last administered on 10/31/24at 13:57; Start 10/31/24 at 13:00; Stop 10/31/24 at 14:59; Status DC Vancomycin HCl 250 ml @ 125 mls/hr Q12H IV Last administered on 11/05/24 13:36; Start 11/01/24 at 01:30; Stop 11/05/24 at 14:11; Status DC Sodium Chloride 1,983 ml @ 661 mls/hr ONCE ONCE IV Last administered on 10/31/24 13:12; Start 10/31/24 at 13:00; Stop 10/31/24 at 15:59; Status DC Phytonadione 10 mg/Sodium Chloride 51 ml @ 100 mls/hr ONCE ONCE IVPB Last administered on 10/31/24 13:12; Start 10/31/24 at 13:00; Stop 10/31/24 at 13:30; Status DC Morphine Sulfate 2 mg ONCE ONCE IVP Last administered on 10/31/24 13:20; Start 10/31/24 at 13:30; Stop 10/31/24 at 13:31; Status DC Ondansetron HCl 4 mg ONCE ONCE IVP Last administered on 10/31/24 13:20; Start 10/31/24 at 13:30; Stop 10/31/24 at 13:31; Status DC Pantoprazole Sodium 40 mg Q12H IVP Last administered on 11/06/24at 14:51; Start 10/31/24 at 14:00; Stop 11/30/24 at 13:59 Acetaminophen 650 mg Q6H PRN PO Last administered on 10/31/24 17:32; Start 10/31/24 at 14:00; Stop 11/30/24 at 13:59 Ondansetron HCl 4 mg Q6H PRN IVP Last administered on 11/03/24at 08:38; Start 10/31/24 at 14:00; Stop 11/30/24 at 13:59 Sodium Chloride 1,000 ml @ 75 mls/hr [id number] IV Last administered on 11/01/24 03:31; Start 10/31/24 at 14:00; Stop 11/02/24 at 21:00; Status DC Cefepime HCl 2 gm Q12H IVPB Last administered on 11/06/24at 04:34; Start 10/31/24 at 18:00; Stop 11/10/24 at 17:59 Doxycycline Hyclate 250 ml @ 125 mls/hr BID IV Last administered on 11/06/24at 08:47; Start 10/31/24 at 14:00; Stop 11/10/24 at 13:59 Metronidazole/ Sodium Chloride 100 ml @ 100 mls/hr Q8H6 IVPB Last administered on 11/06/24at 04:34; Start 10/31/24 at 21:00; Stop 11/10/24 at 20:59 Albuterol 1 udvial Q6H PRN IH Last administered on 11/03/24at 18:24; Start 10/31/24 at 14:30; Stop 11/30/24 at 14:29 Budesonide 0.5 mg BIDRESP IH Last administered on 11/06/24at 06:43; Start 10/31/24 at 18:00; Stop 11/30/24 at 17:59 Iohexol 75 ml STK-MED ONCE IV; Start 10/31/24 at 14:53; Stop 10/31/24 at 14:54; Status DC Tranexamic Acid 500 mg [id number] IJ Last administered on 11/01/24at 23:57; Start 10/31/24 at 15:30; Stop 11/02/24 at 11:02; Status DC Morphine Sulfate 2 mg Q6H PRN IVP Last administered on 11/02/24at 06:33; Start 10/31/24 at 19:00; Stop 11/02/24 at 10:03; Status DC Sodium Chloride 4 ml STK-MED ONCE IH Last administered on 10/31/24at 22:46; Start 10/31/24 at 22:37; Stop 10/31/24 at 22:38; Status DC Magnesium Sulfate 50 ml @ 0 mls/hr PROTOCOL PRN IV Last administered on 11/05/24at 03:07; Start 11/01/24 at 08:00; Stop 12/01/24 at 07:59 Morphine Sulfate 2 mg ONCE ONCE IVP Last administered on 11/01/24at 08:21; Start 11/01/24 at 08:30; Stop 11/01/24 at 08:31; Status DC Sodium Chloride 4 ml STK-MED ONCE IH; Start 11/01/24 at 10:49; Stop 11/01/24 at 10:50; Status DC Morphine Sulfate 2 mg Q4H PRN IVP Last administered on 11/06/24at 08:48; Start 11/02/24 at 10:30; Stop 11/09/24 at 10:29 Heparin Sodium/ Dextrose 250 ml @ 0 mls/hr Q6H IV Last administered on 11/06/24at 09:00; Start 11/02/24 at 21:00; Stop 12/02/24 at 20:59 Pharmacy Profile Note 1 each ONCE MISC; Start 11/02/24 at 13:30; Stop 11/02/24 at 13:15; Status DC Midazolam HCl 4 mg ONCE ONCE IVP Last administered on 11/03/24at 13:04; Start 11/03/24 at 12:00; Stop 11/03/24 at 12:01; Status DC Fentanyl Citrate 100 mcg ONCE ONCE IVP Last administered on 11/03/24at 13:05; Start 11/03/24 at 12:00; Stop 11/03/24 at 12:01; Status DC Lidocaine HCl 15 ml ONCE ONCE PO Last administered on 11/03/24at 12:06; Start 11/03/24 at 12:00; Stop 11/03/24 at 12:01; Status DC Potassium Chloride 100 ml @ 50 mls/hr AD PRN IV Last administered on 11/03/24at 12:01; Start 11/03/24 at 12:00; Stop 12/03/24 at 11:59 Potassium Chloride 100 ml @ 100 mls/hr AD PRN IV; Start 11/03/24 at 12:00; Stop 11/04/24 at 17:15; Status DC Potassium Chloride 20 meq AD PRN PO Last administered on 11/05/24at 13:13; Start 11/03/24 at 12:00; Stop 12/03/24 at 11:59 Potassium Chloride 20 meq AD PRN PO Last administered on 11/06/24at 14:52; Start 11/03/24 at 12:00; Stop 12/03/24 at 11:59 Furosemide 40 mg ONCE ONCE IV Last administered on 11/03/24at 14:33; Start 11/03/24 at 12:30; Stop 11/03/24 at 12:31; Status DC Furosemide 20 mg BID IV Last administered on 11/04/24at 10:02; Start 11/04/24 at 09:00; Stop 11/05/24 at 06:14; Status DC Clonazepam 2 mg ONCE ONCE PO Last administered on 11/04/24at 10:02; Start 11/04/24 at 09:00; Stop 11/04/24 at 09:01; Status DC Clonazepam 2 mg HS PO; Start 11/04/24 at 21:00; Stop 11/04/24 at 11:13; Status DC Clonazepam 2 mg HS PO Last administered on 11/05/24at 20:18; Start 11/05/24 at 21:00; Stop 12/05/24 at 20:59 Melatonin 10 mg ONCE ONCE PO Last administered on 11/04/24at 20:37; Start 11/04/24 at 21:30; Stop 11/04/24 at 21:31; Status DC Digoxin 125 mcg ONCE ONCE IV Last administered on 11/05/24at 01:44; Start 11/05/24 at 01:30; Stop 11/05/24 at 01:39; Status DC Furosemide 20 mg Q12H IV Last administered on 11/06/24at 04:34; Start 11/05/24 at 06:30; Stop 12/05/24 at 06:29 Vancomycin HCl 250 ml @ 125 mls/hr Q12H IV Last administered on 11/06/24at 14:51; Start 11/06/24 at 01:30; Stop 11/11/24 at 01:29 ANTONINO DIANE MD Nov 06, 2024 15:14
[2024-11-07] VITALS (13 sets, daily range): BP systolic 101–110; BP diastolic 56–66; PULSE 65–88; RESP 18–20; TEMP 97.6–98.6; O2SAT 91–98
[2024-11-07 03:54] LABS: IMMATURE GRANULOCYTE ABSOLUTE 0.29 K/uL (0-1); NUCLEATED RED BLOOD CELLS 0.0 % (0.0-0.19); PLATELET COUNT (AUTO) 250 K/uL (130-400); RED BLOOD CELL COUNT(AUTO) 3.04 MIL/uL (4.50-6.20); RED CELL DISTRIBUTION WIDTH 14.1 % (11.0-15.5); WHITE BLOOD COUNT (AUTO) 10.7 K/uL (4.8-10.8)
[2024-11-07 04:07] LABS: INR 1.15 (0.85-1.15)
[2024-11-07 04:11] LABS: ASPARTATE AMINOTRANSFERASE 32.0 U/L (10-37); CREATININE 1.0 mg/dL (0.5-1.3); GLOMERULAR FILTR. RATE CALC 84.0 mL/min (>90); GLUCOSE,RANDOM 100.0 mg/dL (70-105); SODIUM SERUM 141.0 mmol/L (136-145); TOTAL PROTEIN, SERUM 5.4 g/dL (6.0-8.3); UREA NITROGEN, BLOOD 11.0 mg/dL (7-18)
--- NOTE | 2024-11-07 11:08 | PN ---
[facility] PROGRESS NOTE Date of Service: Nov 07, 2024 Time of Service: 11:03 SUBJECTIVE: [ ] 64-year-old male with prior history of mechanical aortic valve which was replaced in 1993 maintained on chronic outpatient anticoagulation with warfarin, obesity, who presented to the ER for further evaluation of hemoptysis, chills, cough, and blood noted in the right ear.Patient states that about 12 days ago, he was visiting in [place], he had a mechanical fall with no syncope, patient was evaluated in ER and was found to have a nondisplaced left forearm ulnar fracture along which was treated conservatively. Patient had a CT done which was noted to be negative per patient. Patient states that over the last two days, he noticed that he was having chills, and yesterday night, he started having hemoptysis. Today he noticed that he was having bloody drainage from the right ear. Denies any headache, denies any focal weakness of upper or lower extremities. Denies any neck pain. Denies any new recent fall other than 12 days ago in [place] Denies chest pain other than with cough. He has been having generalized fatigue and malaise over the last two days. Denies exposure to sick contacts. 11/01/24 patient was admitted for septic shock and hemoptysis with Coumadin toxic ity today's INR improved significantly from 8-1.4 We will wait for paperboard box maker's if okay to resume. Patient appears acutely ill continue with broad-spectrum antibiotics tolerating. ID on board we will follow his recommendations. Patient is currently on nasal cannula to 3 L. We will be monitored closely in ICU. 11/02/2024 patient was seen earlier patient is lying in bed on room air we continue with broad-spectrum antibiotics tolerating reports no diarrhea. We continue to monitor INR. Encourage patient out of bed to chair as tolerated PT services we will be ordered. Denied chest pain palpitations dizziness. 11/03/24 patient is return back from [employer] echo ANDRES was done primary nurse reports patient started with nose bleed will get post procedure we will get a CBC now. Remains in heparin drip. We will monitor closely for any acute bleeding. 11/04/24 patient is lying in bed patient continues to require oxygen supplemental was started on Lasix IV 20 mg b.i.d. patient continues with physical therapy. Patient continues on heparin drip paperboard box maker's following we will appreciate his recommendations. Patient is tolerating broad-spectrum antibiotics wait for ID final recommendations 11/05/24 patient is lying in bed was sleeping awakened per verbal stimuli, the patient nurse reports patient has around the clock morphine reports elbow pain chronic. Patient went into AFib overnight converted normal sinus rhythm earlier this morning. Continues on heparin drip paperboard box maker's following we will follow his recommendations. tolerating antibiotics. 11/06/24 patient is lying in bed patient continues to require oxygen supplemental currently on 3 L. No fever no chills. No episodes of AFib. With RVR continues on heparin. Drip. 2D echo pending 11/07/2024 patient was seen earlier patient was awake alert oriented x3. Patient continues to complain of left elbow pain on pain management. Patient continues on oxygen supplemental encouraged patient to continue working with physical therapy, out of bed to chair with meals he verbalized understanding. We will wait for paperboard box maker's recommendations in dock manager's. He denies chest pain palpitation or dizziness. REVIEW OF SYSTEMS CONSTITUTIONAL: malaise, generalized weakness, fatigue NEUROLOGICAL: Denies headache, amaurosis fugax, motor weakness, sensory deficit, vertigo/spinning sensation, gait abnormalities, or tremors. ENT: No hearing loss, reports having noticed blood coming out of the right ear CARDIOVASCULAR: Denies any exertional angina, dyspnea on exertion, orthopnea, paroxysmal nocturnal dyspnea, palpitations, life-threatening arrhythmias, claudication. PULMONARY: reports having cough, congestion, SOB, patient reports having hemoptysis SLEEP: Denies morning headaches, daytime somnolence or napping. Denies difficulty falling asleep, staying asleep, waking from sleep. Denies knowledge of snoring. GASTROINTESTINAL: Denies any type of dysphagia to either liquids or solids. Denies nausea, vomiting, pyrosis, early satiety, abdominal pain, diarrhea, constipation, or changes in stool consistency or caliber. Denies coffee-ground emesis, hematemesis, hematochezia, or melanotic stools. GENITOURINARY: Denies frequency, urgency, nocturia, hematuria or incontinence (Storage/Irritative symptoms.) Low urinary stream, straining to void, urinary intermittency or hesitancy, splitting of the voiding stream, terminal dribbling. ENDOCRINOLOGIC: Denies polyuria, polydipsia, polyphagia or heat/cold intolerances. HEMATOLOGIC: reports having easy bruising ONCOLOGIC: Denies personal history of malignancy. DERMATOLOGIC: Denies rashes or pruritus. PSYCHIATRIC: Denies any suicidal or homicidal ideation. Denies hallucinations. PHYSICAL EXAM GENERAL APPEARANCE: The patient is awake, alert, and oriented, in no acute cardiopulmonary distress. NEUROLOGICAL: Cranial nerves II-XII grossly intact. Motor is 5/5 in bilateral upper and lower extremities proximal to distal. No sensory deficits. HEENT: Face is symmetric. Pupils are equal and reactive. Extraocular movements are intact. Right ear on otoscopic examination noted to have dries blood and some bright red blood, there is small clots noted as well, which i did not dislodge, tympanic membrane could be full evaluated due to blood NECK: Supple. No JVD. No thyromegaly. No submental, submandibular, pre- /postauricular, occipital or supraclavicular lymphadenopathy. CHEST: Normal chest expansion. No Telemetry. LUNGS: Crackles noted of the right lung base with decreased breath with rhonc horous breath sounds CARDIOVASCULAR: Regular. S1 and S2 normal. No appreciable rubs, murmurs or gallops. ABDOMEN: Soft, nontender, and nondistended. There is no rebound, voluntary guarding, or rigidity. : Deferred. No Wills. EXTREMITIES: Trace edema of the bilateral lower extremities SKIN: Swelling and redness noted of the right shoulder Vital Signs (last 8hr) Date Time Temp Pulse Resp B/P (MAP) Pulse Ox O2 Delivery O2 Flow Rate FiO2 11/07/24 08:00 98 Nasal Cannula* 3 32 11/07/24 07:56 97.5 80 20 106/66 97 Nasal Cannula 3.0 11/07/24 07:47 76 18 11/07/24 07:46 76 18 N/Cannula Low lpm 3.0 11/07/24 07:45 78 18 11/07/24 03:29 98.1 81 18 101/64 92 Nasal Cannula 3.0 LABS: Laboratory: Test 11/07/24 03:34 11/06/24 06:25 11/05/24 13:30 Range/Units White Blood Count 10.7 4.8-10.8 K/uL Red Blood Count 3.04 L 4.50-6.20 MIL/uL Hemoglobin 8.6 L 14.0-18.0 g/dL Hematocrit 26.3 L 42-54 % Mean Corpuscular Volume 86.5 79-99 fL Mean Corpuscular Hemoglobin 28.3 27.0-33.0 pg Mean Corpuscular Hemoglobin Concent 32.7 32.0-36.0 g/dL Red Cell Distribution Width 14.1 11.0-15.5 % Platelet Count 250 130-400 K/uL Mean Platelet Volume 9.0 7.5-10.5 fL Immature Granulocyte % (Auto) 2.7 H 0-1 % Neutrophils (%) (Auto) 69.8 40.0-77.0 % Lymphocytes (%) (Auto) 14.7 L 21.0-51.0 % Monocytes (%) (Auto) 7.1 3.0-13.0 % Eosinophils (%) (Auto) 5.2 0.0-8.0 % Basophils (%) (Auto) 0.5 0.0-5.0 % Neutrophils # (Auto) 7.5 1.8-7.7 K/uL Lymphocytes # (Auto) 1.6 1.0-4.8 K/uL Monocytes # (Auto) 0.8 0.1-1.0 K/uL Eosinophils # (Auto) 0.56 0.00-0.70 K/uL Basophils # (Auto) 0.05 0.00-0.20 K/uL Absolute Immature Granulocyte (auto 0.29 0-1 K/uL Nucleated Red Blood Cells 0.0 0.0-0.19 % Prothrombin Time 12.0 H 9.6-11.6 SEC Prothromb Time International Ratio 1.15 0.85-1.15 Activated Partial Thromboplast Time 69.2 H 26.3-35.5 SEC Sodium Level 141 136-145 mmol/L Potassium Level 3.5 3.5-5.1 mmol/L Chloride Level 103 101-111 mmol/L Carbon Dioxide Level 32 21-32 mmol/L Blood Urea Nitrogen 11 7-18 mg/dL Creatinine 1.0 0.5-1.3 mg/dL Glomerular Filtration Rate Calc 84 >90 mL/min Random Glucose 100 70-105 mg/dL Total Calcium 8.3 L 8.5-10.1 mg/dL Magnesium Level 1.60 L 1.80-2.40 mg/dL Total Bilirubin 0.6 0.2-1.0 mg/dL Aspartate Amino Transf (AST/SGOT) 32 10-37 U/L Alanine Aminotransferase (ALT/SGPT) 21 12-78 U/L Alkaline Phosphatase 71 50-136 U/L Total Protein 5.4 L 6.0-8.3 g/dL Albumin 1.9 L 3.5-5.0 g/dL Procalcitonin 0.18 0.05-0.5 ng/mL Vancomycin Level Trough 8.9 #L 10.0-20.0 UG/ML Current Medications Medications (Trade) Dose Ordered Sig/Hank Route PRN Reason Start Time Stop Time Status Last Admin Dose Admin Acetaminophen (TYLenol 325MG TAB) 650 mg Q6H PRN PO MILD PAIN (1-3) 10/31/24 14:00 11/30/24 13:59 10/31/24 17:32 650 MG Albuterol (DUOneb) 1 udvial Q6H PRN IH SHORTNESS OF BREATH 10/31/24 14:30 11/30/24 14:29 11/03/24 18:24 1 UDVIAL Budesonide (Pulmicort 0.5 Mg/2ml) 0.5 mg BIDRESP IH 10/31/24 18:00 11/30/24 17:59 11/07/24 07:43 0.5 MG Cefepime HCl (MAXipime 2 gm vial) 2 gm Q12H IVPB 10/31/24 18:00 11/10/24 17:59 11/07/24 05:12 2 GM Clonazepam (KLONopin 2MG TAB) 2 mg HS PO 11/04/24 21:00 11/04/24 11:13 DC Clonazepam (KLONopin 2MG TAB) 2 mg HS PO 11/05/24 21:00 12/05/24 20:59 11/06/24 21:09 2 MG Doxycycline Hyclate 250 ml @ 125 mls/hr BID IV 10/31/24 14:00 11/10/24 13:59 11/07/24 08:56 125 MLS/HR Furosemide (LASix 20MG VIAL) 20 mg BID IV 11/04/24 09:00 11/05/24 06:14 DC 11/04/24 10:02 20 MG Furosemide (LASix 20MG VIAL) 20 mg Q12H IV 11/05/24 06:30 12/05/24 06:29 11/07/24 06:08 20 MG Heparin Sodium/ Dextrose 250 ml @ 0 mls/hr Q6H IV 11/02/24 21:00 12/02/24 20:59 11/06/24 15:25 0 MLS/HR Magnesium Sulfate 50 ml @ 0 mls/hr PROTOCOL PRN IV OTHER [SEE ORDER COMMENTS] 11/01/24 08:00 12/01/24 07:59 11/07/24 02:58 25 MLS/HR Metronidazole/ Sodium Chloride 100 ml @ 100 mls/hr Q8H6 IVPB 10/31/24 21:00 11/10/24 20:59 11/07/24 06:09 100 MLS/HR Morphine Sulfate (morPHINE 2MG SYG) 2 mg Q4H PRN IVP SEVERE PAIN (7-10) 11/02/24 10:30 11/09/24 10:29 11/07/24 08:57 2 MG Morphine Sulfate (morPHINE 2MG SYG) 2 mg Q6H PRN IVP SEVERE PAIN (7-10) 10/31/24 19:00 11/02/24 10:03 DC 11/02/24 06:33 2 MG Ondansetron HCl (zoFRAN 4MG INJ) 4 mg Q6H PRN IVP NAUSEA/VOMITING 10/31/24 14:00 11/30/24 13:59 11/03/24 08:38 4 MG Pantoprazole Sodium (PROTonix 40MG INJ) 40 mg Q12H IVP 10/31/24 14:00 11/30/24 13:59 11/07/24 02:58 40 MG Pharmacy Profile Note (Pharmacy Communication) 1 each ONCE MISC 11/02/24 13:30 11/02/24 13:15 DC Potassium Chloride 100 ml @ 50 mls/hr AD PRN IV POTASSIUM PROTOCOL 11/03/24 12:00 12/03/24 11:59 11/03/24 12:01 50 MLS/HR Potassium Chloride 100 ml @ 100 mls/hr AD PRN IV POTASSIUM PROTOCOL 11/03/24 12:00 11/04/24 17:15 DC Potassium Chloride (K-Dur/Klor-Con 20meq) 20 meq AD PRN PO POTASSIUM PROTOCOL 11/03/24 12:00 9/6/25 11:59 11/06/24 14:52 20 MEQ Potassium Chloride (KCl 10% Elixir 20meq/15ml) 20 meq AD PRN PO POTASSIUM PROTOCOL 11/03/24 12:00 12/03/24 11:59 11/05/24 13:13 20 MEQ Sodium Chloride 1,000 ml @ 75 mls/hr [id number] IV 10/31/24 14:00 11/02/24 21:00 DC 11/01/24 03:31 75 MLS/HR Tranexamic Acid (Cyklokapron) 500 mg [id number] IJ 10/31/24 15:30 11/02/24 11:02 DC 11/01/24 23:57 500 MG Vancomycin HCl 250 ml @ 125 mls/hr Q12H IV 11/06/24 01:30 11/11/24 01:29 11/07/24 00:34 125 MLS/HR Vancomycin HCl 250 ml @ 125 mls/hr Q12H IV 11/01/24 01:30 11/05/24 14:11 DC 11/05/24 13:36 125 MLS/HR Vancomycin HCl (Vancomycin Protocol) 1 each AD IV 10/31/24 12:30 11/14/24 12:29 DIAGNOSTICS / RADIOLOGY: [ ] ASSESSMENT: AFib with RVR not POA Chronic elbow pain Severe sepsis secondary to right lung community-acquired pneumonia, POA Acute hypoxemic respiratory failure, POA Bilateral Multifocal Pneumonia with R > L, POA Hypotension secondary to severe sepsis, resolving Hemoptysis, POA Right shoulder swelling with possible hematoma, POA Right ear otorrhea with blood, POA Acute on chronic anemia secondary to blood loss, POA Severely elevated supratherapeutic INR secondary to Coumadin use and possibly sepsis, POA hypercoagulable state secondary to Mechanical aortic value on Coumadin Therapy POA Coumadin Toxicity POA History of mechanical aortic valve, POA History of chronic anticoagulation with warfarin, POA Acute kidney injury, POA Demand ischemia, POA Recent history of left forearm ulnar nondisplaced fracture treated conservatively, POA Prior history of fall 12 days ago in [place], POA Obesity, POA PLAN: Mr. Williamson 64-year-old male remains in transitioned to PCCU patient remains on heparin drip with no episodes of AFib overnight. 2D echo showed There is severe valvular aortic stenosis. We will wait for paperboard box maker's recommendations. Continues on heparin drip. Sputum cultures negative blood cultures negative. Continues on multiple antibiotics. Physical therapy continues to work with patient.. Oxygen supplemental we will be titrate as tolerated. Encouraged patient to use IS while awake. Admit:PCCU Status: [facility] code consultants: Critical Care, [employer] infectious disease Diet: Heart healthy Continue oxygen supplemental to keep O2 sats above 92% currently on 3 L , continue bronchodilators as needed antibiotics: IV cefepime/Flagyl/doxycycline vanco Microbiology: Cultures were all negative. monitor for bleeding: transfuse as needed to keep Hbg above 7.0 Remains Heparin drip we will monitor H&H trend and platelets monitor acute bleeding. GI ppx: IV Protonix 40 mg b.i.d. Labs in am : CBC, cmp, and Mag PT services to eval and treat, fall precautions Plan of care was discussed with patient at bedside, ATTESTATION BY PHYSICIAN I have seen and examined the patient. I reviewed the documentation, medical decision making, and treatment plan as noted by the mid-level provider above. I agree with the findings and plan of care. VIC DICKEY MD, ELIZABETH NP Nov 07, 2024 11:08
--- NOTE | 2024-11-07 13:29 | PN ---
CARDIOLOGY Reason for consult: Mechanical Aortic Valve HPI/story at presentation: This is a pleasant 64-year-old male with past medical history significant for mechanical aortic valve placed in 1993, chronic warfarin use initially presented to the emergency department due to hemoptysis, cough, chills and blood noted in his right ear. Patient also reports he sustained a fall injury approximately 12 days ago in [place]. Denies any syncope episode. Her warfarin dose accordingly the patient is warfarin 5 mg daily other than on Thursday and Thursday when he takes 7.5 mg daily. Patient also found to be febrile with a temperature of 101.3. Initial blood pressure 83/42. sepsis protocol was started. INR results show greater than 8. Patient was administered vitamin K 10 mg IV and is scheduled to receive 2 units of FFP. High sensory troponin at 299. Patient was also found to have bilateral pneumonia 11/01/2024 patient was seen and evaluated at bedside in the ICU No episodes of bleeding has been reported since yesterday Repeat INR today is 1.14 Past medical history: See below Allergies, Meds See chart Review of systems Review of Systems Constitutional: + for chills and fever. HENT: + for right ear bloody discharge and ear pain. Eyes: Negative for photophobia and discharge. Respiratory: + for cough, sputum production and stridor. + hemoptysis Cardiovascular: Negative for chest pain and palpitations. Gastrointestinal: Negative for diarrhea and vomiting. Genitourinary: Negative for frequency. Musculoskeletal: Negative for myalgias. Skin: Negative for rash. Neurological: Negative for focal weakness and seizures. Endo/Heme/Allergies: Negative for polydipsia. Psychiatric/Behavioral: Negative for hallucinations. Vitals see chart PHYSICAL EXAMINATION GENERAL: The patient is alert and oriented*3, ill appearing HEENT: Nonicteric sclerae, non traumatic HEART: Regular rate and rhythm with no murmurs, 3/6 systolic murmur to 2nd ICS LUNGS: Diminished to auscultation bilaterally ABDOMEN: No acute issues, non tender GENITAL, RECTAL: deferred SKIN: No rash NEUROLOGIC: NFND EXTREMITIES: No edema ASSESSMENT SUPRATHERAPEUTIC INR INR GREATER THAN 8 Currently or warfarin Reports hemoptysis and bloody drainage from right ear AORTIC VALVE REPLACEMENT Mechanical INR was subtherapeutic at presentation CORE MEASURES Not applicable OTHER MEDICAL PROBLEMS Reviewed PLAN 10/31/2024 will order echocardiography to examine aortic valve. Patient is currently pending CT of the head and chest due to recent fall and supratherapeutic INR Continue with FFP infusion with plans for repeat INR 11/01/2024 patient's INR today is 21.14. No new episodes Of bleeding heavy reported Patient will need to be restarted on his oral Coumadin but will start patient on IV heparin and moderate for bleeding Patient's hemoglobin today is currently at 8.1 We will wait to start IV heparin drip tomorrow in repeat H&H in the morning 11/02/2024 Hemoglobin remains stable Currently pending PICC line Will start IV heparin drip without bolus once PICC line in place If no issues with bleeding and hgb remains stable, will start oral warfarin tomorrow 11/03/2024 ANDRES attempted today was terminated early because of nosebleeds and patient's overall elevated gag reflex in spite of numbing of his throat. Sedation also had to be reduced given respiratory status. Fluoroscopy was done to evaluate the aortic valve which appears to be moving appropriately. However, this does not exclude smaller clots in the aortic valve. ANDRES may eventually be required once diuresis is complete. Will attempt again with anesthesia support. Will periodically follow-up on aortic gradients in the meantime until diuresis is complete. If there is a thrombosis of the aortic valve which is suspected on the basis of gradients, patient remains at risk for a stroke. Overall difficult situation. Seen and examined 11/03/2024 multiple times. 11/04/2024 clinically, appears improved, edema is better, shortness of breath is better although, still fairly short of breath, will proceed with a transthoracic echo to assess for gradients tomorrow. Depending on that, we will decide on future ANDRES's if indicated. Continue diuresis, renal function stable, remains on heparin. Seen and examined 825 around 7:30 PM 11/05/2024 no active cardiac complaints at this time, breathing better, remains IV diuresis. Repeat aortic valve gradients are still elevated greater than 5 m/s close to 6. Suspicion for possible thrombus/pannus of the aortic valve leaflets. they were moving appropriately under fluoroscopy. Will attempt ANDRES again on Thursday under anesthesia support. Remains on heparin. No strokelike features. Continue neurochecks. Once anesthetic risk is lower after diuresis, will proceed with ADNRES. Seen and examined in 925 around 4:30 PM 11/06/2024 plan for ANDRES tomorrow, valve gradient still significantly elevated close to 5.8 meters per second. N.p.o. after midnight, will proceed with ANDRES tomorrow with anesthesia support. Multiple questions regarding the procedure answered. Risk benefits addressed. Clinically, appears to be improved, was able to ambulate in the hallway today. Seen and examined 11/06/2024 around 3 PM. 11/07/2024 ANDRES completed today with no clinical evidence of thrombus. Possible pannus formation noted with thickening of the mechanical valve leaflets. This may be contributing to the elevated gradients. Will discuss with CV surgery before further recommendations. Seen and examined 11/07/2024 at around 1:30 PM. ATTESTATION I was involved substantially in the care of this patient Number and complexity of problems addressed: 1 acute illness that is a threat to life or bodily function Amount and or complexity of data Review of prior external note(s) from each unique source: 2+ Ordering of each unique test : 2 Review of the result(s) of each unique test: 2+ Assessment requiring an independent historian(s): No Independent interpretation of test performed by another MD/QHCP/appropriate source (not separately reported) : No Discussion of management or test interpretation with external MD/QHCP/appropriate source (not separately reported) : No Risk status (cardiac, billing related):High Vitals/Labs Vital Signs Date Time Temp Pulse Resp B/P (MAP) Pulse Ox O2 Delivery O2 Flow Rate FiO2 11/07/24 11:59 98.6 67 20 105/57 97 Nasal Cannula 3.0 11/07/24 08:00 32 Laboratory Tests 11/07/24 03:34 Medications Current Medications Vancomycin HCl 1 each AD IV; Start 10/31/24 at 12:30; Stop 11/14/24 at 12:29 Piperacillin Sod/ Tazobactam Sod 3.375 gm ONCE ONCE IV Last administered on 10/31/24at 12:43; Start 10/31/24 at 12:30; Stop 10/31/24 at 12:41; Status DC Sodium Chloride 1,000 ml @ 0 mls/hr ONCE ONCE IV Last administered on 10/31/24at 12:43; Start 10/31/24 at 12:30; Stop 10/31/24 at 12:41; Status DC Vancomycin HCl 500 ml @ 250 mls/hr ONCE ONCE IV Last administered on 10/31/24at 13:57; Start 10/31/24 at 13:00; Stop 10/31/24 at 14:59; Status DC Vancomycin HCl 250 ml @ 125 mls/hr Q12H IV Last administered on 11/05/24at 13:36; Start 11/01/24 at 01:30; Stop 11/05/24 at 14:11; Status DC Sodium Chloride 1,983 ml @ 661 mls/hr ONCE ONCE IV Last administered on 10/31/24at 13:12; Start 10/31/24 at 13:00; Stop 10/31/24 at 15:59; Status DC Phytonadione 10 mg/Sodium Chloride 51 ml @ 100 mls/hr ONCE ONCE IVPB Last administered on 10/31/24at 13:12; Start 10/31/24 at 13:00; Stop 10/31/24 at 13:30; Status DC Morphine Sulfate 2 mg ONCE ONCE IVP Last administered on 10/31/24at 13:20; Start 10/31/24 at 13:30; Stop 10/31/24 at 13:31; Status DC Ondansetron HCl 4 mg ONCE ONCE IVP Last administered on 10/31/24at 13:20; Start 10/31/24 at 13:30; Stop 10/31/24 at 13:31; Status DC Pantoprazole Sodium 40 mg Q12H IVP Last administered on 11/07/24at 02:58; Start 10/31/24 at 14:00; Stop 11/30/24 at 13:59 Acetaminophen 650 mg Q6H PRN PO Last administered on 10/31/24at 17:32; Start 10/31/24 at 14:00; Stop 11/30/24 at 13:59 Ondansetron HCl 4 mg Q6H PRN IVP Last administered on 11/03/24at 08:38; Start 10/31/24 at 14:00; Stop 11/30/24 at 13:59 Sodium Chloride 1,000 ml @ 75 mls/hr [id number] IV Last administered on 11/01/24at 03:31; Start 10/31/24 at 14:00; Stop 11/02/24 at 21:00; Status DC Cefepime HCl 2 gm Q12H IVPB Last administered on 11/07/24at 05:12; Start 10/31/24 at 18:00; Stop 11/10/24 at 17:59 Doxycycline Hyclate 250 ml @ 125 mls/hr BID IV Last administered on 11/07/24at 08:56; Start 10/31/24 at 14:00; Stop 11/10/24 at 13:59 Metronidazole/ Sodium Chloride 100 ml @ 100 mls/hr Q8H6 IVPB Last administered on 11/07/24at 06:09; Start 10/31/24 at 21:00; Stop 11/10/24 at 20:59 Albuterol 1 udvial Q6H PRN IH Last administered on 11/03/24at 18:24; Start 10/31/24 at 14:30; Stop 11/30/24 at 14:29 Budesonide 0.5 mg BIDRESP IH Last administered on 11/07/24at 07:43; Start 10/31/24 at 18:00; Stop 11/30/24 at 17:59 Iohexol 75 ml STK-MED ONCE IV; Start 10/31/24 at 14:53; Stop 10/31/24 at 14:54; Status DC Tranexamic Acid 500 mg [id number] IJ Last administered on 11/01/24at 23:57; Start 10/31/24 at 15:30; Stop 11/02/24 at 11:02; Status DC Morphine Sulfate 2 mg Q6H PRN IVP Last administered on 11/02/24at 06:33; Start 10/31/24 at 19:00; Stop 11/02/24 at 10:03; Status DC Sodium Chloride 4 ml STK-MED ONCE IH Last administered on 10/31/24at 22:46; Start 10/31/24 at 22:37; Stop 10/31/24 at 22:38; Status DC Magnesium Sulfate 50 ml @ 0 mls/hr PROTOCOL PRN IV Last administered on 11/07/24at 02:58; Start 11/01/24 at 08:00; Stop 12/01/24 at 07:59 Morphine Sulfate 2 mg ONCE ONCE IVP Last administered on 11/01/24at 08:21; Start 11/01/24 at 08:30; Stop 11/01/24 at 08:31; Status DC Sodium Chloride 4 ml STK-MED ONCE IH; Start 11/01/24 at 10:49; Stop 11/01/24 at 10:50; Status DC Morphine Sulfate 2 mg Q4H PRN IVP Last administered on 11/07/24at 08:57; Start 11/02/24 at 10:30; Stop 11/09/24 at 10:29 Heparin Sodium/ Dextrose 250 ml @ 0 mls/hr Q6H IV Last administered on 11/06/24at 15:25; Start 11/02/24 at 21:00; Stop 12/02/24 at 20:59 Pharmacy Profile Note 1 each ONCE MISC; Start 11/02/24 at 13:30; Stop 11/02/24 at 13:15; Status DC Midazolam HCl 4 mg ONCE ONCE IVP Last administered on 11/03/24at 13:04; Start 11/03/24 at 12:00; Stop 11/03/24 at 12:01; Status DC Fentanyl Citrate 100 mcg ONCE ONCE IVP Last administered on 11/03/24at 13:05; Start 11/03/24 at 12:00; Stop 11/03/24 at 12:01; Status DC Lidocaine HCl 15 ml ONCE ONCE PO Last administered on 11/03/24at 12:06; Start 11/03/24 at 12:00; Stop 11/03/24 at 12:01; Status DC Potassium Chloride 100 ml @ 50 mls/hr AD PRN IV Last administered on 11/03/24at 12:01; Start 11/03/24 at 12:00; Stop 12/03/24 at 11:59 Potassium Chloride 100 ml @ 100 mls/hr AD PRN IV; Start 11/03/24 at 12:00; Stop 11/04/24 at 17:15; Status DC Potassium Chloride 20 meq AD PRN PO Last administered on 11/05/24at 13:13; Start 11/03/24 at 12:00; Stop 12/03/24 at 11:59 Potassium Chloride 20 meq AD PRN PO Last administered on 11/06/24at 14:52; Start 11/03/24 at 12:00; Stop 12/03/24 at 11:59 Furosemide 40 mg ONCE ONCE IV Last administered on 11/03/24at 14:33; Start 11/03/24 at 12:30; Stop 11/03/24 at 12:31; Status DC Furosemide 20 mg BID IV Last administered on 11/04/24at 10:02; Start 11/04/24 at 09:00; Stop 11/05/24 at 06:14; Status DC Clonazepam 2 mg ONCE ONCE PO Last administered on 11/04/24at 10:02; Start 11/04/24 at 09:00; Stop 11/04/24 at 09:01; Status DC Clonazepam 2 mg HS PO; Start 11/04/24 at 21:00; Stop 11/04/24 at 11:13; Status DC Clonazepam 2 mg HS PO Last administered on 11/06/24at 21:09; Start 11/05/24 at 21:00; Stop 12/05/24 at 20:59 Melatonin 10 mg ONCE ONCE PO Last administered on 11/04/24at 20:37; Start 11/04/24 at 21:30; Stop 11/04/24 at 21:31; Status DC Digoxin 125 mcg ONCE ONCE IV Last administered on 11/05/24at 01:44; Start 11/05/24 at 01:30; Stop 11/05/24 at 01:39; Status DC Furosemide 20 mg Q12H IV Last administered on 11/07/24at 06:08; Start 11/05/24 at 06:30; Stop 12/05/24 at 06:29 Vancomycin HCl 250 ml @ 125 mls/hr Q12H IV Last administered on 11/07/24at 00:34; Start 11/06/24 at 01:30; Stop 11/11/24 at 01:29 Phenylephrine HCl 10 mg STK-MED ONCE IV; Start 11/07/24 at 12:29; Stop 11/07/24 at 12:30; Status DC Ephedrine Sulfate 50 mg STK-MED ONCE .ROUTE; Start 11/07/24 at 12:29; Stop 11/07/24 at 12:30; Status DC Propofol 200 mg STK-MED ONCE IV; Start 11/07/24 at 12:29; Stop 11/07/24 at 12:30; Status DC Propofol 200 mg STK-MED ONCE IV; Start 11/07/24 at 12:30; Stop 11/07/24 at 12:30; Status DC ANTONINO DIANE MD Nov 07, 2024 13:29
--- NOTE | 2024-11-07 16:13 | PN ---
INFECTIOUS DISEASE PROGRESS NOTE Date of Service: Nov 07, 2024 SUBJECTIVE: This 64 year old male patient is being seen today at bedside. Awake, alert and oriented. A ANDRES was performed today. He continues with antibiotics. Denies chest pain or shortness of breath. He remains on oxygen. No nausea or vomiting. No fever or chills. No palpitation. We continue to follow patient closely. PHYSICAL EXAM EYES: Anicteric. Pupils equal and reactive. HENT: No oral thrush seen, moist Oral mucosa NECK: Supple, no JVD or thyromegaly. LUNGS: crackles present no wheezing CARDIOVASCULAR: S1, S2 regular. No murmur heard. ABDOMEN: Soft, non tender, bowel sounds present, no organomegaly CENTRAL NERVOUS SYSTEM: Awake, alert, oriented x 3. No focal deficits. SKIN: No rashes, no swelling. LYMPHATICS: No peripheral lymphadenopathy MUSCULOSKELETAL: No joint swelling, erythema or tenderness. EXTREMITIES: No cyanosis or clubbing BACK: No deformity, no pressure ulcer. GENITOURINARY: No dysuria or hematuria Vital Sign (Last 12 Hours) 11/07/24 11/07/24 11/07/24 11/07/24 07:45 07:46 07:47 07:56 Temp 97.5 Pulse 78 76 76 80 Resp 18 18 18 20 B/P (MAP) 106/66 Pulse Ox 97 O2 Delivery N/Cannula Low lpm Nasal Cannula O2 Flow Rate 3.0 3.0 11/07/24 11/07/24 11/07/24 11/07/24 08:00 11:59 13:00 13:33 Temp 98.6 98.6 Pulse 67 88 71 Resp 20 20 20 B/P (MAP) 105/57 110/56 Pulse Ox 98 97 98 O2 Delivery Nasal Cannula* Nasal Cannula Nasal Cannula N/A Room Air O2 Flow Rate 3 3.0 3.2 FiO2 32 21 Intake & Output (last 24hrs) 11/06/24 11/06/24 11/07/24 15:00 23:00 07:00 Intake Total 1078.6 ml 728.6 ml Output Total 2675 ml 900 ml Balance -1596.4 ml -171.4 ml LABS: Laboratory: Test 11/07/24 12:41 11/07/24 03:34 11/06/24 06:25 Range/Units Vancomycin Level Trough 15.2 # 10.0-20.0 UG/ML White Blood Count 10.7 4.8-10.8 K/uL Red Blood Count 3.04 L 4.50-6.20 MIL/uL Hemoglobin 8.6 L 14.0-18.0 g/dL Hematocrit 26.3 L 42-54 % Mean Corpuscular Volume 86.5 79-99 fL Mean Corpuscular Hemoglobin 28.3 27.0-33.0 pg Mean Corpuscular Hemoglobin Concent 32.7 32.0-36.0 g/dL Red Cell Distribution Width 14.1 11.0-15.5 % Platelet Count 250 130-400 K/uL Mean Platelet Volume 9.0 7.5-10.5 fL Immature Granulocyte % (Auto) 2.7 H 0-1 % Neutrophils (%) (Auto) 69.8 40.0-77.0 % Lymphocytes (%) (Auto) 14.7 L 21.0-51.0 % Monocytes (%) (Auto) 7.1 3.0-13.0 % Eosinophils (%) (Auto) 5.2 0.0-8.0 % Basophils (%) (Auto) 0.5 0.0-5.0 % Neutrophils # (Auto) 7.5 1.8-7.7 K/uL Lymphocytes # (Auto) 1.6 1.0-4.8 K/uL Monocytes # (Auto) 0.8 0.1-1.0 K/uL Eosinophils # (Auto) 0.56 0.00-0.70 K/uL Basophils # (Auto) 0.05 0.00-0.20 K/uL Absolute Immature Granulocyte (auto 0.29 0-1 K/uL Nucleated Red Blood Cells 0.0 0.0-0.19 % Prothrombin Time 12.0 H 9.6-11.6 SEC Prothromb Time International Ratio 1.15 0.85-1.15 Activated Partial Thromboplast Time 69.2 H 26.3-35.5 SEC Sodium Level 141 136-145 mmol/L Potassium Level 3.5 3.5-5.1 mmol/L Chloride Level 103 101-111 mmol/L Carbon Dioxide Level 32 21-32 mmol/L Blood Urea Nitrogen 11 7-18 mg/dL Creatinine 1.0 0.5-1.3 mg/dL Glomerular Filtration Rate Calc 84 >90 mL/min Random Glucose 100 70-105 mg/dL Total Calcium 8.3 L 8.5-10.1 mg/dL Magnesium Level 1.60 L 1.80-2.40 mg/dL Total Bilirubin 0.6 0.2-1.0 mg/dL Aspartate Amino Transf (AST/SGOT) 32 10-37 U/L Alanine Aminotransferase (ALT/SGPT) 21 12-78 U/L Alkaline Phosphatase 71 50-136 U/L Total Protein 5.4 L 6.0-8.3 g/dL Albumin 1.9 L 3.5-5.0 g/dL Procalcitonin 0.18 0.05-0.5 ng/mL DIAGNOSTICS / RADIOLOGY: CR Chest, 1 View. CLINICAL HISTORY: please assess for any wrsening infiltrates, PNA COMPARISON: None provided. FINDINGS: LUNGS: Improved right sided infiltrate. Resolving pneumonia. Continue follow-up recommended PLEURAL SPACES: No pleural effusion or pneumothorax. MEDIASTINUM: Cardiac size and mediastinal contours within normal limits. BONES: No acute osseous abnormality. IMPRESSION: Improved right sided infiltrate. Resolving pneumonia. Continue follow-up recommended /[place] REASON: picc line placement ORDERING PHYSICIAN: ALICIA LUCIANO PROCEDURE: CXR1VW - CHEST 1VW EXAM: CR Chest, 2 View. CLINICAL HISTORY: picc line placement COMPARISON: X-ray chest 11/02/2024 FINDINGS: Multifocal airspace opacities bilaterally right greater than left. Persistent small right-sided pleural effusion. MEDIASTINUM: The cardiomediastinal silhouette is within normal limits. Changes of median sternotomy Interval placement of right PICC line catheter whose tip is in appropriate position projecting within the junction of the SVC and right atrium BONES: No acute osseous abnormality. IMPRESSION: 1. Multifocal airspace opacities bilaterally, right greater than left 2. Small right pleural effusion 3. Right PICC line tip appropriately positioned at SVC-right atrial junction ASSESSMENT: * Multifocal pneumonia. * Severe sepsis. * Hypoxic respiratory failure. * Supratherapeutic INR. * Elevated troponin may be due to demand ischemia. * Anemia. * leukocytosis PLAN: * Continue vancomycin. * Continue cefepime. * Continue doxycycline. * Continue Flagyl.. * Continue nutritional support. * Monitor electrolytes. * The patient will be followed up closely. * Monitor INR * follow Cardiology recommendations * Continue PT * continue oxygen This case has been discussed with my supervising physician Dr. Awad. The case has been discussed and agreed upon. YESSICA GASCA [facility] Nov 07, 2024 16:13
--- NOTE | 2024-11-07 19:27 | PN ---
[facility] PROGRESS NOTE Date Patient Seen: Nov 07, 2024 Time of Visit: 19:16 Supervising Physician: MARBELLA CHARLES MD Primary Care Physician: self referral Outpatient Specialists: Inpatient Consults: dr Awad, Dr Ej Vega PROBLEM LIST: Septic shock, resolved supra therapeutic INR secondary to Coumadin, resolved Acute hypoxemic respiratory failure, POA Suspected alveolar hemorrhage, improving Acute on chronic anemia secondary to blood loss, POA History of mechanical aortic valve, POA History of chronic anticoagulation with warfarin, POA Acute kidney injury, POA Demand ischemia, POA Obesity, POA INTERVAL HISTORY: Patient is pending ANDRES for today He remains on O2 Very weak, complains of fatigue, dyspnea and orthopnea No fevers, no chest pain Denies palpitations Good appetite, no nausea or vomiting Remains on 3 liters O2 REVIEW OF SYSTEMS: 12 point ROS reviewed with patient. Pertinent positives mentioned above. Otherwise negative. PHYSICAL EXAM: GENERAL: alert, weak, awake oriented x 3 HEENT: EOMI, Sclera non icteric, moist mucosa NECK: Supple, no JVD, trachea midline LUNGS: Bilateral crackles to the bases, no wheezing HEART: Regular rate and rhythm. Normal S1 and S2, without murmurs ABD: Abdomen obese soft, nontender. Bowel sounds present EXT: No clubbing cyanosis. Left forearm tenderness. Right shoulder swelling. BLE edema ++ NEURO: Alert and oriented to person, follows commands Vital Signs (last 8hr) Date Time Temp Pulse Resp B/P (MAP) Pulse Ox O2 Delivery O2 Flow Rate FiO2 11/07/24 18:54 78 18 N/A Room Air 21 11/07/24 18:37 73 20 11/07/24 16:00 98.6 65 20 110/65 97 Room Air 11/07/24 13:33 71 20 N/A Room Air 21 11/07/24 13:00 98.6 88 20 110/56 98 Nasal Cannula 3.2 11/07/24 11:59 98.6 67 20 105/57 97 Nasal Cannula 3.0 LABS: Hematology Labs: Test 11/07/24 03:34 Range/Units White Blood Count 10.7 4.8-10.8 K/uL Red Blood Count 3.04 L 4.50-6.20 MIL/uL Hemoglobin 8.6 L 14.0-18.0 g/dL Hematocrit 26.3 L 42-54 % Mean Corpuscular Volume 86.5 79-99 fL Mean Corpuscular Hemoglobin 28.3 27.0-33.0 pg Mean Corpuscular Hemoglobin Concent 32.7 32.0-36.0 g/dL Red Cell Distribution Width 14.1 11.0-15.5 % Platelet Count 250 130-400 K/uL Mean Platelet Volume 9.0 7.5-10.5 fL Immature Granulocyte % (Auto) 2.7 H 0-1 % Neutrophils (%) (Auto) 69.8 40.0-77.0 % Lymphocytes (%) (Auto) 14.7 L 21.0-51.0 % Monocytes (%) (Auto) 7.1 3.0-13.0 % Eosinophils (%) (Auto) 5.2 0.0-8.0 % Basophils (%) (Auto) 0.5 0.0-5.0 % Neutrophils # (Auto) 7.5 1.8-7.7 K/uL Lymphocytes # (Auto) 1.6 1.0-4.8 K/uL Monocytes # (Auto) 0.8 0.1-1.0 K/uL Eosinophils # (Auto) 0.56 0.00-0.70 K/uL Basophils # (Auto) 0.05 0.00-0.20 K/uL Absolute Immature Granulocyte (auto 0.29 0-1 K/uL Nucleated Red Blood Cells 0.0 0.0-0.19 % Chemistry Labs: Test 11/07/24 03:34 11/06/24 06:25 Range/Units Sodium Level 141 136-145 mmol/L Potassium Level 3.5 3.5-5.1 mmol/L Chloride Level 103 101-111 mmol/L Carbon Dioxide Level 32 21-32 mmol/L Blood Urea Nitrogen 11 7-18 mg/dL Creatinine 1.0 0.5-1.3 mg/dL Glomerular Filtration Rate Calc 84 >90 mL/min Random Glucose 100 70-105 mg/dL Total Calcium 8.3 L 8.5-10.1 mg/dL Magnesium Level 1.60 L 1.80-2.40 mg/dL Total Bilirubin 0.6 0.2-1.0 mg/dL Aspartate Amino Transf (AST/SGOT) 32 10-37 U/L Alanine Aminotransferase (ALT/SGPT) 21 12-78 U/L Alkaline Phosphatase 71 50-136 U/L Total Protein 5.4 L 6.0-8.3 g/dL Albumin 1.9 L 3.5-5.0 g/dL Procalcitonin 0.18 0.05-0.5 ng/mL Coagulation Labs: Test 11/07/24 03:34 Range/Units Prothrombin Time 12.0 H 9.6-11.6 SEC Prothromb Time International Ratio 1.15 0.85-1.15 Activated Partial Thromboplast Time 69.2 H 26.3-35.5 SEC DIAGNOSTICS / RADIOLOGY RESULTS: [ Chest x-ray reviewed ] PLAN Patient to undergo ANDRES today Will follow results continue with supplemental oxygen Gentle diuresis Avoid fluid overload Telemetry monitoring NEURO: Minimize central acting medications as possible. Maintain fall precautions, adequate lighting during the day PULMONARY: Supplemental 02 as needed. Maintain aspiration precautions at all times CARDIOVASCULAR: Follow hemodynamics. Vital signs per facility protocol GI & NUTRITION: Continue with nutritional support. Continue stool softeners and laxatives as needed. KIDNEYS & ELECTROLYTES: Strict monitoring of intake, output and overall fluid balance. Avoid nephrotoxic medications to the extent possible. Medications to be dosed according to renal function. Monitor electrolytes and replace as needed ENDOCRINE: Maintain blood glucose between 100-180 at all times. Hypoglycemia protocol in place INFECTIOUS DISEASE: Trend temperature, WBC and procalcitonin level Follow cultures, deescalate antibiotics as soon as possible. Panculture if new onset fever ONCOLOGY/HEMATOLOGY/COAGULATION: Monitor for s/s of bleeding Monitor hemoglobin, coagulation studies as needed SKIN: Pressure ulcer prevention per facility protocol Specialty mattress ORTHO/REHAB: Continue PT/OT Prophylaxis: Continue GI and DVT prophylaxis Code Status: Full Resuscitation Disposition: TBD Other: Total patient care time exceeds 35 minutes excluding all procedures. I personally scribed for MARBELLA CALL MD ([email or web address]) on 11/07/24 at 19:27. Electronically submitted by Ian Danielson ([email or web address]). MARBELLA CALL MD Nov 07, 2024 19:27
[2024-11-08] VITALS (11 sets, daily range): BP systolic 99–125; BP diastolic 53–85; PULSE 76–94; RESP 18–24; TEMP 97–98.7; O2SAT 95–97
--- NOTE | 2024-11-08 06:30 | HMCIMG ---
EXAM: CR Chest, 1 View. CLINICAL HISTORY: Pneumonia. COMPARISON: Chest radiograph provided 11/06/2024. FINDINGS: Stable since the prior exam, without a positive dynamic. Borderline cardiomegaly. Prior sternotomy. Right PICC catheter, tip in the region of the SVC/right atrium. Stable patchy, infiltrates in the right mid and lower zones.Minimal to mild right pleural effusion. No evidence of pneumothorax. No acute osseous abnormality.Mild degenerative changes in the mid and lower thoracic spine. BONES: No aggressive appearing osseous lesion was seen. IMPRESSION: Right-sided PICC catheter with tip in the region of the SVC/right atrium. Patchy, ill-defined infiltrates in the right mid and lower zones. Subtle blunting of the right costophrenic angle is suggestive of minimal right pleural effusion. Poststernotomy status. Borderline cardiomegaly. No evidence of pneumothorax. /[place]
--- NOTE | 2024-11-08 07:10 | HMCSR ---
APPROVED REPORT EXAM: Transesophageal echocardiogram with color flow Doppler. INDICATION ICD: Assess aortic valve prosthetic PROCEDURE After obtaining informed consent, patient underwent transesophageal echo in the Patient Room 227 . 15 mL 2% Viscous Lidocaine was given as a topical anesthetic prior to the administration of the consc ious sedation. Type of Sedation: General Anesthesia Sedation was administered by please refer to medication administration record. . Sedation was achieved with please refer to medication administration record. intravenously. Transesophageal probe was inserted and advanced into esophagus without difficulty by Reza Vega MD . ANDRES was performed and images were obtained, probe was removed without complications. Throughout the procedure, the blood pressure, pulse oximetry, cardiac rhythm, and rate were monitored . Atria l. Aortic Valve Mechanical aortic prosthetic valve is thickened with pannus noted. Mechanical aoritc prosthetic valve opens well. No paravalvular/perivalvular leak noted on this study. There is no aortic prosthetic va lvular vegetation. Mitral Valve No mitral valve vegetation. Conclusion Mechanical aortic prosthetic valve is thickened with pannus noted. Mechanical aoritc prosthetic valve opens well. No paravalvular/perivalvular leak noted on this study. Layered thrombus cannot be excluded
--- NOTE | 2024-11-08 09:03 | PN ---
[facility] PROGRESS NOTE Date of Service: Nov 08, 2024 Time of Service: 09:02 SUBJECTIVE: [ ] 64-year-old male with prior history of mechanical aortic valve which was replaced in 1993 maintained on chronic outpatient anticoagulation with warfarin, obesity, who presented to the ER for further evaluation of hemoptysis, chills, cough, and blood noted in the right ear.Patient states that about 12 days ago, he was visiting in [place], he had a mechanical fall with no syncope, patient was evaluated in ER and was found to have a nondisplaced left forearm ulnar fracture along which was treated conservatively. Patient had a CT done which was noted to be negative per patient. Patient states that over the last two days, he noticed that he was having chills, and yesterday night, he started having hemoptysis. Today he noticed that he was having bloody drainage from the right ear. Denies any headache, denies any focal weakness of upper or lower extremities. Denies any neck pain. Denies any new recent fall other than 12 days ago in [place] Denies chest pain other than with cough. He has been having generalized fatigue and malaise over the last two days. Denies exposure to sick contacts. 11/01/24 patient was admitted for septic shock and hemoptysis with Coumadin toxic ity today's INR improved significantly from 8-1.4 We will wait for orthopedic physician assistant's if okay to resume. Patient appears acutely ill continue with broad-spectrum antibiotics tolerating. ID on board we will follow his recommendations. Patient is currently on nasal cannula to 3 L. We will be monitored closely in ICU. 11/02/2024 patient was seen earlier patient is lying in bed on room air we continue with broad-spectrum antibiotics tolerating reports no diarrhea. We continue to monitor INR. Encourage patient out of bed to chair as tolerated PT services we will be ordered. Denied chest pain palpitations dizziness. 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 Remains in heparin drip. We will monitor closely for any acute bleeding. 11/04/24 patient is lying in bed patient continues to require oxygen supplemental was started on Lasix IV 20 mg b.i.d. patient continues with physical therapy. Patient continues on heparin drip orthopedic physician assistant's following we will appreciate his recommendations. Patient is tolerating broad-spectrum antibiotics wait for ID final recommendations 11/05/24 patient is lying in bed was sleeping awakened per verbal stimuli, the patient nurse reports patient has around the clock morphine reports elbow pain chronic. Patient went into AFib overnight converted normal sinus rhythm earlier this morning. Continues on heparin drip orthopedic physician assistant's following we will follow his recommendations. tolerating antibiotics. 11/06/24 patient is lying in bed patient continues to require oxygen supplemental currently on 3 L. No fever no chills. No episodes of AFib. With RVR continues on heparin. Drip. 2D echo pending 11/07/2024 patient was seen earlier patient was awake alert oriented x3. Patient continues to complain of left elbow pain on pain management. Patient continues on oxygen supplemental encouraged patient to continue working with physical therapy, out of bed to chair with meals he verbalized understanding. We will wait for orthopedic physician assistant's recommendations in mobile lounge driver's. He denies chest pain palpitation or dizziness. 11/08 patient is seen patient remains on oxygen supplemental 3 L. Dyspnea and orthopnea continues heparin drip. status post TEEno clinical evidence of thrombus. Possible pannus formation noted with thickening of the mechanical valve leaflets. This may be contributing to the elevated gradients. Will discuss with CV surgery before further recommendations. REVIEW OF SYSTEMS CONSTITUTIONAL: malaise, generalized weakness, fatigue NEUROLOGICAL: Denies headache, amaurosis fugax, motor weakness, sensory deficit, vertigo/spinning sensation, gait abnormalities, or tremors. ENT: No hearing loss, reports having noticed blood coming out of the right ear CARDIOVASCULAR: Denies any exertional angina, dyspnea on exertion, orthopnea, paroxysmal nocturnal dyspnea, palpitations, life-threatening arrhythmias, claudication. PULMONARY: reports having cough, congestion, SOB, patient reports having hemoptysis SLEEP: Denies morning headaches, daytime somnolence or napping. Denies difficulty falling asleep, staying asleep, waking from sleep. Denies knowledge of snoring. GASTROINTESTINAL: Denies any type of dysphagia to either liquids or solids. Denies nausea, vomiting, pyrosis, early satiety, abdominal pain, diarrhea, constipation, or changes in stool consistency or caliber. Denies coffee-ground emesis, hematemesis, hematochezia, or melanotic stools. GENITOURINARY: Denies frequency, urgency, nocturia, hematuria or incontinence (Storage/Irritative symptoms.) Low urinary stream, straining to void, urinary intermittency or hesitancy, splitting of the voiding stream, terminal dribbling. ENDOCRINOLOGIC: Denies polyuria, polydipsia, polyphagia or heat/cold intolerances. HEMATOLOGIC: reports having easy bruising ONCOLOGIC: Denies personal history of malignancy. DERMATOLOGIC: Denies rashes or pruritus. PSYCHIATRIC: Denies any suicidal or homicidal ideation. Denies hallucinations. PHYSICAL EXAM GENERAL APPEARANCE: The patient is awake, alert, and oriented, in no acute cardiopulmonary distress. NEUROLOGICAL: Cranial nerves II-XII grossly intact. Motor is 5/5 in bilateral upper and lower extremities proximal to distal. No sensory deficits. HEENT: Face is symmetric. Pupils are equal and reactive. Extraocular movements are intact. Right ear on otoscopic examination noted to have dries blood and some bright red blood, there is small clots noted as well, which i did not dislodge, tympanic membrane could be full evaluated due to blood NECK: Supple. No JVD. No thyromegaly. No submental, submandibular, pre-/postauricular, occipital or supraclavicular lymphadenopathy. CHEST: Normal chest expansion. No Telemetry. LUNGS: Crackles noted of the right lung base with decreased breath with rhonchorous breath sounds CARDIOVASCULAR: Regular. S1 and S2 normal. No appreciable rubs, murmurs or gallops. ABDOMEN: Soft, nontender, and nondistended. There is no rebound, voluntary guarding, or rigidity. : Deferred. No Wills. EXTREMITIES: Trace edema of the bilateral lower extremities SKIN: Swelling and redness noted of the right shoulder Vital Signs (last 8hr) Date Time Temp Pulse Resp B/P (MAP) Pulse Ox O2 Delivery O2 Flow Rate FiO2 11/08/24 07:00 97.5 94 24 110/75 93 Room Air 11/08/24 07:00 97 Nasal Cannula* 3 32 11/08/24 06:40 76 20 N/A Room Air 21 11/08/24 06:37 76 20 11/08/24 04:00 98.2 89 18 106/65 94 Nasal Cannula 3.0 LABS: Laboratory: Test 11/08/24 04:25 11/07/24 12:41 11/07/24 03:34 Range/Units Activated Partial Thromboplast Time 77.4 H 26.3-35.5 SEC Vancomycin Level Trough 15.2 # 10.0-20.0 UG/ML White Blood Count 10.7 4.8-10.8 K/uL Red Blood Count 3.04 L 4.50-6.20 MIL/uL Hemoglobin 8.6 L 14.0-18.0 g/dL Hematocrit 26.3 L 42-54 % Mean Corpuscular Volume 86.5 79-99 fL Mean Corpuscular Hemoglobin 28.3 27.0-33.0 pg Mean Corpuscular Hemoglobin Concent 32.7 32.0-36.0 g/dL Red Cell Distribution Width 14.1 11.0-15.5 % Platelet Count 250 130-400 K/uL Mean Platelet Volume 9.0 7.5-10.5 fL Immature Granulocyte % (Auto) 2.7 H 0-1 % Neutrophils (%) (Auto) 69.8 40.0-77.0 % Lymphocytes (%) (Auto) 14.7 L 21.0-51.0 % Monocytes (%) (Auto) 7.1 3.0-13.0 % Eosinophils (%) (Auto) 5.2 0.0-8.0 % Basophils (%) (Auto) 0.5 0.0-5.0 % Neutrophils # (Auto) 7.5 1.8-7.7 K/uL Lymphocytes # (Auto) 1.6 1.0-4.8 K/uL Monocytes # (Auto) 0.8 0.1-1.0 K/uL Eosinophils # (Auto) 0.56 0.00-0.70 K/uL Basophils # (Auto) 0.05 0.00-0.20 K/uL Absolute Immature Granulocyte (auto 0.29 0-1 K/uL Nucleated Red Blood Cells 0.0 0.0-0.19 % Prothrombin Time 12.0 H 9.6-11.6 SEC Prothromb Time International Ratio 1.15 0.85-1.15 Sodium Level 141 136-145 mmol/L Potassium Level 3.5 3.5-5.1 mmol/L Chloride Level 103 101-111 mmol/L Carbon Dioxide Level 32 21-32 mmol/L Blood Urea Nitrogen 11 7-18 mg/dL Creatinine 1.0 0.5-1.3 mg/dL Glomerular Filtration Rate Calc 84 >90 mL/min Random Glucose 100 70-105 mg/dL Total Calcium 8.3 L 8.5-10.1 mg/dL Magnesium Level 1.60 L 1.80-2.40 mg/dL Total Bilirubin 0.6 0.2-1.0 mg/dL Aspartate Amino Transf (AST/SGOT) 32 10-37 U/L Alanine Aminotransferase (ALT/SGPT) 21 12-78 U/L Alkaline Phosphatase 71 50-136 U/L Total Protein 5.4 L 6.0-8.3 g/dL Albumin 1.9 L 3.5-5.0 g/dL Current Medications Medications (Trade) Dose Ordered Sig/Hank Route PRN Reason Start Time Stop Time Status Last Admin Dose Admin Acetaminophen (TYLenol 325MG TAB) 650 mg Q6H PRN PO MILD PAIN (1-3) 10/31/24 14:00 11/30/24 13:59 10/31/24 17:32 650 MG Albuterol (DUOneb) 1 udvial Q6H PRN IH SHORTNESS OF BREATH 10/31/24 14:30 11/30/24 14:29 11/08/24 06:34 1 UDVIAL Budesonide (Pulmicort 0.5 Mg/2ml) 0.5 mg BIDRESP IH 10/31/24 18:00 11/30/24 17:59 11/08/24 06:34 0.5 MG Cefepime HCl (MAXipime 2 gm vial) 2 gm Q12H IVPB 11/08/24 08:00 11/10/24 07:59 Cefepime HCl (MAXipime 2 gm vial) 2 gm Q12H IVPB 10/31/24 18:00 11/08/24 07:36 DC 11/07/24 17:29 2 GM Clonazepam (KLONopin 2MG TAB) 2 mg HS PO 11/04/24 21:00 11/04/24 11:13 DC Clonazepam (KLONopin 2MG TAB) 2 mg HS PO 11/05/24 21:00 12/05/24 20:59 11/07/24 20:29 2 MG Doxycycline Hyclate 250 ml @ 125 mls/hr BID IV 10/31/24 14:00 11/10/24 13:59 11/07/24 20:27 125 MLS/HR Furosemide (LASix 20MG VIAL) 20 mg BID IV 11/04/24 09:00 11/05/24 06:14 DC 11/04/24 10:02 20 MG Furosemide (LASix 20MG VIAL) 20 mg Q12H IV 11/05/24 06:30 12/05/24 06:29 11/08/24 06:50 20 MG Heparin Sodium/ Dextrose 250 ml @ 0 mls/hr Q6H IV 11/02/24 21:00 12/02/24 20:59 11/06/24 15:25 0 MLS/HR Magnesium Sulfate 50 ml @ 0 mls/hr PROTOCOL PRN IV OTHER [SEE ORDER COMMENTS] 11/01/24 08:00 12/01/24 07:59 11/07/24 02:58 25 MLS/HR Metronidazole/ Sodium Chloride 100 ml @ 100 mls/hr Q8H6 IVPB 10/31/24 21:00 11/10/24 20:59 11/08/24 06:49 100 MLS/HR Morphine Sulfate (morPHINE 2MG SYG) 2 mg Q4H PRN IVP SEVERE PAIN (7-10) 11/02/24 10:30 11/07/24 13:29 DC 11/07/24 08:57 2 MG Morphine Sulfate (morPHINE 2MG SYG) 2 mg Q6H PRN IVP SEVERE PAIN (7-10) 10/31/24 19:00 11/02/24 10:03 DC 11/02/24 06:33 2 MG Ondansetron HCl (zoFRAN 4MG INJ) 4 mg Q6H PRN IVP NAUSEA/VOMITING 10/31/24 14:00 11/30/24 13:59 11/03/24 08:38 4 MG Pantoprazole Sodium (PROTonix 40MG INJ) 40 mg Q12H IVP 10/31/24 14:00 11/30/24 13:59 11/08/24 01:49 40 MG Pharmacy Profile Note (Pharmacy Communication) 1 each ONCE MISC 11/02/24 13:30 11/02/24 13:15 DC Potassium Chloride 100 ml @ 50 mls/hr AD PRN IV POTASSIUM PROTOCOL 11/03/24 12:00 12/03/24 11:59 11/03/24 12:01 50 MLS/HR Potassium Chloride 100 ml @ 100 mls/hr AD PRN IV POTASSIUM PROTOCOL 11/03/24 12:00 11/04/24 17:15 DC Potassium Chloride (K-Dur/Klor-Con 20meq) 20 meq AD PRN PO POTASSIUM PROTOCOL 11/03/24 12:00 12/03/24 11:59 11/08/24 01:49 20 MEQ Potassium Chloride (KCl 10% Elixir 20meq/15ml) 20 meq AD PRN PO POTASSIUM PROTOCOL 11/03/24 12:00 12/03/24 11:59 11/05/24 13:13 20 MEQ Sodium Chloride 1,000 ml @ 75 mls/hr [id number] IV 10/31/24 14:00 11/02/24 21:00 DC 11/01/24 03:31 75 MLS/HR Tranexamic Acid (Cyklokapron) 500 mg [id number] IJ 10/31/24 15:30 11/02/24 11:02 DC 11/01/24 23:57 500 MG Vancomycin HCl 250 ml @ 125 mls/hr Q12H IV 11/06/24 01:30 11/11/24 01:29 11/08/24 01:48 125 MLS/HR Vancomycin HCl 250 ml @ 125 mls/hr Q12H IV 11/01/24 01:30 11/05/24 14:11 DC 11/05/24 13:36 125 MLS/HR Vancomycin HCl (Vancomycin Protocol) 1 each AD IV 10/31/24 12:30 11/14/24 12:29 DIAGNOSTICS / RADIOLOGY: [ ] ASSESSMENT: AFib with RVR not POA Chronic elbow pain Severe sepsis secondary to right lung community-acquired pneumonia, POA Acute hypoxemic respiratory failure, POA Bilateral Multifocal Pneumonia with R > L, POA Hypotension secondary to severe sepsis, resolving Hemoptysis, POA Right shoulder swelling with possible hematoma, POA Right ear otorrhea with blood, POA Acute on chronic anemia secondary to blood loss, POA Severely elevated supratherapeutic INR secondary to Coumadin use and possibly sepsis, POA hypercoagulable state secondary to Mechanical aortic value on Coumadin Therapy POA Coumadin Toxicity POA History of mechanical aortic valve, POA History of chronic anticoagulation with warfarin, POA Acute kidney injury, POA Demand ischemia, POA Recent history of left forearm ulnar nondisplaced fracture treated conservatively, POA Prior history of fall 12 days ago in [place], POA Obesity, POA PLAN: Mr. Williamson 64-year-old male remains in transitioned to PCCU patient remains on heparin drip with no episodes of AFib overnight.s/P ANDRES- no clinical evidence o f thrombus. Possible pannus formation noted with thickening of the mechanical valve leaflets. This may be contributing to the elevated gradients. waiting for CV surgery for further recommendations.. Continues on heparin drip. Continue oxygen dyspneic, weak. Physical therapy continues to work with patient.. Encouraged patient to use IS while awake. Admit:PCCU Status: [place] code consultants: Critical Care, Clinical Abstractor infectious disease, CV Diet: Heart healthy Continue oxygen supplemental to keep O2 sats above 92% currently on 3 L , continue bronchodilators as needed antibiotics: IV cefepime/Flagyl/doxycycline vanco monitor for bleeding: transfuse as needed to keep Hbg above 7.0 Remains Heparin drip we will monitor H&H trend and platelets monitor acute bleeding. GI ppx: IV Protonix 40 mg b.i.d. Labs in am : CBC, cmp, and Mag PT services to eval and treat, fall precautions Plan of care was discussed with patient at bedside, ATTESTATION BY PHYSICIAN I have seen and examined the patient. I reviewed the documentation, medical decision making, and treatment plan as noted by the mid-level provider above. I agree with the findings and plan of care. VIC DICKEY MD, ELIZABETH NP Nov 08, 2024 09:03
[2024-11-08 09:09] LABS: IMMATURE GRANULOCYTE ABSOLUTE 0.20 K/uL (0-1); NUCLEATED RED BLOOD CELLS 0.0 % (0.0-0.19); PLATELET COUNT (AUTO) 269 K/uL (130-400); RED BLOOD CELL COUNT(AUTO) 3.05 MIL/uL (4.50-6.20); RED CELL DISTRIBUTION WIDTH 14.1 % (11.0-15.5); WHITE BLOOD COUNT (AUTO) 9.8 K/uL (4.8-10.8)
[2024-11-08 09:20] LABS: ASPARTATE AMINOTRANSFERASE 36.0 U/L (10-37); CREATININE 0.9 mg/dL (0.5-1.3); GLOMERULAR FILTR. RATE CALC 95.0 mL/min (>90); GLUCOSE,RANDOM 99.0 mg/dL (70-105); SODIUM SERUM 132.0 mmol/L (136-145); TOTAL PROTEIN, SERUM 5.6 g/dL (6.0-8.3); UREA NITROGEN, BLOOD 13.0 mg/dL (7-18)
--- NOTE | 2024-11-08 14:45 | PN ---
[facility] PROGRESS NOTE Date Patient Seen: Nov 08, 2024 Time of Visit: 14:44 Supervising Physician: Dr. Agrawal Primary Care Physician: self referral Outpatient Specialists: Inpatient Consults: dr Awad, Dr Ej Vega PROBLEM LIST: Septic shock, resolved supra therapeutic INR secondary to Coumadin, resolved Acute hypoxemic respiratory failure, POA Suspected alveolar hemorrhage, improving Acute on chronic anemia secondary to blood loss, POA History of mechanical aortic valve, POA History of chronic anticoagulation with warfarin, POA Acute kidney injury, POA Demand ischemia, POA Obesity, POA INTERVAL HISTORY: Patient is seen at bedside, he remains weak, currently on room air but endorses exertional dyspnea. White count is within normal limits today and he currently continues on vancomycin, cefepime, doxycycline. We will discontinue vancomycin at this time as the patient's cultures have remained negative. Pending profile labs tomorrow morning. Cardiology currently investigating the possibility of transferring patient to [facility] for valve repair. Denies palpitations Good appetite, no nausea or vomiting REVIEW OF SYSTEMS: 12 point ROS reviewed with patient. Pertinent positives mentioned above. Otherwise negative. PHYSICAL EXAM: GENERAL: alert, weak, awake oriented x 3 HEENT: EOMI, Sclera non icteric, moist mucosa NECK: Supple, no JVD, trachea midline LUNGS: Bilateral crackles to the bases, no wheezing HEART: Regular rate and rhythm. Normal S1 and S2, without murmurs ABD: Abdomen obese soft, nontender. Bowel sounds present EXT: No clubbing cyanosis. Left forearm tenderness. Right shoulder swelling. BLE edema ++ NEURO: Alert and oriented to person, follows commands Vital Signs (last 8hr) Date Time Temp Pulse Resp B/P (MAP) Pulse Ox O2 Delivery O2 Flow Rate FiO2 11/08/24 11:00 97.0 91 22 106/64 94 Room Air 11/08/24 07:00 97.5 94 24 110/75 93 Room Air 11/08/24 07:00 97 Nasal Cannula* 3 32 LABS: Hematology Labs: Test 11/08/24 04:25 Range/Units White Blood Count 9.8 4.8-10.8 K/uL Red Blood Count 3.05 L 4.50-6.20 MIL/uL Hemoglobin 8.6 L 14.0-18.0 g/dL Hematocrit 26.5 L 42-54 % Mean Corpuscular Volume 86.9 79-99 fL Mean Corpuscular Hemoglobin 28.2 27.0-33.0 pg Mean Corpuscular Hemoglobin Concent 32.5 32.0-36.0 g/dL Red Cell Distribution Width 14.1 11.0-15.5 % Platelet Count 269 130-400 K/uL Mean Platelet Volume 9.7 7.5-10.5 fL Immature Granulocyte % (Auto) 2.0 H 0-1 % Neutrophils (%) (Auto) 71.3 40.0-77.0 % Lymphocytes (%) (Auto) 15.4 L 21.0-51.0 % Monocytes (%) (Auto) 6.5 3.0-13.0 % Eosinophils (%) (Auto) 4.4 0.0-8.0 % Basophils (%) (Auto) 0.4 0.0-5.0 % Neutrophils # (Auto) 7.0 1.8-7.7 K/uL Lymphocytes # (Auto) 1.5 1.0-4.8 K/uL Monocytes # (Auto) 0.6 0.1-1.0 K/uL Eosinophils # (Auto) 0.43 0.00-0.70 K/uL Basophils # (Auto) 0.04 0.00-0.20 K/uL Absolute Immature Granulocyte (auto 0.20 0-1 K/uL Nucleated Red Blood Cells 0.0 0.0-0.19 % Chemistry Labs: Test 11/08/24 04:25 Range/Units Sodium Level 132 L 136-145 mmol/L Potassium Level 3.7 3.5-5.1 mmol/L Chloride Level 104 101-111 mmol/L Carbon Dioxide Level 30 21-32 mmol/L Blood Urea Nitrogen 13 7-18 mg/dL Creatinine 0.9 0.5-1.3 mg/dL Glomerular Filtration Rate Calc 95 >90 mL/min Random Glucose 99 70-105 mg/dL Total Calcium 8.7 8.5-10.1 mg/dL Magnesium Level 2.00 1.80-2.40 mg/dL Total Bilirubin 0.6 0.2-1.0 mg/dL Aspartate Amino Transf (AST/SGOT) 36 10-37 U/L Alanine Aminotransferase (ALT/SGPT) 24 12-78 U/L Alkaline Phosphatase 70 50-136 U/L Total Protein 5.6 L 6.0-8.3 g/dL Albumin 2.1 L 3.5-5.0 g/dL Coagulation Labs: Test 11/08/24 12:19 11/07/24 03:34 Range/Units Activated Partial Thromboplast Time 44.9 #H 26.3-35.5 SEC Prothrombin Time 12.0 H 9.6-11.6 SEC Prothromb Time International Ratio 1.15 0.85-1.15 DIAGNOSTICS / RADIOLOGY RESULTS: [ ] PLAN Patient to undergo ANDRES today Will follow results continue with supplemental oxygen Gentle diuresis Avoid fluid overload Telemetry monitoring NEURO: Minimize central acting medications as possible. Maintain fall precautions, adequate lighting during the day PULMONARY: Supplemental 02 as needed. Maintain aspiration precautions at all times CARDIOVASCULAR: Follow hemodynamics. Vital signs per facility protocol GI & NUTRITION: Continue with nutritional support. Continue stool softeners and laxatives as needed. KIDNEYS & ELECTROLYTES: Strict monitoring of intake, output and overall fluid balance. Avoid nephrotoxic medications to the extent possible. Medications to be dosed according to renal function. Monitor electrolytes and replace as needed ENDOCRINE: Maintain blood glucose between 100-180 at all times. Hypoglycemia protocol in place INFECTIOUS DISEASE: Trend temperature, WBC and procalcitonin level Follow cultures, deescalate antibiotics as soon as possible. Panculture if new onset fever ONCOLOGY/HEMATOLOGY/COAGULATION: Monitor for s/s of bleeding Monitor hemoglobin, coagulation studies as needed SKIN: Pressure ulcer prevention per facility protocol Specialty mattress ORTHO/REHAB: Continue PT/OT Prophylaxis: Continue GI and DVT prophylaxis Code Status: Full Resuscitation Disposition: TBD Other: Total patient care time exceeds 35 minutes excluding all procedures. JOYCE RAMESH Nov 08, 2024 14:45
--- NOTE | 2024-11-08 16:25 | PN ---
INFECTIOUS DISEASE PROGRESS NOTE Date of Service: Nov 08, 2024 SUBJECTIVE: This 64 year old male patient is being seen today at bedside. Awake, alert and oriented. Patient remains on oxygen via nasal canula. Denies chest pain or shortness of breath. No fever or chills. Remains on antibiotics. Continues with heparin drip. ANDRES was done yesterday. We continue to follow process consultant recommendations. PHYSICAL EXAM EYES: Anicteric. Pupils equal and reactive. HENT: No oral thrush seen, moist Oral mucosa NECK: Supple, no JVD or thyromegaly. LUNGS: crackles present no wheezing CARDIOVASCULAR: S1, S2 regular. No murmur heard. ABDOMEN: Soft, non tender, bowel sounds present, no organomegaly CENTRAL NERVOUS SYSTEM: Awake, alert, oriented x 3. No focal deficits. SKIN: No rashes, no swelling. LYMPHATICS: No peripheral lymphadenopathy MUSCULOSKELETAL: No joint swelling, erythema or tenderness. EXTREMITIES: No cyanosis or clubbing BACK: No deformity, no pressure ulcer. GENITOURINARY: No dysuria or hematuria Vital Sign (Last 12 Hours) 11/08/24 11/08/24 11/08/24 11/08/24 06:37 06:40 07:00 07:00 Temp 97.5 Pulse 76 76 94 Resp 20 20 24 B/P (MAP) 110/75 Pulse Ox 97 93 O2 Delivery N/A Room Air Nasal Cannula* Room Air O2 Flow Rate 3 FiO2 21 32 11/08/24 11:00 Temp 97.0 Pulse 91 Resp 22 B/P (MAP) 106/64 Pulse Ox 94 O2 Delivery Room Air Intake & Output (last 24hrs) 11/07/24 11/07/24 11/08/24 15:00 23:00 07:00 Intake Total 1350.0 ml 716.3 ml Output Total 700 ml 1450 ml 1700 ml Balance -700 ml -100.0 ml -983.7 ml LABS: Laboratory: Test 11/08/24 12:19 11/08/24 04:25 11/07/24 12:41 11/07/24 03:34 Range/Units Activated Partial Thromboplast Time 44.9 #H 26.3-35.5 SEC White Blood Count 9.8 4.8-10.8 K/uL Red Blood Count 3.05 L 4.50-6.20 MIL/uL Hemoglobin 8.6 L 14.0-18.0 g/dL Hematocrit 26.5 L 42-54 % Mean Corpuscular Volume 86.9 79-99 fL Mean Corpuscular Hemoglobin 28.2 27.0-33.0 pg Mean Corpuscular Hemoglobin Concent 32.5 32.0-36.0 g/dL Red Cell Distribution Width 14.1 11.0-15.5 % Platelet Count 269 130-400 K/uL Mean Platelet Volume 9.7 7.5-10.5 fL Immature Granulocyte % (Auto) 2.0 H 0-1 % Neutrophils (%) (Auto) 71.3 40.0-77.0 % Lymphocytes (%) (Auto) 15.4 L 21.0-51.0 % Monocytes (%) (Auto) 6.5 3.0-13.0 % Eosinophils (%) (Auto) 4.4 0.0-8.0 % Basophils (%) (Auto) 0.4 0.0-5.0 % Neutrophils # (Auto) 7.0 1.8-7.7 K/uL Lymphocytes # (Auto) 1.5 1.0-4.8 K/uL Monocytes # (Auto) 0.6 0.1-1.0 K/uL Eosinophils # (Auto) 0.43 0.00-0.70 K/uL Basophils # (Auto) 0.04 0.00-0.20 K/uL Absolute Immature Granulocyte (auto 0.20 0-1 K/uL Nucleated Red Blood Cells 0.0 0.0-0.19 % Sodium Level 132 L 136-145 mmol/L Potassium Level 3.7 3.5-5.1 mmol/L Chloride Level 104 101-111 mmol/L Carbon Dioxide Level 30 21-32 mmol/L Blood Urea Nitrogen 13 7-18 mg/dL Creatinine 0.9 0.5-1.3 mg/dL Glomerular Filtration Rate Calc 95 >90 mL/min Random Glucose 99 70-105 mg/dL Total Calcium 8.7 8.5-10.1 mg/dL Magnesium Level 2.00 1.80-2.40 mg/dL Total Bilirubin 0.6 0.2-1.0 mg/dL Aspartate Amino Transf (AST/SGOT) 36 10-37 U/L Alanine Aminotransferase (ALT/SGPT) 24 12-78 U/L Alkaline Phosphatase 70 50-136 U/L Total Protein 5.6 L 6.0-8.3 g/dL Albumin 2.1 L 3.5-5.0 g/dL Vancomycin Level Trough 15.2 # 10.0-20.0 UG/ML Prothrombin Time 12.0 H 9.6-11.6 SEC Prothromb Time International Ratio 1.15 0.85-1.15 DIAGNOSTICS / RADIOLOGY: CR Chest, 1 View. CLINICAL HISTORY: please assess for any wrsening infiltrates, PNA COMPARISON: None provided. FINDINGS: LUNGS: Improved right sided infiltrate. Resolving pneumonia. Continue follow-up recommended PLEURAL SPACES: No pleural effusion or pneumothorax. MEDIASTINUM: Cardiac size and mediastinal contours within normal limits. BONES: No acute osseous abnormality. IMPRESSION: Improved right sided infiltrate. Resolving pneumonia. Continue follow-up recommended /Brice REASON: picc line placement ORDERING PHYSICIAN: ALICIA LUCIANO PROCEDURE: CXR1VW - CHEST 1VW EXAM: CR Chest, 2 View. CLINICAL HISTORY: picc line placement COMPARISON: X-ray chest 11/02/2024 FINDINGS: Multifocal airspace opacities bilaterally right greater than left. Persistent small right-sided pleural effusion. MEDIASTINUM: The cardiomediastinal silhouette is within normal limits. Changes of median sternotomy Interval placement of right PICC line catheter whose tip is in appropriate position projecting within the junction of the SVC and right atrium BONES: No acute osseous abnormality. IMPRESSION: 1. Multifocal airspace opacities bilaterally, right greater than left 2. Small right pleural effusion 3. Right PICC line tip appropriately positioned at SVC-right atrial junction ASSESSMENT: * Multifocal pneumonia. * Severe sepsis. * Hypoxic respiratory failure. * Supratherapeutic INR. * Elevated troponin may be due to demand ischemia. * Anemia. * leukocytosis PLAN: * Continue vancomycin. * Continue cefepime. * Continue doxycycline. * Continue Flagyl.. * Continue nutritional support. * Monitor electrolytes. * The patient will be followed up closely. * Monitor INR * follow Cardiology recommendations * Continue PT * continue oxygen This case has been discussed with my supervising physician DR. Awad. The case has been discussed and agreed upon. YESSICA GASCA [facility] Nov 08, 2024 16:25
[2024-11-08 17:13] LABS: INR 1.12 (0.85-1.15)
--- NOTE | 2024-11-08 20:57 | NUR ---
patient with complain of pain to bilateral shoulder and elbows. states pain level of 8. states he was getting morphine for last few days. checked medication orders, medication order already d/c. Spoke to graciela ivan np, stated july re order morphine 2mg iv q4hrs prn for pain.
--- NOTE | 2024-11-08 21:44 | PN ---
CARDIOLOGY Reason for consult: Mechanical Aortic Valve HPI/story at presentation: This is a pleasant 64-year-old male with past medical history significant for mechanical aortic valve placed in 1993, chronic warfarin use initially presented to the emergency department due to hemoptysis, cough, chills and blood noted in his right ear. Patient also reports he sustained a fall injury approximately 12 days ago in [place]. Denies any syncope episode. Her warfarin dose accordingly the patient is warfarin 5 mg daily other than on Thursday and Thursday when he takes 7.5 mg daily. Patient also found to be febrile with a temperature of 101.3. Initial blood pressure 83/42. sepsis protocol was started. INR results show greater than 8. Patient was administered vitamin K 10 mg IV and is scheduled to receive 2 units of FFP. High sensory troponin at 299. Patient was also found to have bilateral pneumonia 11/01/2024 patient was seen and evaluated at bedside in the ICU No episodes of bleeding has been reported since yesterday Repeat INR today is 1.14 Past medical history: See below Allergies, Meds See chart Review of systems Review of Systems Constitutional: + for chills and fever. HENT: + for right ear bloody discharge and ear pain. Eyes: Negative for photophobia and discharge. Respiratory: + for cough, sputum production and stridor. + hemoptysis Cardiovascular: Negative for chest pain and palpitations. Gastrointestinal: Negative for diarrhea and vomiting. Genitourinary: Negative for frequency. Musculoskeletal: Negative for myalgias. Skin: Negative for rash. Neurological: Negative for focal weakness and seizures. Endo/Heme/Allergies: Negative for polydipsia. Psychiatric/Behavioral: Negative for hallucinations. Vitals see chart PHYSICAL EXAMINATION GENERAL: The patient is alert and oriented*3, ill appearing HEENT: Nonicteric sclerae, non traumatic HEART: Regular rate and rhythm with no murmurs, 3/6 systolic murmur to 2nd ICS LUNGS: Diminished to auscultation bilaterally ABDOMEN: No acute issues, non tender GENITAL, RECTAL: deferred SKIN: No rash NEUROLOGIC: NFND EXTREMITIES: No edema ASSESSMENT SUPRATHERAPEUTIC INR INR GREATER THAN 8 Currently or warfarin Reports hemoptysis and bloody drainage from right ear AORTIC VALVE REPLACEMENT Mechanical INR was subtherapeutic at presentation CORE MEASURES Not applicable OTHER MEDICAL PROBLEMS Reviewed PLAN 10/31/2024 will order echocardiography to examine aortic valve. Patient is currently pending CT of the head and chest due to recent fall and supratherapeutic INR Continue with FFP infusion with plans for repeat INR 11/01/2024 patient's INR today is 21.14. No new episodes Of bleeding heavy reported Patient will need to be restarted on his oral Coumadin but will start patient on IV heparin and moderate for bleeding Patient's hemoglobin today is currently at 8.1 We will wait to start IV heparin drip tomorrow in repeat H&H in the morning 11/02/2024 Hemoglobin remains stable Currently pending PICC line Will start IV heparin drip without bolus once PICC line in place If no issues with bleeding and hgb remains stable, will start oral warfarin tomorrow 11/03/2024 ANDRES attempted today was terminated early because of nosebleeds and patient's overall elevated gag reflex in spite of numbing of his throat. Sedation also had to be reduced given respiratory status. Fluoroscopy was done to evaluate the aortic valve which appears to be moving appropriately. However, this does not exclude smaller clots in the aortic valve. ANDRES may eventually be required once diuresis is complete. Will attempt again with anesthesia support. Will periodically follow-up on aortic gradients in the meantime until diuresis is complete. If there is a thrombosis of the aortic valve which is suspected on the basis of gradients, patient remains at risk for a stroke. Overall difficult situation. Seen and examined 11/03/2024 multiple times. 11/04/2024 clinically, appears improved, edema is better, shortness of breath is better although, still fairly short of breath, will proceed with a transthoracic echo to assess for gradients tomorrow. Depending on that, we will decide on future ANDRES's if indicated. Continue diuresis, renal function stable, remains on heparin. Seen and examined 825 around 7:30 PM 11/05/2024 no active cardiac complaints at this time, breathing better, remains IV diuresis. Repeat aortic valve gradients are still elevated greater than 5 m/s close to 6. Suspicion for possible thrombus/pannus of the aortic valve leaflets. they were moving appropriately under fluoroscopy. Will attempt ANDRES again on Thursday under anesthesia support. Remains on heparin. No strokelike features. Continue neurochecks. Once anesthetic risk is lower after diuresis, will proceed with ANDRES. Seen and examined in 925 around 4:30 PM 11/06/2024 plan for ANDRES tomorrow, valve gradient still significantly elevated close to 5.8 meters per second. N.p.o. after midnight, will proceed with ANDRES tomorrow with anesthesia support. Multiple questions regarding the procedure answered. Risk benefits addressed. Clinically, appears to be improved, was able to ambulate in the hallway today. Seen and examined 11/06/2024 around 3 PM. 11/07/2024 ANDRES completed today with no clinical evidence of thrombus. Possible pannus formation noted with thickening of the mechanical valve leaflets. This may be contributing to the elevated gradients. Will discuss with CV surgery before further recommendations. Seen and examined 11/07/2024 at around 1:30 PM. 11/08/2024 Doing better, feels that his volume status and breathing has improved. Still continues to have occasional issues with a cough. No bleeding, hemoglobin stable. Most recent aortic valve gradients are still elevated. Discussed with CVT surgery locally as well as with [facility]. Conservative management recommended for the valve and potential trial of thrombolytics was discussed. This would be the patient's third open heart surgery if needed and risk is high. No definite thrombus was noted on ANDRES, however, layered thrombus in the setting of a thickened valve cannot be ruled out in addition to the pannus. Discussed with the patient and after extensive conversation about risk and benefit, plans to attempt thrombolytics tomorrow. Will get him on the ultra slow low-dose infusion of thrombolytics to help with the valve. Patient did have a recent issue with bleeding with supratherapeutic INR including pulmonary and nosebleeds and alsod uring a ANDRES recently. Given this, bleeding risk is elevated and intracranial bleeding risk was also discussed. After extensive conversation with the patient and the daughter, they do want to attempt an trial of thrombolytics to see if this helps with the gradients. Will transfer to the ICU. Will need to stop heparin and then consider thrombolytics when PTT is in target. Seen and examined 11/08/2024 at around 7 PM. ATTESTATION I was involved substantially in the care of this patient Number and complexity of problems addressed: 1 acute illness that is a threat to life or bodily function Amount and or complexity of data Review of prior external note(s) from each unique source: 2+ Ordering of each unique test : 2 Review of the result(s) of each unique test: 2+ Assessment requiring an independent historian(s): No Independent interpretation of test performed by another MD/QHCP/appropriate source (not separately reported) : No Discussion of management or test interpretation with external MD/QHCP/appropriate source (not separately reported) : No Risk status (cardiac, billing related):High Vitals/Labs Vital Signs Date Time Temp Pulse Resp B/P (MAP) Pulse Ox O2 Delivery O2 Flow Rate FiO2 11/08/24 20:44 106/65 11/08/24 20:00 98.2 87 20 93 Room Air 11/08/24 07:00 3 32 Laboratory Tests 11/08/24 04:25 Medications Current Medications Vancomycin HCl 1 each AD IV; Start 10/31/24 at 12:30; Stop 11/14/24 at 12:29 Piperacillin Sod/ Tazobactam Sod 3.375 gm ONCE ONCE IV Last administered on 10/31/24at 12:43; Start 10/31/24 at 12:30; Stop 10/31/24 at 12:41; Status DC Sodium Chloride 1,000 ml @ 0 mls/hr ONCE ONCE IV Last administered on 10/31/24at 12:43; Start 10/31/24 at 12:30; Stop 10/31/24 at 12:41; Status DC Vancomycin HCl 500 ml @ 250 mls/hr ONCE ONCE IV Last administered on 10/31/24at 13:57; Start 10/31/24 at 13:00; Stop 10/31/24 at 14:59; Status DC Vancomycin HCl 250 ml @ 125 mls/hr Q12H IV Last administered on 11/05/24at 13:36; Start 11/01/24 at 01:30; Stop 11/05/24 at 14:11; Status DC Sodium Chloride 1,983 ml @ 661 mls/hr ONCE ONCE IV Last administered on 10/31/24at 13:12; Start 10/31/24 at 13:00; Stop 10/31/24 at 15:59; Status DC Phytonadione 10 mg/Sodium Chloride 51 ml @ 100 mls/hr ONCE ONCE IVPB Last administered on 10/31/24at 13:12; Start 10/31/24 at 13:00; Stop 10/31/24 at 13:30; Status DC Morphine Sulfate 2 mg ONCE ONCE IVP Last administered on 10/31/24 13:20; Start 10/31/24 at 13:30; Stop 10/31/24 at 13:31; Status DC Ondansetron HCl 4 mg ONCE ONCE IVP Last administered on 10/31/24at 13:20; Start 10/31/24 at 13:30; Stop 10/31/24 at 13:31; Status DC Pantoprazole Sodium 40 mg Q12H IVP Last administered on 11/08/24at 15:14; Start 10/31/24 at 14:00; Stop 11/30/24 at 13:59 Acetaminophen 650 mg Q6H PRN PO Last administered on 10/31/24at 17:32; Start 10/31/24 at 14:00; Stop 11/30/24 at 13:59 Ondansetron HCl 4 mg Q6H PRN IVP Last administered on 11/03/24at 08:38; Start 10/31/24 at 14:00; Stop 11/30/24 at 13:59 Sodium Chloride 1,000 ml @ 75 mls/hr [id number] IV Last administered on 11/01/24at 03:31; Start 10/31/24 at 14:00; Stop 11/02/24 at 21:00; Status DC Cefepime HCl 2 gm Q12H IVPB Last administered on 11/07/24at 17:29; Start 10/31/24 at 18:00; Stop 11/08/24 at 07:36; Status DC Doxycycline Hyclate 250 ml @ 125 mls/hr BID IV Last administered on 11/08/24at 10:58; Start 10/31/24 at 14:00; Stop 11/10/24 at 13:59 Metronidazole/ Sodium Chloride 100 ml @ 100 mls/hr Q8H6 IVPB Last administered on 11/08/24at 15:14; Start 10/31/24 at 21:00; Stop 11/10/24 at 20:59 Albuterol 1 udvial Q6H PRN IH Last administered on 11/08/24at 06:34; Start 10/31/24 at 14:30; Stop 11/30/24 at 14:29 Budesonide 0.5 mg BIDRESP IH Last administered on 11/08/24at 06:34; Start 10/31/24 at 18:00; Stop 11/30/24 at 17:59 Iohexol 75 ml STK-MED ONCE IV; Start 10/31/24 at 14:53; Stop 10/31/24 at 14:54; Status DC Tranexamic Acid 500 mg [id number] Last administered on 11/01/24at 23:57; Start 10/31/24 at 15:30; Stop 11/02/24 at 11:02; Status DC Morphine Sulfate 2 mg Q6H PRN IVP Last administered on 11/02/24at 06:33; Start 10/31/24 at 19:00; Stop 11/02/24 at 10:03; Status DC Sodium Chloride 4 ml STK-MED ONCE IH Last administered on 10/31/24at 22:46; Start 10/31/24 at 22:37; Stop 10/31/24 at 22:38; Status DC Magnesium Sulfate 50 ml @ 0 mls/hr PROTOCOL PRN IV Last administered on 11/07/24at 02:58; Start 11/01/24 at 08:00; Stop 12/01/24 at 07:59 Morphine Sulfate 2 mg ONCE ONCE IVP Last administered on 11/01/24at 08:21; Start 11/01/24 at 08:30; Stop 11/01/24 at 08:31; Status DC Sodium Chloride 4 ml STK-MED ONCE IH; Start 11/01/24 at 10:49; Stop 11/01/24 at 10:50; Status DC Morphine Sulfate 2 mg Q4H PRN IVP Last administered on 11/07/24at 08:57; Start 11/02/24 at 10:30; Stop 11/07/24 at 13:29; Status DC Heparin Sodium/ Dextrose 250 ml @ 0 mls/hr Q6H IV Last administered on 11/06/24at 15:25; Start 11/02/24 at 21:00; Stop 12/02/24 at 20:59 Pharmacy Profile Note 1 each ONCE MISC; Start 11/02/24 at 13:30; Stop 11/02/24 at 13:15; Status DC Midazolam HCl 4 mg ONCE ONCE IVP Last administered on 11/03/24at 13:04; Start 11/03/24 at 12:00; Stop 11/03/24 at 12:01; Status DC Fentanyl Citrate 100 mcg ONCE ONCE IVP Last administered on 11/03/24at 13:05; Start 11/03/24 at 12:00; Stop 11/03/24 at 12:01; Status DC Lidocaine HCl 15 ml ONCE ONCE PO Last administered on 11/03/24at 12:06; Start 11/03/24 at 12:00; Stop 11/03/24 at 12:01; Status DC Potassium Chloride 100 ml @ 50 mls/hr AD PRN IV Last administered on 11/03/24at 12:01; Start 11/03/24 at 12:00; Stop 12/03/24 at 11:59 Potassium Chloride 100 ml @ 100 mls/hr AD PRN IV; Start 11/03/24 at 12:00; Stop 11/04/24 at 17:15; Status DC Potassium Chloride 20 meq AD PRN PO Last administered on 11/05/24at 13:13; Start 11/03/24 at 12:00; Stop 12/03/24 at 11:59 Potassium Chloride 20 meq AD PRN PO Last administered on 11/08/24at 01:49; Start 11/03/24 at 12:00; Stop 12/03/24 at 11:59 Furosemide 40 mg ONCE ONCE IV Last administered on 11/03/24at 14:33; Start 11/03/24 at 12:30; Stop 11/03/24 at 12:31; Status DC Furosemide 20 mg BID IV Last administered on 11/04/24at 10:02; Start 11/04/24 at 09:00; Stop 11/05/24 at 06:14; Status DC Clonazepam 2 mg ONCE ONCE PO Last administered on 11/04/24at 10:02; Start 11/04/24 at 09:00; Stop 11/04/24 at 09:01; Status DC Clonazepam 2 mg HS PO; Start 11/04/24 at 21:00; Stop 11/04/24 at 11:13; Status DC Clonazepam 2 mg HS PO Last administered on 11/08/24at 20:36; Start 11/05/24 at 21:00; Stop 12/05/24 at 20:59 Melatonin 10 mg ONCE ONCE PO Last administered on 11/04/24at 20:37; Start 11/04/24 at 21:30; Stop 11/04/24 at 21:31; Status DC Digoxin 125 mcg ONCE ONCE IV Last administered on 11/05/24at 01:44; Start 11/05/24 at 01:30; Stop 11/05/24 at 01:39; Status DC Furosemide 20 mg Q12H IV Last administered on 11/08/24at 17:46; Start 11/05/24 at 06:30; Stop 12/05/24 at 06:29 Vancomycin HCl 250 ml @ 125 mls/hr Q12H IV Last administered on 11/08/24at 13:28; Start 11/06/24 at 01:30; Stop 11/11/24 at 01:29 Phenylephrine HCl 10 mg STK-MED ONCE IV; Start 11/07/24 at 12:29; Stop 11/07/24 at 12:30; Status DC Ephedrine Sulfate 50 mg STK-MED ONCE .ROUTE; Start 11/07/24 at 12:29; Stop 11/07/24 at 12:30; Status DC Propofol 200 mg STK-MED ONCE IV; Start 11/07/24 at 12:29; Stop 11/07/24 at 12:30; Status DC Propofol 200 mg STK-MED ONCE IV; Start 11/07/24 at 12:30; Stop 11/07/24 at 12:30; Status DC Cefepime HCl 2 gm Q12H IVPB Last administered on 11/08/24at 20:36; Start 11/08/24 at 08:00; Stop 11/10/24 at 07:59 Morphine Sulfate 2 mg Q4H PRN IVP; Start 11/08/24 at 21:00; Stop 11/15/24 at 20:59 ANTONINO DIANE MD Nov 08, 2024 21:44
[2024-11-08 23:37] LABS: INR 1.09 (0.85-1.15)
[2024-11-09] VITALS (36 sets, daily range): BP systolic 96–145; BP diastolic 61–82; PULSE 72–93; RESP 13–31; TEMP 98.2–98.6; O2SAT 16–98
--- NOTE | 2024-11-09 00:29 | NUR ---
@2200PM 11/08/24 DR. EVANS ROUNDED. STATED PATIENT NEEDS TO BE TAKEN OFF HEPARIN DRIP AT 0300AM. REPEAT PTT AT 0500AM. STATED HE WILL ORDER THROMBOLYTIC THERAPY FOR PATIENT IN AM. FOR THIS THROMBOLYTIC THERAPY PATIENT NEEDS TO BE TRANSFERRED TO ICU.
--- NOTE | 2024-11-09 00:53 | NUR ---
REPORT GIVEN TO RENETTA BURNETT IN ICU.
[2024-11-09] MEDS: PHARMACY COMMUNICATION MISC SCH (04:00)
[2024-11-09 05:18] LABS: IMMATURE GRANULOCYTE ABSOLUTE 0.16 K/uL (0-1); NUCLEATED RED BLOOD CELLS 0.3 % (0.0-0.19); PLATELET COUNT (AUTO) 262 K/uL (130-400); RED BLOOD CELL COUNT(AUTO) 3.10 MIL/uL (4.50-6.20); RED CELL DISTRIBUTION WIDTH 14.2 % (11.0-15.5); WHITE BLOOD COUNT (AUTO) 10.3 K/uL (4.8-10.8)
--- NOTE | 2024-11-09 05:19 | NUR ---
Refused Medication Patient refused his morning dose of Lasix IVP. Patient expresses that he is having to urinate too frequently and would like to skip this dose and have doctor re-evaluate. Educated patient on the indication of medication and the importance of taking prescribed medications.
[2024-11-09 05:40] LABS: ASPARTATE AMINOTRANSFERASE 41.0 U/L (10-37); CREATININE 0.8 mg/dL (0.5-1.3); GLOMERULAR FILTR. RATE CALC 98.0 mL/min (>90); GLUCOSE,RANDOM 94.0 mg/dL (70-105); SODIUM SERUM 140.0 mmol/L (136-145); TOTAL PROTEIN, SERUM 5.1 g/dL (6.0-8.3); UREA NITROGEN, BLOOD 9.0 mg/dL (7-18)
[2024-11-09] MEDS ORDERED: [UNRECOGNIZED DRUG - OTHER] IVCATH SCH (06:00)
[2024-11-09] MEDS ORDERED: ALTEPLASE IVCATH SCH (06:00)
--- NOTE | 2024-11-09 07:17 | NUR ---
Report Given Gave bedside report to nurse Lillian.
--- NOTE | 2024-11-09 12:07 | PN ---
[facility] PROGRESS NOTE Date of Service: Nov 09, 2024 Time of Service: 12:02 SUBJECTIVE: [ ] 64-year-old male with prior history of mechanical aortic valve which was replaced in 1993 maintained on chronic outpatient anticoagulation with warfarin, obesity, who presented to the ER for further evaluation of hemoptysis, chills, cough, and blood noted in the right ear.Patient states that about 12 days ago, he was visiting in [place], he had a mechanical fall with no syncope, patient was evaluated in ER and was found to have a nondisplaced left forearm ulnar fracture along which was treated conservatively. Patient had a CT done which was noted to be negative per patient. Patient states that over the last two days, he noticed that he was having chills, and yesterday night, he started having hemoptysis. Today he noticed that he was having bloody drainage from the right ear. Denies any headache, denies any focal weakness of upper or lower extremities. Denies any neck pain. Denies any new recent fall other than 12 days ago in [place] Denies chest pain other than with cough. He has been having generalized fatigue and malaise over the last two days. Denies exposure to sick contacts. 11/01/24 patient was admitted for septic shock and hemoptysis with Coumadin toxic ity today's INR improved significantly from 8-1.4 We will wait for bobbin coil winder's if okay to resume. Patient appears acutely ill continue with broad-spectrum antibiotics tolerating. ID on board we will follow his recommendations. Patient is currently on nasal cannula to 3 L. We will be monitored closely in ICU. 11/02/2024 patient was seen earlier patient is lying in bed on room air we continue with broad-spectrum antibiotics tolerating reports no diarrhea. We continue to monitor INR. Encourage patient out of bed to chair as tolerated PT services we will be ordered. Denied chest pain palpitations dizziness. 11/03/24 patient is return back from cardiac cath tech echo ANDRES was done primary nurse reports patient started with nose bleed will get post procedure we will get a CBC now. Remains in heparin drip. We will monitor closely for any acute bleeding. 11/04/24 patient is lying in bed patient continues to require oxygen supplemental was started on Lasix IV 20 mg b.i.d. patient continues with physical therapy. Patient continues on heparin drip bobbin coil winder's following we will appreciate his recommendations. Patient is tolerating broad-spectrum antibiotics wait for ID final recommendations 11/05/24 patient is lying in bed was sleeping awakened per verbal stimuli, the patient nurse reports patient has around the clock morphine reports elbow pain chronic. Patient went into AFib overnight converted normal sinus rhythm earlier this morning. Continues on heparin drip bobbin coil winder's following we will follow his recommendations. tolerating antibiotics. 11/06/24 patient is lying in bed patient continues to require oxygen supplemental currently on 3 L. No fever no chills. No episodes of AFib. With RVR continues on heparin. Drip. 2D echo pending 11/07/2024 patient was seen earlier patient was awake alert oriented x3. Patient continues to complain of left elbow pain on pain management. Patient continues on oxygen supplemental encouraged patient to continue working with physical therapy, out of bed to chair with meals he verbalized understanding. We will wait for bobbin coil winder's recommendations in repair armature winder's. He denies chest pain palpitation or dizziness. 11/08 patient is seen patient remains on oxygen supplemental 3 L. Dyspnea and orthopnea continues heparin drip. status post TEEno clinical evidence of thrombus. Possible pannus formation noted with thickening of the mechanical valve leaflets. This may be contributing to the elevated gradients. Will discuss with CV surgery before further recommendations. 11/09/24 patient was seen earlier patient is fully awake alert oriented x3. Patient continues with oxygen supplemental. The patient was started on Alteplase as per protocol for 24 hours. REVIEW OF SYSTEMS CONSTITUTIONAL: malaise, generalized weakness, fatigue NEUROLOGICAL: Denies headache, amaurosis fugax, motor weakness, sensory deficit, vertigo/spinning sensation, gait abnormalities, or tremors. ENT: No hearing loss, reports having noticed blood coming out of the right ear CARDIOVASCULAR: Denies any exertional angina, dyspnea on exertion, orthopnea, paroxysmal nocturnal dyspnea, palpitations, life-threatening arrhythmias, claudication. PULMONARY: reports having cough, congestion, SOB, patient reports having hemoptysis SLEEP: Denies morning headaches, daytime somnolence or napping. Denies difficulty falling asleep, staying asleep, waking from sleep. Denies knowledge of snoring. GASTROINTESTINAL: Denies any type of dysphagia to either liquids or solids. Denies nausea, vomiting, pyrosis, early satiety, abdominal pain, diarrhea, constipation, or changes in stool consistency or caliber. Denies coffee-ground emesis, hematemesis, hematochezia, or melanotic stools. GENITOURINARY: Denies frequency, urgency, nocturia, hematuria or incontinence (Storage/Irritative symptoms.) Low urinary stream, straining to void, urinary intermittency or hesitancy, splitting of the voiding stream, terminal dribbling. ENDOCRINOLOGIC: Denies polyuria, polydipsia, polyphagia or heat/cold intolerances. HEMATOLOGIC: reports having easy bruising ONCOLOGIC: Denies personal history of malignancy. DERMATOLOGIC: Denies rashes or pruritus. PSYCHIATRIC: Denies any suicidal or homicidal ideation. Denies hallucinations. PHYSICAL EXAM GENERAL APPEARANCE: The patient is awake, alert, and oriented, in no acute cardiopulmonary distress. NEUROLOGICAL: Cranial nerves II-XII grossly intact. Motor is 5/5 in bilateral upper and lower extremities proximal to distal. No sensory deficits. HEENT: Face is symmetric. Pupils are equal and reactive. Extraocular movements are intact. Right ear on otoscopic examination noted to have dries blood and some bright red blood, there is small clots noted as well, which i did not dislodge, tympanic membrane could be full evaluated due to blood NECK: Supple. No JVD. No thyromegaly. No submental, submandibular, pre- /postauricular, occipital or supraclavicular lymphadenopathy. CHEST: Normal chest expansion. No Telemetry. LUNGS: Crackles noted of the right lung base with decreased breath with rhonchorous breath sounds CARDIOVASCULAR: Regular. S1 and S2 normal. No appreciable rubs, murmurs or gallops. ABDOMEN: Soft, nontender, and nondistended. There is no rebound, voluntary guarding, or rigidity. : Deferred. No Wills. EXTREMITIES: Trace edema of the bilateral lower extremities SKIN: Swelling and redness noted of the right shoulder Vital Signs (last 8hr) Date Time Temp Pulse Resp B/P (MAP) Pulse Ox O2 Delivery O2 Flow Rate FiO2 11/09/24 12:00 76 20 N/A Room Air 11/09/24 07:15 98 Nasal Cannula* 2 28 11/09/24 06:00 88 24 117/71 98 Nasal Cannula 2.0 28 11/09/24 05:00 93 23 103/64 95 Nasal Cannula 2.0 28 LABS: Laboratory: Test 11/09/24 04:57 11/08/24 23:19 11/07/24 12:41 Range/Units White Blood Count 10.3 4.8-10.8 K/uL Red Blood Count 3.10 L 4.50-6.20 MIL/uL Hemoglobin 8.8 L 14.0-18.0 g/dL Hematocrit 26.9 L 42-54 % Mean Corpuscular Volume 86.8 79-99 fL Mean Corpuscular Hemoglobin 28.4 27.0-33.0 pg Mean Corpuscular Hemoglobin Concent 32.7 32.0-36.0 g/dL Red Cell Distribution Width 14.2 11.0-15.5 % Platelet Count 262 130-400 K/uL Mean Platelet Volume 9.0 7.5-10.5 fL Immature Granulocyte % (Auto) 1.6 H 0-1 % Neutrophils (%) (Auto) 72.5 40.0-77.0 % Lymphocytes (%) (Auto) 15.4 L 21.0-51.0 % Monocytes (%) (Auto) 6.3 3.0-13.0 % Eosinophils (%) (Auto) 3.8 0.0-8.0 % Basophils (%) (Auto) 0.4 0.0-5.0 % Neutrophils # (Auto) 7.5 1.8-7.7 K/uL Lymphocytes # (Auto) 1.6 1.0-4.8 K/uL Monocytes # (Auto) 0.7 0.1-1.0 K/uL Eosinophils # (Auto) 0.39 0.00-0.70 K/uL Basophils # (Auto) 0.04 0.00-0.20 K/uL Absolute Immature Granulocyte (auto 0.16 0-1 K/uL Nucleated Red Blood Cells 0.3 H 0.0-0.19 % Activated Partial Thromboplast Time 33.9 # 26.3-35.5 SEC Sodium Level 140 136-145 mmol/L Potassium Level 3.7 3.5-5.1 mmol/L Chloride Level 104 101-111 mmol/L Carbon Dioxide Level 29 21-32 mmol/L Blood Urea Nitrogen 9 7-18 mg/dL Creatinine 0.8 0.5-1.3 mg/dL Glomerular Filtration Rate Calc 98 >90 mL/min Random Glucose 94 70-105 mg/dL Total Calcium 8.1 L 8.5-10.1 mg/dL Magnesium Level 1.70 L 1.80-2.40 mg/dL Total Bilirubin 0.5 0.2-1.0 mg/dL Aspartate Amino Transf (AST/SGOT) 41 H 10-37 U/L Alanine Aminotransferase (ALT/SGPT) 27 12-78 U/L Alkaline Phosphatase 72 50-136 U/L Total Protein 5.1 L 6.0-8.3 g/dL Albumin 2.2 L 3.5-5.0 g/dL Procalcitonin 0.08 0.05-0.5 ng/mL Prothrombin Time 11.5 9.6-11.6 SEC Prothromb Time International Ratio 1.09 0.85-1.15 Vancomycin Level Trough 15.2 # 10.0-20.0 UG/ML Current Medications Medications (Trade) Dose Ordered Sig/Hank Route PRN Reason Start Time Stop Time Status Last Admin Dose Admin Acetaminophen (TYLenol 325MG TAB) 650 mg Q6H PRN PO MILD PAIN (1-3) 10/31/24 14:00 11/30/24 13:59 10/31/24 17:32 650 MG Albuterol (DUOneb) 1 udvial Q6H PRN IH SHORTNESS OF BREATH 10/31/24 14:30 11/30/24 14:29 11/08/24 06:34 1 UDVIAL Alteplase, Recombinant 10 mg/ Sodium Chloride 100 ml @ 10 mls/hr PROTOCOL [facility] 11/09/24 06:30 11/09/24 16:29 11/09/24 06:26 10 MLS/HR Alteplase, Recombinant 7.5 mg/Sodium Chloride 100 ml @ 13.333 mls/ hr PROTOCOL [facility] 11/09/24 16:30 11/10/24 23:59 Alteplase, Recombinant 8.33 mg/Sodium Chloride 100 ml @ 10 mls/hr PROTOCOL [facility] 11/09/24 06:00 11/09/24 06:16 DC Budesonide (Pulmicort 0.5 Mg/2ml) 0.5 mg BIDRESP IH 10/31/24 18:00 11/30/24 17:59 11/08/24 06:34 0.5 MG Cefepime HCl (MAXipime 2 gm vial) 2 gm Q12H IVPB 11/08/24 08:00 11/10/24 07:59 11/09/24 08:56 2 GM Cefepime HCl (MAXipime 2 gm vial) 2 gm Q12H IVPB 10/31/24 18:00 11/08/24 07:36 DC 11/07/24 17:29 2 GM Clonazepam (KLONopin 2MG TAB) 2 mg HS PO 11/04/24 21:00 11/04/24 11:13 DC Clonazepam (KLONopin 2MG TAB) 2 mg HS PO 11/05/24 21:00 12/05/24 20:59 11/08/24 20:36 2 MG Doxycycline Hyclate 250 ml @ 125 mls/hr BID IV 10/31/24 14:00 11/10/24 13:59 11/09/24 08:56 125 MLS/HR Furosemide (LASix 20MG VIAL) 20 mg BID IV 11/04/24 09:00 11/05/24 06:14 DC 11/04/24 10:02 20 MG Furosemide (LASix 20MG VIAL) 20 mg Q12H IV 11/05/24 06:30 12/05/24 06:29 11/08/24 17:46 20 MG Heparin Sodium/ Dextrose 250 ml @ 0 mls/hr Q6H IV 11/02/24 21:00 11/09/24 09:10 DC 11/06/24 15:25 0 MLS/HR Magnesium Sulfate 50 ml @ 0 mls/hr PROTOCOL PRN IV OTHER [SEE ORDER COMMENTS] 11/01/24 08:00 12/01/24 07:59 11/09/24 05:55 25 MLS/HR Metronidazole/ Sodium Chloride 100 ml @ 100 mls/hr Q8H6 IVPB 10/31/24 21:00 11/10/24 20:59 11/09/24 05:26 100 MLS/HR Morphine Sulfate (morPHINE 2MG SYG) 2 mg Q4H PRN IVP SEVERE PAIN (7-10) 11/08/24 21:00 11/15/24 20:59 11/09/24 10:46 2 MG Morphine Sulfate (morPHINE 2MG SYG) 2 mg Q4H PRN IVP SEVERE PAIN (7-10) 11/02/24 10:30 11/07/24 13:29 DC 11/07/24 08:57 2 MG Morphine Sulfate (morPHINE 2MG SYG) 2 mg Q6H PRN IVP SEVERE PAIN (7-10) 10/31/24 19:00 11/02/24 10:03 DC 11/02/24 06:33 2 MG Ondansetron HCl (zoFRAN 4MG INJ) 4 mg Q6H PRN IVP NAUSEA/VOMITING 10/31/24 14:00 11/30/24 13:59 11/03/24 08:38 4 MG Pantoprazole Sodium (PROTonix 40MG INJ) 40 mg Q12H IVP 10/31/24 14:00 11/30/24 13:59 11/09/24 01:30 40 MG Pharmacy Profile Note (Pharmacy Communication) 1 each ONCE MISC 11/09/24 04:00 11/09/24 07:07 DC Pharmacy Profile Note (Pharmacy Communication) 1 each ONCE MISC 11/02/24 13:30 11/02/24 13:15 DC Potassium Chloride 100 ml @ 50 mls/hr AD PRN IV POTASSIUM PROTOCOL 11/03/24 12:00 12/03/24 11:59 11/09/24 05:56 50 MLS/HR Potassium Chloride 100 ml @ 100 mls/hr AD PRN IV POTASSIUM PROTOCOL 11/03/24 12:00 11/04/24 17:15 DC Potassium Chloride (K-Dur/Klor-Con 20meq) 20 meq AD PRN PO POTASSIUM PROTOCOL 11/03/24 12:00 12/03/24 11:59 11/08/24 01:49 20 MEQ Potassium Chloride (KCl 10% Elixir 20meq/15ml) 20 meq AD PRN PO POTASSIUM PROTOCOL 11/03/24 12:00 12/03/24 11:59 11/05/24 13:13 20 MEQ Sodium Chloride 1,000 ml @ 75 mls/hr [id number] IV 10/31/24 14:00 11/02/24 21:00 DC 11/01/24 03:31 75 MLS/HR Tranexamic Acid (Cyklokapron) 500 mg [id number] IJ 10/31/24 15:30 11/02/24 11:02 DC 11/01/24 23:57 500 MG Vancomycin HCl 250 ml @ 125 mls/hr Q12H IV 11/06/24 01:30 11/08/24 22:21 DC 11/08/24 13:28 125 MLS/HR Vancomycin HCl 250 ml @ 125 mls/hr Q12H IV 11/01/24 01:30 11/05/24 14:11 DC 11/05/24 13:36 125 MLS/HR Vancomycin HCl (Vancomycin Protocol) 1 each AD IV 10/31/24 12:30 11/08/24 22:21 DC DIAGNOSTICS / RADIOLOGY: [ ] ASSESSMENT: AFib with RVR not POA Chronic elbow pain Severe sepsis secondary to right lung community-acquired pneumonia, POA Acute hypoxemic respiratory failure, POA Bilateral Multifocal Pneumonia with R > L, POA Hypotension secondary to severe sepsis, resolving Hemoptysis, POA Right shoulder swelling with possible hematoma, POA Right ear otorrhea with blood, POA Acute on chronic anemia secondary to blood loss, POA Severely elevated supratherapeutic INR secondary to Coumadin use and possibly sepsis, POA hypercoagulable state secondary to Mechanical aortic value on Coumadin Therapy POA Coumadin Toxicity POA History of mechanical aortic valve, POA History of chronic anticoagulation with warfarin, POA Acute kidney injury, POA Demand ischemia, POA Recent history of left forearm ulnar nondisplaced fracture treated conservatively, POA Prior history of fall 12 days ago in [place], POA Obesity, POA PLAN: Mr. Williamson 64-year-old male remains in transitioned to ICU ANDRES revealed Possible pannus formation noted with thickening of the mechanical valve leaflets was started on Alteplase drip for 24 hrs . Continue oxygen supplemental,3 L nasal cannula. . Physical therapy continues to work with patient.. Encouraged patient to use IS while awake. Admit:PCCU Status: [place] code consultants: Critical Care, [employer] infectious disease, CV Diet: Heart healthy Continue oxygen supplemental to keep O2 sats above 92% currently on 3 L , continue bronchodilators as needed antibiotics: IV cefepime/Flagyl/doxycycline vanco monitor for bleeding: transfuse as needed to keep Hbg above 7.0 we will monitor H&H trend and platelets monitor acute bleeding. GI ppx: IV Protonix 40 mg b.i.d. Labs in am : CBC, cmp, and Mag PT services to ronak and treat, fall precautions Plan of care was discussed with patient at bedside, ATTESTATION BY PHYSICIAN I have seen and examined the patient. I reviewed the documentation, medical decision making, and treatment plan as noted by the mid-level provider above. I agree with the findings and plan of care. VIC DICKEY MD, ELIZABETH NP Nov 09, 2024 12:07
--- NOTE | 2024-11-09 12:16 | NUR ---
[facility] ICU Skin Assessment: Patient assessed by wound healing team. Patient with no wounds or skin breakdown noted. Assessment and recommendations provided to primary nurse. Education provided. Addendum: 11/09/24 at 1434 by CANDE CHINCHILLA RN RN/ Amended: Links added.
--- NOTE | 2024-11-09 12:31 | PN ---
[facility] PROGRESS NOTE Date Patient Seen: Nov 09, 2024 Time of Visit: 12:28 Supervising Physician: Dr. Cardona Primary Care Physician: self referral Outpatient Specialists: Inpatient Consults: dr Awad, Dr Ej Vega PROBLEM LIST: Septic shock, resolved supra therapeutic INR secondary to Coumadin, resolved Acute hypoxemic respiratory failure, POA Suspected alveolar hemorrhage, improving Acute on chronic anemia secondary to blood loss, POA History of mechanical aortic valve, POA History of chronic anticoagulation with warfarin, POA Acute kidney injury, POA Demand ischemia, POA Obesity, POA INTERVAL HISTORY: Patient is seen at bedside, he remains weak, currently on room air but endorses exertional dyspnea. White count is within normal limits today and he currently continues on vancomycin, cefepime, doxycycline. We will discontinue vancomycin at this time as the patient's cultures have remained negative. Pending profile labs tomorrow morning. Cardiology currently investigating the possibility of transferring patient to [place] for valve repair. Denies palpitations Good appetite, no nausea or vomiting REVIEW OF SYSTEMS: 12 point ROS reviewed with patient. Pertinent positives mentioned above. Otherwise negative. PHYSICAL EXAM: GENERAL: alert, weak, awake oriented x 3 HEENT: EOMI, Sclera non icteric, moist mucosa NECK: Supple, no JVD, trachea midline LUNGS: Bilateral crackles to the bases, no wheezing HEART: Regular rate and rhythm. Normal S1 and S2, without murmurs ABD: Abdomen obese soft, nontender. Bowel sounds present EXT: No clubbing cyanosis. Left forearm tenderness. Right shoulder swelling. BLE edema ++ NEURO: Alert and oriented to person, follows commands Vital Signs (last 8hr) Date Time Temp Pulse Resp B/P (MAP) Pulse Ox O2 Delivery O2 Flow Rate FiO2 11/09/24 12:00 76 20 N/A Room Air 28 11/09/24 07:15 98 Nasal Cannula* 2 28 11/09/24 06:00 88 24 117/71 98 Nasal Cannula 2.0 28 11/09/24 05:00 93 23 103/64 95 Nasal Cannula 2.0 28 LABS: Hematology Labs: Test 11/09/24 12:02 11/09/24 04:57 Range/Units Hemoglobin 8.6 L 14.0-18.0 g/dL Hematocrit 26.3 L 42-54 % White Blood Count 10.3 4.8-10.8 K/uL Red Blood Count 3.10 L 4.50-6.20 MIL/uL Mean Corpuscular Volume 86.8 79-99 fL Mean Corpuscular Hemoglobin 28.4 27.0-33.0 pg Mean Corpuscular Hemoglobin Concent 32.7 32.0-36.0 g/dL Red Cell Distribution Width 14.2 11.0-15.5 % Platelet Count 262 130-400 K/uL Mean Platelet Volume 9.0 7.5-10.5 fL Immature Granulocyte % (Auto) 1.6 H 0-1 % Neutrophils (%) (Auto) 72.5 40.0-77.0 % Lymphocytes (%) (Auto) 15.4 L 21.0-51.0 % Monocytes (%) (Auto) 6.3 3.0-13.0 % Eosinophils (%) (Auto) 3.8 0.0-8.0 % Basophils (%) (Auto) 0.4 0.0-5.0 % Neutrophils # (Auto) 7.5 1.8-7.7 K/uL Lymphocytes # (Auto) 1.6 1.0-4.8 K/uL Monocytes # (Auto) 0.7 0.1-1.0 K/uL Eosinophils # (Auto) 0.39 0.00-0.70 K/uL Basophils # (Auto) 0.04 0.00-0.20 K/uL Absolute Immature Granulocyte (auto 0.16 0-1 K/uL Nucleated Red Blood Cells 0.3 H 0.0-0.19 % Chemistry Labs: Test 11/09/24 04:57 Range/Units Sodium Level 140 136-145 mmol/L Potassium Level 3.7 3.5-5.1 mmol/L Chloride Level 104 101-111 mmol/L Carbon Dioxide Level 29 21-32 mmol/L Blood Urea Nitrogen 9 7-18 mg/dL Creatinine 0.8 0.5-1.3 mg/dL Glomerular Filtration Rate Calc 98 >90 mL/min Random Glucose 94 70-105 mg/dL Total Calcium 8.1 L 8.5-10.1 mg/dL Magnesium Level 1.70 L 1.80-2.40 mg/dL Total Bilirubin 0.5 0.2-1.0 mg/dL Aspartate Amino Transf (AST/SGOT) 41 H 10-37 U/L Alanine Aminotransferase (ALT/SGPT) 27 12-78 U/L Alkaline Phosphatase 72 50-136 U/L Total Protein 5.1 L 6.0-8.3 g/dL Albumin 2.2 L 3.5-5.0 g/dL Procalcitonin 0.08 0.05-0.5 ng/mL Coagulation Labs: Test 11/09/24 04:57 11/08/24 23:19 Range/Units Activated Partial Thromboplast Time 33.9 # 26.3-35.5 SEC Prothrombin Time 11.5 9.6-11.6 SEC Prothromb Time International Ratio 1.09 0.85-1.15 DIAGNOSTICS / RADIOLOGY RESULTS: [ ] PLAN Patient to undergo ANDRES today Will follow results continue with supplemental oxygen Gentle diuresis Avoid fluid overload Telemetry monitoring NEURO: Minimize central acting medications as possible. Maintain fall precautions, adequate lighting during the day PULMONARY: Supplemental 02 as needed. Maintain aspiration precautions at all times CARDIOVASCULAR: Follow hemodynamics. Vital signs per facility protocol GI & NUTRITION: Continue with nutritional support. Continue stool softeners and laxatives as needed. KIDNEYS & ELECTROLYTES: Strict monitoring of intake, output and overall fluid balance. Avoid nephrotoxic medications to the extent possible. Medications to be dosed according to renal function. Monitor electrolytes and replace as needed ENDOCRINE: Maintain blood glucose between 100-180 at all times. Hypoglycemia protocol in place INFECTIOUS DISEASE: Trend temperature, WBC and procalcitonin level Follow cultures, deescalate antibiotics as soon as possible. Panculture if new onset fever ONCOLOGY/HEMATOLOGY/COAGULATION: Monitor for s/s of bleeding Monitor hemoglobin, coagulation studies as needed SKIN: Pressure ulcer prevention per facility protocol Specialty mattress ORTHO/REHAB: Continue PT/OT Prophylaxis: Continue GI and DVT prophylaxis Code Status: Full Resuscitation Disposition: TBD Other: Total patient care time exceeds 35 minutes excluding all procedures. JOYCE RAMESH Nov 09, 2024 12:31
--- NOTE | 2024-11-09 15:25 | PN ---
INFECTIOUS DISEASE PROGRESS NOTE Date of Service: Nov 09, 2024 SUBJECTIVE: This 64 year old male patient is being seen today at bedside. Patient was awake, alert and oriented x3. Patient was transferred to ICU and started on Alteplase protocol per camelid fiber sorter recommendations. No fever or chills. He remains on oxygen via nasal canula. Denies any shortness of breath or chest pain at this time. Patient remains on antibiotics. We continue to follow patient closely. PHYSICAL EXAM EYES: Anicteric. Pupils equal and reactive. HENT: No oral thrush seen, moist Oral mucosa NECK: Supple, no JVD or thyromegaly. LUNGS: crackles present no wheezing CARDIOVASCULAR: S1, S2 regular. No murmur heard. ABDOMEN: Soft, non tender, bowel sounds present, no organomegaly CENTRAL NERVOUS SYSTEM: Awake, alert, oriented x 3. No focal deficits. SKIN: No rashes, no swelling. LYMPHATICS: No peripheral lymphadenopathy MUSCULOSKELETAL: No joint swelling, erythema or tenderness. EXTREMITIES: No cyanosis or clubbing BACK: No deformity, no pressure ulcer. GENITOURINARY: No dysuria or hematuria Vital Sign (Last 12 Hours) 11/09/24 11/09/24 11/09/24 11/09/24 04:00 04:00 05:00 06:00 Temp 98.4 Pulse 82 93 88 Resp 19 23 24 B/P (MAP) 108/72 103/64 117/71 Pulse Ox 98 96 95 98 O2 Delivery Nasal Cannula* Nasal Cannula Nasal Cannula Nasal Cannula O2 Flow Rate 2 2.0 2.0 2.0 FiO2 28 28 28 28 11/09/24 11/09/24 07:15 12:00 Pulse 76 Resp 20 Pulse Ox 98 O2 Delivery Nasal Cannula* N/A Room Air O2 Flow Rate 2 FiO2 28 28 Intake & Output (last 24hrs) 11/08/24 11/08/24 11/09/24 15:00 23:00 07:00 Intake Total 341.8 ml Output Total 1000 ml 1000 ml 1400 ml Balance -1000 ml -1000 ml -1058.2 ml LABS: Laboratory: Test 11/09/24 12:02 11/09/24 04:57 11/08/24 23:19 Range/Units Hemoglobin 8.6 L 14.0-18.0 g/dL Hematocrit 26.3 L 42-54 % White Blood Count 10.3 4.8-10.8 K/uL Red Blood Count 3.10 L 4.50-6.20 MIL/uL Mean Corpuscular Volume 86.8 79-99 fL Mean Corpuscular Hemoglobin 28.4 27.0-33.0 pg Mean Corpuscular Hemoglobin Concent 32.7 32.0-36.0 g/dL Red Cell Distribution Width 14.2 11.0-15.5 % Platelet Count 262 130-400 K/uL Mean Platelet Volume 9.0 7.5-10.5 fL Immature Granulocyte % (Auto) 1.6 H 0-1 % Neutrophils (%) (Auto) 72.5 40.0-77.0 % Lymphocytes (%) (Auto) 15.4 L 21.0-51.0 % Monocytes (%) (Auto) 6.3 3.0-13.0 % Eosinophils (%) (Auto) 3.8 0.0-8.0 % Basophils (%) (Auto) 0.4 0.0-5.0 % Neutrophils # (Auto) 7.5 1.8-7.7 K/uL Lymphocytes # (Auto) 1.6 1.0-4.8 K/uL Monocytes # (Auto) 0.7 0.1-1.0 K/uL Eosinophils # (Auto) 0.39 0.00-0.70 K/uL Basophils # (Auto) 0.04 0.00-0.20 K/uL Absolute Immature Granulocyte (auto 0.16 0-1 K/uL Nucleated Red Blood Cells 0.3 H 0.0-0.19 % Activated Partial Thromboplast Time 33.9 # 26.3-35.5 SEC Sodium Level 140 136-145 mmol/L Potassium Level 3.7 3.5-5.1 mmol/L Chloride Level 104 101-111 mmol/L Carbon Dioxide Level 29 21-32 mmol/L Blood Urea Nitrogen 9 7-18 mg/dL Creatinine 0.8 0.5-1.3 mg/dL Glomerular Filtration Rate Calc 98 >90 mL/min Random Glucose 94 70-105 mg/dL Total Calcium 8.1 L 8.5-10.1 mg/dL Magnesium Level 1.70 L 1.80-2.40 mg/dL Total Bilirubin 0.5 0.2-1.0 mg/dL Aspartate Amino Transf (AST/SGOT) 41 H 10-37 U/L Alanine Aminotransferase (ALT/SGPT) 27 12-78 U/L Alkaline Phosphatase 72 50-136 U/L Total Protein 5.1 L 6.0-8.3 g/dL Albumin 2.2 L 3.5-5.0 g/dL Procalcitonin 0.08 0.05-0.5 ng/mL Prothrombin Time 11.5 9.6-11.6 SEC Prothromb Time International Ratio 1.09 0.85-1.15 DIAGNOSTICS / RADIOLOGY: CR Chest, 1 View. CLINICAL HISTORY: please assess for any wrsening infiltrates, PNA COMPARISON: None provided. FINDINGS: LUNGS: Improved right sided infiltrate. Resolving pneumonia. Continue follow-up recommended PLEURAL SPACES: No pleural effusion or pneumothorax. MEDIASTINUM: Cardiac size and mediastinal contours within normal limits. BONES: No acute osseous abnormality. IMPRESSION: Improved right sided infiltrate. Resolving pneumonia. Continue follow-up recommended /[place] REASON: picc line placement ORDERING PHYSICIAN: ALICIA LUCIANO PROCEDURE: CXR1VW - CHEST 1VW EXAM: CR Chest, 2 View. CLINICAL HISTORY: picc line placement COMPARISON: X-ray chest 11/02/2024 FINDINGS: Multifocal airspace opacities bilaterally right greater than left. Persistent small right-sided pleural effusion. MEDIASTINUM: The cardiomediastinal silhouette is within normal limits. Changes of median sternotomy Interval placement of right PICC line catheter whose tip is in appropriate position projecting within the junction of the SVC and right atrium BONES: No acute osseous abnormality. IMPRESSION: 1. Multifocal airspace opacities bilaterally, right greater than left 2. Small right pleural effusion 3. Right PICC line tip appropriately positioned at SVC-right atrial junction PATIENT: TIMUR DELGADILLO ACCT: [id number] LOC: [facility] U: [id number] AGE/SX: 64/M ROOM: 227 RE10/31/[address]: MARGARITA BILL MD : 1960 BED: 1 DIS: STATUS: ADM IN TLOC: SPEC: [id number] CAT[place]O: 11/01/24 STATUS: COMP REQ: [id number] RECD: 11/01/24-[address]: KENIA AMANDA SOURCE: SPUTUM ENTR: 10/31/24-[address]: CHARU KILPATRICK MD SPDESC: JACKO MARK FITZPATRICK MD, ASHISH MD SELF,REFERRAL ANTONINO DIANE MD ORDERED: RESP CULTURE Procedure Result Cecy Date-Time GRAM STAIN Final 11/01/24-2140 MRL GRAM STAIN RESULT: GOOD SPECIMEN [ <10 SEC's/LPF and >25 PMN's/LPF ] FEW GRAM NEGATIVE RODS RARE GRAM POSITIVE COCCI RESPIRATORY CULTURE Final 11/03/24-1056 [facility] DESCRIPTION: REPORT 1: 2+ ORAL HAKEEM ; STUDIES TO CONTINUE REPORT 2: NORMAL ORALPHARYNGEAL HAKEEM Test(s) performed by: [facility] [address] [place] [address] [address] [facility] Test Performed at: [facility] [address], [place], [place] Medical Director Of National Sales: Ignacio Salcido D.O. ASSESSMENT: * Multifocal pneumonia. * Severe sepsis. * Hypoxic respiratory failure. * Supratherapeutic INR. * Elevated troponin may be due to demand ischemia. * Anemia. * leukocytosis PLAN: * Continue vancomycin. * Continue cefepime. * Continue doxycycline. * Continue Flagyl.. * Continue nutritional support. * Monitor electrolytes. * The patient will be followed up closely. * follow Cardiology recommendations * Continue PT * continue oxygen This case has been discussed with my supervising physician Dr. Kilpatrick. The case has been discussed and agreed upon. YESSICA GASCA [facility] Nov 09, 2024 15:25
--- NOTE | 2024-11-09 16:19 | PN ---
[facility] PROGRESS NOTE Date Patient Seen: Nov 09, 2024 Time of Visit: 15:49 Supervising Physician: [YUDITH CARDONA MD ] Supervising Physician: Dr. Cardona Primary Care Physician: self referral Outpatient Specialists: Inpatient Consults: dr Awad, Dr Ej Vega PROBLEM LIST: Septic shock, resolved supra therapeutic INR secondary to Coumadin, resolved Acute hypoxemic respiratory failure, POA Suspected alveolar hemorrhage, improving Acute on chronic anemia secondary to blood loss, POA History of mechanical aortic valve, POA History of chronic anticoagulation with warfarin, POA Acute kidney injury, POA Demand ischemia, POA Obesity, POA INTERVAL HISTORY: Patient is seen at bedside and examined, he is vitally stable 110/71. He is maintaining his oxygen saturation at 2 L nasal cannula, with normal sinus rhythm 79 beats per minute, he complains of mild exertional dyspnea. Based on echo revealing thickening of the aortic valve and pannus formation, patient is currently receiving thrombolytic therapy with alteplase at 1 mg per hour. Heparin was discontinued. White count is within normal limits today. Vancomycin has been discontinued due to negative blood culture. He currently continues on Flagyl, cefepime, doxycycline. Their duration will be completed by tomorrow. Patient denies any palpitation or chest pain. Hemoglobin is 8.8. Patient's total output in the last 24 hours is 4650 mL. Furosemide is being held for now. Good appetite, no nausea or vomiting REVIEW OF SYSTEMS: 12 point ROS reviewed with patient. Pertinent positives mentioned above. Otherwise negative. PHYSICAL EXAM: GENERAL: alert, weak, awake oriented x 3 HEENT: EOMI, Sclera non icteric, moist mucosa NECK: Supple, no JVD, trachea midline LUNGS: Decreased breath sounds bilaterally HEART: Regular rate and rhythm. Normal S1 and S2, without murmurs ABD: Abdomen obese soft, nontender. Bowel sounds present EXT: No clubbing cyanosis. Left forearm tenderness. Right shoulder swelling. BLE edema + NEURO: Alert and oriented to person, follows commands. Vital Signs (last 8hr) Date Time Temp Pulse Resp B/P (MAP) Pulse Ox O2 Delivery O2 Flow Rate FiO2 11/09/24 12:00 76 20 N/A Room Air 28 LABS: Hematology Labs: Test 11/09/24 12:02 11/09/24 04:57 Range/Units Hemoglobin 8.6 L 14.0-18.0 g/dL Hematocrit 26.3 L 42-54 % White Blood Count 10.3 4.8-10.8 K/uL Red Blood Count 3.10 L 4.50-6.20 MIL/uL Mean Corpuscular Volume 86.8 79-99 fL Mean Corpuscular Hemoglobin 28.4 27.0-33.0 pg Mean Corpuscular Hemoglobin Concent 32.7 32.0-36.0 g/dL Red Cell Distribution Width 14.2 11.0-15.5 % Platelet Count 262 130-400 K/uL Mean Platelet Volume 9.0 7.5-10.5 fL Immature Granulocyte % (Auto) 1.6 H 0-1 % Neutrophils (%) (Auto) 72.5 40.0-77.0 % Lymphocytes (%) (Auto) 15.4 L 21.0-51.0 % Monocytes (%) (Auto) 6.3 3.0-13.0 % Eosinophils (%) (Auto) 3.8 0.0-8.0 % Basophils (%) (Auto) 0.4 0.0-5.0 % Neutrophils # (Auto) 7.5 1.8-7.7 K/uL Lymphocytes # (Auto) 1.6 1.0-4.8 K/uL Monocytes # (Auto) 0.7 0.1-1.0 K/uL Eosinophils # (Auto) 0.39 0.00-0.70 K/uL Basophils # (Auto) 0.04 0.00-0.20 K/uL Absolute Immature Granulocyte (auto 0.16 0-1 K/uL Nucleated Red Blood Cells 0.3 H 0.0-0.19 % Chemistry Labs: Test 11/09/24 04:57 Range/Units Sodium Level 140 136-145 mmol/L Potassium Level 3.7 3.5-5.1 mmol/L Chloride Level 104 101-111 mmol/L Carbon Dioxide Level 29 21-32 mmol/L Blood Urea Nitrogen 9 7-18 mg/dL Creatinine 0.8 0.5-1.3 mg/dL Glomerular Filtration Rate Calc 98 >90 mL/min Random Glucose 94 70-105 mg/dL Total Calcium 8.1 L 8.5-10.1 mg/dL Magnesium Level 1.70 L 1.80-2.40 mg/dL Total Bilirubin 0.5 0.2-1.0 mg/dL Aspartate Amino Transf (AST/SGOT) 41 H 10-37 U/L Alanine Aminotransferase (ALT/SGPT) 27 12-78 U/L Alkaline Phosphatase 72 50-136 U/L Total Protein 5.1 L 6.0-8.3 g/dL Albumin 2.2 L 3.5-5.0 g/dL Procalcitonin 0.08 0.05-0.5 ng/mL Coagulation Labs: Test 11/09/24 04:57 11/08/24 23:19 Range/Units Activated Partial Thromboplast Time 33.9 # 26.3-35.5 SEC Prothrombin Time 11.5 9.6-11.6 SEC Prothromb Time International Ratio 1.09 0.85-1.15 DIAGNOSTICS / RADIOLOGY RESULTS: PATIENT: TIMUR DELGADILLO MR#: [id number] : 1960 SEX: M AGE: 64 LOCATION: [facility] ORDER 1658 STATUS: ADM IN REPORT#: [id number] SERVICE 1200 REASON: AVR ORDERING PHYSICIAN: ANTONINO VEGA MD PROCEDURE: ECHO ANDRES - ECHO ANDRES--TRANSESOPHAGEAL APPROVED REPORT EXAM: Transesophageal echocardiogram with color flow Doppler. INDICATION ICD: Assess aortic valve prosthetic PROCEDURE After obtaining informed consent, patient underwent transesophageal echo in the Patient Room 227 . 15 mL 2% Viscous Lidocaine was given as a topical anesthetic prior to the administration of the conscious sedation. Type of Sedation: General Anesthesia Sedation was administered by please refer to medication administration record. . Sedation was achieved with please refer to medication administration record. in travenously. Transesophageal probe was inserted and advanced into esophagus without difficulty by Antonino Vega MD . ANDRES was performed and images were obtained, probe was removed without complications. Throughout the procedure, the blood pressure, pulse oximetry, cardiac rhythm, and rate were monitored. Atria l. Aortic Valve Mechanical aortic prosthetic valve is thickened with pannus noted. Mechanical aoritc prosthetic valve opens well. No paravalvular/perivalvular leak noted on this study. There is no aortic prosthetic valvular vegetation. Mitral Valve No mitral valve vegetation. Conclusion Mechanical aortic prosthetic valve is thickened with pannus noted. Mechanical aoritc prosthetic valve opens well. No paravalvular/perivalvular leak noted on t his study. Layered thrombus cannot be excluded DICTATED BY: ANTONINO VEGA MD DATE: 11/07/24 1226 ELECTRONICALLY SIGNED BY: ANTONINO VEGA MD DATE: 11/08/24709 PATIENT: TIMUR DELGADILLO MR#: [id number] : 1960 SEX: M AGE: 64 LOCATION: [facility] ORDER 99 STATUS: ADM IN REPORT#: [id number] SERVICE 06 REASON: pna ORDERING PHYSICIAN: ALICIA LUCIANO PROCEDURE: CXR1VW - CHEST 1VW EXAM: CR Chest, 1 View. CLINICAL HISTORY: Pneumonia. COMPARISON: Chest radiograph provided 11/06/2024. FINDINGS: Stable since the prior exam, without a positive dynamic. Borderline cardiomegaly. Prior sternotomy. Right PICC catheter, tip in the region of the SVC/right atrium. Stable patchy, infiltrates in the right mid and lower zones.Minimal to mild right pleural effusion. No evidence of pneumothorax. No acute osseous abnormality.Mild degenerative changes in the mid and lower thoracic spine. BONES: No aggressive appearing osseous lesion was seen. IMPRESSION: Right-sided PICC catheter with tip in the region of the SVC/right atrium. Patchy, ill-defined infiltrates in the right mid and lower zones. Subtle blunting of the right costophrenic angle is suggestive of minimal right pleural effusion. Poststernotomy status. Borderline cardiomegaly. No evidence of pneumothorax. /[place] DICTATED BY: PRUDENCIO GUILLEN MD DATE: 11/08/24728 ELECTRONICALLY SIGNED BY: PRUDENCIO GUILLEN MD DATE: 11/08/24728 PATIENT: TIMUR DELGADILLO MR#: [id number] : 1960 SEX: M AGE: 64 LOCATION: ED ORDER 44 STATUS: [facility] REPORT#: [id number] SERVICE 43 REASON: supratherapeutic INR, swelling of the right shoulder ORDERING PHYSICIAN: MARGARITA BILL MD PROCEDURE: SHOL 2V RT - SHOULDER COMP 2+VWS RT EXAM: CR right Shoulder, 2 View. CLINICAL HISTORY: supratherapeutic INR, swelling of the right shoulder COMPARISON: None provided. FINDINGS: BONES: No acute fracture or aggressive appearing osseous lesion. JOINTS: No dislocation. Mild glenohumeral joint osteoarthritis. SOFT TISSUES: The soft tissues are unremarkable. Redemonstrated multifocal airspace disease throughout the right lung. IMPRESSION: 1. No acute osseous injury. 2. Multifocal airspace disease in the right lung. /[place] DICTATED BY: DEEPAK LUNA Jr., MD DATE: 10/31/241529 ELECTRONICALLY SIGNED BY: DEEPAK LUNA Jr., MD DATE: 10/31/241529 PATIENT: TIMUR DELGADILLO MR#: [id number] : 1960 SEX: M AGE: 64 [facility] STATUS: ADM IN REPORT#: [id number] SERVICE 43 REASON: INR> 8, right ear blooody drainage ORDERING PHYSICIAN: MARGARITA BILL MD PROCEDURE: HEAD WO - CT HEAD/BRAIN W/O CONTRAST EXAM: CT Head Without IV contrast. CLINICAL HISTORY: INR> 8, right ear blooody drainage TECHNIQUE: Axial computed tomography images of the head/brain without intravenous contrast. COMPARISON: None provided. FINDINGS: BRAIN: No evidence of acute hemorrhage. No mass lesion. No CT evidence for acute territorial infarct. No midline shift or extra-axial collections. VENTRICLES: No hydrocephalus. ORBITS: The orbits are unremarkable. SINUSES AND MASTOIDS: The paranasal sinuses and mastoid air cells are clear. BONES: No fracture. SOFT TISSUES: Unremarkable. IMPRESSION: No acute intracranial abnormality. /[place] DICTATED BY: DEEPAK LUNA Jr., MD DATE: 10/31/241646 ELECTRONICALLY SIGNED BY: DEEPAK LUNA Jr., MD DATE: 10/31/241646 PATIENT: TIMUR DELGADILLO MR#: [id number] : 1960 SEX: M AGE: 64 LOCATION: [facility] ORDER 1223 STATUS: ADM IN REPORT#: [id number] SERVICE 1220 REASON: hemoptysis, leukocytosis ORDERING PHYSICIAN: PATRICIA ROJAS PROCEDURE: CAP W - CT CHEST/ABD/PELV W/CONRAST ADDENDUM REPORT ADDENDUM: Results were shared by telephone at 6:24 pm on 10/31/24 and acknowledged by Chart Nurse bhanu Khan /[place] EXAM: CT Chest with Intravenous Contrast. CT Abdomen and Pelvis with Intravenous Contrast CLINICAL HISTORY: hemoptysis, leukocytosis TECHNIQUE: Axial computed tomography images of the chest, abdomen and pelvis with intravenous contrast. CONTRAST: None. COMPARISON: None provided. CT chest 09/09/2024 FINDINGS: CHEST: LUNGS: Multifocal areas of consolidation throughout the right lower lung, large portion of the right upper lung and approximately 50% of the right middle lobe. Multifocal areas of consolidation left upper lung occupying approximately 30% of the lung volume and multifocal areas of consolidation within the left lower lung occupying slightly less than 50% of the left lower lung volume PLEURAL SPACES: No pneumothorax evident. No pleural effusions. HEART: No cardiomegaly. No significant pericardial effusion. Changes of median sternotomy. LYMPH NODES: Mild bilateral hilar lymphadenopathy right greater than left. There are a few shotty mediastinal lymph nodes not significantly changed in size or number compared with the prior exam ABDOMEN AND PELVIS: LIVER: Unremarkable. No focal lesions. GALLBLADDER AND BILE DUCTS: The gallbladder appears within normal limits. No radioopaque gallstones are seen. No biliary ductal dilatation is evident. PANCREAS: Unremarkable. SPLEEN: Unremarkable. ADRENAL GLANDS: Unremarkable. KIDNEYS, URETERS, AND BLADDER: Unremarkable. No hydronephrosis or nephrolithiasis. No ureteral or bladder calculi. STOMACH AND BOWEL: Unremarkable appearance of the stomach and bowel. No evidence of bowel obstruction. No evidence suggesting enteritis or colitis. APPENDIX: No evidence of acute appendicitis on CT examination. PERITONEUM: No free fluid. No free air. REPRODUCTIVE: Unremarkable. LYMPH NODES: No lymphadenopathy is evident. VASCULATURE: No evidence of abdominal aortic aneurysm. BONES: No acute osseous abnormality. IMPRESSION: 1. Extensive multifocal pneumonia versus hemorrhage versus edema involving both lungs, right greater than left 2. Mild bilateral hilar lymphadenopathy, right greater than left 3. Post-median sternotomy changes 4. No acute intra-abdominal/pelvic abnormality. /[place] DICTATED BY: TREMAYNE MOELLER MD DATE: 10/31/241825 ELECTRONICALLY SIGNED BY: DATE: EXAM: CT Chest with Intravenous Contrast. CT Abdomen and Pelvis with Intravenous Contrast CLINICAL HISTORY: hemoptysis, leukocytosis TECHNIQUE: Axial computed tomography images of the chest, abdomen and pelvis with intravenous contrast. CONTRAST: None. COMPARISON: None provided. CT chest 09/09/2024 FINDINGS: CHEST: LUNGS: Multifocal areas of consolidation throughout the right lower lung, large portion of the right upper lung and approximately 50% of the right middle lobe. Multifocal areas of consolidation left upper lung occupying approximately 30% of the lung volume and multifocal areas of consolidation within the left lower lung occupying slightly less than 50% of the left lower lung volume PLEURAL SPACES: No pneumothorax evident. No pleural effusions. HEART: No cardiomegaly. No significant pericardial effusion. Changes of median sternotomy. LYMPH NODES: Mild bilateral hilar lymphadenopathy right greater than left. There are a few shotty mediastinal lymph nodes not significantly changed in size or number compared with the prior exam ABDOMEN AND PELVIS: LIVER: Unremarkable. No focal lesions. GALLBLADDER AND BILE DUCTS: The gallbladder appears within normal limits. No radioopaque gallstones are seen. No biliary ductal dilatation is evident. PANCREAS: Unremarkable. SPLEEN: Unremarkable. ADRENAL GLANDS: Unremarkable. KIDNEYS, URETERS, AND BLADDER: Unremarkable. No hydronephrosis or nephrolithiasis. No ureteral or bladder calculi. STOMACH AND BOWEL: Unremarkable appearance of the stomach and bowel. No evidence of bowel obstruction. No evidence suggesting enteritis or colitis. APPENDIX: No evidence of acute appendicitis on CT examination. PERITONEUM: No free fluid. No free air. REPRODUCTIVE: Unremarkable. LYMPH NODES: No lymphadenopathy is evident. VASCULATURE: No evidence of abdominal aortic aneurysm. BONES: No acute osseous abnormality. IMPRESSION: 1. Extensive multifocal pneumonia versus hemorrhage versus edema involving both lungs, right greater than left 2. Mild bilateral hilar lymphadenopathy, right greater than left 3. Post-median sternotomy changes 4. No acute intra-abdominal/pelvic abnormality. /[place] DICTATED BY: TREMAYNE MOELLER MD DATE: 10/31/241744 ELECTRONICALLY SIGNED BY: TREMAYNE MOELLER MD DATE: 10/31/241744 PLAN Continue alteplase at 1 mg/hour. Keep on monitoring for any episode of bleeding as he is on thrombolytic therapy with alteplase. Follow up with Cardiology after alteplase therapy. Continue cefepime, doxycycline, Flagyl. Patient is off vanco. Monitor input and output. Furosemide has been held for now. Monitor electrolytes and replete accordingly. NEURO: Minimize central acting medications as possible. Fall Precautions. Well lighted room through the day and minimize interruptions through the night to prevent acute delirium. PULMONARY: Supplemental 02 as needed Titrate Fio2 to keep Spo2 > or = 90% DuoNebs and CPT as needed IS hourly while awake for pulmonary hygiene Out of bed to chair as tolerated CARDIOVASCULAR: Follow hemodynamics. Titrate vasopressor to keep MAP >65 or systolic blood pressure >95mmHg DRIPS: levophed PRN maintain MP > 65 Alteplase LINES: PIV 2 large bore IV GI & NUTRITION: Continue nutritional support Aspirations precautions Prokinetic agents and laxatives as needed KIDNEYS & ELECTROLYTES: Strict monitoring of intake and output Daily weights Avoid nephrotoxic agents Monitor electrolytes and replace as needed Goal urine output of 30mL/hr or 0.5mL/kg/hr ENDOCRINE: Maintain blood glucose between 100-180 at all times. Insulin sliding scale for blood glucose management INFECTIOUS DISEASE: Trend temperature. Larose-culture if febrile. Micro: [ ] Blood cultures Respiratory cultures UA with urine culture Antibiotics: Cefepime Flagyl Doxycycline HEMATOLOGY & COAGULATION: Monitor H&H. Keep Hgb > 7 Transfuse 1 unit of PRBC for Hgb < 7 Transfuse 1 pack of platelets of platelets < 20, 000 Watch for any signs and symptoms of bleeding SKIN: Pressure ulcer prevention per facility protocol Rehab: PT/OT Prophylaxis: GI: Protonix DVT: SCD's Code Status: Full Resuscitation Disposition: ICU Other: Total patient care time exceeds 35 minutes excluding all procedures. Case was discussed and seen with my supervising physician. The above plan was formulated and agreed upon. ATTESTATION BY PHYSICIAN I have seen and examined the patient. I reviewed the documentation, medical decision making, and treatment plan as noted by the mid-level provider above. I agree with the findings and plan of care. YUDITH CARDONA MD, MUHAMMAD H MD Nov 09, 2024 16:19
[2024-11-09] MEDS: LIDOCAINE 4% ADH..PATCH TP SCH (17:55)
[2024-11-09] MEDS: ALTEPLASE IVCATH SCH (19:26)
[2024-11-09] MEDS: [UNRECOGNIZED DRUG - OTHER] IVCATH SCH (19:26)
--- NOTE | 2024-11-09 20:15 | PN ---
CARDIOLOGY Reason for consult: Mechanical Aortic Valve HPI/story at presentation: This is a pleasant 64-year-old male with past medical history significant for mechanical aortic valve placed in 1993, chronic warfarin use initially presented to the emergency department due to hemoptysis, cough, chills and blood noted in his right ear. Patient also reports he sustained a fall injury approximately 12 days ago in [place]. Denies any syncope episode. Her warfarin dose accordingly the patient is warfarin 5 mg daily other than on Thursday and Thursday when he takes 7.5 mg daily. Patient also found to be febrile with a temperature of 101.3. Initial blood pressure 83/42. sepsis protocol was started. INR results show greater than 8. Patient was administered vitamin K 10 mg IV and is scheduled to receive 2 units of FFP. High sensory troponin at 299. Patient was also found to have bilateral pneumonia 11/01/2024 patient was seen and evaluated at bedside in the ICU No episodes of bleeding has been reported since yesterday Repeat INR today is 1.14 Past medical history: See below Allergies, Meds See chart Review of systems Review of Systems Constitutional: + for chills and fever. HENT: + for right ear bloody discharge and ear pain. Eyes: Negative for photophobia and discharge. Respiratory: + for cough, sputum production and stridor. + hemoptysis Cardiovascular: Negative for chest pain and palpitations. Gastrointestinal: Negative for diarrhea and vomiting. Genitourinary: Negative for frequency. Musculoskeletal: Negative for myalgias. Skin: Negative for rash. Neurological: Negative for focal weakness and seizures. Endo/Heme/Allergies: Negative for polydipsia. Psychiatric/Behavioral: Negative for hallucinations. Vitals see chart PHYSICAL EXAMINATION GENERAL: The patient is alert and oriented*3, ill appearing HEENT: Nonicteric sclerae, non traumatic HEART: Regular rate and rhythm with no murmurs, 3/6 systolic murmur to 2nd ICS LUNGS: Diminished to auscultation bilaterally ABDOMEN: No acute issues, non tender GENITAL, RECTAL: deferred SKIN: No rash NEUROLOGIC: NFND EXTREMITIES: No edema ASSESSMENT SUPRATHERAPEUTIC INR INR GREATER THAN 8 Currently or warfarin Reports hemoptysis and bloody drainage from right ear AORTIC VALVE REPLACEMENT Mechanical INR was subtherapeutic at presentation CORE MEASURES Not applicable OTHER MEDICAL PROBLEMS Reviewed PLAN 10/31/2024 will order echocardiography to examine aortic valve. Patient is currently pending CT of the head and chest due to recent fall and supratherapeutic INR Continue with FFP infusion with plans for repeat INR 11/01/2024 patient's INR today is 21.14. No new episodes Of bleeding heavy reported Patient will need to be restarted on his oral Coumadin but will start patient on IV heparin and moderate for bleeding Patient's hemoglobin today is currently at 8.1 We will wait to start IV heparin drip tomorrow in repeat H&H in the morning 11/02/2024 Hemoglobin remains stable Currently pending PICC line Will start IV heparin drip without bolus once PICC line in place If no issues with bleeding and hgb remains stable, will start oral warfarin tomorrow 11/03/2024 ANDRES attempted today was terminated early because of nosebleeds and patient's overall elevated gag reflex in spite of numbing of his throat. Sedation also had to be reduced given respiratory status. Fluoroscopy was done to evaluate the aortic valve which appears to be moving appropriately. However, this does not exclude smaller clots in the aortic valve. ANDRES may eventually be required once diuresis is complete. Will attempt again with anesthesia support. Will periodically follow-up on aortic gradients in the meantime until diuresis is complete. If there is a thrombosis of the aortic valve which is suspected on the basis of gradients, patient remains at risk for a stroke. Overall difficult situation. Seen and examined 11/03/2024 multiple times. 11/04/2024 clinically, appears improved, edema is better, shortness of breath is better although, still fairly short of breath, will proceed with a transthoracic echo to assess for gradients tomorrow. Depending on that, we will decide on future ANDRES's if indicated. Continue diuresis, renal function stable, remains on heparin. Seen and examined 825 around 7:30 PM 11/05/2024 no active cardiac complaints at this time, breathing better, remains IV diuresis. Repeat aortic valve gradients are still elevated greater than 5 m/s close to 6. Suspicion for possible thrombus/pannus of the aortic valve leaflets. they were moving appropriately under fluoroscopy. Will attempt ANDRES again on Thursday under anesthesia support. Remains on heparin. No strokelike features. Continue neurochecks. Once anesthetic risk is lower after diuresis, will proceed with ANDRES. Seen and examined in 925 around 4:30 PM 11/06/2024 plan for ANDRES tomorrow, valve gradient still significantly elevated close to 5.8 meters per second. N.p.o. after midnight, will proceed with ANDRES tomorrow with anesthesia support. Multiple questions regarding the procedure answered. Risk benefits addressed. Clinically, appears to be improved, was able to ambulate in the hallway today. Seen and examined 11/06/2024 around 3 PM. 11/07/2024 ANDRES completed today with no clinical evidence of thrombus. Possible pannus formation noted with thickening of the mechanical valve leaflets. This may be contributing to the elevated gradients. Will discuss with CV surgery before further recommendations. Seen and examined 11/07/2024 at around 1:30 PM. 11/08/2024 Doing better, feels that his volume status and breathing has improved. Still continues to have occasional issues with a cough. No bleeding, hemoglobin stable. Most recent aortic valve gradients are still elevated. Discussed with CVT surgery locally as well as with [place]. Conservative management recommended for the valve and potential trial of thrombolytics was discussed. This would be the patient's third open heart surgery if needed and risk is high. No definite thrombus was noted on ANDRES, however, layered thrombus in the setting of a thickened valve cannot be ruled out in addition to the pannus. Discussed with the patient and after extensive conversation about risk and benefit, plans to attempt thrombolytics tomorrow. Will get him on the ultra slow low-dose infusion of thrombolytics to help with the valve. Patient did have a recent issue with bleeding with supratherapeutic INR including pulmonary and nosebleeds and alsod uring a ANDRES recently. Given this, bleeding risk is elevated and intracranial bleeding risk was also discussed. After extensive conversation with the patient and the daughter, they do want to attempt an trial of thrombolytics to see if this helps with the gradients. Will transfer to the ICU. Will need to stop heparin and then consider thrombolytics when PTT is in target. Seen and examined 11/08/2024 at around 7 PM. ATTESTATION I was involved substantially in the care of this patient Number and complexity of problems addressed: 1 acute illness that is a threat to life or bodily function Amount and or complexity of data Review of prior external note(s) from each unique source: 2+ Ordering of each unique test : 2 Review of the result(s) of each unique test: 2+ Assessment requiring an independent historian(s): No Independent interpretation of test performed by another MD/QHCP/appropriate source (not separately reported) : No Discussion of management or test interpretation with external MD/QHCP/appropriate source (not separately reported) : No Risk status (cardiac, billing related):High Vitals/Labs Vital Signs Date Time Temp Pulse Resp B/P (MAP) Pulse Ox O2 Delivery O2 Flow Rate FiO2 11/09/24 18:59 80 20 N/A Room Air 28 11/09/24 17:41 106/63 (77) 96 11/09/24 16:41 98.6 11/09/24 07:15 2 Laboratory Tests 11/09/24 04:57 11/09/24 12:02 11/09/24 19:16 Medications Current Medications Vancomycin HCl 1 each AD IV; Start 10/31/24 at 12:30; Stop 11/08/24 at 22:21; Status DC Piperacillin Sod/ Tazobactam Sod 3.375 gm ONCE ONCE IV Last administered on 10/31/24at 12:43; Start 10/31/24 at 12:30; Stop 10/31/24 at 12:41; Status DC Sodium Chloride 1,000 ml @ 0 mls/hr ONCE ONCE IV Last administered on 10/31/24at 12:43; Start 10/31/24 at 12:30; Stop 10/31/24 at 12:41; Status DC Vancomycin HCl 500 ml @ 250 mls/hr ONCE ONCE IV Last administered on 10/31/24at 13:57; Start 10/31/24 at 13:00; Stop 10/31/24 at 14:59; Status DC Vancomycin HCl 250 ml @ 125 mls/hr Q12H IV Last administered on 11/05/24at 13:36; Start 11/01/24 at 01:30; Stop 11/05/24 at 14:11; Status DC Sodium Chloride 1,983 ml @ 661 mls/hr ONCE ONCE IV Last administered on 10/31/24at 13:12; Start 10/31/24 at 13:00; Stop 10/31/24 at 15:59; Status DC Phytonadione 10 mg/Sodium Chloride 51 ml @ 100 mls/hr ONCE ONCE IVPB Last administered on 10/31/24at 13:12; Start 10/31/24 at 13:00; Stop 10/31/24 at 13:30; Status DC Morphine Sulfate 2 mg ONCE ONCE IVP Last administered on 10/31/24at 13:20; Start 10/31/24 at 13:30; Stop 10/31/24 at 13:31; Status DC Ondansetron HCl 4 mg ONCE ONCE IVP Last administered on 10/31/24at 13:20; Start 10/31/24 at 13:30; Stop 10/31/24 at 13:31; Status DC Pantoprazole Sodium 40 mg Q12H IVP Last administered on 11/09/24at 14:13; Start 10/31/24 at 14:00; Stop 11/30/24 at 13:59 Acetaminophen 650 mg Q6H PRN PO Last administered on 10/31/24at 17:32; Start 10/31/24 at 14:00; Stop 11/30/24 at 13:59 Ondansetron HCl 4 mg Q6H PRN IVP Last administered on 11/03/24at 08:38; Start 10/31/24 at 14:00; Stop 11/30/24 at 13:59 Sodium Chloride 1,000 ml @ 75 mls/hr [id number] IV Last administered on 11/01/24at 03:31; Start 10/31/24 at 14:00; Stop 11/02/24 at 21:00; Status DC Cefepime HCl 2 gm Q12H IVPB Last administered on 11/07/24at 17:29; Start 10/31/24 at 18:00; Stop 11/08/24 at 07:36; Status DC Doxycycline Hyclate 250 ml @ 125 mls/hr BID IV Last administered on 11/09/24at 08:56; Start 10/31/24 at 14:00; Stop 11/10/24 at 13:59 Metronidazole/ Sodium Chloride 100 ml @ 100 mls/hr Q8H6 IVPB Last administered on 11/09/24at 14:13; Start 10/31/24 at 21:00; Stop 11/10/24 at 20:59 Albuterol 1 udvial Q6H PRN IH Last administered on 11/08/24at 06:34; Start 10/31/24 at 14:30; Stop 11/30/24 at 14:29 Budesonide 0.5 mg BIDRESP IH Last administered on 11/08/24at 06:34; Start 10/31/24 at 18:00; Stop 11/30/24 at 17:59 Iohexol 75 ml STK-MED ONCE IV; Start 10/31/24 at 14:53; Stop 10/31/24 at 14:54; Status DC Tranexamic Acid 500 mg [id number] IJ Last administered on 11/01/24at 23:57; Start 10/31/24 at 15:30; Stop 11/02/24 at 11:02; Status DC Morphine Sulfate 2 mg Q6H PRN IVP Last administered on 11/02/24at 06:33; Start 10/31/24 at 19:00; Stop 11/02/24 at 10:03; Status DC Sodium Chloride 4 ml STK-MED ONCE IH Last administered on 10/31/24at 22:46; Start 10/31/24 at 22:37; Stop 10/31/24 at 22:38; Status DC Magnesium Sulfate 50 ml @ 0 mls/hr PROTOCOL PRN IV Last administered on 11/09/24at 05:55; Start 11/01/24 at 08:00; Stop 12/01/24 at 07:59 Morphine Sulfate 2 mg ONCE ONCE IVP Last administered on 11/01/24at 08:21; Start 11/01/24 at 08:30; Stop 11/01/24 at 08:31; Status DC Sodium Chloride 4 ml STK-MED ONCE IH; Start 11/01/24 at 10:49; Stop 11/01/24 at 10:50; Status DC Morphine Sulfate 2 mg Q4H PRN IVP Last administered on 11/07/24at 08:57; Start 11/02/24 at 10:30; Stop 11/07/24 at 13:29; Status DC Heparin Sodium/ Dextrose 250 ml @ 0 mls/hr Q6H IV Last administered on 11/06/24at 15:25; Start 11/02/24 at 21:00; Stop 11/09/24 at 09:10; Status DC Pharmacy Profile Note 1 each ONCE MISC; Start 11/02/24 at 13:30; Stop 11/02/24 at 13:15; Status DC Midazolam HCl 4 mg ONCE ONCE IVP Last administered on 11/03/24at 13:04; Start 11/03/24 at 12:00; Stop 11/03/24 at 12:01; Status DC Fentanyl Citrate 100 mcg ONCE ONCE IVP Last administered on 11/03/24at 13:05; Start 11/03/24 at 12:00; Stop 11/03/24 at 12:01; Status DC Lidocaine HCl 15 ml ONCE ONCE PO Last administered on 11/03/24at 12:06; Start 11/03/24 at 12:00; Stop 11/03/24 at 12:01; Status DC Potassium Chloride 100 ml @ 50 mls/hr AD PRN IV Last administered on 11/09/24at 05:56; Start 11/03/24 at 12:00; Stop 12/03/24 at 11:59 Potassium Chloride 100 ml @ 100 mls/hr AD PRN IV; Start 11/03/24 at 12:00; Stop 11/04/24 at 17:15; Status DC Potassium Chloride 20 meq AD PRN PO Last administered on 11/05/24at 13:13; Start 11/03/24 at 12:00; Stop 12/03/24 at 11:59 Potassium Chloride 20 meq AD PRN PO Last administered on 11/08/24at 01:49; Start 11/03/24 at 12:00; Stop 12/03/24 at 11:59 Furosemide 40 mg ONCE ONCE IV Last administered on 11/03/24at 14:33; Start 11/03/24 at 12:30; Stop 11/03/24 at 12:31; Status DC Furosemide 20 mg BID IV Last administered on 11/04/24at 10:02; Start 11/04/24 at 09:00; Stop 11/05/24 at 06:14; Status DC Clonazepam 2 mg ONCE ONCE PO Last administered on 11/04/24at 10:02; Start 11/04/24 at 09:00; Stop 11/04/24 at 09:01; Status DC Clonazepam 2 mg HS PO; Start 11/04/24 at 21:00; Stop 11/04/24 at 11:13; Status DC Clonazepam 2 mg HS PO Last administered on 11/08/24at 20:36; Start 11/05/24 at 21:00; Stop 12/05/24 at 20:59 Melatonin 10 mg ONCE ONCE PO Last administered on 11/04/24at 20:37; Start 11/04/24 at 21:30; Stop 11/04/24 at 21:31; Status DC Digoxin 125 mcg ONCE ONCE IV Last administered on 11/05/24at 01:44; Start 11/05/24 at 01:30; Stop 11/05/24 at 01:39; Status DC Furosemide 20 mg Q12H IV Last administered on 11/08/24at 17:46; Start 11/05/24 at 06:30; Stop 12/05/24 at 06:29; Status Hold Vancomycin HCl 250 ml @ 125 mls/hr Q12H IV Last administered on 11/08/24at 13:28; Start 11/06/24 at 01:30; Stop 11/08/24 at 22:21; Status DC Phenylephrine HCl 10 mg STK-MED ONCE IV; Start 11/07/24 at 12:29; Stop 11/07/24 at 12:30; Status DC Ephedrine Sulfate 50 mg STK-MED ONCE .ROUTE; Start 11/07/24 at 12:29; Stop 11/07/24 at 12:30; Status DC Propofol 200 mg STK-MED ONCE IV; Start 11/07/24 at 12:29; Stop 11/07/24 at 12:30; Status DC Propofol 200 mg STK-MED ONCE IV; Start 11/07/24 at 12:30; Stop 11/07/24 at 12:30; Status DC Cefepime HCl 2 gm Q12H IVPB Last administered on 11/09/24at 08:56; Start 11/08/24 at 08:00; Stop 11/10/24 at 07:59 Morphine Sulfate 2 mg Q4H PRN IVP Last administered on 11/09/24at 15:18; Start 11/08/24 at 21:00; Stop 11/15/24 at 20:59 Pharmacy Profile Note 1 each ONCE MISC; Start 11/09/24 at 04:00; Stop 11/09/24 at 07:07; Status DC Alteplase, Recombinant 8.33 mg/Sodium Chloride 100 ml @ 10 mls/hr PROTOCOL IVCATH; Start 11/09/24 at 06:00; Stop 11/09/24 at 06:16; Status DC Alteplase, Recombinant 10 mg/ Sodium Chloride 100 ml @ 10 mls/hr PROTOCOL IVCATH Last administered on 11/09/24at 06:26; Start 11/09/24 at 06:30; Stop 11/09/24 at 16:29; Status DC Alteplase, Recombinant 7.5 mg/Sodium Chloride 100 ml @ 13.333 mls/ hr PROTOCOL IVCATH Last administered on 11/09/24at 19:26; Start 11/09/24 at 16:30; Stop 11/10/24 at 23:59 Lidocaine 1 each DAILY TP Last administered on 11/09/24at 17:55; Start 11/09/24 at 16:00; Stop 12/09/24 at 15:59 ANTONINO DIANE MD Nov 09, 2024 20:15
--- NOTE | 2024-11-09 20:30 | NUR ---
Dr Arreola at the Bedside. As per provider ok to run 7.5 mg Alteplase in 100ml at a rate of 13.3 ml/hr. Pt is to receive 1 mg/hr of Alteplase.
[2024-11-10] VITALS (22 sets, daily range): BP systolic 94–128; BP diastolic 46–98; PULSE 75–96; RESP 13–27; TEMP 98–98.2; O2SAT 85–97
[2024-11-10 04:51] LABS: IMMATURE GRANULOCYTE ABSOLUTE 0.10 K/uL (0-1); NUCLEATED RED BLOOD CELLS 0.0 % (0.0-0.19); PLATELET COUNT (AUTO) 247 K/uL (130-400); RED BLOOD CELL COUNT(AUTO) 2.93 MIL/uL (4.50-6.20); RED CELL DISTRIBUTION WIDTH 14.4 % (11.0-15.5); WHITE BLOOD COUNT (AUTO) 8.2 K/uL (4.8-10.8)
[2024-11-10 05:20] LABS: ASPARTATE AMINOTRANSFERASE 44.0 U/L (10-37); CREATININE 0.8 mg/dL (0.5-1.3); GLOMERULAR FILTR. RATE CALC 98.0 mL/min (>90); GLUCOSE,RANDOM 95.0 mg/dL (70-105); SODIUM SERUM 141.0 mmol/L (136-145); TOTAL PROTEIN, SERUM 5.4 g/dL (6.0-8.3); UREA NITROGEN, BLOOD 13.0 mg/dL (7-18)
--- NOTE | 2024-11-10 08:15 | NUR ---
paged dr. flores to maryellen pt concerns over starting heparin drip. pending call back.
--- NOTE | 2024-11-10 08:25 | NUR ---
dr. gomez returned page at this time, made aware the tka ended at 0630 this morning and pt concerned over starting heparin drip. as per dr. hernandez pt to have 50units per kilo per hour to be given bolus then to be restarted at same rate as previous (9units/kg/hr) and to follow protocol. dr. boo was asked to reclarify order of bolus as per dr. boo pt to be given 50units/kg/hr bolus then followed by heparin drip (9units/kg/hr) and follow protocol. pt to not have labs taken prior to start ,may follow ptt as ordered by protocol. pt was made aware of doctors orders.
--- NOTE | 2024-11-10 12:43 | PN ---
[facility] PROGRESS NOTE Date of Service: Nov 10, 2024 Time of Service: 12:39 SUBJECTIVE: [ ] 64-year-old male with prior history of mechanical aortic valve which was replaced in 1993 maintained on chronic outpatient anticoagulation with warfarin, obesity, who presented to the ER for further evaluation of hemoptysis, chills, cough, and blood noted in the right ear.Patient states that about 12 days ago, he was visiting in [place], he had a mechanical fall with no syncope, patient was evaluated in ER and was found to have a nondisplaced left forearm ulnar fracture along which was treated conservatively. Patient had a CT done which was noted to be negative per patient. Patient states that over the last two days, he noticed that he was having chills, and yesterday night, he started having hemoptysis. Today he noticed that he was having bloody drainage from the right ear. Denies any headache, denies any focal weakness of upper or lower extremities. Denies any neck pain. Denies any new recent fall other than 12 days ago in [place] Denies chest pain other than with cough. He has been having generalized fatigue and malaise over the last two days. Denies exposure to sick contacts. 11/01/24 patient was admitted for septic shock and hemoptysis with Coumadin toxic ity today's INR improved significantly from 8-1.4 We will wait for telephone clerk's if okay to resume. Patient appears acutely ill continue with broad-spectrum antibiotics tolerating. ID on board we will follow his recommendations. Patient is currently on nasal cannula to 3 L. We will be monitored closely in ICU. 11/02/2024 patient was seen earlier patient is lying in bed on room air we continue with broad-spectrum antibiotics tolerating reports no diarrhea. We continue to monitor INR. Encourage patient out of bed to chair as tolerated PT services we will be ordered. Denied chest pain palpitations dizziness. 11/03/24 patient is return back from clinical lab specialist echo ANDRES was done primary nurse reports patient started with nose bleed will get post procedure we will get a CBC now. Remains in heparin drip. We will monitor closely for any acute bleeding. 11/04/24 patient is lying in bed patient continues to require oxygen supplemental was started on Lasix IV 20 mg b.i.d. patient continues with physical therapy. Patient continues on heparin drip telephone clerk's following we will appreciate his recommendations. Patient is tolerating broad-spectrum antibiotics wait for ID final recommendations 11/05/24 patient is lying in bed was sleeping awakened per verbal stimuli, the patient nurse reports patient has around the clock morphine reports elbow pain chronic. Patient went into AFib overnight converted normal sinus rhythm earlier this morning. Continues on heparin drip telephone clerk's following we will follow his recommendations. tolerating antibiotics. 11/06/24 patient is lying in bed patient continues to require oxygen supplemental currently on 3 L. No fever no chills. No episodes of AFib. With RVR continues on heparin. Drip. 2D echo pending 11/07/2024 patient was seen earlier patient was awake alert oriented x3. Patient continues to complain of left elbow pain on pain management. Patient continues on oxygen supplemental encouraged patient to continue working with physical therapy, out of bed to chair with meals he verbalized understanding. 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 He denies chest pain palpitation or dizziness. 11/08 patient is seen patient remains on oxygen supplemental 3 L. Dyspnea and orthopnea continues heparin drip. status post TEEno clinical evidence of thrombus. Possible pannus formation noted with thickening of the mechanical valve leaflets. This may be contributing to the elevated gradients. Will discuss with CV surgery before further recommendations. 11/09/24 patient was seen earlier patient is fully awake alert oriented x3. Patient continues with oxygen supplemental. The patient was started on Alteplase as per protocol for 24 hours. 11/10 patient is seen and examined at bedside, blood pressure 96/61, heart rate of 81, respiratory rate of 25, saturating 97% on 2 L nasal cannula, hemoglobin stable at 8.8, hematocrit 27.3, patient is status post ANDRES 11/07/2024, no clinical evidence of thrombus, possible pancreas formation noted with thickening of the mechanical valve leaflets contributing to elevated gradients. Layered thrombus in the setting of is taking valve can not be ruled out in addition to the prognosis. Cardiothoracic consultation requested by telephone clerk and case was discussed. Patient is started on low-dose thrombolytic infusion. Patient with a recent bleeding secondary to supratherapeutic INR, including nosebleeds. Excessive discussion done with family members by Cardiology and they wished to proceed. Patient was upgraded to the ICU. Patient was started on alpha place. Today hemoglobin stable at 8.9, hematocrit 27.3. We will continue to follow Cardiology input and recommendation. REVIEW OF SYSTEMS CONSTITUTIONAL: malaise, generalized weakness, fatigue NEUROLOGICAL: Denies headache, amaurosis fugax, motor weakness, sensory deficit, vertigo/spinning sensation, gait abnormalities, or tremors. ENT: No hearing loss, reports having noticed blood coming out of the right ear CARDIOVASCULAR: Denies any exertional angina, dyspnea on exertion, orthopnea, paroxysmal nocturnal dyspnea, palpitations, life-threatening arrhythmias, claudication. PULMONARY: reports having cough, congestion, SOB, patient reports having hemoptysis SLEEP: Denies morning headaches, daytime somnolence or napping. Denies difficulty falling asleep, staying asleep, waking from sleep. Denies knowledge of snoring. GASTROINTESTINAL: Denies any type of dysphagia to either liquids or solids. Denies nausea, vomiting, pyrosis, early satiety, abdominal pain, diarrhea, constipation, or changes in stool consistency or caliber. Denies coffee-ground emesis, hematemesis, hematochezia, or melanotic stools. GENITOURINARY: Denies frequency, urgency, nocturia, hematuria or incontinence (Storage/Irritative symptoms.) Low urinary stream, straining to void, urinary intermittency or hesitancy, splitting of the voiding stream, terminal dribbling. ENDOCRINOLOGIC: Denies polyuria, polydipsia, polyphagia or heat/cold intolerances. HEMATOLOGIC: reports having easy bruising ONCOLOGIC: Denies personal history of malignancy. DERMATOLOGIC: Denies rashes or pruritus. PSYCHIATRIC: Denies any suicidal or homicidal ideation. Denies hallucinations. PHYSICAL EXAM GENERAL APPEARANCE: The patient is awake, alert, and oriented, in no acute cardiopulmonary distress. NEUROLOGICAL: Cranial nerves II-XII grossly intact. Motor is 5/5 in bilateral upper and lower extremities proximal to distal. No sensory deficits. HEENT: Face is symmetric. Pupils are equal and reactive. Extraocular movements are intact. Right ear on otoscopic examination noted to have dries blood and some bright red blood, there is small clots noted as well, which i did not dislodge, tympanic membrane could be full evaluated due to blood NECK: Supple. No JVD. No thyromegaly. No submental, submandibular, pre- /postauricular, occipital or supraclavicular lymphadenopathy. CHEST: Normal chest expansion. No Telemetry. LUNGS: Crackles noted of the right lung base with decreased breath with rhonchorous breath sounds CARDIOVASCULAR: Regular. S1 and S2 normal. No appreciable rubs, murmurs or gallops. ABDOMEN: Soft, nontender, and nondistended. There is no rebound, voluntary guarding, or rigidity. : Deferred. No Wills. EXTREMITIES: Trace edema of the bilateral lower extremities SKIN: Swelling and redness noted of the right shoulder Vital Signs (last 8hr) Date Time Temp Pulse Resp B/P (MAP) Pulse Ox O2 Delivery O2 Flow Rate FiO2 11/10/24 06:47 78 20 11/10/24 06:46 78 20 N/Cannula Low lpm 2.0 28 11/10/24 04:41 81 25 96/61 (73 92 LABS: Laboratory: Test 11/10/24 11:59 11/10/24 04:43 11/09/24 04:57 11/08/24 23:19 Range/Units Hemoglobin 8.9 L 14.0-18.0 g/dL Hematocrit 27.3 L 42-54 % White Blood Count 8.2 4.8-10.8 K/uL Red Blood Count 2.93 L 4.50-6.20 MIL/uL Mean Corpuscular Volume 87.4 79-99 fL Mean Corpuscular Hemoglobin 28.3 27.0-33.0 pg Mean Corpuscular Hemoglobin Concent 32.4 32.0-36.0 g/dL Red Cell Distribution Width 14.4 11.0-15.5 % Platelet Count 247 130-400 K/uL Mean Platelet Volume 9.0 7.5-10.5 fL Immature Granulocyte % (Auto) 1.2 H 0-1 % Neutrophils (%) (Auto) 70.1 40.0-77.0 % Lymphocytes (%) (Auto) 14.3 L 21.0-51.0 % Monocytes (%) (Auto) 9.1 3.0-13.0 % Eosinophils (%) (Auto) 4.8 0.0-8.0 % Basophils (%) (Auto) 0.5 0.0-5.0 % Neutrophils # (Auto) 5.7 1.8-7.7 K/uL Lymphocytes # (Auto) 1.2 1.0-4.8 K/uL Monocytes # (Auto) 0.7 0.1-1.0 K/uL Eosinophils # (Auto) 0.39 0.00-0.70 K/uL Basophils # (Auto) 0.04 0.00-0.20 K/uL Absolute Immature Granulocyte (auto 0.10 0-1 K/uL Nucleated Red Blood Cells 0.0 0.0-0.19 % Sodium Level 141 136-145 mmol/L Potassium Level 4.0 3.5-5.1 mmol/L Chloride Level 107 101-111 mmol/L Carbon Dioxide Level 29 21-32 mmol/L Blood Urea Nitrogen 13 7-18 mg/dL Creatinine 0.8 0.5-1.3 mg/dL Glomerular Filtration Rate Calc 98 >90 mL/min Random Glucose 95 70-105 mg/dL Total Calcium 8.3 L 8.5-10.1 mg/dL Magnesium Level 2.00 1.80-2.40 mg/dL Total Bilirubin 0.4 0.2-1.0 mg/dL Aspartate Amino Transf (AST/SGOT) 44 H 10-37 U/L Alanine Aminotransferase (ALT/SGPT) 29 12-78 U/L Alkaline Phosphatase 70 50-136 U/L Total Protein 5.4 L 6.0-8.3 g/dL Albumin 2.1 L 3.5-5.0 g/dL Activated Partial Thromboplast Time 33.9 # 26.3-35.5 SEC Procalcitonin 0.08 0.05-0.5 ng/mL Prothrombin Time 11.5 9.6-11.6 SEC Prothromb Time International Ratio 1.09 0.85-1.15 Current Medications Medications (Trade) Dose Ordered Sig/Hank Route PRN Reason Start Time Stop Time Status Last Admin Dose Admin Acetaminophen (TYLenol 325MG TAB) 650 mg Q6H PRN PO MILD PAIN (1-3) 10/31/24 14:00 11/30/24 13:59 10/31/24 17:32 650 MG Albuterol (DUOneb) 1 udvial Q6H PRN IH SHORTNESS OF BREATH 10/31/24 14:30 11/30/24 14:29 11/08/24 06:34 1 UDVIAL Alteplase, Recombinant 10 mg/ Sodium Chloride 100 ml @ 10 mls/hr PROTOCOL IVCATH 8/13/25 06:30 11/09/24 16:29 DC 11/09/24 06:26 10 MLS/HR Alteplase, Recombinant 7.5 mg/Sodium Chloride 100 ml @ 13.333 mls/ hr PROTOCOL [facility] 11/09/24 16:30 11/10/24 08:41 DC 11/10/24 02:19 13.333 MLS/HR Alteplase, Recombinant 8.33 mg/Sodium Chloride 100 ml @ 10 mls/hr PROTOCOL [facility] 11/09/24 06:00 11/09/24 06:16 DC Budesonide (Pulmicort 0.5 Mg/2ml) 0.5 mg BIDRESP IH 10/31/24 18:00 11/30/24 17:59 11/10/24 06:44 0.5 MG Cefepime HCl (MAXipime 2 gm vial) 2 gm Q12H IVPB 11/08/24 08:00 11/10/24 08:00 DC 11/09/24 20:35 2 GM Cefepime HCl (MAXipime 2 gm vial) 2 gm Q12H IVPB 10/31/24 18:00 11/08/24 07:36 DC 11/07/24 17:29 2 GM Clonazepam (KLONopin 2MG TAB) 2 mg HS PO 11/04/24 21:00 11/04/24 11:13 DC Clonazepam (KLONopin 2MG TAB) 2 mg HS PO 11/05/24 21:00 12/05/24 20:59 11/10/24 00:00 2 MG Doxycycline Hyclate 250 ml @ 125 mls/hr BID IV 10/31/24 14:00 11/10/24 13:59 11/10/24 09:07 125 MLS/HR Furosemide (LASix 20MG VIAL) 20 mg BID IV 11/04/24 09:00 11/05/24 06:14 DC 11/04/24 10:02 20 MG Furosemide (LASix 20MG VIAL) 20 mg Q12H IV 11/05/24 06:30 12/05/24 06:29 Hold 11/08/24 17:46 20 MG Heparin Sodium (Porcine) (HEParin 5,000 UNIT VIAL) *calculation based on ACTUAL B... AD PRN IV HEPARIN PROTOCOL 11/10/24 09:30 12/10/24 09:29 Heparin Sodium/ Dextrose 250 ml @ 0 mls/hr Q6H IV 11/10/24 09:30 12/10/24 09:29 11/10/24 09:09 10.53 MLS/HR Heparin Sodium/ Dextrose 250 ml @ 0 mls/hr Q6H IV 11/02/24 21:00 11/09/24 09:10 DC 11/06/24 15:25 0 MLS/HR Lidocaine (Lidocaine Patch 4%) 1 each DAILY TP 11/09/24 16:00 12/09/24 15:59 11/10/24 09:06 1 EACH Magnesium Sulfate 50 ml @ 0 mls/hr PROTOCOL PRN IV OTHER [SEE ORDER COMMENTS] 11/01/24 08:00 12/01/24 07:59 11/09/24 05:55 25 MLS/HR Metronidazole/ Sodium Chloride 100 ml @ 100 mls/hr Q8H6 IVPB 10/31/24 21:00 11/10/24 20:59 11/10/24 06:46 100 MLS/HR Morphine Sulfate (morPHINE 2MG SYG) 2 mg Q4H PRN IVP SEVERE PAIN (7-10) 11/08/24 21:00 11/15/24 20:59 11/10/24 09:07 2 MG Morphine Sulfate (morPHINE 2MG SYG) 2 mg Q4H PRN IVP SEVERE PAIN (7-10) 11/02/24 10:30 11/07/24 13:29 DC 11/07/24 08:57 2 MG Morphine Sulfate (morPHINE 2MG SYG) 2 mg Q6H PRN IVP SEVERE PAIN (7-10) 10/31/24 19:00 11/02/24 10:03 DC 11/02/24 06:33 2 MG Ondansetron HCl (zoFRAN 4MG INJ) 4 mg Q6H PRN IVP NAUSEA/VOMITING 10/31/24 14:00 11/30/24 13:59 11/03/24 08:38 4 MG Pantoprazole Sodium (PROTonix 40MG INJ) 40 mg Q12H IVP 10/31/24 14:00 11/30/24 13:59 11/10/24 02:18 40 MG Pharmacy Profile Note (Pharmacy Communication) 1 each ONCE MISC 11/09/24 04:00 11/09/24 07:07 DC Pharmacy Profile Note (Pharmacy Communication) 1 each ONCE MISC 11/02/24 13:30 11/02/24 13:15 DC Potassium Chloride 100 ml @ 50 mls/hr AD PRN IV POTASSIUM PROTOCOL 11/03/24 12:00 12/03/24 11:59 11/09/24 05:56 50 MLS/HR Potassium Chloride 100 ml @ 100 mls/hr AD PRN IV POTASSIUM PROTOCOL 11/03/24 12:00 11/04/24 17:15 DC Potassium Chloride (K-Dur/Klor-Con 20meq) 20 meq AD PRN PO POTASSIUM PROTOCOL 11/03/24 12:00 12/03/24 11:59 11/08/24 01:49 20 MEQ Potassium Chloride (KCl 10% Elixir 20meq/15ml) 20 meq AD PRN PO POTASSIUM PROTOCOL 11/03/24 12:00 12/03/24 11:59 11/05/24 13:13 20 MEQ Sodium Chloride 1,000 ml @ 75 mls/hr [id number] IV 10/31/24 14:00 11/02/24 21:00 DC 11/01/24 03:31 75 MLS/HR Tranexamic Acid (Cyklokapron) 500 mg [id number] IJ 10/31/24 15:30 11/02/24 11:02 DC 11/01/24 23:57 500 MG Vancomycin HCl 250 ml @ 125 mls/hr Q12H IV 11/06/24 01:30 11/08/24 22:21 DC 11/08/24 13:28 125 MLS/HR Vancomycin HCl 250 ml @ 125 mls/hr Q12H IV 11/01/24 01:30 11/05/24 14:11 DC 11/05/24 13:36 125 MLS/HR Vancomycin HCl (Vancomycin Protocol) 1 each AD IV 10/31/24 12:30 11/08/24 22:21 DC DIAGNOSTICS / RADIOLOGY: [ ] ASSESSMENT: AFib with RVR not POA Chronic elbow pain Severe sepsis secondary to right lung community-acquired pneumonia, POA Acute hypoxemic respiratory failure, POA Bilateral Multifocal Pneumonia with R > L, POA Hypotension secondary to severe sepsis, resolving Hemoptysis, POA Right shoulder swelling with possible hematoma, POA Right ear otorrhea with blood, POA Acute on chronic anemia secondary to blood loss, POA Severely elevated supratherapeutic INR secondary to Coumadin use and possibly sepsis, POA hypercoagulable state secondary to Mechanical aortic value on Coumadin Therapy POA Coumadin Toxicity POA History of mechanical aortic valve, POA History of chronic anticoagulation with warfarin, POA Acute kidney injury, POA Demand ischemia, POA Recent history of left forearm ulnar nondisplaced fracture treated conservatively, POA Prior history of fall 12 days ago in [place], POA Obesity, POA PLAN: Mr. Williamson 64-year-old male remains in transitioned to ICU ANDRES revealed Possible pannus formation noted with thickening of the mechanical valve leaflets was started on Alteplase drip for 24 hrs . Continue oxygen supplemental,3 L nasal cannula. . 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 GI ppx: IV Protonix 40 mg b.i.d. Labs in am : CBC, cmp, and Mag PT services to eval and treat, fall precautions Total time spent greater than 30 minutes. VIC DICKEY MD Nov 10, 2024 12:43
--- NOTE | 2024-11-10 12:55 | PN ---
[facility] PROGRESS NOTE Date Patient Seen: Nov 10, 2024 Time of Visit: 12:33 Supervising Physician: Dr. Cardona Primary Care Physician: self referral Outpatient Specialists: Inpatient Consults: dr Awad, Dr Ej Vega PROBLEM LIST: Septic shock, resolved supra therapeutic INR secondary to Coumadin, resolved Acute hypoxemic respiratory failure, POA Suspected alveolar hemorrhage, improving Acute on chronic anemia secondary to blood loss, POA History of mechanical aortic valve, POA History of chronic anticoagulation with warfarin, POA Acute kidney injury, POA Demand ischemia, POA Obesity, POA INTERVAL HISTORY: Patient evaluated at bedside today, he has completed his tPA over the last 24 hours, at the direction of Cardiology nursing staff has started the patient on a heparin drip. Patient is also completing his final day of antibiotic therapy. Patient is tolerating his diet, only concern he has a at this time is regarding was ambulation in his desire to spend time outside. Hemoglobin today is 8.3, renal function is within normal limits. He continues on doxycycline and Flagyl which will be discontinued today. Patient is cleared for downgrade to PCCU at this time. REVIEW OF SYSTEMS: 12 point ROS reviewed with patient. Pertinent positives mentioned above. Ot herwise negative. PHYSICAL EXAM: GENERAL: alert, weak, awake oriented x 3 HEENT: EOMI, Sclera non icteric, moist mucosa NECK: Supple, no JVD, trachea midline LUNGS: Decreased breath sounds bilaterally HEART: Regular rate and rhythm. Normal S1 and S2, without murmurs ABD: Abdomen obese soft, nontender. Bowel sounds present EXT: No clubbing cyanosis. Left forearm tenderness. Right shoulder swelling. BLE edema + NEURO: Alert and oriented to person, follows commands. Vital Signs (last 8hr) Date Time Temp Pulse Resp B/P (MAP) Pulse Ox O2 Delivery O2 Flow Rate FiO2 11/10/24 06:47 78 20 11/10/24 06:46 78 20 N/Cannula Low lpm 2.0 28 11/10/24 04:41 81 25 96/61 (73) 92 LABS: Hematology Labs: Test 11/10/24 11:59 11/10/24 04:43 Range/Units Hemoglobin 8.9 L 14.0-18.0 g/dL Hematocrit 27.3 L 42-54 % White Blood Count 8.2 4.8-10.8 K/uL Red Blood Count 2.93 L 4.50-6.20 MIL/uL Mean Corpuscular Volume 87.4 79-99 fL Mean Corpuscular Hemoglobin 28.3 27.0-33.0 pg Mean Corpuscular Hemoglobin Concent 32.4 32.0-36.0 g/dL Red Cell Distribution Width 14.4 11.0-15.5 % Platelet Count 247 130-400 K/uL Mean Platelet Volume 9.0 7.5-10.5 fL Immature Granulocyte % (Auto) 1.2 H 0-1 % Neutrophils (%) (Auto) 70.1 40.0-77.0 % Lymphocytes (%) (Auto) 14.3 L 21.0-51.0 % Monocytes (%) (Auto) 9.1 3.0-13.0 % Eosinophils (%) (Auto) 4.8 0.0-8.0 % Basophils (%) (Auto) 0.5 0.0-5.0 % Neutrophils # (Auto) 5.7 1.8-7.7 K/uL Lymphocytes # (Auto) 1.2 1.0-4.8 K/uL Monocytes # (Auto) 0.7 0.1-1.0 K/uL Eosinophils # (Auto) 0.39 0.00-0.70 K/uL Basophils # (Auto) 0.04 0.00-0.20 K/uL Absolute Immature Granulocyte (auto 0.10 0-1 K/uL Nucleated Red Blood Cells 0.0 0.0-0.19 % Chemistry Labs: Test 11/10/24 04:43 11/09/24 04:57 Range/Units Sodium Level 141 136-145 mmol/L Potassium Level 4.0 3.5-5.1 mmol/L Chloride Level 107 101-111 mmol/L Carbon Dioxide Level 29 21-32 mmol/L Blood Urea Nitrogen 13 7-18 mg/dL Creatinine 0.8 0.5-1.3 mg/dL Glomerular Filtration Rate Calc 98 >90 mL/min Random Glucose 95 70-105 mg/dL Total Calcium 8.3 L 8.5-10.1 mg/dL Magnesium Level 2.00 1.80-2.40 mg/dL Total Bilirubin 0.4 0.2-1.0 mg/dL Aspartate Amino Transf (AST/SGOT) 44 H 10-37 U/L Alanine Aminotransferase (ALT/SGPT) 29 12-78 U/L Alkaline Phosphatase 70 50-136 U/L Total Protein 5.4 L 6.0-8.3 g/dL Albumin 2.1 L 3.5-5.0 g/dL Procalcitonin 0.08 0.05-0.5 ng/mL Coagulation Labs: Test 11/09/24 04:57 11/08/24 23:19 Range/Units Activated Partial Thromboplast Time 33.9 # 26.3-35.5 SEC Prothrombin Time 11.5 9.6-11.6 SEC Prothromb Time International Ratio 1.09 0.85-1.15 DIAGNOSTICS / RADIOLOGY RESULTS: [ ] PLAN Patient to undergo ANDRES today Will follow results continue with supplemental oxygen Gentle diuresis Avoid fluid overload Telemetry monitoring NEURO: Minimize central acting medications as possible. Maintain fall precautions, adequate lighting during the day PULMONARY: Supplemental 02 as needed. Maintain aspiration precautions at all times CARDIOVASCULAR: Follow hemodynamics. Vital signs per facility protocol GI & NUTRITION: Continue with nutritional support. Continue stool softeners and laxatives as needed. KIDNEYS & ELECTROLYTES: Strict monitoring of intake, output and overall fluid balance. Avoid nephrotoxic medications to the extent possible. Medications to be dosed according to renal function. Monitor electrolytes and replace as needed ENDOCRINE: Maintain blood glucose between 100-180 at all times. Hypoglycemia protocol in place INFECTIOUS DISEASE: Trend temperature, WBC and procalcitonin level Follow cultures, deescalate antibiotics as soon as possible. Panculture if new onset fever ONCOLOGY/HEMATOLOGY/COAGULATION: Monitor for s/s of bleeding Monitor hemoglobin, coagulation studies as needed SKIN: Pressure ulcer prevention per facility protocol Specialty mattress ORTHO/REHAB: Continue PT/OT Prophylaxis: Continue GI and DVT prophylaxis Code Status: Full Resuscitation Disposition: TBD Other: Total patient care time exceeds 35 minutes excluding all procedures. JOYCE RAMESH Nov 10, 2024 12:55
--- NOTE | 2024-11-10 13:06 | PN ---
INFECTIOUS DISEASE PROGRESS NOTE Date of Service: Nov 10, 2024 SUBJECTIVE: This 64 year old male patient is being seen today at bedside. Awake, alert and oriented. No fever or chills. Denies chest pain or shortness of breath. Patient is laying in bed, calm. He completed Alteplase treatment and currently on heparin drip. We continue to follow patient closely. Antibiotics has been completed. PHYSICAL EXAM EYES: Anicteric. Pupils equal and reactive. HENT: No oral thrush seen, moist Oral mucosa NECK: Supple, no JVD or thyromegaly. LUNGS: crackles present no wheezing CARDIOVASCULAR: S1, S2 regular. No murmur heard. ABDOMEN: Soft, non tender, bowel sounds present, no organomegaly CENTRAL NERVOUS SYSTEM: Awake, alert, oriented x 3. No focal deficits. SKIN: No rashes, no swelling. LYMPHATICS: No peripheral lymphadenopathy MUSCULOSKELETAL: No joint swelling, erythema or tenderness. EXTREMITIES: No cyanosis or clubbing BACK: No deformity, no pressure ulcer. GENITOURINARY: No dysuria or hematuria Vital Sign (Last 12 Hours) 11/10/24 11/10/24 11/10/24 11/10/24 01:41 02:41 03:41 04:12 Pulse 87 86 75 Resp 22 21 22 B/P (MAP) 123/74 (90) 107/68 (81) 94/57 (69) Pulse Ox 91 91 96 97 O2 Delivery Nasal Cannula* O2 Flow Rate 2 FiO2 28 11/10/24 11/10/24 11/10/24 04:41 06:46 06:47 Pulse 81 78 78 Resp 25 20 20 B/P (MAP) 96/61 (73) Pulse Ox 92 O2 Delivery N/Cannula Low lpm O2 Flow Rate 2.0 FiO2 28 Intake & Output (last 24hrs) 0 11/09/24 11/09/24 11/10/24 15:00 23:00 07:00 Intake Total 1334.7 ml 106.4 ml Output Total 800 ml 500 ml Balance 534.7 ml -393.6 ml LABS: Laboratory: Test 11/10/24 11:59 11/10/24 04:43 11/09/24 04:57 11/08/24 23:19 Range/Units Hemoglobin 8.9 L 14.0-18.0 g/dL Hematocrit 27.3 L 42-54 % White Blood Count 8.2 4.8-10.8 K/uL Red Blood Count 2.93 L 4.50-6.20 MIL/uL Mean Corpuscular Volume 87.4 79-99 fL Mean Corpuscular Hemoglobin 28.3 27.0-33.0 pg Mean Corpuscular Hemoglobin Concent 32.4 32.0-36.0 g/dL Red Cell Distribution Width 14.4 11.0-15.5 % Platelet Count 247 130-400 K/uL Mean Platelet Volume 9.0 7.5-10.5 fL Immature Granulocyte % (Auto) 1.2 H 0-1 % Neutrophils (%) (Auto) 70.1 40.0-77.0 % Lymphocytes (%) (Auto) 14.3 L 21.0-51.0 % Monocytes (%) (Auto) 9.1 3.0-13.0 % Eosinophils (%) (Auto) 4.8 0.0-8.0 % Basophils (%) (Auto) 0.5 0.0-5.0 % Neutrophils # (Auto) 5.7 1.8-7.7 K/uL Lymphocytes # (Auto) 1.2 1.0-4.8 K/uL Monocytes # (Auto) 0.7 0.1-1.0 K/uL Eosinophils # (Auto) 0.39 0.00-0.70 K/uL Basophils # (Auto) 0.04 0.00-0.20 K/uL Absolute Immature Granulocyte (auto 0.10 0-1 K/uL Nucleated Red Blood Cells 0.0 0.0-0.19 % Sodium Level 141 136-145 mmol/L Potassium Level 4.0 3.5-5.1 mmol/L Chloride Level 107 101-111 mmol/L Carbon Dioxide Level 29 21-32 mmol/L Blood Urea Nitrogen 13 7-18 mg/dL Creatinine 0.8 0.5-1.3 mg/dL Glomerular Filtration Rate Calc 98 >90 mL/min Random Glucose 95 70-105 mg/dL Total Calcium 8.3 L 8.5-10.1 mg/dL Magnesium Level 2.00 1.80-2.40 mg/dL Total Bilirubin 0.4 0.2-1.0 mg/dL Aspartate Amino Transf (AST/SGOT) 44 H 10-37 U/L Alanine Aminotransferase (ALT/SGPT) 29 12-78 U/L Alkaline Phosphatase 70 50-136 U/L Total Protein 5.4 L 6.0-8.3 g/dL Albumin 2.1 L 3.5-5.0 g/dL Activated Partial Thromboplast Time 33.9 # 26.3-35.5 SEC Procalcitonin 0.08 0.05-0.5 ng/mL Prothrombin Time 11.5 9.6-11.6 SEC Prothromb Time International Ratio 1.09 0.85-1.15 DIAGNOSTICS / RADIOLOGY: CR Chest, 1 View. CLINICAL HISTORY: please assess for any wrsening infiltrates, PNA COMPARISON: None provided. FINDINGS: LUNGS: Improved right sided infiltrate. Resolving pneumonia. Continue follow-up recommended PLEURAL SPACES: No pleural effusion or pneumothorax. MEDIASTINUM: Cardiac size and mediastinal contours within normal limits. BONES: No acute osseous abnormality. IMPRESSION: Improved right sided infiltrate. Resolving pneumonia. Continue follow-up recommended /Binger REASON: picc line placement ORDERING PHYSICIAN: ALICIA LUCIANO PROCEDURE: CXR1VW - CHEST 1VW EXAM: CR Chest, 2 View. CLINICAL HISTORY: picc line placement COMPARISON: X-ray chest 11/02/2024 FINDINGS: Multifocal airspace opacities bilaterally right greater than left. Persistent small right-sided pleural effusion. MEDIASTINUM: The cardiomediastinal silhouette is within normal limits. Changes of median sternotomy Interval placement of right PICC line catheter whose tip is in appropriate position projecting within the junction of the SVC and right atrium BONES: No acute osseous abnormality. IMPRESSION: 1. Multifocal airspace opacities bilaterally, right greater than left 2. Small right pleural effusion 3. Right PICC line tip appropriately positioned at SVC-right atrial junction -- --------- PATIENT: TIMUR DELGADILLO ACCT: [id number] LOC: [facility]: [id number] AGE/SX: 64/M ROOM: 227 RE10/31/[address]: MARGARITA BILL MD : 1960 BED: 1 DIS: STATUS: ADM IN TLOC: SPEC: [id number] CATRACHO: 11/01/24 STATUS: COMP REQ: [id number] RECD: 11/01/24-[address]: KENIA AMANDA SOURCE: SPUTUM ENTR: 10/31/[address] [facility] [address]: CHARU KILPATRICK MD SPDESC: JACKO MARK FITZPATRICK MD, ASHISH MD SELF,REFERRAL ANTONINO DIANE MD ORDERED: RESP CULTURE Procedure Result Cecy Date-Time GRAM STAIN Final 11/01/24-2140 MRL GRAM STAIN RESULT: GOOD SPECIMEN [ <10 SEC's/LPF and >25 PMN's/LPF ] FEW GRAM NEGATIVE RODS RARE GRAM POSITIVE COCCI RESPIRATORY CULTURE Final 11/03/24-1056 [facility] DESCRIPTION: REPORT 1: 2+ ORAL HAKEEM ; STUDIES TO CONTINUE REPORT 2: NORMAL ORALPHARYNGEAL HAKEEM Test(s) performed by: [facility] [address] [place] [address] @ [facility] Test Performed at: [facility] [address], [place], [place] Medical Voucher Examiner: Ignacio Salcido D.O. ASSESSMENT: * Multifocal pneumonia. * Severe sepsis. * Hypoxic respiratory failure. * Supratherapeutic INR. * Elevated troponin may be due to demand ischemia. * Anemia. * leukocytosis, improved PLAN: * D/C vancomycin. * D/C cefepime. * D/C doxycycline. * D/C Flagyl.. * Continue nutritional support. * Monitor electrolytes. * The patient will be followed up closely. * follow Cardiology recommendations * Continue PT * continue oxygen This case has been discussed with my supervising physician DR. Kilpatrick. The case has been discussed and agreed upon. YESSICA GASCA [facility] Nov 10, 2024 13:06
--- NOTE | 2024-11-10 19:59 | PN ---
CARDIOLOGY Reason for consult: Mechanical Aortic Valve HPI/story at presentation: This is a pleasant 64-year-old male with past medical history significant for mechanical aortic valve placed in 1993, chronic warfarin use initially presented to the emergency department due to hemoptysis, cough, chills and blood noted in his right ear. Patient also reports he sustained a fall injury approximately 12 days ago in [place]. Denies any syncope episode. Her warfarin dose accordingly the patient is warfarin 5 mg daily other than on Thursday and Thursday when he takes 7.5 mg daily. Patient also found to be febrile with a temperature of 101.3. Initial blood pressure 83/42. sepsis protocol was started. INR results show greater than 8. Patient was administered vitamin K 10 mg IV and is scheduled to receive 2 units of FFP. High sensory troponin at 299. Patient was also found to have bilateral pneumonia 11/01/2024 patient was seen and evaluated at bedside in the ICU No episodes of bleeding has been reported since yesterday Repeat INR today is 1.14 Past medical history: See below Allergies, Meds See chart Review of systems Review of Systems Constitutional: + for chills and fever. HENT: + for right ear bloody discharge and ear pain. Eyes: Negative for photophobia and discharge. Respiratory: + for cough, sputum production and stridor. + hemoptysis Cardiovascular: Negative for chest pain and palpitations. Gastrointestinal: Negative for diarrhea and vomiting. Genitourinary: Negative for frequency. Musculoskeletal: Negative for myalgias. Skin: Negative for rash. Neurological: Negative for focal weakness and seizures. Endo/Heme/Allergies: Negative for polydipsia. Psychiatric/Behavioral: Negative for hallucinations. Vitals see chart PHYSICAL EXAMINATION GENERAL: The patient is alert and oriented*3, ill appearing HEENT: Nonicteric sclerae, non traumatic HEART: Regular rate and rhythm with no murmurs, 3/6 systolic murmur to 2nd ICS LUNGS: Diminished to auscultation bilaterally ABDOMEN: No acute issues, non tender GENITAL, RECTAL: deferred SKIN: No rash NEUROLOGIC: NFND EXTREMITIES: No edema ASSESSMENT SUPRATHERAPEUTIC INR INR GREATER THAN 8 Currently or warfarin Reports hemoptysis and bloody drainage from right ear AORTIC VALVE REPLACEMENT Mechanical INR was subtherapeutic at presentation CORE MEASURES Not applicable OTHER MEDICAL PROBLEMS Reviewed PLAN 10/31/2024 will order echocardiography to examine aortic valve. Patient is currently pending CT of the head and chest due to recent fall and supratherapeutic INR Continue with FFP infusion with plans for repeat INR 11/01/2024 patient's INR today is 21.14. No new episodes Of bleeding heavy reported Patient will need to be restarted on his oral Coumadin but will start patient on IV heparin and moderate for bleeding Patient's hemoglobin today is currently at 8.1 We will wait to start IV heparin drip tomorrow in repeat H&H in the morning 11/02/2024 Hemoglobin remains stable Currently pending PICC line Will start IV heparin drip without bolus once PICC line in place If no issues with bleeding and hgb remains stable, will start oral warfarin tomorrow 11/03/2024 ANDRES attempted today was terminated early because of nosebleeds and patient's overall elevated gag reflex in spite of numbing of his throat. Sedation also had to be reduced given respiratory status. Fluoroscopy was done to evaluate the aortic valve which appears to be moving appropriately. However, this does not exclude smaller clots in the aortic valve. ANDRES may eventually be required once diuresis is complete. Will attempt again with anesthesia support. Will periodically follow-up on aortic gradients in the meantime until diuresis is complete. If there is a thrombosis of the aortic valve which is suspected on the basis of gradients, patient remains at risk for a stroke. Overall difficult situation. Seen and examined 11/03/2024 multiple times. 11/04/2024 clinically, appears improved, edema is better, shortness of breath is better although, still fairly short of breath, will proceed with a transthoracic echo to assess for gradients tomorrow. Depending on that, we will decide on future ANDRES's if indicated. Continue diuresis, renal function stable, remains on heparin. Seen and examined 825 around 7:30 PM 11/05/2024 no active cardiac complaints at this time, breathing better, remains IV diuresis. Repeat aortic valve gradients are still elevated greater than 5 m/s close to 6. Suspicion for possible thrombus/pannus of the aortic valve leaflets. they were moving appropriately under fluoroscopy. Will attempt ANDRES again on Thursday under anesthesia support. Remains on heparin. No strokelike features. Continue neurochecks. Once anesthetic risk is lower after diuresis, will proceed with ANDRES. Seen and examined in 925 around 4:30 PM 11/06/2024 plan for ANDRES tomorrow, valve gradient still significantly elevated close to 5.8 meters per second. N.p.o. after midnight, will proceed with ANDRES tomorrow with anesthesia support. Multiple questions regarding the procedure answered. Risk benefits addressed. Clinically, appears to be improved, was able to ambulate in the hallway today. Seen and examined 11/06/2024 around 3 PM. 11/07/2024 ANDRES completed today with no clinical evidence of thrombus. Possible pannus formation noted with thickening of the mechanical valve leaflets. This may be contributing to the elevated gradients. Will discuss with CV surgery before further recommendations. Seen and examined 11/07/2024 at around 1:30 PM. 11/08/2024 Doing better, feels that his volume status and breathing has improved. Still continues to have occasional issues with a cough. No bleeding, hemoglobin stable. Most recent aortic valve gradients are still elevated. Discussed with CVT surgery locally as well as with [place]. Conservative management recommended for the valve and potential trial of thrombolytics was discussed. This would be the patient's third open heart surgery if needed and risk is high. No definite thrombus was noted on ANDRES, however, layered thrombus in the setting of a thickened valve cannot be ruled out in addition to the pannus. Discussed with the patient and after extensive conversation about risk and benefit, plans to attempt thrombolytics tomorrow. Will get him on the ultra slow low-dose infusion of thrombolytics to help with the valve. Patient did have a recent issue with bleeding with supratherapeutic INR including pulmonary and nosebleeds and alsod uring a ANDRES recently. Given this, bleeding risk is elevated and intracranial bleeding risk was also discussed. After extensive conversation with the patient and the daughter, they do want to attempt an trial of thrombolytics to see if this helps with the gradients. Will transfer to the ICU. Will need to stop heparin and then consider thrombolytics when PTT is in target. Seen and examined 11/08/2024 at around 7 PM. 11/09/2024 Patient has been doing overall well with the current regimen of IV thrombolytics. Will go ahead and start heparin after thrombolytics is complete. This will be a 25-hour infusion. Post heparin, will get another echocardiogram to reassess velocities. Discussed with patient. Seen and examined 11/09/2024 around 7 PM 11/10/24 Thrombolytics were completed this morning and patient had heparin infusion subsequently that is currently on board. Repeat echocardiogram at bedside with improvement in velocities across the valve, 4 m/s. This is close to the velocities that he had prior to this admission. At this point, plan is to continue anticoagulation. At least in the short-term, patient prefers to be on Lovenox instead of anticoagulation with Coumadin. Will do Lovenox tonight after he comes off heparin. Seen and examined 11/10/2024 at around 1930 ATTESTATION I was involved substantially in the care of this patient Number and complexity of problems addressed: 1 acute illness that is a threat to life or bodily function Amount and or complexity of data Review of prior external note(s) from each unique source: 2+ Ordering of each unique test : 2 Review of the result(s) of each unique test: 2+ Assessment requiring an independent historian(s): No Independent interpretation of test performed by another MD/QHCP/appropriate source (not separately reported) : No Discussion of management or test interpretation with external MD/QHCP/appropriate source (not separately reported) : No Risk status (cardiac, billing related):High Vitals/Labs Vital Signs Date Time Temp Pulse Resp B/P (MAP) Pulse Ox O2 Delivery O2 Flow Rate FiO2 11/10/24 19:22 80 20 N/A Room Air 21 11/10/24 16:00 98.2 116/72 11/10/24 12:00 96 0 Laboratory Tests 11/09/24 23:49 11/10/24 04:43 11/10/24 11:59 Medications Current Medications Vancomycin HCl 1 each AD IV; Start 10/31/24 at 12:30; Stop 11/08/24 at 22:21; Status DC Piperacillin Sod/ Tazobactam Sod 3.375 gm ONCE ONCE IV Last administered on 10/31/24at 12:43; Start 10/31/24 at 12:30; Stop 10/31/24 at 12:41; Status DC Sodium Chloride 1,000 ml @ 0 mls/hr ONCE ONCE IV Last administered on 10/31/24at 12:43; Start 10/31/24 at 12:30; Stop 10/31/24 at 12:41; Status DC Vancomycin HCl 500 ml @ 250 mls/hr ONCE ONCE IV Last administered on 10/31/24 13:57; Start 10/31/24 at 13:00; Stop 10/31/24 at 14:59; Status DC Vancomycin HCl 250 ml @ 125 mls/hr Q12H IV Last administered on 11/05/24at 13:36; Start 11/01/24 at 01:30; Stop 11/05/24 at 14:11; Status DC Sodium Chloride 1,983 ml @ 661 mls/hr ONCE ONCE IV Last administered on 10/31/24at 13:12; Start 10/31/24 at 13:00; Stop 10/31/24 at 15:59; Status DC Phytonadione 10 mg/Sodium Chloride 51 ml @ 100 mls/hr ONCE ONCE IVPB Last administered on 10/31/24at 13:12; Start 10/31/24 at 13:00; Stop 10/31/24 at 13:30; Status DC Morphine Sulfate 2 mg ONCE ONCE IVP Last administered on 10/31/24at 13:20; Start 10/31/24 at 13:30; Stop 10/31/24 at 13:31; Status DC Ondansetron HCl 4 mg ONCE ONCE IVP Last administered on 10/31/24at 13:20; Start 10/31/24 at 13:30; Stop 10/31/24 at 13:31; Status DC Pantoprazole Sodium 40 mg Q12H IVP Last administered on 11/10/24at 13:37; Start 10/31/24 at 14:00; Stop 11/30/24 at 13:59 Acetaminophen 650 mg Q6H PRN PO Last administered on 10/31/24at 17:32; Start 10/31/24 at 14:00; Stop 11/30/24 at 13:59 Ondansetron HCl 4 mg Q6H PRN IVP Last administered on 11/03/24at 08:38; Start 10/31/24 at 14:00; Stop 11/30/24 at 13:59 Sodium Chloride 1,000 ml @ 75 mls/hr [id number] IV Last administered on 11/01/24at 03:31; Start 10/31/24 at 14:00; Stop 11/02/24 at 21:00; Status DC Cefepime HCl 2 gm Q12H IVPB Last administered on 11/07/24at 17:29; Start 10/31/24 at 18:00; Stop 11/08/24 at 07:36; Status DC Doxycycline Hyclate 250 ml @ 125 mls/hr BID IV Last administered on 11/10/24at 09:07; Start 10/31/24 at 14:00; Stop 11/10/24 at 13:59; Status DC Metronidazole/ Sodium Chloride 100 ml @ 100 mls/hr Q8H6 IVPB Last administered on 11/10/24at 13:37; Start 10/31/24 at 21:00; Stop 11/10/24 at 20:59 Albuterol 1 udvial Q6H PRN IH Last administered on 11/08/24at 06:34; Start 10/31/24 at 14:30; Stop 11/30/24 at 14:29 Budesonide 0.5 mg BIDRESP IH Last administered on 11/10/24at 06:44; Start 10/31/24 at 18:00; Stop 11/30/24 at 17:59 Iohexol 75 ml STK-MED ONCE IV; Start 10/31/24 at 14:53; Stop 10/31/24 at 14:54; Status DC Tranexamic Acid 500 mg [id number] IJ Last administered on 11/01/24at 23:57; Start 10/31/24 at 15:30; Stop 11/02/24 at 11:02; Status DC Morphine Sulfate 2 mg Q6H PRN IVP Last administered on 11/02/24at 06:33; Start 10/31/24 at 19:00; Stop 11/02/24 at 10:03; Status DC Sodium Chloride 4 ml STK-MED ONCE IH Last administered on 10/31/24at 22:46; Start 10/31/24 at 22:37; Stop 10/31/24 at 22:38; Status DC Magnesium Sulfate 50 ml @ 0 mls/hr PROTOCOL PRN IV Last administered on 11/09/24at 05:55; Start 11/01/24 at 08:00; Stop 12/01/24 at 07:59 Morphine Sulfate 2 mg ONCE ONCE IVP Last administered on 11/01/24at 08:21; Start 11/01/24 at 08:30; Stop 11/01/24 at 08:31; Status DC Sodium Chloride 4 ml STK-MED ONCE IH; Start 11/01/24 at 10:49; Stop 11/01/24 at 10:50; Status DC Morphine Sulfate 2 mg Q4H PRN IVP Last administered on 11/07/24at 08:57; Start 11/02/24 at 10:30; Stop 11/07/24 at 13:29; Status DC Heparin Sodium/ Dextrose 250 ml @ 0 mls/hr Q6H IV Last administered on 11/06/24at 15:25; Start 11/02/24 at 21:00; Stop 11/09/24 at 09:10; Status DC Pharmacy Profile Note 1 each ONCE MISC; Start 11/02/24 at 13:30; Stop 11/02/24 at 13:15; Status DC Midazolam HCl 4 mg ONCE ONCE IVP Last administered on 11/03/24at 13:04; Start 11/03/24 at 12:00; Stop 11/03/24 at 12:01; Status DC Fentanyl Citrate 100 mcg ONCE ONCE IVP Last administered on 11/03/24at 13:05; Start 11/03/24 at 12:00; Stop 11/03/24 at 12:01; Status DC Lidocaine HCl 15 ml ONCE ONCE PO Last administered on 11/03/24at 12:06; Start 11/03/24 at 12:00; Stop 11/03/24 at 12:01; Status DC Potassium Chloride 100 ml @ 50 mls/hr AD PRN IV Last administered on 11/09/24at 05:56; Start 11/03/24 at 12:00; Stop 12/03/24 at 11:59 Potassium Chloride 100 ml @ 100 mls/hr AD PRN IV; Start 11/03/24 at 12:00; Stop 11/04/24 at 17:15; Status DC Potassium Chloride 20 meq AD PRN PO Last administered on 11/05/24at 13:13; Start 11/03/24 at 12:00; Stop 12/03/24 at 11:59 Potassium Chloride 20 meq AD PRN PO Last administered on 11/08/24at 01:49; Start 11/03/24 at 12:00; Stop 12/03/24 at 11:59 Furosemide 40 mg ONCE ONCE IV Last administered on 11/03/24at 14:33; Start 11/03/24 at 12:30; Stop 11/03/24 at 12:31; Status DC Furosemide 20 mg BID IV Last administered on 11/04/24at 10:02; Start 11/04/24 at 09:00; Stop 11/05/24 at 06:14; Status DC Clonazepam 2 mg ONCE ONCE PO Last administered on 11/04/24at 10:02; Start 11/04/24 at 09:00; Stop 11/04/24 at 09:01; Status DC Clonazepam 2 mg HS PO; Start 11/04/24 at 21:00; Stop 11/04/24 at 11:13; Status DC Clonazepam 2 mg HS PO Last administered on 11/10/24at 00:00; Start 11/05/24 at 21:00; Stop 12/05/24 at 20:59 Melatonin 10 mg ONCE ONCE PO Last administered on 11/04/24at 20:37; Start 11/04/24 at 21:30; Stop 11/04/24 at 21:31; Status DC Digoxin 125 mcg ONCE ONCE IV Last administered on 11/05/24at 01:44; Start 11/05/24 at 01:30; Stop 11/05/24 at 01:39; Status DC Furosemide 20 mg Q12H IV Last administered on 11/08/24at 17:46; Start 11/05/24 at 06:30; Stop 12/05/24 at 06:29; Status Hold Vancomycin HCl 250 ml @ 125 mls/hr Q12H IV Last administered on 11/08/24at 13:28; Start 11/06/24 at 01:30; Stop 11/08/24 at 22:21; Status DC Phenylephrine HCl 10 mg STK-MED ONCE IV; Start 11/07/24 at 12:29; Stop 11/07/24 at 12:30; Status DC Ephedrine Sulfate 50 mg STK-MED ONCE .ROUTE; Start 11/07/24 at 12:29; Stop 11/07/24 at 12:30; Status DC Propofol 200 mg STK-MED ONCE IV; Start 11/07/24 at 12:29; Stop 11/07/24 at 12:30; Status DC Propofol 200 mg STK-MED ONCE IV; Start 11/07/24 at 12:30; Stop 11/07/24 at 12:30; Status DC Cefepime HCl 2 gm Q12H IVPB Last administered on 11/09/24at 20:35; Start 11/08/24 at 08:00; Stop 11/10/24 at 08:00; Status DC Morphine Sulfate 2 mg Q4H PRN IVP Last administered on 11/10/24at 13:37; Start 11/08/24 at 21:00; Stop 11/15/24 at 20:59 Pharmacy Profile Note 1 each ONCE MISC; Start 11/09/24 at 04:00; Stop 11/09/24 at 07:07; Status DC Alteplase, Recombinant 8.33 mg/Sodium Chloride 100 ml @ 10 mls/hr PROTOCOL IVCATH; Start 11/09/24 at 06:00; Stop 11/09/24 at 06:16; Status DC Alteplase, Recombinant 10 mg/ Sodium Chloride 100 ml @ 10 mls/hr PROTOCOL IVCATH Last administered on 11/09/24at 06:26; Start 11/09/24 at 06:30; Stop 11/09/24 at 16:29; Status DC Alteplase, Recombinant 7.5 mg/Sodium Chloride 100 ml @ 13.333 mls/ hr PROTOCOL IVCATH Last administered on 11/10/24at 02:19; Start 11/09/24 at 16:30; Stop 11/10/24 at 08:41; Status DC Lidocaine 1 each DAILY TP Last administered on 11/10/24at 09:06; Start 11/09/24 at 16:00; Stop 12/09/24 at 15:59 Heparin Sodium (Porcine) 6,000 unit ONCE ONCE IV Last administered on 11/10/24at 09:09; Start 11/10/24 at 09:00; Stop 11/10/24 at 09:02; Status DC Heparin Sodium (Porcine) *calculation based on ACTUAL B... AD PRN IV; Start 11/10/24 at 09:30; Stop 12/10/24 at 09:29 Heparin Sodium/ Dextrose 250 ml @ 0 mls/hr Q6H IV Last administered on 11/10/24at 09:09; Start 11/10/24 at 09:30; Stop 12/10/24 at 09:29 ANTONINO DIANE MD Nov 10, 2024 19:58
[2024-11-10] MEDS: ENOXAPARIN SODIUM 120 MG/0.8ML SQ ONE (23:51)
[2024-11-11] VITALS (12 sets, daily range): BP systolic 106–117; BP diastolic 63–71; PULSE 77–92; RESP 16–50; TEMP 97.9–98.2; O2SAT 96–98
[2024-11-11 04:48] LABS: NUCLEATED RED BLOOD CELLS 0.0 % (0.0-0.19); PLATELET COUNT (AUTO) 294.0 K/uL (130-400); RED BLOOD CELL COUNT(AUTO) 3.11 MIL/uL (4.50-6.20); RED CELL DISTRIBUTION WIDTH 14.2 % (11.0-15.5); WHITE BLOOD COUNT (AUTO) 8.6 K/uL (4.8-10.8)
[2024-11-11 05:35] LABS: ASPARTATE AMINOTRANSFERASE 43.0 U/L (10-37); CREATININE 0.7 mg/dL (0.5-1.3); GLOMERULAR FILTR. RATE CALC 102.0 mL/min (>90); GLUCOSE,RANDOM 96.0 mg/dL (70-105); SODIUM SERUM 141.0 mmol/L (136-145); TOTAL PROTEIN, SERUM 5.7 g/dL (6.0-8.3); UREA NITROGEN, BLOOD 13.0 mg/dL (7-18)
--- NOTE | 2024-11-11 07:05 | NUR ---
2100 - dr. raymundo at bedside, did echo on pt, stated no thrombus D/C heparin, start lovenox 110 mg BID, ptt okay int he 40s labs okay today. as per breanne he will go home on lovenox sub q pt aware, knows how to inject self and is familiar with treatment.
--- NOTE | 2024-11-11 08:30 | NUR ---
pt was informed and educated about the importance of having a chair alarm while sitting on cardiac chair, as per pt he understands the risks and voices understanding of the need for chair alarm, as per pt refuses chair alarm and signed refusal consent.
[2024-11-11] MEDS ORDERED: ENOXAPARIN SODIUM 120 MG/0.8ML SQ SCH (09:00)
--- NOTE | 2024-11-11 09:40 | NUR ---
Dr Ignacio Ackerman was updated on patient status Dr Ackerman spoke to patient about possible discharge today if Dr boykin clears patient for home discharge Pending insurance approval for lovenox medication case management has been consulted about the situation of the medication
--- NOTE | 2024-11-11 09:47 | NUR ---
[facility] ICU Skin Assessment: Patient assessed by wound healing team. Patient with no wounds or skin breakdown noted. Assessment and recommendations provided to primary nurse. Education provided. Addendum: 11/11/24 at 1107 by CANDE CHINCHILLA RN RN/ Amended: Links added.
--- NOTE | 2024-11-11 10:22 | NUR ---
PER PT " I HAVE 6 DAYS OF COMPLETE DOSES OF LOVENOX AT HOME, PLUS 1 REFILL OF 20 MORE DAYS OF LOVENOX, WILL FOLLOW UP WITH DR. SHELTON FOR FURTHER REFILLS." DR. DICKEY MADE AWARE OF PT DENIED NEED FOR LOVENOX PRESCRIPTION DUE TO HAVING MEDICATION AT HOME. DR. NAJERA PAGED AT THIS TIME FOR CLEARANCE TO BE DC HOME, PENDING FURTHER ORDERS.
--- NOTE | 2024-11-11 10:31 | NUR ---
PT HOME LOVENOX EXPIRATION TO BE December. DR. AYALA AWARE AND CLEARED PT FOR DC.
[2024-11-11] MEDS ORDERED: LIDO1ADH71 TP (10:58)
[2024-11-11] MEDS ORDERED: FURO20TA4 PO (10:58)
--- NOTE | 2024-11-11 11:16 | NUR ---
pt was informed about discharge paperwork currently being done, follow up appointments with primary md and carpentry teacher, as per pt i can follow up with my primary md and carpentry teacher myself, no need to schedule any appointments, pt voices understanding and risks of missing any follow up appointments.
[2024-11-11] MEDS: ENOXAPARIN SODIUM 120 MG/0.8ML SQ SCH (11:31)
--- NOTE | 2024-11-11 11:48 | NUR ---
REVERIFIED CURRENT DOSE OF HOME LOVENOX WITH PT, PT ONLY HAS 100MG OF DOSES OF LOVENOX AT HOME, INFORMED PT THAT HE REQUIRES TO HAVE LOVENOX 110MG SUBQ BID PER DR. WEISS ORDERS. PAPER PRESCRIPTION GIVEN TO PATIENT FILLED BY DR. DICKEY, COPY PLACED IN CHART, VERIFIED WITH [facility] THAT PT IS ABLE TO FILL NEW PRESCRIPTION , PHARMACIST VOICED APPROVAL OF NEW LOVENOX PRESCRIPTION TO BE FILLED.
--- NOTE | 2024-11-11 12:10 | NUR ---
Patient safely discharged by wheel chair via private car, accompanied by family member, pt [id number]. no distress noted, vitals as charted, piccline removed , dressing applied, no bleeding nor hematoma noted, informed of all dc instructions as well as provided with physical prescription for lovenox 110mg subq bid. pt voiced understanding. pt voiced will make follow up appointments with primary md in 3 days and triage assistant in 1-2 weeks. all belongings taken with patient, non left behind.
--- NOTE | 2024-11-11 12:48 | PN ---
[facility] PROGRESS NOTE Date Patient Seen: Nov 11, 2024 Time of Visit: 12:40 Supervising Physician: Dr. Cardona Primary Care Physician: self referral Outpatient Specialists: Inpatient Consults: dr Awad, Dr Ej Vega PROBLEM LIST: Septic shock, resolved supra therapeutic INR secondary to Coumadin, resolved Acute hypoxemic respiratory failure, POA Suspected alveolar hemorrhage, improving Acute on chronic anemia secondary to blood loss, POA History of mechanical aortic valve, POA History of chronic anticoagulation with warfarin, POA Acute kidney injury, POA Demand ischemia, POA Obesity, POA INTERVAL HISTORY: Patient is seen bedside today, sitting up in his chair, the patient is on room air at this time her weight he denies any chest pain or shortness of breath. Patient continues on anticoagulation with the Lovenox at this time, he has completed his heparin drip per cardiology received bedside echocardiogram mostly which shows 4 m/s velocities indicating patient's baseline has been restored. Current plan is for the patient to discharge on Lovenox incentive acromion, cardiology recommending 110 mg b.i.d., patient currently known to have 100 mg doses in the Fridge. Nursing staff and case management working on clearing the patient for discharge with the primary team. Critical care services we will continue to follow the patient while he is admitted however he has been cleared for discharge from our perspective once confirmed doses has been sent to pharmacy. Patient denies any chest pain, no overnight events reported. REVIEW OF SYSTEMS: 12 point ROS reviewed with patient. Pertinent positives mentioned above. Otherwise negative. PHYSICAL EXAM: GENERAL: alert, weak, awake oriented x 3 HEENT: EOMI, Sclera non icteric, moist mucosa NECK: Supple, no JVD, trachea midline LUNGS: Decreased breath sounds bilaterally HEART: Regular rate and rhythm. Normal S1 and S2, without murmurs ABD: Abdomen obese soft, nontender. Bowel sounds present EXT: No clubbing cyanosis. Left forearm tenderness. Right shoulder swelling. BLE edema + NEURO: Alert and oriented to person, follows commands. Vital Signs (last 8hr) Date Time Temp Pulse Resp B/P (MAP) Pulse Ox O2 Delivery O2 Flow Rate FiO2 11/11/24 12:00 98 Room Air* 0 21 11/11/24 12:00 97.9 84 19 106/68 98 Room Air 11/11/24 10:30 98.2 85 18 117/70 100 Room Air 11/11/24 08:00 96 Nasal Cannula* 2 28 11/11/24 08:00 98.1 92 20 110/71 93 Nasal Cannula 2.0 11/11/24 06:32 78 20 N/Cannula Low lpm 2.0 28 11/11/24 05:00 88 50 100 LABS: Hematology Labs: Test 11/11/24 04:41 11/10/24 04:43 Range/Units White Blood Count 8.6 4.8-10.8 K/uL Red Blood Count 3.11 L 4.50-6.20 MIL/uL Hemoglobin 8.8 L 14.0-18.0 g/dL Hematocrit 26.7 L 42-54 % Mean Corpuscular Volume 85.9 79-99 fL Mean Corpuscular Hemoglobin 28.3 27.0-33.0 pg Mean Corpuscular Hemoglobin Concent 33.0 32.0-36.0 g/dL Red Cell Distribution Width 14.2 11.0-15.5 % Platelet Count 294 130-400 K/uL Mean Platelet Volume 8.9 7.5-10.5 fL Nucleated Red Blood Cells 0.0 0.0-0.19 % Immature Granulocyte % (Auto) 1.2 H 0-1 % Neutrophils (%) (Auto) 70.1 40.0-77.0 % Lymphocytes (%) (Auto) 14.3 L 21.0-51.0 % Monocytes (%) (Auto) 9.1 3.0-13.0 % Eosinophils (%) (Auto) 4.8 0.0-8.0 % Basophils (%) (Auto) 0.5 0.0-5.0 % Neutrophils # (Auto) 5.7 1.8-7.7 K/uL Lymphocytes # (Auto) 1.2 1.0-4.8 K/uL Monocytes # (Auto) 0.7 0.1-1.0 K/uL Eosinophils # (Auto) 0.39 0.00-0.70 K/uL Basophils # (Auto) 0.04 0.00-0.20 K/uL Absolute Immature Granulocyte (auto 0.10 0-1 K/uL Chemistry Labs: Test 11/11/24 04:41 Range/Units Sodium Level 141 136-145 mmol/L Potassium Level 4.2 3.5-5.1 mmol/L Chloride Level 106 101-111 mmol/L Carbon Dioxide Level 31 21-32 mmol/L Blood Urea Nitrogen 13 7-18 mg/dL Creatinine 0.7 0.5-1.3 mg/dL Glomerular Filtration Rate Calc 102 >90 mL/min Random Glucose 96 70-105 mg/dL Total Calcium 8.4 L 8.5-10.1 mg/dL Magnesium Level 2.00 1.80-2.40 mg/dL Total Bilirubin 0.3 # 0.2-1.0 mg/dL Aspartate Amino Transf (AST/SGOT) 43 H 10-37 U/L Alanine Aminotransferase (ALT/SGPT) 32 12-78 U/L Alkaline Phosphatase 71 50-136 U/L Total Protein 5.7 L 6.0-8.3 g/dL Albumin 2.2 L 3.5-5.0 g/dL Coagulation Labs: Test 11/10/24 21:18 Range/Units Activated Partial Thromboplast Time 47.0 #H 26.3-35.5 [facility]ST[facility] / RADIOLOGY RESULTS: [ ] PLAN Patient to undergo ANDRES today Will follow results continue with supplemental oxygen Gentle diuresis Avoid fluid overload Telemetry monitoring NEURO: Minimize central acting medications as possible. Maintain fall precautions, adequate lighting during the day PULMONARY: Supplemental 02 as needed. Maintain aspiration precautions at all times CARDIOVASCULAR: Follow hemodynamics. Vital signs per facility protocol GI & NUTRITION: Continue with nutritional support. Continue stool softeners and laxatives as needed. KIDNEYS & ELECTROLYTES: Strict monitoring of intake, output and overall fluid balance. Avoid nephrotoxic medications to the extent possible. Medications to be dosed according to renal function. Monitor electrolytes and replace as needed ENDOCRINE: Maintain blood glucose between 100-180 at all times. Hypoglycemia protocol in place INFECTIOUS DISEASE: Trend temperature, WBC and procalcitonin level Follow cultures, deescalate antibiotics as soon as possible. Panculture if new onset fever ONCOLOGY/HEMATOLOGY/COAGULATION: Monitor for s/s of bleeding Monitor hemoglobin, coagulation studies as needed SKIN: Pressure ulcer prevention per facility protocol Specialty mattress ORTHO/REHAB: Continue PT/OT Prophylaxis: Continue GI and DVT prophylaxis Code Status: Full Resuscitation Disposition: TBD Other: Total patient care time exceeds 35 minutes excluding all procedures. JOYCE RAMESH Nov 11, 2024 12:48
--- NOTE | 2024-11-12 07:22 | DS ---
Discharge Summary Hospital Course Summary: Date of service November 11, 2024 The patient initially admitted to the hospital on October 31, 2024 with the following history of the present illness: 4-year-old male with prior history of mechanical aortic valve which was replaced in 1993 maintained on chronic outpatient anticoagulation with warfarin, obesity, who presented to the ER for further evaluation of hemoptysis, chills, cough, and blood noted in the right ear. Patient states that about 12 days ago, he was visiting in [place], he had a mechanical fall with no syncope, patient was evaluated in ER and was found to have a nondisplaced left forearm ulnar fracture along which was treated conservatively. Patient had a CT done which was noted to be negative per patient. Patient states that over the last two days, he noticed that he was having chills, and yesterday night, he started having hemoptysis. Today he noticed that he was having bloody drainage from the right ear. Denies any headache, denies any focal weakness of upper or lower extremities. Denies any neck pain. Denies any new recent fall other than 12 days ago in [place] Denies chest pain other than with cough. He has been having generalized fatigue and malaise over the last two days. Denies exposure to sick contacts. Due to the hemoptysis, patient did not take warfarin yesterday. Usually he is on warfarin 5 mg daily other than on Thursday and Thursday when he takes 7.5 mg daily. Patient denies significant smoking, denies significant alcohol consumption and denies any illicit drug use. On presentation to the hospital, patient was noted to be febrile with T-max of 101.3 F, heart rate of 79, blood pressure of 83/42. Patient was initially needing 6 L of O2 supplementation by nasal cannula. Labs on presentation showed PT INR greater than 8, PTT of 87.9, [place] [address] with neutrophilia, hemoglobin of 10.1, platelet count of 966213. BMP showed sodium of 140, potassium 4.7, chloride of 106, BUN of 23, creatinine of 1.4, high sensitivity troponin of 299. Chest x-ray showed large right lung pneumonia. Patient will be admitted to ICU for further management of severe sepsis with hypotension which is improving with fluid resuscitation. Patient will receive broad-spectrum IV antibiotics. Patient has received IV vitamin K 10 mg by ER team already. patient is also planned to receive 2 units of FFP. Patient is pending CT head, CT chest, abdomen and pelvis for further evaluation, we will follow up results. Patient will be followed by ICU service, Cardiology Infectious Disease. Condition remains serious/critical. HOSPITAL COURSE 11/01/24 patient was admitted for septic shock and hemoptysis with Coumadin toxicity today's INR improved significantly from 8-1.4 We will wait for security expert's if okay to resume. Patient appears acutely ill continue with broad-spectrum antibiotics tolerating. ID on board we will follow his recommendations. Patient is currently on nasal cannula to 3 L. We will be monitored closely in ICU. 11/02/2024 patient was seen earlier patient is lying in bed on room air we continue with broad-spectrum antibiotics tolerating reports no diarrhea. We continue to monitor INR. Encourage patient out of bed to chair as tolerated PT services we will be ordered. Denied chest pain palpitations dizziness. 11/03/24 patient is return back from pathology laboratory aides teacher echo ANDRES was done primary nurse reports patient started with nose bleed will get post procedure we will get a CBC now. Remains in heparin drip. We will monitor closely for any acute bleeding. 11/04/24 patient is lying in bed patient continues to require oxygen supplemental was started on Lasix IV 20 mg b.i.d. patient continues with physical therapy. Patient continues on heparin drip security expert's following we will appreciate his recommendations. Patient is tolerating broad-spectrum antibiotics wait for ID final recommendations 11/05/24 patient is lying in bed was sleeping awakened per verbal stimuli, the patient nurse reports patient has around the clock morphine reports elbow pain chronic. Patient went into AFib overnight converted normal sinus rhythm earlier this morning. Continues on heparin drip security expert's following we will follow his recommendations. tolerating antibiotics. 11/06/24 patient is lying in bed patient continues to require oxygen supplemental currently on 3 L. No fever no chills. No episodes of AFib. With RVR continues on heparin. Drip. 2D echo pending 11/07/2024 patient was seen earlier patient was awake alert oriented x3. Patient continues to complain of left elbow pain on pain management. Patient continues on oxygen supplemental encouraged patient to continue working with physical therapy, out of bed to chair with meals he verbalized understanding. We will wait for security expert's recommendations in compensation director's. He denies chest pain palpitation or dizziness. 11/08 patient is seen patient remains on oxygen supplemental 3 L. Dyspnea and orthopnea continues heparin drip. status post TEEno clinical evidence of thrombus. Possible pannus formation noted with thickening of the mechanical valve leaflets. This may be contributing to the elevated gradients. Will discuss with CV surgery before further recommendations. 11/09/24 patient was seen earlier patient is fully awake alert oriented x3. Patient continues with oxygen supplemental. The patient was started on Alteplase as per protocol for 24 hours. 11/10 patient is seen and examined at bedside, blood pressure 96/61, heart rate of 81, respiratory rate of 25, saturating 97% on 2 L nasal cannula, hemoglobin stable at 8.8, hematocrit 27.3, patient is status post ANDRES 11/07/2024, no clinical evidence of thrombus, possible pancreas formation noted with thickening of the mechanical valve leaflets contributing to elevated gradients. Layered thrombus in the setting of is taking valve can not be ruled out in addition to the prognosis. Cardiothoracic consultation requested by security expert and case was discussed. Patient is started on low-dose thrombolytic infusion. Patient with a recent bleeding secondary to supratherapeutic INR, including nosebleeds. Excessive discussion done with family members by Cardiology and they wished to proceed. Patient was upgraded to the ICU. Patient was started on alpha place. Today hemoglobin stable at 8.9, hematocrit 27.3. We will continue to follow Cardiology input and recommendation. 11/11 Thrombolytics were completed and patient had heparin infusion. Repeat echocardiogram at bedside with improvement in velocities across the valve, 4 m/s. This is close to the velocities that he had prior to this admission. At this point, plan is to continue anticoagulation. At least in the short-term, patient prefers to be on Lovenox instead of anticoagulation with Coumadin. Will do Lovenox tonight after he comes off heparin. AT THE TIME OF MY VISIT PATIENT ALERT ORIENTED X3, HEMODYNAMICALLY STABLE, NO SIGNS OF ACTIVE BLEEDING, HEMOGLOBIN STABLE, NO CHEST PAIN, NO SHORTNESS A BREATH, NO NAUSEA, NO VOMITING. PATIENT TO BE DISCHARGED HOME. Contract Implementation Analyst(s): CARDIOLOGY SERVICES Assessment/Plan: FINAL DIAGNOSIS Severe sepsis secondary to right lung community-acquired pneumonia, POA Acute hypoxemic respiratory failure, POA Bilateral Multifocal Pneumonia with R > L, POA Hypotension secondary to severe sepsis, resolving Hemoptysis, POA Right shoulder swelling with possible hematoma, POA Right ear otorrhea with blood, POA Acute on chronic anemia secondary to blood loss, POA Severely elevated supratherapeutic INR secondary to Coumadin use and possibly sepsis, POA hypercoagulable state secondary to Mechanical aortic value on Coumadin Therapy POA Coumadin Toxicity POA History of mechanical aortic valve, POA History of chronic anticoagulation with warfarin, POA Acute kidney injury, POA Demand ischemia, POA Recent history of left forearm ulnar nondisplaced fracture treated conservatively, POA Prior history of fall 12 days ago in [place], POA Obesity, POA Discharge Instructions: The patient to follow with Cardiovascular physician as an outpatient, advised to return to hospital if condition changes, patient agreed with plan and understood the information provided. Home Medications: Active Scripts Furosemide (Furosemide) 20 Mg Tablet, 1 TAB PO BID for 30 Days, #60 TAB 1 Refill Prov:VIC DICKEY MD 11/11/24 Lidocaine (Lidocaine Pain Relief) 4 % Adh..patch, 1 EACH TP DAILY for 30 Days, #30 ADH.PATCH 1 Refill Prov:VIC DICKEY MD 11/11/24 Albuterol Sulfate (Ventolin Hfa) 90 Mcg Hfa.aer.ad, 2 PUFF IH Q4HPRN PRN for wheezing for 30 Days, #18 GM 0 Refills Prov:TRISTEN BOYLE MD 07/14/24 Prednisone (Prednisone) 5 Mg Tablet, 1 TAB PO BID for 5 Days, #10 TAB 0 Refills Prov:TRISTEN BOYLE MD 07/14/24 Reported Medications Clonazepam (Clonazepam) 2 Mg Tab.rapdis, 1 TAB PO HS for 30 Days, #30 TAB 0 Refills 09/08/24 Discontinued Reported Medications Warfarin Sodium (Warfarin Sodium) 7.5 Mg Tablet, 7.5 MG PO AD, TAB 09/08/24 Warfarin Sodium (Warfarin Sodium) 5 Mg Tablet, 5 MG PO AD, TAB 09/08/24 Discontinued Scripts Enoxaparin Sodium (Lovenox 100Mg) 100 Mg/Ml Disp.syrin, 100 MG SQ BID for 10 Days, #20 DIS.SYR 1 Refill Prov:VIC DICKEY MD 09/12/24 Time spent arranging discharge: 31-60 minutes VIC DICKEY MD Nov 12, 2024 07:22
== END 2024-11-11 12:30 | disposition home or self-care (01) | DRG 871 ==
LOC: EDH 11:18 → EDHIP 13:40 → 2CH 16:40 → 2DH 11-01 14:48 → 2CH 11-08 23:41
PROVIDERS: ADMIT Internal Medicine; ATTEND Internal Medicine
PROC: 5A09357 Assistance with Respiratory Ventilation, Less than 24 Consecutive Hours, Continuous Positive Airway Pressure (ICD-10-PCS; principal; 2024-10-31)
PROC: 02HV33Z Insertion of Infusion Device into Superior Vena Cava, Percutaneous Approach (ICD-10-PCS; 2024-11-02)
PROC: B24BZZ4 Ultrasonography of Heart with Aorta, Transesophageal (ICD-10-PCS; 2024-11-03)
DX: A41.9 Sepsis, unspecified organism (principal); J18.9 Pneumonia, unspecified organism; J96.01 Acute respiratory failure with hypoxia; R65.21 Severe sepsis with septic shock; D62 Acute posthemorrhagic anemia; N17.9 Acute kidney failure, unspecified; I24.89 Other forms of acute ischemic heart disease; R04.2 Hemoptysis; H92.21 Otorrhagia, right ear; E66.9 Obesity, unspecified; G89.29 Other chronic pain; I25.10 Atherosclerotic heart disease of native coronary artery without angina pectoris; I48.91 Unspecified atrial fibrillation; T45.515A Adverse effect of anticoagulants, initial encounter; Z79.01 Long term (current) use of anticoagulants; Z95.2 Presence of prosthetic heart valve; Z79.899 Other long term (current) drug therapy; Y92.89 Other specified places as the place of occurrence of the external cause
CPT/HCPCS: 36415; 36569; 70450; 71045; 71260; 73030; 74177; 76000; 80048; 80053; 80076; 80202; 80305; 81001; 82140; 82550; 83735; 84132; 84145; 84484; 85014; 85018; 85025; 85027; 85378; 85384; 85610; 85651; 85730; 86140; 86632; 86738; 86850; 86900; 86901; 86927; 87040; 87071; 87086; 87205; 87449; 87635; 87804; 93005; 93308; 93312; 93325; 93356; 94640; 94660; 94664; 96374; 99291; C1894; G0378; J0692; J1160; J1644; J1650; J1938; J2250; J2270; J2371; J2405; J2470; J2543; J2704; J2997; J3010; J3430; J3475; J3480; J3490; J7030; P9017; Q9967; C1751; J3370